=== PATIENT | female | born 2000 | race Caucasian/White ===

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

== ENCOUNTER 2022-01-27 09:37 | Outpatient (CLI) | payer OTHER, SELFPAY ==
--- NOTE | 2022-01-27 | ECHO_ITS ---
Patient Info Name: Greyson Johnson Age: 21 years : 2000 Gender: Female Ht: 63 in Wt: 250 lbs BSA: 2.31 m2 HR: 117 bpm Heart Rhythm: Tachycardia Technical Quality: Fair Exam Date: 01/27/2022 10:21 AM Exam Location: [facility] Patient Status: Outpatient Admit Date: 01/27/2022 Staff Ordering Physician: Maggie Jackson NP Plaster Mixer: Ashley Abdi RDCS Attending Provider: Maggie Jackson NP Referring Physician: Manuel HUITRON; Exam Type: CA echo doppler color flow Study Info Indications R00.0 - Tachycardia, unspecified Complete two-dimensional, color flow and Doppler transthoracic echocardiogram is performed. Summary 1. Complete two-dimensional, color flow and Doppler transthoracic echocardiogram is performed. 2. Left ventricular chamber dimension is normal. 3. Left ventricular systolic function is normal, estimated at 65-70%. 4. The left ventricular diastolic function is normal. Left Ventricle Left ventricular chamber dimension is normal. Left ventricular systolic function is normal, estimated at 65-70%. The left ventricular diastolic function is normal. Right Ventricle Right ventricular systolic function is normal and with normal TAPSE 1.8 cm. Right ventricular chamber dimension is normal. Left Atria Left atrial chamber dimension is normal. Right Atria Right atrial chamber dimension is normal. Aortic Valve The aortic valve is trileaflet. There is no aortic valve stenosis. There is no aortic valve regurgitation. Pulmonic Valve There is no pulmonic regurgitation. Mitral Valve There is no mitral valve stenosis. There is no mitral valve regurgitation. Tricuspid Valve There is no tricuspid valve regurgitation. Pericardium/Pleural There is no pericardial effusion. Inferior Vena Cava Normal inferior vena cava with >50% collapse upon inspiration consistent with normal right atrial pressure, 5 mmHg. Aorta The aortic root size at the sinus of Valsalva is normal. Left Ventricular Outflow Tract Name Value Normal LVOT 2D LVOT Diameter 2.3 cm LVOT Doppler LVOT Peak Gradient 2 mmHg LVOT Mean Gradient 1 mmHg LVOT VTI 14 cm LVOT VTI/AV VTI Ratio 0.6 LVOT Stroke Volume 60 ml LVOT CO 6.0 l/min LVOT CI 2.6 l/min/m2 Pulmonic Valve Name Value Normal PV Doppler PV Peak Gradient 7 mmHg Mitral Valve Name Value Normal MV Doppler MV Peak Gradient
--- NOTE | 2022-01-27 | ECG_ITS ---
Measurements Intervals [place] Rate: 119 P: 20 TN: 153 QRS: -13 QRSD: 90 T: -9 QT: 432 QTc: 608 Interpretive Statements SINUS TACHYCARDIA VOLTAGE CRITERIA FOR LVH POOR R WAVE PROGRESSION, ANTERIOR LEADS BORDERLINE ST-T WAVE ABNORMALITY- ANTEROLAT/INF LEADS ABNORMAL ECG COMPARED TO ECG 12/08/2020 09:43:34 NO SIGNIFICANT CHANGES Electronically Signed On 01-27-2022 11:19:03 CDT by Asif Valadez D.O.
== END 2022-01-27 09:38 | disposition home or self-care (01) ==
LOC: ANHCARD 09:42
DX: R00.0 Tachycardia, unspecified (principal)
CPT/HCPCS: 93005; 93306

== ENCOUNTER 2022-07-19 14:30 | Outpatient (RCR) | payer OTHER, SELFPAY | END 2022-07-31 13:53 | disposition home or self-care (01) | LOC: ANHDMC 14:30 | DX: E11.65 Type 2 diabetes mellitus with hyperglycemia (principal); Z71.89 Other specified counseling | CPT/HCPCS: 99199; G0108; G0109 ==

== ENCOUNTER 2022-07-25 08:11 | Outpatient (CLI) | payer OTHER, SELFPAY ==
[2022-07-25 13:47] LABS: Anion Gap 6 mmol/L (8-16); Blood Urea Nitrogen 9 mg/dL (7-17); Calcium 8.9 mg/dL (8.4-10.2); Carbon Dioxide 30 mmol/L (22-30); Chloride 99 mmol/L (98-107); Cholesterol 146 mg/dL (0-200); Estimated Glomerular Filt Rate > 60; Glucose 276 mg/dL (65-110); HDL Direct 34 mg/dL; Potassium 4.1 mmol/L (3.4-5.0); Sodium 135 mmol/L (137-145); Triglycerides 329 mg/dL (<150)
[2022-07-25 13:57] LABS: LDL Cholesterol Direct 58 mg/dL
[2022-07-25 14:15] LABS: Creatinine Urine 11.2 mg/dL
[2022-07-25 14:27] LABS: Microalbumin Urine Random < 6.0 mg/L (0-16.7)
== END 2022-07-25 08:12 | disposition home or self-care (01) ==
LOC: ANHWCLAB 08:12
PROVIDERS: Visit Provider Internal Medicine Endocrinology, Diabetes & Metabolism
DX: E11.65 Type 2 diabetes mellitus with hyperglycemia (principal); Z79.4 Long term (current) use of insulin
CPT/HCPCS: 36415; 80048; 80061; 82043; 84443

== ENCOUNTER 2022-12-26 09:28 | Outpatient (RCR) | payer OTHER, SELFPAY ==
[2022-12-26 09:34] VITALS: BMI 41.8
[2022-12-26 09:35] VITALS: BMI 41.8
== END 2023-03-12 10:25 | disposition home or self-care (01) ==
LOC: ANHDMC 09:28
PROVIDERS: Visit Provider Internal Medicine Endocrinology, Diabetes & Metabolism
DX: E11.65 Type 2 diabetes mellitus with hyperglycemia (principal); Z79.4 Long term (current) use of insulin; Z71.3 Dietary counseling and surveillance
CPT/HCPCS: 97802

== ENCOUNTER 2023-02-21 20:49 | Emergency (ER) | payer OTHER, SELFPAY ==
[2023-02-21 20:50] VITALS: BP 160/90; PULSE 75; RESP 16; TEMP 36.4; O2SAT 99
[2023-02-21 20:54] LABS: Glucose Point of Care 225 mg/dl (65-105)
[2023-02-21 22:43] VITALS: O2SAT 99
[2023-02-21 22:44] VITALS: BP 149/96; O2SAT 98
[2023-02-21 22:45] VITALS: O2SAT 100
[2023-02-21 22:46] VITALS: BP 156/105; O2SAT 97
[2023-02-21 23:02] VITALS: O2SAT 100
--- NOTE | 2023-02-21 23:25 | ED.GENADULT ---
HPI - General Adult General Chief complaint: Recheck/Abnormal Lab/Rx Stated complaint: high blood sugar Time Seen by Provider: 02/21/23 22:46 History of Present Illness HPI narrative: Patient a 22-year-old female who presents the emergency department with chief complaint of hyperglycemia. Patient reports she has diabetes and uses a CGM with an insulin pump patient reports that she noticed that her blood sugars were running high this evening and also reports that she had eaten more than normal. Patient reports that by the time she got to the emergency department her blood sugars had already started improving and were down in the 200s which is her normal. Patient states she is having no chest pain or shortness of breath nausea vomiting or diarrhea Related Data Home Medications Medication Instructions Recorded Confirmed atorvastatin 40 mg tablet 40 mg PO DAILY 12/07/22 02/19/23 cyanocobalamin (vitamin B-12) 1,000 mcg PO DAILY 12/07/22 02/19/23 1,000 mcg capsule diltiazem HCl 120 mg 120 mg PO DAILY 12/07/22 02/19/23 capsule,extended release 24 hr empagliflozin 10 mg tablet 10 mg PO DAILY 12/07/22 02/19/23 (Jardiance) ferrous sulfate 325 mg (65 mg 325 mg PO DAILY 12/07/22 02/19/23 iron) tablet lamotrigine 100 mg tablet 100 mg PO DAILY 12/07/22 02/19/23 losartan 25 mg tablet 25 mg PO DAILY 12/07/22 02/19/23 paliperidone 9 mg tablet,extended 9 mg PO ONCE 12/07/22 02/19/23 release 24 hr Allergies Allergy/AdvReac Type Severity Reaction Status Date / Time adhesive tape Allergy Mild Itching Verified 02/19/23 09:39 Review of Systems Review of Systems: A 10 system review of systems was completed on the patient and is negative except for what is stated in the HPI. Nursing and ancillary documentation was reviewed. 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 HEAD: Normocephalic, atraumatic. EYES: PERRLA and EOMI. ENT: Nares clear, no rhinorrhea or epistaxis. Mucous membranes moist. NECK: Supple. CHEST: Clear to auscultation. No respiratory distress. HEART: Regular rate and rhythm. No murmur heard. Normal peripheral pulses. ABDOMEN: Soft, nontender, nondistended, normal active bowel sounds. EXTREMITIES: Normal range of motion. No edema. SKIN: Warm, dry, no rash. NEURO: No focal deficits. Alert and oriented x3. PSYCH: Normal mood and affect. Course Vital Signs Vital signs: Vital Signs Temperature 36.4 C 02/21/23 20:50 Pulse Rate 75 02/21/23 20:50 Respiratory Rate 16 02/21/23 20:50 Blood Pressure 160/90 H 02/21/23 20:50 Pulse Oximetry 99 02/21/23 20:50 Oxygen Delivery Room Air 02/21/23 20:50 Temperature 36.4 C 02/21/23 20:50 Pulse Rate 75 02/21/23 20:50 Respiratory Rate 16 02/21/23 20:50 Blood Pressure 160/90 H 02/21/23 20:50 Pulse Oximetry 99 02/21/23 20:50 Oxygen Delivery Room Air 02/21/23 20:5
[2023-02-21 23:48] LABS: Appearance Urine Cloudy (Clear); Bacteria Urine None Seen /hpf; Bilirubin Urine Negative (Negative); Blood Urine Negative (Negative); Color Urine Yellow (Yellow); Glucose Urine UA 3+ mg/dL (Negative); Ketones Urine Negative (Negative); Leukocyte Esterase Ur Negative LEU/UL (Negative); Need Manual Microscopic Reviewed; Nitrate Urine Negative (Negative); Non Pathogenic Casts 0-2; Protein Urine Negative (Negative); Specific Grav Ur 1.025 (1.001-1.035); Squamous Epithelial Cell Urine Occasional /hpf (Few); Urobilinogen Urine 0.2 mg/dL (<2.0); WBC Urine 0-5 /hpf
[2023-02-21 23:53] LABS: Add Urine Microscopic? YES
[2023-02-22 00:10] VITALS: BP 138/95; PULSE 74; RESP 18; O2SAT 98
== END 2023-02-22 00:19 | disposition home or self-care (01) ==
LOC: ANHED 02-22 00:12
PROVIDERS: Emergency Provider Emergency Medicine
DX: E11.65 Type 2 diabetes mellitus with hyperglycemia (principal); Z79.84 Long term (current) use of oral hypoglycemic drugs; Z79.4 Long term (current) use of insulin; Z79.85 Long-term (current) use of injectable non-insulin antidiabetic drugs; Z96.41 Presence of insulin pump (external) (internal)
CPT/HCPCS: 81001; 82948; 99283

== ENCOUNTER 2023-07-23 07:52 | Emergency (ER) | payer OTHER, SELFPAY ==
[2023-07-23 07:56] VITALS: BP 136/104; PULSE 106; RESP 16; TEMP 36.6; O2SAT 100
[2023-07-23 08:13] LABS: Glucose Point of Care 288 mg/dl (65-105)
[2023-07-23] MEDS: SODIUM CHLORIDE 0.9% IV 1,000 ML 999 ML IV CONT (08:16)
[2023-07-23] MEDS: ONDANSETRON INJ 4 MG/2 ML VIAL IV PUSH (08:17)
[2023-07-23 08:19] VITALS: BP 131/88; PULSE 99; RESP 14; O2SAT 99
[2023-07-23 09:23] LABS: Carbon Dioxide 26 mmol/L (22-30); Chloride 104 mmol/L (98-107); Potassium 3.9 mmol/L (3.4-5.0); Sodium 135 mmol/L (137-145)
[2023-07-23 09:24] LABS: Alanine Aminotransferase 23 U/L (6-35); Albumin Level 4.1 g/dL (3.5-5.1); Alkaline Phosphatase 87 U/L (38-126); Anion Gap 5 mmol/L (8-16); Aspartate Amino Transferase 23 U/L (14-36); Bilirubin,Total 0.5 mg/dL (0.2-1.3); Blood Urea Nitrogen 10 mg/dL (7-17); Calcium 8.5 mg/dL (8.4-10.2); Estimated CRCL calculation 218 ml/min; Estimated Glomerular Filt Rate > 60; Glucose 283 mg/dL (65-110)
[2023-07-23 09:37] VITALS: BP 138/80; PULSE 97; RESP 15; O2SAT 100
--- NOTE | 2023-07-23 10:20 | ED.GENADULT ---
HPI - General Adult General Chief complaint: Recheck/Abnormal Lab/Rx Stated complaint: high BS Time Seen by Provider: 07/23/23 07:54 History of Present Illness HPI narrative: Patient is a 22-year-old female who presents ER with elevated blood sugars. She has noticed over last several days her blood sugars have been in 300s. She reports she has taken off her insulin pump but she had tried placing at different sites. She reports she has not been taking her Trulicity or her Jardiance. No fevers or chills or sweats. She has had mild nausea. Chest pain or chest pressure. No additional concerns. Related Data Home Medications Medication Instructions Recorded Confirmed atorvastatin 40 mg tablet 40 mg PO DAILY 12/07/22 05/17/23 cyanocobalamin (vitamin B-12) 1,000 mcg PO DAILY 12/07/22 05/17/23 1,000 mcg capsule diltiazem HCl 120 mg 120 mg PO DAILY 12/07/22 05/17/23 capsule,extended release 24 hr ferrous sulfate 325 mg (65 mg 325 mg PO DAILY 12/07/22 05/17/23 iron) tablet lamotrigine 100 mg tablet 100 mg PO DAILY 12/07/22 05/17/23 losartan 25 mg tablet 25 mg PO DAILY 12/07/22 05/17/23 paliperidone 9 mg tablet,extended 9 mg PO ONCE 12/07/22 05/17/23 release 24 hr Allergies Allergy/AdvReac Type Severity Reaction Status Date / Time adhesive tape Allergy Mild Itching Verified 07/23/23 07:56 Review of Systems Review of Systems: All systems reviewed & are unremarkable except as noted in HPI and below Constitutional: Constitutional: Reports no additional constitutional complaints ENT: Reports system reviewed and no additional complaints, except as documented Cardiovascular: Cardiovascular: Reports no additional cardiovascular complaints Respiratory: Respiratory: Reports no additional respiratory complaints Gastrointestinal: Gastrointestinal: Denies abdominal pain, Reports nausea and Denies vomiting [facility] Past Medical History Medical History History of anxiety History of borderline personality disorder History of diabetes mellitus Surgical History Surgical History H/O wrist surgery Family History Family History Mother Diabetes mellitus Type 1 DM Drug addiction Father Hypertension Diabetes mellitus Type 2 DM Social History Social History Smoking status: Never smoker Alcohol intake: never Substance use: never Do You Feel Safe in your Home?: Yes Lack of Transportation: YES Lack of Food: Never True Current Housing: I Have Housing Concerned About Future Housing: No Difficulty Paying Gas/Electric Bills: No Difficulty Paying for Meds: No Currently Unemployed: No Education: High School Diploma/GED Difficulty w/ Childcare or Family Care: No Living arrangements: with family Occupation/Education: occupation 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 HEAD: Normocephalic, atraumatic. ENT: Mucous membranes moist. NECK: Supple. CHEST: Clear to auscultation. No respiratory distress. HEART: Regular rate and rhythm. Normal peripheral pulses. ABDOMEN: Soft, nontender, nondistended. EXTREMITIES: Normal range of motion. No edema. SKIN: Warm, dry, no rash. NEURO: Alert and oriented x3. PSYCH: Normal mood and affect. Course Course Emergency Course: patient resting comfortably. She has been hydrated and received Zofran. I have discussed the need for compliance with diabetic medication regimen to better guide any additional treatment of her elevated blood sugars. She has verbalized understanding. She will be disch
[2023-07-23 10:41] VITALS: BP 105/66; PULSE 66; RESP 16; TEMP 37.1; O2SAT 100
== END 2023-07-23 10:46 | disposition home or self-care (01) ==
PROVIDERS: Emergency Provider Emergency Medicine
DX: E11.65 Type 2 diabetes mellitus with hyperglycemia (principal); R11.0 Nausea; T38.3X6A Underdosing of insulin and oral hypoglycemic [antidiabetic] drugs, initial encounter; Z96.41 Presence of insulin pump (external) (internal); Z79.85 Long-term (current) use of injectable non-insulin antidiabetic drugs; Z79.84 Long term (current) use of oral hypoglycemic drugs; Z79.4 Long term (current) use of insulin
CPT/HCPCS: 36415; 80053; 82948; 96361; 96374; 99284; J2405; J7030

== ENCOUNTER 2023-08-18 14:43 | Emergency (ER) | payer OTHER, SELFPAY ==
--- NOTE | ~2023-08-18 | CT_ITS ---
EXAMINATION: CT brain wo con DATE: 08/18/2023 15:13 INDICATION: head injury . TECHNIQUE: Computed tomography (CT) of the head was performed without intravenous contrast. The mA wa s adjusted according to patient size. Iterative reconstruction technique was employed. The dose-lengt h product was 529.67 mGy-cm. COMPARISON: None. FINDINGS: No acute intracranial hemorrhage or extra-axial fluid collection. No hydrocephalus, mass, or herniation. No acute ischemic infarct. Unremarkable dural venous sinus attenuation. No acute osseous abnormality. The aerated spaces are clear. IMPRESSION: No acute intracranial process. Reviewed, dictated and finalized at location K.
[2023-08-18 14:44] VITALS: BP 151/103; PULSE 106; RESP 18; TEMP 36.2; O2SAT 98
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
[2023-08-18] MEDS: KETOROLAC 30 MG/ML VIAL (*BKC) IM (16:02)
== END 2023-08-18 16:13 | disposition home or self-care (01) ==
PROVIDERS: Emergency Provider Emergency Medicine
DX: S06.0XAA Concussion with loss of consciousness status unknown, initial encounter (principal); R51.9 Headache, unspecified; E11.9 Type 2 diabetes mellitus without complications; V49.9XXA Car occupant (driver) (passenger) injured in unspecified traffic accident, initial encounter
CPT/HCPCS: 70450; 96372; 99284; J1885

== ENCOUNTER 2023-09-14 10:41 | Outpatient (CLI) | payer OTHER, SELFPAY | END 2023-09-14 10:42 | disposition home or self-care (01) | LOC: ANHAUDIO 10:42 | DX: H91.93 Unspecified hearing loss, bilateral (principal) | CPT/HCPCS: 92552; 92556; 92567; 92587 ==

== ENCOUNTER 2024-03-11 15:14 | Emergency (ER) | payer OTHER, SELFPAY ==
[2024-03-11 15:15] VITALS: BP 126/88; PULSE 113; RESP 18; TEMP 36.6; O2SAT 97
[2024-03-11 16:16] VITALS: BP 128/90; PULSE 116; RESP 18; TEMP 36.6; O2SAT 97
[2024-03-11 17:06] LABS: Basophils Percent Auto 0.1 % (0.2-1.2); Eosinophils Percent Auto 0.1 % (0-4.4); Hematocrit 44.8 % (37.0-47.0); Hemoglobin 15.3 g/dL (12.0-15.0); Immature Granulocyte Absolute 0.03 K/mm3 (0.00-0.031); Immature Granulocyte Percent A 0.4 % (0-0.5); Lymphocytes Percent Auto 21.9 % (18.3-44.2); Mean Corpuscular HGB Conc 34.2 g/dl (32-36); Mean Corpuscular Hemoglobin 27.1 pg (26-34); Mean Corpuscular Volume 79.3 fl (80-100); Mean Platelet Volume 10.1 fl (7.4-10.4); Monocytes Absolute Auto 0.5 K/mm3 (0.1-0.6); Monocytes Percent Auto 5.7 % (2.6-8.5); Neutrophils Absolute Auto 5.9 K/mm3 (1.3-6.7); Neutrophils Percent Auto 71.8 % (45.5-73.1); Platelet Count Result 240 k/mm3 (150-375); Red Blood Count 5.65 M/mm3 (4.2-5.4); White Blood Count 8.2 K/mm3 (4.5-10.0)
[2024-03-11 17:07] LABS: Add Urine Microscopic? NO; Appearance Urine Clear (Clear); Bilirubin Urine Negative (Negative); Blood Urine Negative (Negative); Color Urine Yellow (Yellow); Glucose Urine UA 3+ mg/dL (Negative); Ketones Urine Negative (Negative); Leukocyte Esterase Ur Negative LEU/UL (Negative); Nitrate Urine Negative (Negative); Protein Urine Negative (Negative); Specific Grav Ur > 1.045 (1.001-1.035); Urobilinogen Urine 0.2 mg/dL (<2.0)
[2024-03-11 17:15] LABS: Pregnancy On Board Control Positive; Urine Pregnancy Test Negative
[2024-03-11 17:23] LABS: Alanine Aminotransferase 23 U/L (6-35); Albumin Level 4.5 g/dL (3.5-5.1); Alkaline Phosphatase 99 U/L (38-126); Amphetamine Screen Urine Negative (Negative); Anion Gap 10 mmol/L (4-12); Aspartate Amino Transferase 21 U/L (14-36); Barbiturate Screen Urine Negative (Negative); Benzodiazepines Screen Urine Negative (Negative); Bilirubin,Total 0.8 mg/dL (0.2-1.3); Blood Urea Nitrogen 10 mg/dL (7-17); Calcium 9.1 mg/dL (8.4-10.2); Cannabinoid Screen Urine Negative (Negative); Carbon Dioxide 25 mmol/L (22-30); Chloride 101 mmol/L (98-107); Cocaine Screen Urine Negative (Negative); Estimated CRCL calculation 166 ml/min; Estimated Glomerular Filt Rate > 60; Glucose 213 mg/dL (65-110); Methadone Screen Urine Negative (Negative); Opiate Screen Urine Negative (Negative); Phencyclidine Screen Urine Negative (Negative); Potassium 3.8 mmol/L (3.4-5.0); Sodium 136 mmol/L (137-145)
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
[2024-03-11 17:37] LABS: Acetaminophen < 10 ug/mL (10-30); Ethanol < 10 mg/dL (<10); Salicylate < 1.0 mg/dL (2-20)
[2024-03-11 17:43] LABS: SARS-CoV-2 RNA PCR Negative (Negative)
[2024-03-11 17:47] LABS: BEDSIDEPREGUCG Negative (Negative)
[2024-03-11 18:39] LABS: Thyroid Stimulating Hormone Reflex 0.601 uIU/mL (0.465-4.68)
--- NOTE | 2024-03-11 18:49 | PC.NURSE ---
pt chart has been faxed over to [facility] at this time
[2024-03-11] MEDS: traMADol HCL (*CRX) 25 MG TABLET PO (18:58)
[2024-03-11] MEDS: hydrOXYzine HCL 25 MG TABLET PO (18:58)
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
== END 2024-03-11 21:12 | disposition home or self-care (01) ==
PROVIDERS: Emergency Provider Emergency Medicine; PCP Nurse Practitioner Family
DX: F60.3 Borderline personality disorder (principal); R45.86 Emotional lability; Z11.52 Encounter for screening for COVID-19; F41.9 Anxiety disorder, unspecified; E11.9 Type 2 diabetes mellitus without complications; Z79.4 Long term (current) use of insulin; Z79.899 Other long term (current) drug therapy
CPT/HCPCS: 36415; 80053; 80143; 80179; 80307; 81003; 81025; 82077; 84443; 85025; 87635; 99284; A9270

== ENCOUNTER 2024-04-18 12:30 | Outpatient (RCR) | payer OTHER, SELFPAY ==
--- NOTE | 2024-02-28 11:04 | PTOPEVAL1 ---
Assessment and note entered by Justin Whitfield Evaluation Information Assessment Status Evaluation ICD-10 Condition Codes (PT) Cervicalgia M54.2,M54.6,Pain in low back M54.50, Weakness R53.1 Other ICD-10 Condition Codes ( M79.10, M79.2 PT) Onset 02/27/23 Subjective Information Pt. reports she has been experiencing pain through her entire back for the past couple of years. She states that she has an ache through her entire back. She states that she is very tender to touch and has recently been diagnosed with fibromyalgia. She reports that any physical activity, especially lifting will increase her pain. She reports that she can stand for about 1 hour before having to sit due to her back pain. 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 She states that changes in weather also seem to increase her pain. She states that she is taking a muscle relaxer before bed each night to help with sleep. She states that she is normally getting about 6-7 hours of sleep per night. She states that she is not participating in any formal exercise. She reports that her goal is to reduce her pain. Reported Pain Level Pain Score 6: Self Report Assessment PT Clinical Summary Pt. is a 23 year old female who enters the clinic with a diagnosis of myalgia and back pain. She has an extensive PMH including fibromyalgia, smoking, and diabetes. she currently presents with impaired postural awareness, impaired abdominals strength, impaired u.e. and l.e. strength, poor endurance, pain and functional decline. continued skilled PT is indicated in order to improve these areas to allow for improved comfort and efficiency with IADL's. Plan of Care Interventions Electrical Stimulation,Hot Pack/Cold Pack,Manual Therapy,Neuro Re-education,Patient/Caregiver Educati,Therapeutic Activities,Therapeutic Exercise PT Services Indicated Yes Treatment Frequency and 2x/week x 10 visits Duration These treatments will address the objective and functional deficits as defined above. The patient will be advanced safely and appropriately in order for the patient to progress towards his/her prior level of function. Additional exercises will be introduced and as well as a comprehensive home exercise program upon discharge, if needed, ?to ensure carryover of functional gains achieved in the clinic. This treatment plan has been reviewed and agreement upon by the patient.
--- NOTE | 2024-02-28 11:06 | OPREHPOC ---
Outpatient Therapy Plan of Care This is a Multidisciplinary Plan of Care that may contain components documented by all disciplines (PT, OT, and ST.) PT Problem 1 PT Problem #1 Knowledge Deficit PT Goal 1 Goal / Goal Update Pt. will be independent with a HEP focusing on core strength and trunk mobility. Target Visit 2 PT Problem 2 PT Problem #2 Impaired Strength PT Goal 1 Goal / Goal Update Pt. will present with good upper, lower and oblique abdominal strength in order to improve pelvic and lumbar stability in standing Pt. will present with 4+/5 gross l.e. and u.e. strength. Target Visit 10 PT Problem 3 PT Problem #3 Impaired Functional Mobil PT Goal 1 Goal / Goal Update Pt. will demonstrate ability to participate in 30- 45 minutes of standing therapeutic activities while in the clinic with 3/10 pain reports at worst Pt. will demonstrate ability to lift a 10-20# object from floor to waist with proper mechanics for 10 reps Pt. will demonstrate improved postural awareness with improved shoulder and had positioning upon visual assessment. Pt. will report developing an walking regimen where she is walking 30 minutes daily. Target Visit 10
--- NOTE | 2024-03-17 14:14 | PCPTNOTE ---
Pt was not present at 1400, was called by clerical at 1405. Pt stated she had forgotten and would not be in today. States she will be present for Sunday treatment. Pt informed this absence would count as her first in her attendance policy however.
--- NOTE | 2024-04-08 16:13 | PCPTNOTE ---
Patient did not show up for scheduled appointment this date.
--- NOTE | 2024-04-18 12:38 | PCPTNOTE ---
Pt did not show up on her appointment time, office called and pt states she forgot about her appointment.
--- NOTE | 2024-04-21 13:13 | PTOPDC ---
Assessment and note entered by Catherine Mcclendon, PT Evaluation Information Assessment Status Discharge - Pt Not Present ICD-10 Condition Codes (PT) Cervicalgia M54.2,M54.6,Pain in low back M54.50, Weakness R53.1 Other ICD-10 Condition Codes ( M79.10, M79.2 PT) Onset 02/27/23 Subjective Information Pt. reports she has been experiencing pain through her entire back for the past couple of years. She states that she has an ache through her entire back. She states that she is very tender to touch and has recently been diagnosed with fibromyalgia. She reports that any physical activity, especially lifting will increase her pain. She reports that she can stand for about 1 hour before having to sit due to her back pain. 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 She states that changes in weather also seem to increase her pain. She states that she is taking a muscle relaxer before bed each night to help with sleep. She states that she is normally getting about 6-7 hours of sleep per night. She states that she is not participating in any formal exercise. She reports that her goal is to reduce her pain. Assessment PT Clinical Summary Pt has no-call, no-showed two appointments and cancelled within 2 hours a third appointment, attended 5 appts since starting therapy on . Pt is outside of her attendance policy and thus is being discharged due to nonattendance. Pt has been educated in this, and advised she may return to therapy with a new prescription. Plan of Care PT Services Indicated No
== END 2024-04-21 15:38 | disposition home or self-care (01) ==
LOC: ANHHIPT 12:30
PROVIDERS: Visit Provider Nurse Practitioner
DX: M79.2 Neuralgia and neuritis, unspecified (principal); M79.10 Myalgia, unspecified site
CPT/HCPCS: 97110; 97140; 97162; 97530

== ENCOUNTER 2024-08-21 10:30 | Emergency (ER) | payer OTHER, SELFPAY ==
--- NOTE | ~2024-08-21 | CT_ITS ---
EXAMINATION: CT abdomen pelvis w con DATE: 08/21/2024 12:36 INDICATION: Abdominal pain, nausea, vomiting and diarrhea. TECHNIQUE: Computed tomography (CT) of the abdomen and pelvis was performed with 100 mL Omnipaque-350 intravenous contrast. Automated exposure control and iterative reconstruction technique were employe d. The dose-length product was 1427.79 mGy-cm. COMPARISON: None FINDINGS: Lung bases are clear. Heart size is normal. No pericardial or pleural effusion. Small sliding-type hi atal hernia. Diffuse hepatic steatosis with focal sparing along the gallbladder fossa. Gallbladder, s pleen, pancreas, bilateral adrenal glands and kidneys are normal. Bowels including the appendix are n ormal. Bladder, anteverted uterus and bilateral adnexa are unremarkable. No free intraperitoneal gas or fluid. No pathologically enlarged abdominal or pelvic lymphadenopathy. Small fat-containing right inguinal hernia. Mild lumbar dextrocurvature with mild spondylosis. Moderate lower thoracic spondylos is. IMPRESSION: 1. Small sliding-type hiatal hernia. 2. Diffuse hepatic steatosis. 3. Small fat-containing right inguinal hernia. Reviewed, dictated and finalized at location B.
[2024-08-21 10:38] VITALS: BP 132/93; PULSE 110; RESP 18; TEMP 36.4; O2SAT 98
[2024-08-21 10:45] VITALS: BP 123/91; PULSE 100; RESP 18; O2SAT 96
--- OUTSIDE RECORDS SUMMARY | 2024-08-21 11:16 | XMS_ITS ---
Author Organization [facility] Address [address] [place] [address] Phone Care Team Providers Care Learning And Development Associate Name Role Phone Flower Leija APRN, CNP Primary Care [facility] Status:Enrolled (Active) Start date:06/11/2024 Enrollment date:06/11/2024 Related social drivers of health:Intimate Partner Violence, Social Connections, Alcohol Use, Tobacco Use, Financial Resource Strain,Depression, Stress, Physical Activity, Food Insecurity, Transportation Needs, Housing Stability, Utilities Continued Care and Services Coordination
--- OUTSIDE RECORDS SUMMARY | 2024-08-21 11:16 | XMS_ITS | Clinical Summary ---
Author Organization [facility] Address [address] [place] [address] Phone Care Team Providers Care Sports Marketer Name Role Phone Liss, Flower Tolentino APRN, CNP Primary Care [facility] Social History Tobacco Use Types Packs/Day Years Used Date Smoking Tobacco: Never Assessed Comments Unknown Sex and Gender Information Value Date Recorded Sex Assigned at Female 02/06/2024 12:50 PM CDT Legal Sex Female 11:15 AM CDT Gender Identity Female 02/06/2024 12:50 PM CDT Sexual Orientation Not on file Plan of Treatment Health Maintenance Due Date Last Done Comments Hepatitis C Virus (HCV) Screening 2001 Meningococcal B Immunization (1 of 2 - Standard) 2017 Human Papillomavirus (HPV) Immunization (2 - 3-dose series) 03/14/2019 02/14/2019 Pap Smear 2022 Influenza Immunization (#1) 2024 03/0 09/2022, 03/06/2021, 04/16/2020, Additional history exists SARS-COV-2 Immunization ( season) 2024 04/24/2022, 05/20/2021, 07/19/2020 Respiratory Syncytial Virus (RSV) Immunization (Adult) (1 - 1-dose 75+ series) 2076 Hepatitis B Immunization Completed 003, 2001, 2001 Pneumococcal Immunization Combined Aged Out 01/01/2003, 04/07/2002, 02/03/2002, Additional history exists No longer eligible based on patient's age to complete this topic TdaP Immunization Completed 12/16/2012 Meningococcal Immunization (ACWY) Completed 02/14/2019 Rotavirus Immunization Aged Out No lo nger eligible based on patient's age to complete this topic Insurance MEDICAID [employer] Care Teams Sports Marketer Relationship Specialty Start Date End Date Flower Leija APRN, FOOD AND BEVERAGE LEAD [address] [place] [address] PCP - General Advanced Practice Nurse 02/06/24
--- OUTSIDE RECORDS SUMMARY | 2024-08-21 11:16 | XMS_ITS | Encounter Summary ---
Author Organization [facility] Healthcare Address [address] [place] [address] Care Team Providers Care Band Director Name Role Phone Maggie Jackson AUTO SPECIALTY SERVICES MANAGER Primary Care Provider [phone] Reason for Visit * Reason Onset Date Comments Prior Auth 08/13/2024 Qulipta 30 mg Encounter Details Date Type Department Care Team (Late st Contact Info) Description 08/13/2024 Telephone [facility] Medical Group Neurology [address] [facility] [address] [place] [phone] Mansoor Albert MD [address] [place] [id number] Prior Auth (Qulipta 30 mg) Social History Tobacco Use Types Packs/Day Years Used Date Smoking Tobacco: Every Day Vaping Alcohol Use Standard Drinks/Week Comments Not Currently 0 (1 standard drink = 0.6 oz pur e alcohol) Social Connection and Isolat ion Panel [NHANES] Answer Date Recorded In a typical week, how many times do you talk on the phone with family, friends, or neighbors? More than three times a week 04/16/2020 How often do you get togethe r with friends or relatives? More than three times a week 04/16/2020 How often do you attend chur ch or christianity services? More than 4 times per year 04/16/2020 Do you belong to any clubs o r organizations such as tenriism groups, unions, fraternal or athletic groups, or school groups? No 04/16/2020 How often do you attend meet ings of the clubs or organizations you belong to? Never 04/16/2020 Are you , , di vorced, , never , or living with a partner? Never 04/16/2020 AUDIT-C Answer Date Recorded Q1: How often do you have a drink containing alcohol? Never 04/29/2024 Q2: How many drinks containi ng alcohol do you have on a typical day when you are drinking? Patient does not drink Q3: How often do you have si x or more drinks on one occasion? Never 04/29/2024 Overall Financial Resource Strain (CARDIA) Answe r Date Recorded How hard is it for you to pa y for the very basics like food, housing, medical care, and heating? Not hard at all 04/16/2020 Hunger Vital Sign Answer Date Recorded Within the past 12 months, y ou worried that your food would run out before you got the money to buy more. Never true 04/16/20 20 Within the past 12 months, t he food you bought just didn't last and you didn't have money to get more. Never true 04/16/2020 PRAPARE - Transportation Answer Date Re corded In the past 12 months, has l ack of transportation kept you from medical appointments or from getting medications? No 08/2019 In the past 12 months, has l ack of transportation kept you from meetings, work, or from getting things needed for daily living? No 04/16/2020 Personal Safety Answer Date Recorded Have you ever been in or are you currently in a harmful physical or emotional relationship or is someone making you feel afraid or unsafe? Denies 01/22/2024 Comments No Sex and Gender Information Value Date Recorded Sex Assigned at Not on file Legal Sex Female 3:03 AM RISK MANAGEMENT MANAGER Gender Identity Not on file Sexual Orientation Not on file documented as of this encounter Miscellaneous Notes * Telephone Encounter - Emily Curry MA - 08/19/2024 8:58 AM CDT PA denied for Qulipta 30mg because: Failure of at least 2 of the following oral agents, unless clinically significant adverse effects are experienced or all are contraindicated; antiepileptic drugs (e.g., divalproex sodium, sodium valproate, topiramate), beta-blockers (e.g. metoprolol, propranolol, timolol), antidepressants (e.g., amitriptyline, venlafaxine). Member must try and fail the following drug alternatives: propranolol tablets, amitriptyline tablets, and others covered within quantity limits, without prior authorization). Scanned denial into media * Telephone Encounter - Emily Curry MA - 08/13/2024 11:23 AM CDT PA submitted for Qulipta mg through cover my meds. Waiting on determination documented in this encounter Plan of Treatment Not on file documented as of this encounter Visit Diagnoses Not on filedocumented in this encounter Care Teams Band Director Relationship Specialty Start Date End Date Maggie Jackson NP PCP - General Nephrology 02/20/22 documented as of this encounter
--- OUTSIDE RECORDS SUMMARY | 2024-08-21 11:16 | XMS_ITS ---
Author Organization [facility] Address [address] [place] [address] Care Team Providers Care Program Management Specialist Name Role Phone Lake Ellis Primary Care Provider Samantha Olsen [phone] REASON FOR VISIT Refills Social History Sex Assigned At : Social History Observation Description Sex Assigned At Female Encounters Encounter Location Date Provider Diagnosis [facility] [address] [place] [address] 08/01/2024 Lake Ellis Myalgia M79.10 Assessments Encounter Date Diagnosis (ICD Code) Assessment Notes Treatment Notes Treatment Clinical Notes Section Notes 08/01/2024 Myalgia (ICD-10 - M79.10) Plan Of Treatment Medication Medication Name Sig Start Date Stop Date Notes traMADol HCl 50 MG 1-2 tablet as needed for severe pain Orally Once a day 06/12/2024 Next Appt Details Provider Name:Lake Ellis , 09/03/2024 10:00:00 AM, [address] [facility] , [place], [address], Progress Notes * Enrico BARKEROB:2000 (23 yo F)Acc No.[id number]:08/01/2024 Patient: Greyson BAEZ :2000 A ge:23 Y S ex:Female Address:[address] [place] [address], [address] * Refills Stop traMADol HCl Tablet, 50 MG, Orally, 1-2 tablet as needed for severe pain, Once a day * true * Date: Generated for Samuel meléndez/Marika/Pedrito on: 0 08/21/2024 11:16 AM CDT
--- OUTSIDE RECORDS SUMMARY | 2024-08-21 11:16 | XMS_ITS ---
Author Organization Replaced by [facility] Address [address] [place] [address] Care Team Providers Care Credit Control Manager Name Role Phone Lake Ellis Primary Care Provider Samantha Olsen Unavailable [phone] Liam Finnegan Unavailable [phone] REASON FOR VISIT Doctor note Social History Sex Assigned At : Social History Observation Description Sex Assigned At Female Encounters Encounter Location Date Provider Diagnosis [facility] [address] [facility] [place] [address] 07/29/2024 Liam Finnegan Plan Of Treatment Next Appt Details Provider Name:Lake Ellis , 09/03/2024 10:00:00 AM, [address] [facility] [place], [address], Progress Notes * Carlos A JOHNSONisDOB:2000 (23 yo F)Acc No.[id number]:07/29/2024 UNLOCKED PROGRESS NOTE Progress Notes Patient: Greyson BAEZ Provider: Kristofer Finnegan, MSN, AGPCNP-BC :2000 A ge:23 Y S ex:Female Date:07/29/2024 Address:[address] [place], [place] [id number] Pcp:Lake Ellis Subjective: * Chief Complaints: * 1 . Doctor note. * Medical History: Objective: * Vitals: Assessment: Plan: * Treatment: * * Electronic signature of Donnell Finnegan , FAMILY CONSUMER SCIENTIST, [phone] on 08/21/2024 at 11:16 AM CDT Sign off status: Pending * Provider: Kristofer Finnegan, MSN, AGPCNP-BC Date: 0 07/29/2024 Generated for Printing/Faxing/eTransmitting on: 0 08/21/2024 11:16 AM CDT
--- NOTE | 2024-08-21 11:17 | ED_ITS ---
HPI - Abdominal Pain General Chief Complaint: Abdominal Pain Stated Complaint: abd pain, n/v Time Seen by Provider: 08/21/24 10:48 Source: patient Mode of arrival: ambulatory Limitations: no limitations History of Present Illness HPI narrative: Patient is a 21-year-old female who presents the ED with report of abdominal pain. Patient reports she has been having intermittent pain across her abdomen, described as a burning sensation with intermittent cramping, over the past 2-3 months. She saw her primary care doctor for this and was referred to a GI specialist in [place]. She is planning to undergo EGD with GI on 08/27. Patient reports having worsening nausea and vomiting, increased pain with eating. Also reports having diarrhea. Has been using Zofran at home without improvement. Denies fevers, urinary complaints, rectal bleeding, melena. Related Data Home Medications ?Medication ?Instructions ?Recorded ?Confirmed ?Last Taken ?Type cyanocobalamin (vitamin B-12) 1,000 mcg PO DAILY 12/07/22 07/24/24 Unknown History 1,000 mcg capsule ferrous sulfate 325 mg (65 mg 325 mg PO DAILY 12/07/22 07/24/24 Unknown History iron) tablet buspirone 15 mg tablet See Rx Instructions .Route .COMPLEX 03/19/24 07/24/24 Unknown History escitalopram oxalate 20 mg tablet 20 mg PO DAILY 03/19/24 07/24/24 Unknown History rizatriptan 5 mg tablet mg PO 04/01/24 07/24/24 Unknown History tizanidine 4 mg tablet mg PO 04/01/24 07/24/24 Unknown History hydroxyzine HCl 50 mg tablet mg PO PRN 07/24/24 07/24/24 Unknown History lamotrigine 150 mg tablet 150 mg PO BID 07/24/24 07/24/24 Unknown History paliperidone 3 mg tablet,extended 3 mg PO QAM 07/24/24 07/24/24 Unknown History release 24 hr (Invega) paliperidone 9 mg tablet,extended 9 mg PO DAILY 07/24/24 07/24/24 Unknown History release 24 hr pregabalin 150 mg capsule (Lyrica) 150 mg PO BID 07/24/24 07/24/24 Unknown History quetiapine 400 mg tablet 400 mg PO QHS 07/24/24 07/24/24 Unknown History sumatriptan succinate 100 mg tablet 100 mg PO Q2-4H PRN 07/24/24 07/24/24 Unknown History topiramate 100 mg tablet 100 mg PO BID 07/24/24 07/24/24 Unknown History tramadol 50 mg tablet 50 mg PO Q6H PRN 07/24/24 07/24/24 Unknown History Allergies Allergy/AdvReac Type Severity Reaction Status Date / Time acetaminophen (From Tylenol) AdvReac Intermediate Headache Verified 08/21/24 10:31 ibuprofen AdvReac Intermediate Headache Verified 08/21/24 10:31 adhesive tape AdvReac Mild Itching Verified 08/21/24 10:31 Review of Systems 2 Review of Systems: All systems reviewed & are unremarkable except as noted in HPI. All systems reviewed & are unremarkable except as noted in HPI and below PMFSH Past Medical History Medical History History of anxiety History of borderline personality disorder History of diabetes mellitus Surgical History Surgical History H/O wrist surgery Family History Family History Mother Diabetes mellitus Type 1 DM Drug addiction Father Hypertension Diabetes mellitus Type 2 DM Social History Social History Smoking status: Current every day smoker Tobacco type: e-cigarettes/vaping Alcohol intake: never Substance use: never Substance use type: marijuana Do You Feel Safe in your Home?: Yes Lack of Transportation: YES Lack of Food: Never True Current Housing: I Have Housing Concerned About Future Housing: No Difficulty Paying Gas/Electric Bills: No Difficulty Paying for Meds: No Currently Unemployed: No Education: High School Diploma/GED Difficulty w/ Childcare or Family Care: No Living arrangements: with family Occupation/Education: occupation 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 HEAD: Normocephalic, atraumatic. RESPIRATORY: Airway patent, respirations nonlabored. Clear to auscultation bilaterally, no rales, rhonchi, wheezing. CARDIOVASCULAR: Tachycardic with regular rhythm without murmurs, rubs, or gallops. ABDOMINAL: Soft, diffuse tenderness in lower quadrants bilaterally, epigastric region, nondistended. Normoactive BS. MUSCULOSKELETAL: Moves all extremities. No gross deformities. SKIN: Warm, dry, normal color. NEURO: A&O X3. Speech clear. PSYCHIATRIC: Appropriate mood and affect. Normal interaction. Course Vital Signs Vital signs: Vital Signs Temperature 97.6 F 08/21/24 10:38 Pulse Rate 110 H 08/21/24 10:38 Respiratory Rate 18 08/21/24 10:38 Blood Pressure 132/93 H 08/21/24 10:38 Pulse Oximetry 98 08/21/24 10:38 Oxygen Delivery Room Air 08/21/24 10:38 Temperature 97.6 F 08/21/24 10:38 Pulse Rate 97 08/21/24 13:31 Respiratory Rate 16 08/21/24 13:31 Blood Pressure 124/77 08/21/24 13:31 Pulse Oximetry 98 08/21/24 13:31 Oxygen Delivery Room Air 08/21/24 10:38 MDM - Abdominal Pain MDM Narrative Medical decision making narrative: Patient presented to ED with 2-3 month history of abdominal pain/burning. Scheduled to see GI next week. Patient mildly tachycardic upon arrival. In no acute distress. Does have diffuse tenderness on exam. Has never received CT imaging of her abdomen. Laboratory studies today without leukocytosis or anemia. Anion gap of 15, otherwise stable electrolytes, stable kidney function. Blood glucose is elevated to 350. Bicarb within normal range. Likely more related to dehydration. She does have ketones in urine, but as well as elevated specific gravity. She was given fluids in the ED. Blood sugar improved into the mid 200s. Patient reports that she does not currently have her insulin pump on as it is charging at home. She has not taken her normal home insulin today. UA with possible infection, 11-20 WBC, 2+ urine bacteria, however many squamous cells. Possibly contaminated catch. Patient denies urinary complaints. Sent for culture. Urine is negative. CT scan of abdomen/pelvis was obtained and showing small hernias, fatty liver, no other concerning changes. Discussed overall reassuring workup with patient. She is feeling significantly better with supportive therapy in the ED. Will discharge with Pepcid, nausea medicine, Bentyl for home use. Advised to keep appointment with GI for further evaluation. Given strict return precautions. Patient in agreement with plan, feels comfortable going home. Discharged in stable condition. Medical Records Attestation: I reviewed the patient's medical records. Lab Data Attestation: I reviewed the patient's lab results. 08/21/24 11:17 08/21/24 11:17 Labs: Lab Results 08/21/24 08/21/24 08/21/24 Range/Units 11:17 12:21 12:24 WBC 5.9 (4.5-10.0) K/mm3 RBC 5.41 H (4.2-5.4) M/mm3 Hgb 14.4 (12.0-15.0) g/dL Hct 43.1 (37.0-47.0) % MCV 79.7 L (80-100) fl MCH 26.6 (26-34) pg MCHC 33.4 (32-36) g/dl RDW 13.0 (11.5-14.5) % Plt Count 219 (150-375) k/mm3 MPV 9.9 (7.4-10.4) fl Immature Gran % (Auto) 0.5 (0-0.5) % Neut % (Auto) 67.6 (45.5-73.1) % Lymph % (Auto) 24.9 (18.3-44.2) % Riley % (Auto) 6.8 (2.6-8.5) % Eos % (Auto) 0.0 (0-4.4) % Baso % (Auto) 0.2 (0.2-1.2) % Lymph # (Auto) 1.46 (0.9-3.2) K/mm3 Riley # (Auto) 0.4 (0.1-0.6) K/mm3 Eos # (Auto) 0.0 (0-0.3) K/mm3 Baso # (Auto) 0.0 (0.0-0.1) K/mm3 Abs Immat Gran (auto) 0.03 (0.00-0.031) K/mm3 Absolute Neuts (auto) 4.0 (1.3-6.7) K/mm3 Absolute Nucleated RBC 0.000 (0.0-0.012) K/mm3 Nucleated RBC % 0.0 (0.0-0.2) % Sodium 138 (137-145) mmol/L Potassium 4.5 (3.4-5.0) mmol/L Chloride 101 (98-107) mmol/L Carbon Dioxide 22 (22-30) mmol/L Anion Gap 15 H (4-12) mmol/L BUN 9 (7-17) mg/dL Creatinine 0.44 L (0.7-1.0) mg/dL Estim Creat Clear Calc 197 ml/min Estimated GFR > 60 (59 - ) Glucose 350 H (65-110) mg/dL POC Capillary Glucose (65-105) mg/dl Calcium 9.1 (8.4-10.2) mg/dL Total Bilirubin 0.7 (0.2-1.3) mg/dL AST 30 (14-36) U/L ALT 31 (6-35) U/L Alkaline Phosphatase 93 (38-126) U/L Total Protein 7.0 (6.3-8.2) g/dL Albumin 4.7 (3.5-5.1) g/dL Lipase 82 (23-300) U/L Urine Color Yellow (Yellow) Urine Appearance Cloudy H (Clear) Urine pH 6.0 (5.0-9.0) Ur Specific [place] > 1.045 H (1.001-1.035) Urine Protein Negative (Negative) mg/dL Urine Glucose (UA) 3+ H (Negative) mg/dL Urine Ketones 2+ H (Negative) mg/dL Ur Blood (Man) Negative (Negative) Urine Nitrate Negative (Negative) Urine Bilirubin Negative (Negative) Urine Urobilinogen 0.2 (<2.0) mg/dL Add Ur Microanalysis Reviewed Leukocyte Esterase Rfl Negative (Negative) JOSEPH/UL Urine RBC 11-20 H (0-2) /hpf Urine WBC 11-20 H (0-3) /hpf Ur Squamous Epith Cells Many H (Few) /hpf Urine Bacteria 2+ H /hpf Urine Casts 0-2 POC Urine HCG, Qual Negative (Negative) 08/21/24 Range/Units 13:57 WBC (4.5-10.0) K/mm3 RBC (4.2-5.4) M/mm3 Hgb (12.0-15.0) g/dL Hct (37.0-47.0) % MCV (80-100) fl MCH (26-34) pg MCHC (32-36) g/dl RDW (11.5-14.5) % Plt Count (150-375) k/mm3 MPV (7.4-10.4) fl Immature Gran % (Auto) (0-0.5) % Neut % (Auto) (45.5-73.1) % Lymph % (Auto) (18.3-44.2) % Riley % (Auto) (2.6-8.5) % Eos % (Auto) (0-4.4) % Baso % (Auto) (0.2-1.2) % Lymph # (Auto) (0.9-3.2) K/mm3 Riley # (Auto) (0.1-0.6) K/mm3 Eos # (Auto) (0-0.3) K/mm3 Baso # (Auto) (0.0-0.1) K/mm3 Abs Immat Gran (auto) (0.00-0.031) K/mm3 Absolute Neuts (auto) (1.3-6.7) K/mm3 Absolute Nucleated RBC (0.0-0.012) K/mm3 Nucleated RBC % (0.0-0.2) % Sodium (137-145) mmol/L Potassium (3.4-5.0) mmol/L Chloride (98-107) mmol/L Carbon Dioxide (22-30) mmol/L Anion Gap (4-12) mmol/L BUN (7-17) mg/dL Creatinine (0.7-1.0) mg/dL Estim Creat Clear Calc ml/min Estimated GFR (59 - ) Glucose (65-110) mg/dL POC Capillary Glucose 263 H (65-105) mg/dl Calcium (8.4-10.2) mg/dL Total Bilirubin (0.2-1.3) mg/dL AST (14-36) U/L ALT (6-35) U/L Alkaline Phosphatase (38-126) U/L Total Protein (6.3-8.2) g/dL Albumin (3.5-5.1) g/dL Lipase (23-300) U/L Urine Color (Yellow) Urine Appearance (Clear) Urine pH (5.0-9.0) Ur Specific [place] (1.001-1.035) Urine Protein (Negative) mg/dL Urine Glucose (UA) (Negative) mg/dL Urine Ketones (Negative) mg/dL Ur Blood (Man) (Negative) Urine Nitrate (Negative) Urine Bilirubin (Negative) Urine Urobilinogen (<2.0) mg/dL Add Ur Microanalysis Leukocyte Esterase Rfl (Negative) JOSEPH/UL Urine RBC (0-2) /hpf Urine WBC (0-3) /hpf Ur Squamous Epith Cells (Few) /hpf Urine Bacteria /hpf Urine Casts POC Urine HCG, Qual (Negative) Imaging Data Attestation: I personally reviewed and interpreted this imaging study as follows: Radiologist's impression: ITS Impressions Abdomen/Pelvis CT 08/21/24 12:42 IMPRESSION: 1. Small sliding-type hiatal hernia. 2. Diffuse hepatic steatosis. 3. Small fat-containing right inguinal hernia. Discharge Plan Discharge Clinical Impression: Hiatal hernia Abdominal pain Qualifiers: Abdominal location: unspecified location Qualified Code(s): R10.9 - Unspecified abdominal pain Hyperglycemia due to type 2 diabetes mellitus Qualifiers: Diabetes mellitus bed bug exterminator insulin use: with bed bug exterminator use Qualified Code(s): E11.65 - Type 2 diabetes mellitus with hyperglycemia Nausea and vomiting Qualifiers: Vomiting type: unspecified Qualified Code(s): R11.2 - Nausea with vomiting, unspecified Patient Disposition: Home Condition: Stable Instructions: Antibiotic Form, Hiatal Hernia (ED), Irritable Bowel Syndrome (ED) Additional Instructions: Utilize zofran and/or Phenergan as needed for further nausea. Recommend taking Pepcid daily. Utilize Bentyl as needed for further abdominal discomfort. Stay well hydrated. Increase fluid intake. Recommend electrolyte rich fluids, gatorade, pedialyte, body armour. Recommend clear liquids or bland diet until symptoms improve, such as bananas, rice, applesauce, toast, or crackers. Follow up with your primary care doctor and GI specialist for further evaluation. Return to the ED if you experience worsening or severe symptoms, unable to keep down food or drink, severe pain, fevers, rectal bleeding, vomiting blood, or any other symptoms of concern. Patient Language: Guamanian Prescriptions: New dicyclomine 20 mg tablet 20 mg PO TID PRN (Reason: Abdominal Discomfort) Qty: 15 0RF famotidine 20 mg tablet 20 mg PO DAILY Qty: 30 0RF promethazine 12.5 mg tablet 12.5 mg PO Q6H PRN (Reason: nausea and vomiting) Qty: 15 0RF No Action buspirone 15 mg tablet See Rx Instructions .ROUTE .COMPLEX Rx Instructions: 15 mg orally 1 in am, 2 in pm escitalopram oxalate 20 mg tablet 20 mg PO DAILY lamotrigine 150 mg tablet 150 mg PO BID paliperidone [Invega] 3 mg tablet extended release 24hr 3 mg PO QAM quetiapine 400 mg tablet 400 mg PO QHS sumatriptan succinate 100 mg tablet 100 mg PO Q2-4H PRN topiramate 100 mg tablet 100 mg PO BID tramadol 50 mg tablet 50 mg PO Q6H PRN pregabalin [Lyrica] 150 mg capsule 150 mg PO BID (DME) Dexcom G6 Sensor Device See Rx Instructions .ROUTE .MEDSUPPLY Qty: 9 3RF Rx Instructions: [place] directed [place] [place] [facility] [place] Dexcom G6 Transmitter Device See Rx Instructions .ROUTE .MEDSUPPLY Qty: 1 3RF Rx Instructions: As directed Baqsimi 3 mg/actuation spray,non-aerosol 3 mg intranasal ONCE PRN (Reason: hypoglycemia) Qty: 1 0RF Rx Instructions: as a single dose ferrous sulfate 325 mg (65 mg iron) tablet 325 mg PO DAILY cyanocobalamin (vitamin B-12) 1,000 mcg capsule 1,000 mcg PO DAILY paliperidone 9 mg tablet extended release 24hr 9 mg PO DAILY glucose [Dex4 Glucose] 4 gram tablet,chewable 16 g PO Q15M PRN (Reason: hypoglycemia) Qty: 60 1RF Rx Instructions: until symptoms of low blood sugar are controlled tizanidine 4 mg tablet PO rizatriptan 5 mg tablet PO hydroxyzine HCl 50 mg tablet PO PRN insulin lispro [Humalog U-100 Insulin] 100 unit/mL solution 150 unit continuous subcutaneous infusion DAILY 90 Days Qty: 140 1RF albuterol sulfate [ProAir HFA] 90 mcg/actuation HFA aerosol inhaler 2 puff inhalation QID PRN (Reason: shortness of breath or wheezing) Qty: 8.5 0RF (DME) Dexcom G6 Pattern And Chain Maker Misc See Rx Instructions .Route Qty: 1 0RF Rx Instructions: As directed to monitor BS Follow-up/Referrals: PHYSICIAN NOT ON STAFF,NONSTAFF [Primary Care Provider] - Time of Disposition: 14:41
--- OUTSIDE RECORDS SUMMARY | 2024-08-21 11:17 | XMS_ITS | CONTINUITY OF CARE DOCUMENT ---
Author Name devika fortune Address Unknown Organization [facility] Address [address] [address] [place] [address] Phone [phone] Care Team Providers Care Spare Hand Name Role Phone Caio WINKLER, Albert Unavailable Liss WINKLER, Flower Unavailable KAVITA MADISON, PAXTON Unavailable PROBLEMS Condition Status Date Provider Notes Sleep apnea active Albert Kearney MD IRON DEFICIENCY active Albert Kearney MD B12 deficiency active Albert Kearney MD Screening active Albert Kearney MD Sinus/atrial tachycardia;nml tsh active Albert Kearney MD Diabetes mellitus active Albert Kearney MD n eg urcr adn degfr Asthma active Flower Herron [employer]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 Obesity active Flower Herron CON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 Hyperlipidemia;NEG CRP adn lpa active Maynor Kearney MD Vitamin D deficiency active Flower pro CON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 Anxiety depression active Flower Herron CON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 Hypertriglyceridemia active Albert JOY DENIED Exposure to SARS-associated coronavirus;had vaccine and neg swab active Albert Kearney MD HYPERTENSION active Albert Kearney MD Fibromyalgia active Albert Kearney MD Erythrocytosis active Albert Kearney MD ENCOUNTERS Date Type Provider Location Encounter Diag nosis - In-person encounter Office Visit Albert Kearney MD [place] [facility] FibromyalgiaErythrocytosis - In-person encounter Office Visit Albert Kearney MD [place] [facility] - In-person encounter Office Visit Albert Kearney MD [place] [facility] Sinus/atrial tachycardia;nml tshHYPERTENSION - In-person encounter Office Visit lAbert Kearney MD [place] [facility] Diabetes mellitusHypertriglyceridemiaExposure to SARS-associated coronavirus;had vaccine and neg swab - In-person encounter Office Visit Albert Kearney MD [place] [facility] Sinus/atrial tachycardia;nml tshDiabetes mellitusAsthmaObesityHyperlipidemia;NEG CRP adn lpaVitamin D deficiencyAnxiety depression VITAL SIGNS Date Observation Value Provider Body Mass Index (Ratio) 42.05 kg/m2 Ximena Kearney MD blood pressure, diastolic 90 mm[Hg] [facility] blood pressure, systolic 115 mm[Hg] [facility] [place] oxygen saturation, oximetry 97 % [facility] pulse rate 108 /min [facility] blood pressure, cuff size regular [facility] weight E&M 237.4 [lb_av] [facility] height E&M 63 [in_i] [facility] Body Mass Index (Ratio) 41.27 kg/m2 Ximena Kearney MD blood pressure, diastolic 98 mm[Hg] Li nkLogic blood pressure, systolic 128 mm[Hg] Danitza kLogic blood pressure, cuff size regular Edmar Velazquez pulse rate 99 /min Coral Velazquez blood pressure, diastolic 98 mm[Hg] Ta bitha Velazquez blood pressure, systolic 128 mm[Hg] Tab itha Velazquez oxygen saturation, oximetry 96 % Coral Velazquez weight E&M 233 [lb_av] Coral Velazquez respiratory rate E&M 12 /min Coral Velazquez height E&M 63 [in_i] Coral Velazquez Body Mass Index (Ratio) 41.98 kg/m2 Ximena Kearney MD blood pressure, diastolic 100 mm[Hg] Li nkLog blood pressure, systolic 125 mm[Hg] Danitza kLog blood pressure, cuff size large Ta kenney Velazquez blood pressure, diastolic 100 mm[Hg] Edmar moulton Velazquez blood pressure, systolic 125 mm[Hg] Phillip bro Velazquez pulse rate 110 /min Coral Velazquez oxygen saturation, oximetry 98 % Coral [place] weight E&M 237 [lb_av] Coral [place] respiratory rate E&M 12 /min Coral Velazquez height E&M 63 [in_i] Coral Velazquez Body Mass Index (Ratio) 45.02 kg/m2 Ximena Kearney MD blood pressure, diastolic 101 mm[Hg] [facility] min[facility] blood pressure, systolic 147 mm[Hg] Thang Lua oxygen saturation, oximetry 97 % Leonela Lua pulse rate 91 /min Leonelaessie Lua respiratory rate E&M 18 /min Leonela salomon weight E&M 254.2 [lb_av] Leonelaessie Lua height E&M 63 [in_i] Leonela Lua weight E&M 252 [lb_av] Gloria Mcduffie Body Mass Index (Ratio) 44.63 kg/m2 Deloris Bobby blood pressure, diastolic 99 mm[Hg] St acy Stoney blood pressure, systolic 122 mm[Hg] Thang Lua oxygen saturation, oximetry 98 % Leonela Lua pulse rate 118 /min Leonela Lua respiratory rate E&M 18 /min Leonela Jain aime height E&M 63 [in_i] Leonela Lua weight E&M 252 [lb_av] Leonela Lua ALLERGIES Allergy Name Onset Date Reaction Criticality Status JARDIANCE yeast Low Criticality active CAFFEINE High Criticality active TYLENOL High Criticality active IBUPROFEN High Criticality active HISTORY OF MEDICATION USE Medication Status Instructions Dates Provider Indications Com ments Ozempic 1 mg/dose (4 mg/3 mL) pen injector active Albert Kearney MD paliperidone 3 mg tablet extended release 24hr active Albert Kearney MD Dexcom G7 Sensor device active Albert Kearney MD Dexcom G7 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 Assistant 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 pellets 24 hr active 1 capsule by mouth once a day Louann Dickens NP albuterol sulfate 90 mcg/actuation HFA aerosol inhaler active Inhale 1-2 puff using inhaler every four to six hours Louann Dickens NP rizatriptan 5 mg tablet active 1 tablet by mouth as needed as directed Louann Dickens NP verapamil 240 mg tablet extended release completed 1 tablet by mouth once a day - Louann Dickens NP Tenormin 100 mg tablet completed TAKE 1 TABLET BY MOUTH EVERY DAY - Albert Kearney MD Dexcom G6 Transmitter device completed - Albert Kearney MD Dexcom G6 Sensor device completed - Albert Kearney MD lamotrigine 150 mg tablet active 1 tablet by mouth twice a day Albert Kearney MD escitalopram oxalate 20 mg tablet active TAKE 1 TABLET BY MOUTH EVERY DAY Albert Kearney MD trazodone 50 mg tablet completed Take 1 tablet every night at bedtime insomnia for 30 days - lAbert Kearney MD hydroxyzine HCl 50 mg tablet active 1 tablet by mouth three times a day as needed as directed Albert Kearney MD Humalog U-100 Insulin 100 unit/mL solution active Albert Kearney MD cyanocobalamin (vitamin B-12) 1,000 mcg tablet completed TAKE 1 TABLET BY MOUTH DAILY - Albert Kearney MD Jardiance 25 mg tablet completed TAKE 1 TABLET BY MOUTH DAILY - Mallory Ruple losartan 25 mg tablet active TAKE 1 TABLET BY MOUTH DAILY Albert Kearney MD FeroSul 325 mg (65 mg iron) tablet completed TAKE 1 TABLET BY MOUTH DAILY - Albert Kearney MD Vitamin D2 completed - Albert Kearney MD losartan 25 mg tablet completed TAKE 1 TABLET BY MOUTH EVERY DAY - [facility] 120 mg capsule,extended release 24hr completed Take 1 capsule by mouth once a day - Albert Kearney MD Jardiance 10 mg tablet completed Take 1 tablet by mouth once a day TAKE 1 TABLET BY MOUTH EVERY DAY [facility] ver[facility]amil 180 mg tablet extended release completed Take 1 tablet by mouth once a day - Albert Kearney MD Vascepa 1 gram capsule completed Take 2 capsule by mouth twice a day TAKE TWO CAPSULES BY MOUTH TWICE A DAY - Albert Kearney MD Vascepa 1 gram capsule completed TAKE TWO CAPSULES BY MOUTH TWICE A DAY - Nataly Roach FeroSul 325 mg (65 mg iron) tablet completed TAKE 1 TABLET BY MOUTH EVERY DAY - Albert Kearney MD ergocalciferol (vitamin D2) 1,250 mcg (50,000 unit) capsule completed TAKE ONE CAPSULE BY MOUTH ONCE WEEKLY - Albert Kearney MD cyanocobalamin (vitamin B-12) 1,000 mcg capsule completed Take 1 capsule by mouth once a day - Raj buspirone 15 mg tablet active twice a day Flower Herron NP clonidine HCl 0.2 mg tablet completed at bedtime - Albert Kearney MD glimepiride 1 mg tablet completed daily - Albert Kearney MD fluoxetine 10 mg tablet completed daily - Albert Kearney MD atorvastatin 40 mg tablet active TAKE 1 TABLET BY MOUTH EVERY NIGHT Albert Kearney MD paliperidone 9 mg tablet extended release 24hr active daily Albert Kearney MD atomoxetine 40 mg capsule completed once a day - Albert Kearney MD Humalog KwikPen Insulin 100 unit/mL insulin pen completed - Flower Herron NP Trulicity 4.5 mg/0.5 mL pen injector completed once a week - Albert Kearney MD TRUEplus Pen Needle 31 gauge x 1/4 needle completed - Albert Kearney MD Lantus Solostar U-100 Insulin 100 unit/mL (3 mL) insulin pen completed 20 units - Albert Kearney MD Lantus U-100 Insulin 100 unit/mL solution completed - Flower Herron NP SOCIAL HISTORY Date Observation Value Provider personal history of marijuana use yes Albert Kearney MD drug use no Albert Jain alcohol use no Albert Jain passive cigarette sm stu exposure no Albert Kearney MD if the patient is us ing/has used a vaping item, Current, Former, Never Used, Not asked Current Albert Kearney MD chewing tobacco use Never Albert pettit MD smoking status Never smoker Albert Kearney MD drug use no Verah Bonareri [employer]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 personal history of marijuana use yes Verah Bonareri CON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 alcohol use no Verah Bonareri CON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 if the patient is us ing/has used a vaping item, Current, Former, Never Used, Not asked Current Verah Bonareri CON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 passive cigarette sm stu exposure no Verah Bonareri CON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 chewing tobacco use Never Vermonica Temple nareri CON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 smoking status Never smoker Louann Iyershaunnar i CON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 passive cigarette sm stu exposure no Albert Kearney MD chewing tobacco use Never Albert pettit MD smoking status Never smoker Albert Kearney MD social history E&M S moking History: Sabrina moon has never smoked. Albert Kearney MD social history reviewed E&M revi ewed - no changes required Albert Kearney MD passive cigarette sm stu exposure no Leonela Lua chewing tobacco use Never Leonela Da vis smoking status Never smoker Leonela Lua passive cigarette sm stu exposure no Leonelaessie Lua chewing tobacco use Never Leonela Da vis smoking status Never smoker Leonela Lua INSURANCE PROVIDERS Payer name Policy type / Coverage type Tonie red democrat ID [employer] MEDICAID (2) Medicaid [id number] ADVANCE DIRECTIVES Name Date DISCUSSED - NO DECISION MADE TREATMENT PLAN Date Name Performer [id number],C,12.5 Albert S hodan [id number],B, Albert Serot a [id number],B, Albert Serot a [id number],B, Albert Serot a [id number],S, Albert Serot a [id number],S, Albert Serot a [id number],S, n ml pro echho terrie stress Albert Serota [id number],S, m ild Albert Serota [id number],C,mild Albert S hodan WINKLER [id number],C,nml por echho terrie stress Albert Serota [id number],C,neg pro an de cho Albert Serota [id number],C,neg pro Harve y Serota [id number],C,follows with psych Flower Herron NP [id number],C,n oncomplaint with Vitamin D supplementation will check Vit D level Flower Herron NP [id number],C,w ill check lipid panel Her updated medication list for this problem includes: Atorvastatin 40 Mg Tablet (Atorvastatin) ..... Take 1 tablet by mouth every night Flower Herron NP [id number],C,e ncouraged lifestyle modifications and weight loss for improved health Flower Herron NP [id number],N,will check PF Ts Flower Herron NP [id number],C,l ast A1c 12.4. being followed by PCP The following medications were removed from the medication list: Lantus U-100 Insulin 100 Unit/ml Solution (Insulin glargine) Humalog Kwikpen Insulin 100 Unit/ml Insulin Pen (Insulin lispro) Her updated medication list for this problem includes: Glimepiride 1 Mg Tablet (Glimepiride) ..... Daily Trulicity 0.75 Mg/0.5 Ml Pen Injector (Dulaglutide) ..... Once a week Lantus Solostar U-100 Insulin 100 Unit/ml (3 Ml) Insulin Pen (Insulin glargine) ..... 20 units Flower Herron NP [id number],N,w ill check labs, 2 week telesentry monitor, PFTs, ECHO, routine stress test Flower Herron NP Cardiology Albert Kearney MD Cardiology Albert Kearney MD Cardiology:10 9 Albert Kearney MD Cardiology Albert Kearney MD Cardiology Albert Kearney MD Cardiology Albert Kearney MD Cardiology: n ml pro echho terrie stress Albert Kearney MD Cardiology Albert Kearney MD Cardiology Albert Kearney MD Cardiology: m ild d r you said cpa not needed Albert Kearney MD Cardiology: m od to severe Albert Kearney MD :mod to severe Albert Kearney MD Cardiology: p er patient supplements stooped per pcp. will repeat labs Louann Dickens NP Cardiology Louann Miner P Cardiology: m ild c ompleted split night study, results pending Louann Dickens NP Cardiology: N o recent exacerbation P FTs scheduled for 01/08/24 H er updated medication list for this problem includes: Albuterol Sulfate 90 Mcg/actuation Hfa Aerosol Inhaler (Albuterol sulfate) ..... Inhale 1-2 puff using inhaler every four to six hours Louann Dickens NP Cardiology: h eart monitor 12/17-12/20/23 S inus Tachycardia with rare Supraventricular ectopics. The average heart rate was 1 00bpm with a maximum rate of 154bpm and a minimum rate of 70bpm. SVE?s w ere documented as isolated beats. w ill increase verapamil to 360 mg Louann Dickens LOS Cardiology: 9 w ill repeat a1c M anaged per Endocrinology H er updated medication list for this problem includes: Jardiance 25 Mg Tablet (Empagliflozin) ..... Take 1 tablet by mouth daily Trulicity 4.5 Mg/0.5 Ml Pen Injector (Dulaglutide) ..... Once a week Humalog U-100 Insulin 100 Unit/ml Solution (Insulin lispro) Losartan 25 Mg Tablet (Losartan) ..... Take 1 tablet by mouth daily Louann Dickens LOS Cardiology: T RI (218) H er updated medication list for this problem includes: Atorvastatin 40 Mg Tablet (Atorvastatin) ..... Take 1 tablet by mouth every night w ill repeat labs Louann Dickens CON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 Cardiology: T OTAL 108, TRI 218, HDL 42, LDL 22 (05/2022) H er updated medication list for this problem includes: Atorvastatin 40 Mg Tablet (Atorvastatin) ..... Take 1 tablet by mouth every night w ill repeat labs Louann Dickens CON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 Cardiology: B P today: 128/98 P rior BP: 125/100 (10/31/2023) The following medications were removed from the medication list: Verapamil 240 Mg Tablet Extended Release (Verapamil) ..... 1 tablet by mouth once a day Her updated medication list for this problem includes: Verapamil 360 Mg Capsule,ext Rel. Pellets 24 Hr (Verapamil) ..... 1 capsule by mouth once a day Losartan 25 Mg Tablet (Losartan) ..... Take 1 tablet by mouth daily Louann Chrissie MADISON Cardiology:9 Albert Kearney MD Cardiology Albert Kearney MD Cardiology Albert Kearney MD Cardiology Albert Kearney MD Cardiology: H er updated medication list for this problem includes: Atorvastatin 40 Mg Tablet (Atorvastatin) ..... Take 1 tablet by mouth every night Albert Kearney MD Cardiology Albert Serotluci WINKLER Cardiology Albert Serotluci WINKLER Cardiology Albert Serotluci WINKLER Cardiology: n ml pro echho terrie stress Albert Serotluci WINKLER Cardiology Albert Serotluci WINKLER Cardiology:premiy said she was b doug Albert Kearney MD Cardiology: m ild Albert Kearney MD Cardiology Albert Serota Cardiology:12.5 Albert Serotluci WINKLER Cardiology Albert Serota Cardiology Albert Serota Cardiology Albert Serotluci WINKLER Cardiology Albert Serota Cardiology Albert Serota Cardiology: n ml pro echho terrie stress Albert Serotluci WINKLER Cardiology: m ild Albert Kearney MD :mild Albert Kearney MD :nml por echho terrie stress Maynor Kearney MD :neg pro an decho Albert Kearney MD :neg pro Albert Kearney MD Cardiology:follows with psych Cam Herron NP Cardiology:noncompla int with Vitamin D supplementation will check Vit D level Flower Herron NP Cardiology:will chec k lipid panel Her updated medication list for this problem includes: Atorvastatin 40 Mg Tablet (Atorvastatin) ..... Take 1 tablet by mouth every night Flower Herron NP Cardiology:encourage d lifestyle modifications and weight loss for improved health Flower Herron NP Cardiology:will check PFTs Deborah Herron NP Cardiology:last A1c 12.4. being followed by PCP The following medications were removed from the medication list: Lantus U-100 Insulin 100 Unit/ml Solution (Insulin glargine) Humalog Kwikpen Insulin 100 Unit/ml Insulin Pen (Insulin lispro) Her updated medication list for this problem includes: Glimepiride 1 Mg Tablet (Glimepiride) ..... Daily Trulicity 0.75 Mg/0.5 Ml Pen Injector (Dulaglutide) ..... Once a week Lantus Solostar U-100 Insulin 100 Unit/ml (3 Ml) Insulin Pen (Insulin glargine) ..... 20 units Flower Herron NP Cardiology:will [facility] k labs, 2 week telesentry monitor, PFTs, ECHO, routine stress test Flower Herron NP Date Name Monitor - Telemetry (Mobile Cardiac) Complete Echo VITAMIN B12 Vitamin D, 25-Hydrox y CBC (INCLUDES DIFF/P LT) IRON AND TOTAL IRON BINDING CAPACITY FERRITIN Lipoprotein (a) LIPID PANEL DLCO - 75645 FRC - 30968 FVC - 76474 HEMOGLOBIN A1c LIPID PANEL Lipoprotein (a) Complete Echo IRON AND TOTAL IRON BINDING CAPACITY FERRITIN CBC (INCLUDES DIFF/P LT) VITAMIN B12 Vitamin D, 25-Hydrox y LIPID PANEL Lipoprotein (a) BASIC METABOLIC PANE L W/EGFR Complete Echo VITAMIN B12 Vitamin D, 25-Hydrox y IRON AND TOTAL IRON BINDING CAPACITY FERRITIN CBC (INCLUDES DIFF/P LT) Sleep Study - split night Holter Monitor 24 Hr DLCO - 35211 FRC - 24297 FVC - 38659 Holter Monitor 24 Hr DLCO - 56722 FRC - 33415 FVC - 20442 Sleep Study Titratio n DLCO - 78606 FRC - 84672 FVC - 68614 VITAMIN B12 Vitamin D, 25-Hydrox y Microalb/Creatinine Urine, Random PROBNP, N TERMINAL CRP, high sensitivit y Monitor - Telemetry (Mobile Cardiac) IRON AND TOTAL IRON BINDING CAPACITY FERRITIN CBC (INCLUDES DIFF/P LT) HEMOGLOBIN A1c LIPID PANEL TSH, free T4, total T3 COMPREHENSIVE METABO LIC PANEL, W/EGFR Sleep Study Home Stress Routine Complete Echo HISTORY OF PROCEDURES Procedure Date Procedure Name Provider Procedure Notes S tatus Complex e/m visit add on Albert Kearney MD completed Spirometry Albert Kearney MD complete d FVC / MVV with bronchodilator - 98766 Albert Kearney MD completed SpO2 w/o 6min walk/titration Albert Kearney MD completed SVC - 09535 Albert Kearney MD complet ed DLCO - 37961 Albert Kearney MD comple stacey EKG Albert Kearney MD complete d Complex e/m visit add on Albert Kearney MD completed Spirometry Albert Kearney MD complete d FVC / MVV with bronchodilator - 99607 Albert Kearney MD completed FRC - 06415 Albert Kearney MD complet ed SpO2 w/o 6min walk/titration Albert Kearney MD completed SVC - 40779 Albert Kearney MD complet ed DLCO - 99410 Albert Kearney MD comple stacey EKG Albert Kearney MD complete d
--- OUTSIDE RECORDS SUMMARY | 2024-08-21 11:17 | XMS_ITS | Clinical Summary ---
Author Organization [facility] [address] [place] [id number] Care Team Providers Care Trial Court Judge Name Role Phone Maggie Jackson THROW OUT CLERK Primary Care Provider Allergies Active Allergy Reactions Criticality Noted Date Comments Acetaminophen Rash Medium 04/29/2024 Caffeine Headache Low 01/10/2024 Cat Dander Unknown 04/28/2024 Ibuprofen Hives Medium 04/29/2024 Latex Unknown 11/27/2023 Medications busPIRone (BUSPAR) 5 mg tablet 01/05/20 21 Active atorvastatin (LIPITOR) 40 mg tablet Take 1 tablet (40 mg total) by mouth daily Active ferrous sulfate 325 mg (65 mg of elemental iron) tablet 01/22/20 24 Active losartan (COZAAR) 25 mg tablet Take 1 tablet (25 mg total) by mouth daily 12/11/19 24 Active vitamin B-12 1,000 mcg tablet Take 1 tablet (1,000 mcg total) by mouth daily 04/09/20 24 Active ergocalcifero l (VITAMIN D) 50,000 unit capsule Take 1 capsule (50,000 Units total) by mouth once a week 04/09/20 24 Active HumaLOG 100 unit/mL vial for injection 150 UNIT (1.5 ML) VIA CONTINUOUS SUBCUTANEOUS INFUSION DAILY FOR 90 DAYS 04/09/20 24 Active lamoTRIgine (LaMICtal) 150 mg tablet 04/23/20 24 Active lithium 150 mg capsule 1 capsule (150 mg total) daily Active paliperidone ER (INVEGA) 3 mg 24 hr tablet TAKE 1 TABLET BY MOUTH EVERY MORNING ALONG WITH 9 MG 04/04/20 Active paliperidone ER (INVEGA) 9 mg 24 hr tablet TAKE 1 TABLET BY MOUTH EVERY MORNING ALONG WITH 3 MG 04/04/20 Active QUEtiapine (SEROquel) 200 mg tablet daily Active Ozempic 1 mg/dose (4 mg/3 mL) pen injector injection INJECT 1 MG (0.75 ML) SUBCUTANEOUSLY WEEKLY 04/01/20 Active tiZANidine (ZANAFLEX) 4 mg tablet every 12 hours 02/14/20 Active traMADoL (ULTRAM) 50 mg tablet daily 04/22/20 Active hydrOXYzine (ATARAX) 50 mg tablet TAKE 1 TABLET BY MOUTH TWICE A DAY NEEDED FOR 30 DAYS 04/23/20 Active pregabalin (LYRICA) 150 mg capsule Take 1 capsule (150 mg total) by mouth 2 (two) times a day 07/08/19 Active atogepant 30 mg tablet Take 30 mg by mouth daily 30 tablet 3 08/12/19 Active rizatriptan (MAXALT) 10 mg tabletIndicat ions:Migraine Take 1 tablet (10 mg total) by mouth once as needed for migraine May repeat in 2 hours if unresolved. Do not exceed 30 mg in 24 hours. 9 tablet 11 08/12/19 25 2025 Active topiramate (TOPAMAX) 50 mg tablet Take 1 tablet (50 mg total) by mouth 2 (two) times a day 60 tablet 08/12/[address] (CYMBALTA) 20 mg capsule 1 capsule (20 mg total) 04/23/20 24 2024 Discontinued verapamil SR (CALAN SR) 240 mg CR tablet 04/29/20 24 2024 Discontinued topiramate (TOPAMAX) 50 mg tabletIndicat ions:Migraine Prevention Take 25 mg twice daily for two weeks, then take 50 mg twice daily 60 tablet 11 04/29/20 24 2024 Discontinued SUMAtriptan (IMITREX) 100 mg tabletIndicat ions:Migraine Take 1 tablet (100 mg total) by mouth once as needed for migraine (headache) for up to 1 dose May repeat one time after 2 hours if needed. 9 tablet 11 04/29/20 24 2024 Discontinued topiramate (TOPAMAX) 100 mg tablet Take 50 mg in the morning and 100 mg in the evening for two weeks, then increase to 100 mg twice daily 60 tablet 11 08/01/19 25 2024 Discontinued Active Problems Problem Noted Date Diagnosed Date Anxiety 04/28/2024 Chronic fatigue 04/28/2024 Irritable bowel syndrome with diarrhea Mild persistent asthma without complication 04/13 Morbid obesity 04/28/2024 Palpitations 04/28/2024 Pruritus of vagina 04/28/2024 Vitamin D deficiency 04/28/2024 Diabetic ketoacidosis associ ated with type 2 diabetes mellitus 03/23/2022 Hypertriglyceridemia 03/23/2022 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 Patient has had mood swings, SI and self injurious behaviors for a number of years. She describes pseudopsychotic AVH, dissociative episodes in times of stress, interpersonal conflict, low frustration tolerance, poor coping skills and impulsive behaviors. History and presentation most consistent with a diagnosis of Borderline Personality Disorder. Plan for treatment is to adjust patient's medications and provide a therapeutic milieu, but BPD is best managed on an outpatient basis through therapy. She is already established with a therapist and psychiatric services through [facility], whom we have spoken with by phone and plan to coordinate DBT therapy on an outpatient basis. Additionally, grandma and patient provided further DBT resources outside of [facility]. She is IMPROVING as evidence by cheerful affect and collegial behavior with peers. Reporting conditional SI, but this patient has chronic SI at baseline. Keeping the patient in the hospital is reinforcing attention seeking behavior. All med adjustments and services have been provided and she is safe for discharge. Patient is interested in oral control, so will prescribe this on discharge. -Ortho tri cyclen OCP daily -therapeutic milieu and participation in groups -outpatient DBT upon discharge -PRNs available for agitation and comfort -appreciate SW assistance with care planning -dispo: home to grandparents TODAY with outpt f/u at [facility] Assessment & Plan (04/16/2020 4:[address] DRILL OPERATOR): 19 yo F w/ a reported hx of bipolar and ADHD who was admitted at the recommendation of her case maker for suicidal ideation with a plan to hang herself or overdose. Patient has had mood swings, SI and self injurious behaviors for a number of years. She describes pseudopsychotic AVH, dissociative episodes in times of stress, interpersonal conflict, low frustration tolerance, poor coping skills and impulsive behaviors. History and presentation most consistent with a diagnosis of Borderline Personality Disorder. Plan for treatment is to adjust patient's medications and provide a therapeutic milieu, but BPD is best managed on an outpatient basis through therapy. She is already established with a therapist and psychiatric services through [facility]. -therapeutic milieu and participation in groups -outpatient therapy upon discharge -PRNs available for agitation and comfort -appreciate SW assistance with care planning -dispo: home to grandparents when stabilized with outpt f/u at [facility] Mood disorder 04/16/2020 Assessment & Plan (04/19/2020 3:[address] DRILL OPERATOR): Patient meets criteria for MDD except for symptoms seems more chronic than episodic. She describes some symptoms of a manic episode but we have low suspicion that she experiences true cynthia as she has never completely gone without sleep, never lasts for more than ~3 days, never been hospitalized for it. Additionally told the team during her interview I feel manic right now , but no manic sx on exam. Uses DSM-5 verbage to describe her symptoms I am impulsive, I go to the store and buy things I don't need . Depression likely mostly related to patient's comorbid personality disorder. Will treat with an SSRI, as she has found benefit from this in the past. Will augment antidepressant with Abilify. -Lexapro 20mg -Abilify 5mg Assessment & Plan (04/16/2020 4:[address] DRILL OPERATOR): Patient meets criteria for MDD except for symptoms seems more chronic than episodic. She describes some symptoms of a manic episode but we have low suspicion that she experiences true cynthia as she has never completely gone without sleep, never lasts for more than ~3 days, never been hospitalized for it. Additionally told the team during her interview I feel manic right now , but no manic sx on exam. Depression likely mostly related to patient's comorbid personality disorder. Will treat with an SSRI, as she has found benefit from this in the past. Will augment antidepressant with Abilify. -Lexapro 20mg -Abilify 5mg ADHD (attention deficit hyperactivity disorder) 04/16/2020 Assessment & Plan (04/19/2020 3:[address] DRILL OPERATOR): Historical diagnosis d/t inattention. Was on Focalin for an extended amount of time in childhood. We planned to restart the patient's Focalin here, unfortunately it is not on formulary. Zane brought med from home. Patient could potentially benefit from a dose increase, but we will defer that to outpatient. -focalin XR 10mg (home supply) Assessment & Plan (04/16/2020 3:[address] DRILL OPERATOR): Historical diagnosis d/t inattention. Was on Focalin for an extended amount of time in childhood. We planned to restart the patient's Focalin here, unfortunately it is not on formulary. Zane plans to bring the med from home -focalin XR 10mg (home supply) Diabetes 04/16/2020 Assessment & Plan (04/19/2020 3:[address] DRILL OPERATOR): Diagnosed on a previous hospitalization this year. Lipids and blood glucoses elevated in ED. -increase Metformin to 1000mg BID Assessment & Plan (04/16/2020 4:[address] DRILL OPERATOR): Diagnosed on a previous hospitalization this year. Lipids and blood glucoses elevated in ED. -Metformin 500mg BID UTI (urinary tract infection) 04/16/2020 Assessment & Plan (04/19/2020 3:[address] DRILL OPERATOR): Previously diagnosed, asymptomatic, will continue previous treatment -completed Macrobid 100mg BID Assessment & Plan (04/16/2020 3:[address] DRILL OPERATOR): Previously diagnosed, asymptomatic, will continue previous treatment -Macrobid 100mg BID for 4 more days Suicidal ideation Encounters Date Type Department Care Team Description 08/13/2024 Telephone [facility] [address] [place] [address] [place] [phone] Mansoor Albert MD Prior Auth (Qulipta 30 mg) 08/11/2024 Telephone [facility] [address] [place] [address] [place] [phone] Mansoor Albert MD 08/11/2024 Orders Only [facility] [address] [place] [address] [place] [phone] Mansoor Albert MD 08/08/2024 Telephone [facility] [address] [place] [phone] Mansoor Albert MD Med Management 07/31/2024 2:00 PM CDT Office Visit [facility] [address] [place] [phone] Mansoor Albert MD Migraine without aura and without status migrainosus, not intractable (Primary Dx) from Last 3 Months Immunizations Immunization Administration Dates Next Due Influenza, Quadrivalent, Spl it, Preservative Free, Intramuscular 04/16/2020 Medical History Medical History Date Comments Anxiety and depression Adhd Bipolar 1 disorder (HCC) Diabetes (HCC) Fibromyalgia, primary Social History Tobacco Use Types Packs/Day Years Used Date Smoking Tobacco: Every Day Vaping Tobacco Cessation:Ready to Q uit: Not Asked; Counseling Given: Not Answered Alcohol Use Standard Drinks/Week Comments Not Currently [...] 04/16/2020 How often do you attend chur or scientology services? More than 4 times per year 04/16/2020 Do you belong to any clubs o r organizations such as yazdanism groups, unions, fraternal or athletic groups, or [...] on file Legal Sex Female 3:[address] DRILL OPERATOR Gender Identity Not on file Sexual Orientation Not on file Obstetrics History Last Filed Vital Signs Vital Sign Reading Time Taken Comments Blood Pressure 122/84 07/31/2024 1:44 PM CDT Pulse 114 07/31/2024 1:44 PM CDT Temperature 36.8 C (98.3 F) 01/22/2024 2:41 PM CDT Respiratory Rate 16 01/22/2024 2:41 PM CDT Oxygen Saturation 98% 07/31/2024 1:44 PM CDT Inhaled Oxygen Concentration - - Weight 108 kg (238 lb) 07/31/2024 1:44 PM CDT Height 157.5 cm (5' 2.01 ) 07/31/2024 1:44 PM CD T Body Mass Index 43.52 07/31/2024 1:44 PM CDT Plan of Treatment Health Maintenance Due Date Last Done Comments Albumin Creatinine Ratio, Urine 2001 Cervical Cancer Screening 2001 Depression Screening 2001 Hemoglobin A1C 2001 Hepatitis C Screening 2001 Dilated Eye Exam 2001 Foot Exam 2001 Pneumococcal vaccine <65 (1 of 1 - PPSV23) 09/30/2007 01/01/2003, 04/07/2002, 02/03/2002, Additional history exists Meningococcal B Vaccine (1 o f 2 - Standard) 2017 HPV Vaccines (2 - 3-dose series) 03/14/2019 02/15/20 Regular Well Visit/Exam 18-64 09/30/2019 Lipid Panel 04/15/2021 04/15/2020 DTaP/Tdap/Td Vaccine (7 - Td or Tdap) 12/16/2022 12/16/2012, 11/20/2005, 04/02/2003, Additional history exists Covid-19 Vaccine ( - 2023-2 5 season) 2024 05/20/2021, 07/19/2020 Influenza Vaccine (Season Ended) 2025 03/06/2021, 04/16/2020, 03/14/2020, Additional history exists eGFR 01/21/2025 01/22/2024, 02/06/2021 Hepatitis B Screening Completed 07/03/2002 , 2001, 2001 Varicella Vaccines Completed 11/21/2006, 10/01/2002 Procedures Procedure Name Priority Date/Time Associated Diagnosis Comments EGFR STAT 01/22/2024 3:03 PM CDT LIPID PANEL STAT 04/15/2020 2:[address] DRILL OPERATOR from Last 3 Months or Most Recently Relevant to Health Maintenance Results * eGFR (01/22/2024 3:03 PM CDT) eGFR >90 >=60 mL/min/1. 73 m2 Comment: Interpretive Data Reference Interval Normal >/= 90 mL/min/1.73m2 Mildly decreased* 60 - 89 mL/min/1.73m2 Mildly to moderately decreased 45 - 59 mL/min/1.73m2 Moderately to severely decreased 30 - 44 mL/min/1.73m2 Severely decreased 15 - 29 mL/min/1.73m2 Kidney Failure < 15 mL/min/1.73m2 *Relative to young adult level Estimated glomerular filtration rate is determined by the 2020 CKD-EPI equation recommended by the National Kidney Foundation (A Unifying Approach to GFR Estimation: Recommendations of the NKF-ASK Task Force on Reassessing the Inclusion of Race in Diagnosing Kidney Disease, JASN 2020). The CKD-EPI equation should not be used for patients with unstable renal function and has not been validated in children and those over 70. Current interpretive data was last reviewed 2021. Blood 01/22/2024 3:03 PM CDT 01/22/2024 3:24 PM CDT us Maddy GARCIA LAB BLOOD ORDERABLES Gabi l Result [facility] [place]) 1 [facility] Department [place] [address] * (ABNORMAL) Lipid panel (04/15/2020 2:[address] DRILL OPERATOR) Cholesterol 189 <=199 mg/dL [facility] Comment: Interpretive Data Ages < or = 19 years Acceptable: <170 mg/dL Borderline high: 170-199 mg/dL High: >or= 200 mg/dL Ages > or = 20 years Desirable: <200 mg/dL Borderline high: 200-239 mg/dL High: >or= 240 mg/dL Literature References: 1. Expert Panel on Integrated Guidelines for Cardiovascular Health and Risk Reduction in Children and Adolescents. Pediatrics 2011;128:S213 2. NCEP Expert Panel. Circulation 2004;110:227 Current Interpretive Data was last revised on 2018. Triglycerides 464(H) <=129 mg/dL [facility] Comment: Interpretive Data Ages < or = 9 years Acceptable: <75 mg/dL Borderline high: 75-99 mg/dL High: >or= 100 mg/dL Ages 10 to 20 years Acceptable: <90 mg/dL Borderline high: 90-129 mg/dL High: >or= 130 mg/dL Ages > or = 20 years Desirable: <150 mg/dL Borderline high: 150-199 mg/dL High: 200-499 mg/dL Very high: >or= 499 mg/dL Literature References: 1. Expert Panel on Integrated Guidelines for Cardiovascular Health and Risk Reduction in Children and Adolescents. Pediatrics 2011;128:S213 2. NCEP Expert Panel. Circulation 2004;110:227 Current Interpretive Data was last revised on 2018. HDL 38(L) >=45 mg/dL [facility] Comment: Interpretive Data Ages < or = 19 years Acceptable: >45 mg/dL Borderline low: 40-45 mg/dL Low: <40 mg/dL Ages > or = 20 years Desirable: >or= 60 mg/dL Low: <40 mg/dL Literature References: 1. Expert Panel on Integrated Guidelines for Cardiovascular Health and Risk Reduction in Children and Adolescents. Pediatrics 2011;128:S213 2. NCEP Expert Panel. Circulation 2004;110:227 Current Interpretive Data was last revised on 2018. LDL, calculated See Comment <=[address] [facility] Comment: Unable to calculate LDL due to elevated triglyceride. Interpretive Data Ages < or = 19 years Acceptable: <110 mg/dL Borderline high: 110-129 mg/dL High: >or= 130 mg/dL Ages > or = 20 years Optimal: <100 mg/dL Near optimal: 100-129 mg/dL Borderline high: 130-159 mg/dL High: >160 mg/dL Literature References: 1. Expert Panel on Integrated Guidelines for Cardiovascular Health and Risk Reduction in Children and Adolescents. Pediatrics 2011;128:S213 2. NCEP Expert Panel. Circulation 2004;110:227 Current Interpretive Data was last revised on 2018. Non-HDL Cholesterol 151(H) <=144 mg/dL [facility] Comment: Interpretive Data Ages < or = 19 years Acceptable: <120 mg/dL Borderline high: 120-144 mg/dL High: >145 mg/dL Ages > or = 20 years When triglycerides are >200 mg/dL, Non-HDL cholesterol is a secondary target of therapy with treatment goals that are 30 mg/dL greater than the LDL cholesterol target. Literature References: 1. Expert Panel on Integrated Guidelines for Cardiovascular Health and Risk Reduction in Children and Adolescents. Pediatrics 2011;128:S213 2. NCEP Expert Panel. Circulation 2004;110:227 Current Interpretive Data was last revised on 2018. Chol/HDL ratio 5 [facility] Blood specimen (specimen) 04/15/2020 2:[address] DRILL OPERATOR 04/15/2020 3:[address] DRILL OPERATOR us Carolyn Skaggs MD LAB BLOOD ORDERABLES Final Result [facility] Department [place] [address] from Last 3 Months or Most Recently Relevant to Health Maintenance Insurance [facility] Advance Directives For more information, please contact: [phone] * Full Code (Latest Code Status on File) Date Activated Date Inactivated Comments 04/16/2020 1:05 AM 04/19/2020 8:[address] Judge Relationship Specialty Start Date End Date Maggie Jackson NP PCP - General Nephrology 02/20/22
--- OUTSIDE RECORDS SUMMARY | 2024-08-21 11:17 | XMS_ITS | Clinical Summary ---
Author Organization [facility] Address [facility] [place] [address] Care Team Providers Care Tire Builder Operator Name Role Phone None, Provider MD Primary Care Provider Unavaila ble Allergies Active Allergy Reactions Criticality Noted Date Comments Caffeine Headache 01/10/2024 Latex Unknown 11/27/2023 Medications traZODone (DESYREL) 50 MG tablet Take 1 tablet (50 mg total) by mouth nightly at bedtime. Active atorvastatin (LIPITOR) 40 MG tablet Take 1 tablet (40 mg total) by mouth daily. Active JARDIANCE 10 MG tablet Take 1 tablet (10 mg total) by mouth daily. 4 Active losartan (COZAAR) 25 MG tablet Take 1 tablet (25 mg total) by mouth daily. 4 Active escitalopram (LEXAPRO) 10 MG tablet Take 1 tablet (10 mg total) by mouth daily. Active hydrOXYzine (VISTARIL) 25 MG capsule Take 2 capsules (50 mg total) by mouth 3 (three) times daily as needed for Anxiety. 4 Active INVEGA 3 MG 24 hr tablet Take 1 tablet (3 mg total) by mouth every morning. Active INVEGA 9 MG TABLET SR 24 HR 24 hr tablet Take 9 mg by mouth daily. Active LAMICTAL 100 MG tablet Take 1 tablet (100 mg total) by mouth 2 (two) times daily. Active rizatriptan (MAXALT) 5 MG tablet Take 1 tablet (5 mg total) by mouth as needed for Migraine. 4 Active busPIRone (BUSPAR) 15 MG tablet Take 1 tablet (15 mg total) by mouth 3 (three) times daily. Active Insulin Syringes, Disposable, U-100 1 ML MiscIndications :Hyperglycemia Inject insulin as prescribed Dx IDDM 100 each 4 Active nystatin (MYCOSTATIN) powder Apply topically 4 (four) times daily. 1 g 4 Active Social History Tobacco Use Types Packs/Day Years Used Date Smoking Tobacco: Former Cigarettes Tobacco Cessation:Counseling Given: Not Answered Alcohol Use Standard Drinks/Week Comments Not Currently 0 (1 standard drink = 0.6 oz pur e alcohol) Comments No Sex and Gender Information Value Date Recorded Sex Assigned at Not on file Legal Sex Female 11:27 PM CDT Gender Identity Not on file Sexual Orientation Not on file Last Filed Vital Signs Vital Sign Reading Time Taken Comments Blood Pressure 158/87 04/19/2024 4:00 PM LINER REROLL TENDER Pulse 108 04/19/2024 4:00 PM LINER REROLL TENDER Temperature 36.7 C (98.1 F) 04/19/2024 4:00 PM LINER REROLL TENDER Respiratory Rate 20 04/19/2024 4:00 PM LINER REROLL TENDER Oxygen Saturation 96% 04/19/2024 4:00 PM LINER REROLL TENDER Inhaled Oxygen Concentration - - Weight 108.9 kg (240 lb) 04/19/2024 4:00 PM LINER REROLL TENDER Height 160 cm (5' 3 ) 04/19/2024 4:00 PM LINER REROLL TENDER Body Mass Index 42.51 04/19/2024 4:00 PM LINER REROLL TENDER Plan of Treatment Health Maintenance Due Date Last Done Comments Cervical Cancer Screening Pap Smear (Age 21 to 29) Every 3 Years 2001 Cervical Cancer Screening 2001 Annual Physical 2004 Meningococcal B Vaccine (1 of 2 - Standard) 2017 HPV Vaccines (2 - 3-dose series) 03/14/2019 02/14/2019 Hepatitis C 09/30/2019 DTaP, Tdap and Td Vaccines (7 - Td or Tdap) 12/16/2022 12/16/2012, 11/20/2005, 04/02/2003, Additional history exists COVID-19 Vaccine ( - season) 2024 04/24/2022, 05/20/2021, 07/19/2020 Hepatitis B Vaccines Completed 07/03/2002, 2001, 2001 Pneumococcal Vaccine: Pediatrics (0 to 5 Years) and At-Risk Patients (6 to 64 Years) Aged Out 01/01/2003, 04/07/2002, 02/03/2002, Additional history exists No longer eligible based on patient's age to complete this topic Meningococcal Vaccine Completed 02/14/2019 RSV Immunizations Under 20 Months Aged Out No longer eligible based on patient's age to complete this topic Insurance [place] [address] Care Teams Tire Builder Operator Relationship Specialty Start Date End Date None, Provider, PCP - General UNKNOWN PHYSICIAN SPECIALTY 04/19/24
--- OUTSIDE RECORDS SUMMARY | 2024-08-21 11:17 | XMS_ITS | Patient Health Record ---
Author Organization [facility] Address [address] [place] [address] Care Team Providers Care Drum Sander Name Role Phone Carlos Ellisin Primary Care Provider Samantha Olsen Unavailable [phone] Liam Finnegan Unavailable [phone] Brenda Richards Unavailable [phone] Ofelia Engle Unavailable [phone] Sarita Lawson Unavailable [phone] Jessie Hawkins Unavailable [phone] Flower Leija Unavailable [phone] Daren Dash Unavailable Allergies Allergen (clinical drug ingredient) Drug/Non Drug Allergy documented on EMR Reaction Allergy Type Onset Date Status Cat dander cat dander (uncoded) Unknown Allergy Active Pollen pollen (uncoded) Unknown Allergy Act beth acetaminophen Tylenol rash Drug Allergy Act beth caffeine Caffeine Unknown Drug Allergy Active ibuprofen Ibuprofen hives Drug Allergy Active Results Component Value Reference Range Notes CMP 14 Comprehensive Metabol ic Panel* Reviewed date:01/31/2024 09:48:58 AM Interpretation: Performing Lab:[facility] [place], [address] [facility], [place], Phone - [phone], Director - PhDRicchiradhai Notes/Report: Glucose 205 70-99 mg/dL BUN 7 6-20 mg/dL Creatinine 0.49 0.57-1.00 mg/dL eGFR 137 >59 mL/min/1.73 BUN/Creatinine Ratio 14 9-23 Sodium 137 134-144 mmol/L Potassium 4.0 3.5-5.2 mmol/L Chloride 99 96-106 mmol/L Carbon Dioxide, Total 20 20-29 mmol/L Calcium 9.5 8.7-10.2 mg/dL Protein, Total 7.2 6.0-8.5 g/dL Albumin 4.6 4.0-5.0 g/dL Globulin, Total 2.6 1.5-4.5 g/dL Bilirubin, Total 0.4 0.0-1.2 mg/dL Alkaline Phosphatase 87 44-121 IU/L AST (SGOT) 17 0-40 IU/L ALT (SGPT) 18 0-32 IU/L Hemoglobin A1c* Reviewed date:01/31/2024 09:48:59 AM Interpretation: Performing Lab:[facility] [address], Phone - [phone], Director - PhDAmanda Notes/Report: Hemoglobin A1c 9.8 4.8-5.6 % . Prediabetes: 5.7 - 6.4 Diabetes: >6.4 Glycemic control for adults with diabetes: <7.0 Lipid Panel* Reviewed date:01/31/2024 09:48:59 AM Interpretation: Performing Lab:[facility] [address], Phone - [phone], Director - Michaelle Notes/Report: Cholesterol, Total 241 100-199 mg/dL Triglycerides 281 0-149 mg/dL HDL Cholesterol 39 >39 mg/dL VLDL Cholesterol Eduar 52 5-40 mg/dL LDL Chol Calc (NIH) 150 0-99 mg/dL C-Reactive Protein, Quant Reviewed date:01/31/2024 09:48:59 AM Interpretation: Performing Lab:[facility] [address], Phone - [phone], Director - [facility]sc[facility] Hospital[facility] Notes/Report: C-Reactive Protein, Quant 15 0-10 mg/L Creatine Kinase,Total,Serum Reviewed date:01/31/2024 09:48:59 AM Interpretation: Performing Lab:[facility] [place], [address] [place] [address], Phone - [phone], Director - PhDAmanda Notes/Report: Creatine Kinase,Total 45 32-182 U/L UA/M w/rflx Culture, Routine Reviewed date:01/31/2024 09:48:59 AM Interpretation: Performing [facility] [address] [place] [address], Phone - [phone], Director - [facility] Notes/Report: Specific Pitkin >=1.030 1.005-1.030 pH 7.0 5.0-7.5 Urine-Color Yellow Yellow Appearance Clear Clear WBC Esterase Negative Negative Protein Trace Negative/Trace Glucose 3+ Negative Ketones Trace Negative Occult Blood 3+ Negative Bilirubin Negative Negative Urobilinogen,Semi-Qn 0.2 0.2-1.0 mg/dL Nitrite, Urine Negative Negative Microscopic Examination See below: Micr oscopic was indicated and was performed. Urinalysis Reflex This speci men has reflexed to a Urine Culture. WBC 0-5 0 - 5 /hpf RBC None seen 0 - 2 /hpf Epithelial Cells (non renal) >10 0 - 10 /hpf Casts None seen None seen /lpf Bacteria Moderate None seen/Few Yeast Present None seen Urine Culture, Routine Final report Result 1 Mixed urogenital hannah Greater than 100,000 colony forming units per mL Iron and TIBC* Reviewed date:01/31/2024 09:48:59 AM Interpretation: Performing Lab:[facility] [address] [place] [address], Phone - [phone], Director - [facility] Notes/Report: Iron Bind.Cap.(TIBC) 347 250-450 ug/dL UIBC 277 131-425 ug/dL Iron 70 27-159 ug/dL Iron Saturation 20 15-55 % Vitamin B12 and Folate Reviewed date:01/31/2024 09:48:59 AM Interpretation: Performing Lab:[facility] [place], [address] [facility], Phone - [phone], Director - [facility] Notes/Report: Vitamin B12 430 454-0758 pg/mL Folate (Folic Acid), Serum 12.5 >3.0 ng/mL A serum folate concentration of less than 3.1 ng/mL is considered to represent clinical deficiency. TSH Rfx on Abnormal to Free T4 Reviewed date:01/31/2024 09:48:59 AM Interpretation: Performing Lab:[facility] [place], [address] [facility], Phone - [phone], [facility] Notes/Report: TSH 1.260 0.450-4.500 uIU/mL HIV Screen *HIV 1, 2 Ab, p24 Ag ([id number]) Reviewed date:01/31/2024 09:48:59 AM Interpretation: Performing Lab:[address], Phone - [phone], [facility] Notes/Report: HIV Ab/p24 Ag Screen Non Reactive Non Reactive HIV-1/HIV-2 antibodies and HIV-1 p24 antigen were NOT detected. There is no laboratory evidence of HIV infection. HIV Negative Hepatitis B Surface Antigen (HBsAg Screen) Reviewed date:01/31/2024 09:48:59 AM Interpretation: Performing Lab:[address], Phone - [phone], [facility] Notes/Report: HBsAg Screen Negative Negative Hepatitis C Virus Antibody w /Rflx to Quantitative Real-time PCR ([id number]) Reviewed date:01/31/2024 09:48:59 AM Interpretation: Performing Lab:[facility] [address], Phone - [phone], [facility] Notes/Report: HCV Ab Non Reactive Non Reactive Interpretation: Not infected with HCV unless early or acute infection is suspected (which may be delayed in an immunocompromised individual), or other evidence exists to indicate HCV infection. Rapid Plasma Reagin (RPR) Te st With Reflex to Quantitative RPR and Confirmatory Treponema pallidum Antibodies Reviewed date:01/31/2024 09:48:59 AM Interpretation: Performing Lab:[address], Phone - [phone], [facility] Notes/Report: RPR Non Reactive Non Reactive Celiac Antibodies tTG IgA, E MA IgA, Total IgA w/reflex to tTG IgG Reviewed date:01/31/2024 09:48:59 AM Interpretation: Performing Lab:[address], Phone - [phone], [facility] Notes/Report: Endomysial Antibody IgA Negative Negative t-Transglutaminase (tTG) IgA 3 0-3 U/mL Negative 0 - 3 Weak Positive 4 - 10 Positive >10 . Tissue Transglutaminase (tTG) has been identified as the endomysial antigen. Studies have demonstr- ated that endomysial IgA antibodies have over 99% specificity for gluten sensitive enteropathy. Immunoglobulin A, Qn, Serum 226 87-352 mg/dL Hemoglobin A1c CLIA Waived Reviewed date:01/15/2024 02:16:12 PM Interpretation: Performing Lab: Notes/Report: Hemoglobin A1c 9.4 4.0 - 6.4 % C-Reactive Protein, Quant Reviewed date:04/17/2024 04:04:48 PM Interpretation: Performing Lab:[facility] [place], [address] [facility], Phone - [phone], Director - [facility] Notes/Report: C-Reactive Protein, Quant 11 0-10 mg/L Rheumatoid Arthritis Factor Reviewed date:04/17/2024 04:04:48 PM Interpretation: Performing Lab:[email or web address] [place], [address] [place] [address], Phone - [phone], Director - [facility] Notes/Report: Rheumatoid Factor (RF) 15.2 <14.0 IU/mL JUAN DANIEL by IFA, Reflex to 9-biom arkers profile, Serum Reviewed date:04/17/2024 04:04:48 PM Interpretation: Performing Lab:[facility] [place], [address] [place] [address], Phone - [phone], Director - [facility] Notes/Report: JUAN DANIEL by IFA Rfx Titer/Pattern Positive Negative <1:80 Borderline 1:80 Positive >1:80 Please Note: JUAN DANIEL Multiplex methodology was designed to detect up to 11 antibodies of the 100+ antibodies that may be detected by JUAN DANIEL IFA methodology. Speckled Pattern 1:160 ICAP nomenc lature: AC-2,4,5,29 Note: Pattern Potential Disease Association Homogeneous Systemic Lupus Erythematosus, Drug Induced Systemic Lupus Erythematosus, Chronic Autoimmune hepatitis, Juvenile Idiopathic Arthritis Speckled Sjogren Syndrome, Systemic Lupus Erythematosus, Subacute Cutaneous Lupus, Lupus, Congenital Heart Block, Mixed Connective Tissue Disease, Scleroderma-diffuse, Scleroderma-Autoimmune Myositis Overlap Syndrome, Systemic Lupus Rrvgtznfitoai-Lneiwefhipz-F utoimmune Myositis Overlap Syndrome, Systemic Autoimmune Rheumatic Disease, Undifferentiated Connective Tissue Disease Nucleolar Systemic Sclerosis, Scleroderma-Autoimmune Myositis Overlap Syndrome, Sjogren Syndrome, Raynaud phenomenon, Pulmonary Arterial Hypertension, Systemic Autoimmune Rheumatic Disease, Cancer Centromere Scleroderma-CREST, Limited Cutaneous SSc, Raynaud's Phenomenon, Primary Biliary Cholangitis Nuclear Dot Primary Biliary Cholangitis Nuclear Primary Biliary Cholangitis, Autoimmune Membrane Hepatitis/Liver disease, Systemic Autoimmune Rheumatic Disease, Autoimmune Cytopenias, Linear Scleroderma, Antiphospholipid Syndrome Anti-DNA (DS) Ab Qn 1 0-9 IU/mL Serum is slightly hemolyzed Serum is slightly lipemic. Negative <5 Equivocal 5 - 9 Positive >9 BLOCK HANDLER Antibodies <0.2 0.0-0.9 AI Serum is slightly hemolyzed Serum is slightly lipemic. Roca Antibodies <0.2 0.0-0.9 AI Serum is slightly hemolyzed Serum is slightly lipemic. Antiscleroderma-70 Antibodies <0.2 0.0-0.9 AI Serum is slightly hemolyzed Serum is slightly lipemic. Sjogren's Anti-SS-A <0.2 0.0-0.9 AI Serum is slightly hemolyzed Serum is slightly lipemic. Sjogren's Anti-SS-B <0.2 0.0-0.9 AI Serum is slightly hemolyzed Serum is slightly lipemic. Antichromatin Antibodies <0.2 0.0-0.9 AI Serum is slightly hemolyzed Serum is slightly lipemic. Anti-Dee Dee-1 <0.2 0.0-0.9 AI Serum is slightly hemolyzed Serum is slightly lipemic. Anti-Centromere B Antibodies <0.2 0.0-0.9 AI Serum is slightly hemolyzed Serum is slightly lipemic. See below: Autoantibody Disease Association ------ Condition Frequency --------- Antinuclear Antibody, SLE, mixed connective Direct (JUAN DANIEL-D) tissue diseases --------- dsDNA SLE 40 - 60% --------- Chromatin Drug induced SLE 90% SLE 48 - 97% --------- SSA (Ro) SLE 25 - 35% Sjogren's Syndrome 40 - 70% Lupus 100% --------- SSB (La) SLE 10% Sjogren's Syndrome 30% --------- Sm (anti-Roca) SLE 15 - 30% --------- BLOCK HANDLER Mixed Connective Tissue Disease 95% (U1 nRNP, SLE 30 - 50% anti-ribonucleoprotein) Polymyositis and/or Dermatomyositis 20% --------- Scl-70 (antiDNA Scleroderma (diffuse) 20 - 35% topoisomerase) Crest 13% --------- Dee Dee-1 Polymyositis and/or Dermatomyositis 20 - 40% --------- Centromere B Scleroderma - Crest variant 80% NuSwab Vaginitis Plus (VG+) (243881) Reviewed date:01/31/2024 09:48:59 AM Interpretation: Performing Lab:[facility] [place], Phone - [phone], Director - Juni Notes/Report: Test(s) 452746- Atopobium vaginae; 307916- BVAB 2; 527798- Megasphaera 1 was developed and its performance characteristics determined by [facility]. It has not been cleared or approved by the Food and Drug Administration. Test(s) 654242-Ducbgjw albicans, SOPHY; 476733-Gkrojot glabrata, SOPHY was developed and its performance characteristics determined by [facility]. It has not been cleared or approved by the Food and Drug Administration. Atopobium vaginae Low - 0 BVAB 2 Low - 0 Megasphaera 1 Low - 0 Calculate total score by adding the 3 individual bacterial vaginosis (BV) marker scores together. Total score is interpreted as follows: Total score 0-1: Indicates the absence of BV. Total score 2: Indeterminate for BV. Additional clinical data should be evaluated to establish a diagnosis. Total score 3-6: Indicates the presence of BV. Polina albicans, SOPHY Positive Negative Polina glabrata, SOPHY Positive Negative Published data demonstrate that up to 65% of Polina glabrata identified in cases of vaginal candidiasis have decreased susceptibility to fluconazole. Trich vag by SOPHY Negative Negative Chlamydia trachomatis, SOPHY Negative Negative Neisseria gonorrhoeae, SOPHY Negative Negative UA/M w/rflx Culture, Routine Reviewed date:01/31/2024 09:48:59 AM Interpretation: Performing Lab:[facility] [place], [facility], Phone - [phone], Director - Juni Notes/Report: Test(s) 557428- Atopobium vaginae; 234863- BVAB 2; 360083- Megasphaera 1 was developed and its performance characteristics determined by [facility]. It has not been cleared or approved by the Food and Drug Administration. Test(s) 265826-Yvyjzxp albicans, SOPHY; 155198-Qkxbecu glabrata, SOPHY was developed and its performance characteristics determined by [facility]. It has not been cleared or approved by the Food and Drug Administration. Test(s) 935832- Atopobium vaginae; 632358- BVAB 2; 947663- Megasphaera 1 was developed and its performance characteristics determined by [facility]. It has not been cleared or approved by the Food and Drug Administration. Test(s) 726564-Scyzttz albicans, SOPHY; 291058-Yqivjkc glabrata, SOPHY was developed and its performance characteristics determined by [facility]. It has not been cleared or approved by the Food and Drug Administration. Test(s) 190427- Atopobium vaginae; 122530- BVAB 2; 569504- Megasphaera 1 was developed and its performance characteristics determined by [facility]. It has not been cleared or approved by the Food and Drug Administration. Test(s) 587323-Gdyskzh albicans, SOPHY; 113724-Ppfikyo glabrata, SOPHY was developed and its performance characteristics determined by [facility]. It has not been cleared or approved by the Food and Drug Administration. Specific Pitkin >=1.030 1.005-1.030 pH 6.5 5.0-7.5 Urine-Color Yellow Yellow Appearance Clear Clear WBC Esterase Negative Negative Protein Negative Negative/Trace Glucose 3+ Negative Ketones Negative Negative Occult Blood Negative Negative Bilirubin Negative Negative Urobilinogen,Semi-Qn 0.2 0.2-1.0 mg/dL Nitrite, Urine Negative Negative Microscopic Examination Micr oscopic follows if indicated. Microscopic Examination See below: Micr oscopic was indicated and was performed. Urinalysis Reflex This speci men has reflexed to a Urine Culture. WBC 6-10 0 - 5 /hpf RBC None seen 0 - 2 /hpf Epithelial Cells (non renal) 0-10 0 - 10 /hpf Casts None seen None seen /lpf Bacteria None seen None seen/Few Urine Culture, Routine Final report Result 1 Mixed urogenital hannah Greater than 100,000 colony forming units per mL Sedimentation Rate-Westergre n* Reviewed date:02/21/2024 11:51:32 AM Interpretation:Normal Performing Lab:[facility] [place], [address] [facility], [place], Phone - [phone], Director - PhDRicchiradhai Notes/Report: Sedimentation Rate-Westergren 25 0-32 mm/hr 12 Panel Urine Drug Screen Reviewed date:10/03/2023 04:32:52 PM Interpretation: Performing Lab: Notes/Report: THC n MIRNA n MOP (OPI) n AMP n MET n BAR n BZO n MDMA n MTD n OXY n PCP n BUP n CBC With Differential/Platel et* Reviewed date:07/09/2024 09:13:56 AM Interpretation: Performing Lab:[facility], [address] [facility], [place], Phone - [phone], Director - Michaelle Notes/Report: WBC 6.6 3.4-10.8 x10E3/uL RBC 5.51 3.77-5.28 x10E6/uL Hemoglobin 14.5 11.1-15.9 g/dL Hematocrit 45.0 34.0-46.6 % MCV 82 79-97 fL MCH 26.3 26.6-33.0 pg MCHC 32.2 31.5-35.7 g/dL RDW 12.7 11.7-15.4 % Platelets 226 150-450 x10E3/uL Neutrophils 67 Not Estab. % Lymphs 26 Not Estab. % Monocytes 6 Not Estab. % Eos 0 Not Estab. % Basos 0 Not Estab. % Neutrophils (Absolute) 4.4 1.4-7.0 x10E3/uL Lymphs (Absolute) 1.7 0.7-3.1 x10E3/uL Monocytes(Absolute) 0.4 0.1-0.9 x10E3/uL Eos (Absolute) 0.0 0.0-0.4 x10E3/uL Baso (Absolute) 0.0 0.0-0.2 x10E3/uL Immature Granulocytes 1 Not Estab. % Immature Grans (Abs) 0.0 0.0-0.1 x10E3/uL Hemoglobin A1c CLIA Waived Reviewed date:09/06/2023 01:46:34 PM Interpretation: Performing Lab: Notes/Report: Hemoglobin A1c 8.4 4.0 - 6.4 % Reason For Referral Reason Generalized myalgia, back pain, possible fibro Diagnosis 1 Neuropathic pain (M7 9.2) Diagnosis 2 Myalgia (M79.10) Referral Organization [facility] Referring Provider First Name Liam Referring Provider Last Name Kain Referring Provider Speciality Family [facility] icicosme Referred Provider [facility][note 3] Referred Provider Specialty Physical The rapist General Notes Milana, MEAGN, Sarita Miner 02/20/2024 01:42:15 PM >[facility] [place] (spoke with Marlo on 01/16/24)., MEGAN Cortés Stephanie N 02/20/2024 01:44:26 PM >Referral faxed. Confirmation pending., MEGAN Cortés Stephanie N 02/22/2024 09:11:44 AM >referral successfully faxed. Message sent and letter mailed notifying pt of referral. See logs. Clinical Notes [facility] Re hab [facility], [address] [place] [phone], , Referral Priority Routine Reason chronic migraines Diagnosis 1 Migraine (G43.909) Referral Organization [facility] Referring Provider First Name Flower Referring Provider Last Name Liss Referring Provider [facility] [place] Referred Provider Specialty Neurology General Notes Ariana Walsh 02:23:21 PM >According to website [facility] [place] takes clients insurance., Ariana Walsh 03/13/2024 02:25:10 PM >Referral faxed., Ariana Walsh 03/13/2024 02:29:29 PM >Referral letter & message sent to client. Clinical Notes [facility] [place], [facility] [facility] [address], [place] [address], Phone Current Pt's: [phone], New Pt's , Referral Priority Routine Reason Black stools, abd cr amping, sulfur burps Diagnosis 1 Dark stools (R19.5) Referral Organization [facility] Referring Provider First Name Liam Referring Provider Last Name Kain Referring Provider Speciality [facility] [place] Referred Provider Specialty Gastroentero logy General Notes Thi Garcia 06/15 11:00:05 AM > Referral sent to [facility] Letter to patient. Clinical Notes Gastroenterology [facility], [address], [address], [facility], [address], ph. [phone], fax: [phone] Referral Priority Routine Medications Medication SIG (Take, Route, Frequency, Duration) Notes Start Date End Date Status Pregabalin 150 MG 1 capsule Orally twice a day for 30 days 07/24/2024 Active QUEtiapine Fumarate 25 MG 1 tablet every morning Orally Once a day for 30 days 08/11/2024 Active LaMICtal 150 MG 1 tablet Orally two times daily for 30 days Active Atorvastatin Calcium 40 mg TAKE 1 TABLET BY MOUTH DAILY for 28 Active Invega 9 MG 1 tablet in the morning (total of 12 mg) Orally Once a day for 30 days Active Ondansetron HCl 4 MG 1 tablet Orally Once a day for 5 days 01/10/2024 Active Invega 3 MG 1 tablet in the morning (total of 12 mg) Orally Once a day for 30 days Active HumaLOG 100 UNIT/ML 150 UNITS VIA PUMP Subcutaneous DAILY INSULIN PUMP RX BY SALES MANAGER Active Losartan Potassium 25 MG 1 tablet Orally Once a day Active busPIRone HCl 15 MG 1 tablet every morning, 2 tablets every evening Orally two times daily for 30 days Active Ferrous Sulfate 325 (65 Fe) MG 1 tablet Orally Three times a Week Active Escitalopram Oxalate 20 MG 1 tablet Orally Once a day for 30 days Active Albuterol Sulfate HFA 108 (90 Base) MCG/ACT 1 puff as needed Inhalation every 4 hrs for 30 days Active Rizatriptan Benzoate 5 MG 1 tablet Orally as needed for 9 days Active QUEtiapine Fumarate 400 MG 1 tablets Orally once a day at bedtime for 30 days As needed Active tiZANidine HCl 4 MG 1 tablet as needed Orally twice a day for 30 days 02/14/2024 Active hydrOXYzine HCl 50 MG 1 tablet Orally twice a day for 30 days As needed Active Famotidine 20 MG 1 tablet at bedtime as needed Orally Once a day for 30 days As needed for acid reflux 03/12/2024 Active Social History Tobacco Use: Social History Observation Description Date Details (start date - stop date) Unknown Sex Assigned At : Social History Observation Description Sex Assigned At Female PRAPARE Question Answer Notes Date Completed/Updated: 04/14/2024 What is your current housing situation? I do not have housing (staying with others, in a hotel, in a long-term, living outside on the street, on a beach, or in a park) Are you worried about losing your housing? No What is the highest level of school that you have finished? High school diploma or GED What is your current work situation? Unemployed and seeking work In the past year, have you o r any family members you live with been unable to get any of the following when it was really needed? Check all that apply I do not have problems meeting my needs Has lack of transportation k ept you from medical appointments, meetings, work or from getting things needed for daily living? No How often do you see or talk to people that you care about and feel close to? (For example: talking to friends on the phone, visiting friends or family, going to muslim or club meetings) More than 5 times a week How stressed are you? Stress is when someone feels tense, nervous, anxious, or can\t sleep at night because their mind is troubled Not at all In the past year have you sp ent more than 2 nights in a row in a residential, nursing home, fpc center, or juvenile correctional facility? No Are you a refugee? No What country are you from? [place] Do you feel physically and e motionally safe where you currently live? Yes In the past year, have you b een afraid of your partner or ex-partner? No PRAPARE Score: 6 Tobacco Control (Standard) Question Answer Notes Tobacco use: Uses tobacco in other forms Additional Findings: Tobacco user e-cigarette Problems Problem Type SNOMED Code ICD Code Onset Dates Problem Status W/U Status Risk Notes Problem Morbid obesity (disorder) (158166961) Morbid (severe) obesity due to excess calories (E66.01) Active confirmed Problem Tobacco user (573252574) Nicotine dependence, unspecified, uncomplicated (F17.200) Active confirmed Problem Borderline personality disorder (F60.3) 2021 Active confirmed Problem 377668163 Irritable bowel syndrome with diarrhea (K58.0) Active confirmed Problem 39599010 Functional diarr hea (K59.1) Active confirmed Problem Fibromyalgia (475013163) Fibromyalgia (M79.7) Active confirmed Problem Palpitations (47776800) Palpitations (R00.2) Active confirmed Problem Hypertension (26945570) Hypertension (I10) 2023 Active confirmed Problem Hyperlipidemia (62753452) Hyperlipidemia (E78.5) Active confirmed Problem Anxiety (51704372) Anxiety (F41.9) Active confi rmed Problem Vitamin D deficiency (17773193) Vitamin D deficiency (E55.9) Active confirmed Problem Migraine (93699865) Migraine (G43.909) Active c onfirmed Problem Asthma (432435469) Asthma (J45.909) Active conf irmed Problem Chest pain (54016532) Chest pain (R07.9) Active confirmed Problem 44007085 Attention defici t hyperactivity disorder (ADHD), combined type (F90.2) Active confirmed Problem Hypertriglyceridemia (015651968) Hypertriglyceridemia (E78.1) 2021 Active confirmed Problem Constipation (40496063) Constipation (K59.00) Active confirmed Problem 482834732 Routine adult he alth maintenance (Z00.00) Active confirmed Problem Missed period (44200998) Missed menses (N92.6) Active confirmed Problem Pruritus of vagina (86857083) Vaginal itching (L29.8) Active confirmed Problem Obstructive sleep apnea syndrome (30455519) Sleep apnea in adult (G47.33) Active confirmed Problem 81926135 Chronic fatigue (R53.82) Active confirmed Problem Diabetes mellitus (89377364) Diabetes mellitus (E11.9) Active confirmed Problem Hyperlipidaemia (29330415) Hyperlipemia (E78.5) Active confirmed Problem 378831002 Bipolar affectiv e disorder, depressed, severe, with psychotic behavior (F31.5) 2021 Active confirmed Problem Surveillance of contraception (795211977) control (Z30.9) Active confirmed Problem Drug monitoring done (373523729) Therapeutic drug monitoring (Z51.81) Active confirmed Problem 623141191 Mild persistent asthma without complication (J45.30) Active confirmed Problem [id number] Carpal tunnel syndrome of left wrist (G56.02) Active confirmed Problem Chest pain (07658343) Chest pain varying with breathing (R07.9) Active confirmed Problem 38223179 Type 2 diabetes mellitus with hyperglycemia, without long-term current use of insulin (E11.65) 2020 Active confirmed Problem 230997177 Adult ADHD (atte ntion deficit hyperactivity disorder) (F90.9) Active confirmed Problem Hearing loss (68056975) Decreased hearing of both ears (H91.93) Active confirmed Problem Carpal tunnel syndrome (67149951) Carpal tunnel syndrome on both sides (G56.03) Active confirmed Problem Urinary tract infectious disease (16545825) UTI symptoms (R39.9) Active confirmed Problem Diabetic foot (673244577) Diabetic foot (E11.8) 2022 Active confirmed Problem [id number] CRP elevated (R79.82) Active co nfirmed Problem Ketoacidosis in type II diabetes mellitus (703078275) Diabetic ketoacidosis without coma associated with type 2 diabetes mellitus (E11.10) 2021 Active confirmed Problem Irregular menstruation (94528575) Irregular menstruation (N92.6) Active confirmed Problem Functional dyspepsia (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) Acid indigestion (K30) Active confirmed Vital Signs Heart Rate 94 /min 07/24/2024 Temperature 98.3 degrees Fahrenheit 04/03/2024 Respiratory Rate 16 /min 07/24/2024 Oximetry 98 % 07/24/2024 Blood pressure diastolic 80 mm Hg 07/24/2024 Height 62 in 07/24/2024 Blood pressure systolic 110 mm Hg 07/24/2024 Weight 241.6 lbs 07/24/2024 BMI 44.18 kg/m2 07/24/2024 Encounters Encounter Location Date Provider Diagnosis [address] [address] 07/08/2024 Liam Finnegan [address] [address] 08/23/2023 Ofelia Engle Bipolar affective disorder, depressed, severe, with psychotic behavior F31.5 ; Borderline personality disorder F60.3 ; Adult ADHD (attention deficit hyperactivity disorder) F90.9 ; Vitamin D deficiency E55.9 and Anxiety F41.9 [facility] [address] [place] [address] 09/06/2023 Flower Leija Diabetes mellitus E11.9 ; Costochondritis M94.0 and Nutritional counseling Z71.[address] [address] 10/03/2023 Ofelia Engle Bipolar affective disorder, depressed, severe, with psychotic behavior F31.5 ; Borderline personality disorder F60.3 ; Adult ADHD (attention deficit hyperactivity disorder) F90.9 ; Vitamin D deficiency E55.9 ; Anxiety F41.9 and Therapeutic drug monitoring Z51.[address] [address] 10/16/2023 Ofelia Kadie Bipolar affective disorder, depressed, severe, with psychotic behavior F31.5 ; Borderline personality disorder F60.3 ; Adult ADHD (attention deficit hyperactivity disorder) F90.9 ; Vitamin D deficiency E55.9 and Anxiety F41.[address] [address] 10/17/2023 [place] Vaginal discharge N89.8 and Diarrhea R19.[address] [address] 11/06/2023 Ofelia Kadie Bipolar affective disorder, depressed, severe, with psychotic behavior F31.5 ; Borderline personality disorder F60.3 ; Adult ADHD (attention deficit hyperactivity disorder) F90.9 ; Vitamin D deficiency E55.9 and Anxiety F41.[address] [address] 12/05/2023 Flower Short Migraine G43.909 ; Nicotine dependence, unspecified, uncomplicated F17.200 ; Diabetes mellitus E11.9 and COVID-[address] [address] 12/05/2023 [facility] [address] [address] 01/10/2024 Sarita Tanwangco Vaginal discharge N89.8 ; UTI symptoms R39.9 and Nausea R11.0 [facility] [address] [address] 01/10/2024 [facility] [address] [address] 01/10/2024 [place] [address] [place] [address] 01/15/2024 Flower Leija Diabetes mellitus E11.9 ; Carpal tunnel syndrome on both sides G56.03 ; Nutritional counseling Z71.3 ; Nausea R11.0 and Migraine G43.909 [facility] [address] [place] [address] 01/18/2024 [place] Myalgia M79.10 ; Neuropathic pain M79.2 ; Type 2 diabetes mellitus with hyperglycemia, without long-term current use of insulin E11.65 ; Irritable bowel syndrome with diarrhea K58.0 ; Sleep apnea in adult G47.33 ; Fatigue R53.83 ; Exposure to potential infection Z20.9 ; Hyperlipemia E78.5 ; Hypertension I10 ; Onychomycosis B35.1 ; Asthma J45.909 and Migraine G43.[address] [address] 01/30/2024 Flower Leija Nutritional counseling Z71.3 ; Neuropathic pain M79.2 ; Chronic fatigue R53.82 ; Functional diarrhea K59.1 and Diabetes mellitus E11.[address] [address] 01/31/2024 Ofelia Engle Bipolar affective disorder, depressed, severe, with psychotic behavior F31.5 ; Borderline personality disorder F60.3 ; Adult ADHD (attention deficit hyperactivity disorder) F90.9 ; Vitamin D deficiency E55.9 and Anxiety F41.[address] [address] 02/14/2024 Liam Finnegan Neuropathic pain M79.2 ; Myalgia M79.10 ; Morbid (severe) obesity due to excess calories E66.01 and Nutritional counseling Z71.[address] [address] 02/19/2024 Jessie Hawkins Bipolar affective disorder, depressed, severe, with psychotic behavior F31.5 ; Borderline personality disorder F60.3 ; Adult ADHD (attention deficit hyperactivity disorder) F90.9 ; Vitamin D deficiency E55.9 ; Anxiety F41.9 and Medication management Z79.[address] [address] 02/20/2024 Flower Leija Nutritional counseling Z71.3 ; Routine adult health maintenance Z00.00 ; Chronic fatigue R53.82 and Type 2 diabetes mellitus with hyperglycemia, without long-term current use of insulin E11.[address] [address] 02/20/2024 Flower Leija [address] [address] 02/26/2024 Jessie Hawkins Bipolar affective disorder, depressed, severe, with psychotic behavior F31.5 ; Borderline personality disorder F60.3 ; Adult ADHD (attention deficit hyperactivity disorder) F90.9 ; Vitamin D deficiency E55.9 ; Anxiety F41.9 and Medication management Z79.[address] [address] 03/12/2024 Flower Leija Acid indigestion K30 ; Type 2 diabetes mellitus with hyperglycemia, without long-term current use of insulin E11.65 and Migraine G43.[address] [address] 04/03/2024 Liam Finnegan Myalgia M79.10 ; CRP elevated R79.82 ; Morbid (severe) obesity due to excess calories E66.01 ; Nutritional counseling Z71.3 and Nicotine dependence, unspecified, uncomplicated F17.200 [facility] [address] [place] [address] 04/07/2024 Samantha Olsen Bipolar affective disorder, depressed, severe, with psychotic behavior F31.5 ; Nutritional counseling Z71.3 ; Borderline personality disorder F60.3 ; Adult ADHD (attention deficit hyperactivity disorder) F90.9 ; Anxiety F41.9 and Medication management Z79.[address] [address] 04/22/2024 Liam Finnegan Myalgia M79.10 ; Concussion without loss of consciousness, initial encounter S06.0X0A ; Morbid (severe) obesity due to excess calories E66.01 and Nutritional counseling Z71.3 [facility] [address] [place] [address] 04/23/2024 Samantha Olsen Bipolar affective disorder, depressed, severe, with psychotic behavior F31.5 ; Borderline personality disorder F60.3 ; Adult ADHD (attention deficit hyperactivity disorder) F90.9 ; Anxiety F41.9 and Medication management Z79.[address] [place] [address] 05/19/2024 Samantha Olsen Borderline personality disorder F60.3 ; Bipolar affective disorder, depressed, severe, with psychotic behavior F31.5 ; Adult ADHD (attention deficit hyperactivity disorder) F90.9 ; Anxiety F41.9 and Medication management Z79.[address] [place] [address] 06/12/2024 Liam Finnegan Myalgia M79.10 ; Carpal tunnel syndrome of left wrist G56.02 ; Morbid (severe) obesity due to excess calories E66.01 and Nutritional counseling Z71.[address] [address] 06/13/2024 Samantha Olsen Borderline personality disorder F60.3 ; Bipolar affective disorder, depressed, severe, with psychotic behavior F31.5 ; Adult ADHD (attention deficit hyperactivity disorder) F90.9 ; Anxiety F41.9 and Medication management Z79.[address] [place] [address] 07/08/2024 Liam Finnegan Generalized abdomina l pain R10.84 ; Dark stools R19.5 ; Myalgia M79.10 ; Morbid (severe) obesity due to excess calories E66.01 ; Nutritional counseling Z71.3 and Nicotine dependence, unspecified, uncomplicated F17.200 [place] [address] [place] [address] 07/09/2024 Samantha Olsen Borderline personality disorder F60.3 ; Bipolar affective disorder, depressed, severe, with psychotic behavior F31.5 ; Adult ADHD (attention deficit hyperactivity disorder) F90.9 ; Anxiety F41.9 and Medication management Z79.[address] [place] [address] 07/24/2024 [place] Carpal tunnel syndrome on both sides G56.03 ; Fibromyalgia M79.7 and Type 2 diabetes mellitus with hyperglycemia, without long-term current use of insulin E11.65 [facility] [address] [place] [address] 08/11/2024 Samantha Olsen Borderline personality disorder F60.3 ; Bipolar affective disorder, depressed, severe, with psychotic behavior F31.5 ; Adult ADHD (attention deficit hyperactivity disorder) F90.9 ; Anxiety F41.9 and Medication management Z79.[address] [address] 01/21/2024 Flower Leija [address] [address] 01/28/2024 [place] [address] [address] 02/26/2024 Jessie Hawkins [address] [address] 03/24/2024 Samantha Olsen [address] [address] 04/16/2024 Daren Dash [address] [address] 04/21/2024 Flower Leija [facility] [address] [address] 05/20/[address] [address] 06/06/2024 Samantha Olsen Bipolar affective disorder, depressed, severe, with psychotic behavior F31.[address] [place] [address] 06/20/2024Isma Finnegan [address] [place] [address] 08/01/2024 [place] M79.10 Assessments Encounter Date Diagnosis (ICD Code) Assessment Notes Treatment Notes Treatment Clinical Notes Section Notes 08/23/2023 Bipolar affective disorder, depressed, severe, with psychotic behavior (ICD-10 - F31.5) Pt reports that her moods are up and down at times. Pt reports that she has not been sleeping well and wants to restart Trazodone at this time. Pt reports that she has been having increased irritability but is not willing to increase anti-psychotic at this time. Pt was with friends during appt and was very distracted at times; pt will need to be seen in office for her next appt. Will obtain UDS at that time. Will collab with [facility] team 09/06/2023 Diabetes mellitus (ICD-10 - E11.9) 09/06/2023 Costochondritis (ICD-10 - M94.0) 10/03/2023 Bipolar affective disorder, depressed, severe, with psychotic behavior (ICD-10 - F31.5) Pt reports that she was admitted to [facility] on 09/26/2023 due to self harm. Pt reports that she was admitted for 3 days. Pt reports that her Invega was increased to 12mg at that time and feels like that is helping with moods. Pt reports that she continues with some suicidal ideations but denies plan. [place] and Rose Marie from crisis team evaluated pt after appt. Safety plan was established at that time and [place] reports that CRU admission review was completed, and they are waiting to hear if she is approved for [facility] admission. Will collab with [facility] [place] team 10/17/2023 Vaginal discharge (ICD-10 - N89.8) 10/17/2023 Diarrhea (ICD-10 - R19.7) 10/16/2023 Bipolar affective disorder, depressed, severe, with psychotic behavior (ICD-10 - F31.5) Pt reports that she was admitted to [facility] crisis unit and rpeorts that her moods are overall well stable at this time. Will increase Escitalopram to aid moods at this time. Pt denies SI/HI at this time. Pt reports that she is currently looking for a new job at this time. Will collab with [facility] [place] team 11/06/2023 Bipolar affective disorder, depressed, severe, with psychotic behavior (ICD-10 - F31.5) Pt reports that she recently moved to [place] and reports that her anxiety has increased some. Pt reports that she is tolerating medications well. Pt denies SI/HI at this time. Will collab with [facility] [place] team 12/05/2023 Nicotine dependence, unspecified, uncomplicated (ICD-10 - F17.200) 12/05/2023 Migraine (ICD-10 - G43.909) 01/10/2024 Vaginal discharge (ICD-10 - N89.8) 01/10/2024 UTI symptoms (ICD-10 - R39.9) 01/15/2024 Diabetes mellitus (ICD-10 - E11.9) 01/15/2024 Carpal tunnel syndrome on both sides (ICD-10 - G56.03) 01/18/2024 Neuropathic pain (ICD-10 - M79.2) DDX: DIABETIC NEUROPATHY, PAIN DUE TO NONRESTORATIVE SLEEP, FIBROMYALGIA, POST COVID (THOUGH ACUTE ILLNESS WAS 3 MONTHS AGO), LUPUS OR OTHER AUTOIMMUNE DISORDER 01/18/2024 Myalgia (ICD-10 - M79.10) UNLIKELY DUE TO ATORVASTATIN DUE TO NOT TAKING FOR 8 WEEKS. DISCUSSED LOW IMPACT STRETCHING, WALKING, YOGA, G[facility]. CONTINUE TO HOLD ATORVASTATIN. 01/30/2024 Neuropathic pain (ICD-10 - M79.2) Orders given at last visit for [facility]CS, Pt. to f/u after completed 01/30/2024 Nutritional counseling (ICD-10 - Z71.3) 01/31/2024 Bipolar affective disorder, depressed, severe, with psychotic behavior (ICD-10 - F31.5) Pt reports that she has had increased depression and anxiety; pt has tolerated 20mg of Escitalopram in the past; will increase dose at this time. Pt denies SI/HI at this time. Will collab with [facility] team. Encouraged pt to call for therapy appt. Pt also incrrased Trazodone on her own an dhas been doing well on 150mg nightly. Encouraged pt to call into office and speak with nursing staff or provider prior to increasing meds. Pt is not interested in changing Invega to a different anti-psychotic at this time. 02/14/2024 Neuropathic pain (ICD-10 - M79.2) 02/14/2024 Myalgia (ICD-10 - M79.10) 02/19/2024 Bipolar affective disorder, depressed, severe, with psychotic behavior (ICD-10 - F31.5) 02/20/2024 Routine adult health maintenance (ICD-10 - Z00.00) 02/20/2024 Nutritional counseling (ICD-10 - Z71.3) 02/26/2024 Bipolar affective disorder, depressed, severe, with psychotic behavior (ICD-10 - F31.5) 03/12/2024 Type 2 diabetes mellitus with hyperglycemia, without long-term current use of insulin (ICD-10 - E11.65) 03/12/2024 Acid indigestion (ICD-10 - K30) 04/03/2024 CRP elevated (ICD-10 - R79.82) 04/03/2024 Myalgia (ICD-10 - M79.10) Will give small amount of pain medication for PT sessions. Will not be prescribing this [facility], pt. voiced understanding. Advised on increased exercise, stretches, yoga, getting DM under control. 04/07/2024 Bipolar affective disorder, depressed, severe, with psychotic behavior (ICD-10 - F31.5) Reasons, potential benefits, interactions and side effects of all medications were discussed. The Patient/Guardian asked appropriate questions, appeared to understand the answers, and decided to accept the treatment and continue being followed. Alternatives and expected course without treatment were reviewed. The Patient/Guardian is aware of the need to contact the office or return for an earlier appointment if any problems or concerns arise. May also contact the 24-hour crisis hotline ([facility]), refer to the closest emergency room or call 911 if new symptoms arise or existing symptoms worsen. The Patient/Guardian is aware that this would apply to symptoms like: suicidal ideation, homicidal ideation, high risk behaviors, manic symptoms, psychotic symptoms, physical symptoms, or any other symptoms that may be dangerous to self or others. Greater than 50% of time spent on coordination and counseling where psychopharmacology as well as psychotherapeutic interventions were discussed along with review of treatments in the past. Education provided concerning need for adequate hydration. Patient/Guardian verbalized understanding of education, treatment plan and follow up. Appointment performed in person. Follow up in 4 weeks or sooner as needed. May self-administer or be administered own oral medication per [facility] Protocols. Provided informed consent with understanding of side effects, risks and benefits as well as alternative treatments as previously discussed and with the above recommended medications ang other aspects of the treatment program. Agrees to return sooner if symptoms worsen or suicidal or homicidal ideations occur. support and education provided concerning illness and treatment plan, risks and benefits, pt verbalized understanding of the same and agreeable --presents with room mate/best friend, Shahab, doesn't feel like meds have been working, reports mood swings, high anxiety, anger, moderate depression, Reports she gets angry and anxious and blacks out, other people tell me what I do when I black out Reports AH/VH 30% of the time. Has been seen in ED for SI, occasional SI without plan or intent, denies HI --continue Lamictal for mood swings, anger, evaluate at follow up --continue Invega for mood swings, anger, AH/VH, evaluate at follow up \--continue Seroquel, Lexapro for mood swings, anger, evaluate at follow up --trial [place] for mood swings, SI, evaluate at follow up 04/07/2024 Nutritional counseling (ICD-10 - Z71.3) Nutrition: healthy snacks, heart healthy diet, healthy lean proteins, 160 minutes of moderately intense activity weekly 04/22/2024 Concussion without loss of consciousness, initial encounter (ICD-10 - S06.0X0A) No symptoms, doing better. 04/22/2024 Myalgia (ICD-10 - M79.10) 04/23/2024 Borderline personality disorder (ICD-10 - F60.3) Continue psychotherapy as scheduled. 04/23/2024 Bipolar affective disorder, depressed, severe, with psychotic behavior (ICD-10 - F31.5) Reasons, potential benefits, interactions and side effects of all medications were discussed. The Patient/Guardian asked appropriate questions, appeared to understand the answers, and decided to accept the treatment and continue being followed. Alternatives and expected course without treatment were reviewed. The Patient/Guardian is aware of the need to contact the office or return for an earlier appointment if any problems or concerns arise. May also contact the 24-hour crisis hotline ([facility]), refer to the closest emergency room or call 911 if new symptoms arise or existing symptoms worsen. The Patient/Guardian is aware that this would apply to symptoms like: suicidal ideation, homicidal ideation, high risk behaviors, manic symptoms, psychotic symptoms, physical symptoms, or any other symptoms that may be dangerous to self or others. Greater than 50% of time spent on coordination and counseling where psychopharmacology as well as psychotherapeutic interventions were discussed along with review of treatments in the past. Education provided concerning need for adequate hydration. Patient/Guardian verbalized understanding of education, treatment plan and follow up. Appointment performed via telephone appt with pt consent Follow up in 4 weeks or sooner as needed. May self-administer or be administered own oral medication per [facility] Protocols. Provided informed consent with understanding of side effects, risks and benefits as well as alternative treatments as previously discussed and with the above recommended medications ang other aspects of the treatment program. Agrees to return sooner if symptoms worsen or suicidal or homicidal ideations occur. support and education provided concerning illness and treatment plan, risks and benefits, pt verbalized understanding of the same and agreeable --feeling ok, improved depression and anxiety, rates them as moderate, denies SI however feels more irritable since starting [place]. Admits irritability could be due to physical pain. Interested in trialing Cymbalta to address depression, anxiety, and pain. Agreeable to DC Lexapro and trial Cymbalta. Denies AH/VH, denies HI __continue Lamictal for mood swings, anger, evaluate at follow up __continue Invega for mood swings, anger, AH/VH, evaluate at follow up \__continue Seroquel, Lexapro for mood swings, anger, evaluate at follow up __continue [place] for mood swings, SI, evaluate at follow up --DC Lexapro --trial Duloxetine for depression, anxiety, chronic pain, evaluate at follow up 05/19/2024 Borderline personality disorder (ICD-10 - F60.3) Continue psychotherapy as scheduled. --admits lying about sx and how she's feeling 06/06/2024 Bipolar affective disorder, depressed, severe, with psychotic behavior (ICD-10 - F31.5) 06/12/2024 Carpal tunnel syndrome of left wrist (ICD-10 - G56.02) 06/12/2024 Myalgia (ICD-10 - M79.10) Tramadol meant to be temporary, pt. aware. Interested in trying lyrica, will discuss with her psych provider as worried about med interactions. 06/13/2024 Borderline personality disorder (ICD-10 - F60.3) Continue psychotherapy as scheduled. --admits lying about sx and how she's feeling 07/08/2024 Generalized abdominal pain (ICD-10 - R10.84) Some sxs likely due to medication changes, but with hx of IBS and dark stools, will refer to GI. 07/08/2024 Dark stools (ICD-10 - R19.5) 07/09/2024 Borderline personality disorder (ICD-10 - F60.3) Continue psychotherapy as scheduled. --admits lying about sx and how she's feeling at times 07/24/2024 Fibromyalgia (ICD-10 - M79.7) 07/24/2024 Carpal tunnel syndrome on both sides (ICD-10 - G56.03) LETTER GIVEN FOR 5 POUNDS RESTRICTION ON LIFTING. ENCOURAGED CONTROL OF SUGAR PRIOR TO FURTHER EVALUATION AND TREATMENT. 08/01/2024 Myalgia (ICD-10 - M79.10) 08/11/2024 Borderline personality disorder (ICD-10 - F60.3) Continue psychotherapy as scheduled. 07/24/2024 Type 2 diabetes mellitus with hyperglycemia, without long-term current use of insulin (ICD-10 - E11.65) F/U WITH ENDO 07/09/2024 Bipolar affective disorder, depressed, severe, with psychotic behavior (ICD-10 - F31.5) Reasons, potential benefits, interactions and side effects of all medications were discussed. The Patient/Guardian asked appropriate questions, appeared to understand the answers, and decided to accept the treatment and continue being followed. Alternatives and expected course without treatment were reviewed. The Patient/Guardian is aware of the need to contact the office or return for an earlier appointment if any problems or concerns arise. May also contact the 24-hour crisis hotline ([facility]), refer to the closest emergency room or call 911 if new symptoms arise or existing symptoms worsen. The Patient/Guardian is aware that this would apply to symptoms like: suicidal ideation, homicidal ideation, high risk behaviors, manic symptoms, psychotic symptoms, physical symptoms, or any other symptoms that may be dangerous to self or others. Greater than 50% of time spent on coordination and counseling where psychopharmacology as well as psychotherapeutic interventions were discussed along with review of treatments in the past. Education provided concerning need for adequate hydration. Patient/Guardian verbalized understanding of education, treatment plan and follow up. Appointment performed via telephone appt with pt consent Follow up in 4 weeks or sooner as needed. May self-administer or be administered own oral medication per [facility] Protocols. Provided informed consent with understanding of side effects, risks and benefits as well as alternative treatments as previously discussed and with the above recommended medications ang other aspects of the treatment program. Agrees to return sooner if symptoms worsen or suicidal or homicidal ideations occur. support and education provided concerning illness and treatment plan, risks and benefits, pt verbalized understanding of the same and agreeable --mild anxiety and depression, denies panic attacks, decreased mood swings and irritability, feels this is related to fibromyalgia pain. Had an argument with her Dad a couple weeks ago, he's moved in with his Mom. Feels meds are working pretty good . Denies SI/HI, AH, VH. Prefers to continue with same meds, same dose. __continue Lamictal for mood swings, anger, evaluate at follow up __continue Invega for mood swings, anger, AH/VH, evaluate at follow up \__continue Seroquel, Lexapro for mood swings, anger, evaluate at follow up __continue Escitalopram for anxiety, depression, evaluate at follow up _ --needs to RS appt with therapist, will call her to RS instead of NS, praise and support provided related to pt's choices --trialed [place] Duloxetine 07/08/2024 Myalgia (ICD-10 - M79.10) 08/11/2024 Bipolar affective disorder, depressed, severe, with psychotic behavior (ICD-10 - F31.5) Reasons, potential benefits, interactions and side effects of all medications were discussed. The Patient/Guardian asked appropriate questions, appeared to understand the answers, and decided to accept the treatment and continue being followed. Alternatives and expected course without treatment were reviewed. The Patient/Guardian is aware of the need to contact the office or return for an earlier appointment if any problems or concerns arise. May also contact the 24-hour crisis hotline (R), refer to the closest emergency room or call 911 if new symptoms arise or existing symptoms worsen. The Patient/Guardian is aware that this would apply to symptoms like: suicidal ideation, homicidal ideation, high risk behaviors, manic symptoms, psychotic symptoms, physical symptoms, or any other symptoms that may be dangerous to self or others. Greater than 50% of time spent on coordination and counseling where psychopharmacology as well as psychotherapeutic interventions were discussed along with review of treatments in the past. Education provided concerning need for adequate hydration. Patient/Guardian verbalized understanding of education, treatment plan and follow up. Appointment performed via telephone appt with pt consent Follow up in 4 weeks or sooner as needed. May self-administer or be administered own oral medication per [facility] Protocols. Provided informed consent with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 the Patient/Guardian is aware that this would apply to symptoms such as: suicidal ideation, homicidal ideation, high risk behaviors, manic symptoms, psychotic symptoms, physical symptoms, or any other symptoms that may be dangerous to self or others. 10/17/2023 Other Learning About the Safe Use of Antibiotics material was discussed. Pt was educated on use of antibiotic medication including dosing, side effects, adverse effects and anticipated response. Pt was also educated on importance of completing full course of treatment as ordered. Patient voiced understanding of all. 11/06/2023 Other Discussed treat ment planDiscussed sleep hygiene and caffeine intakeReturn to clinic 4 weeksEncouraged continued counselingWill collab with [facility] [place] team Discussed treatment plan; patient is agreeable and accepting of treatment plan. Patient denies further questions or concerns at this time. The Patient/Guardian asked appropriate questions, appeared to understand the answers, and decided to accept the treatment and continue being followed.The Patient/Guardian is aware of the need to contact the office or return for an earlier appointment if any problems or concerns arise. May also contact the 24-hour crisis hotline ([facility]), refer to the closest emergency room or call 911 if new symptoms arise of existing symptoms worsen; the Patient/Guardian is aware that this would apply to symptoms such as: suicidal ideation, homicidal ideation, high risk behaviors, manic symptoms, psychotic symptoms, physical symptoms, or any other symptoms that may be dangerous to self or others. 01/10/2024 Other Learning About the Safe Use of Antibiotics material was discussed. Pt was provided with education regarding safe use of antibioitics, impacts of overuse of antibiotics, why antibiotics were not prescribed in this situation, and when to call the office for continued symptoms. At home treatments discussed based on symptoms. 01/31/2024 Other Discussed treatment planDiscussed sleep hygiene and caffeine intakeReturn to clinic 4 weeksObtain lab work at next visit Encouraged counselingDiscussed treatment plan; patient is agreeable and accepting of treatment plan. Patient denies further questions or concerns at this time. The Patient/Guardian asked appropriate questions, appeared to understand the answers, and decided to accept the treatment and continue being followed.The Patient/Guardian is aware of the need to contact the office or return for an earlier appointment if any problems or concerns arise. May also contact the 24-hour crisis hotline ([facility]), refer to the closest emergency room or call 911 if new symptoms arise of existing symptoms worsen; the Patient/Guardian is aware that this would apply to symptoms such as: suicidal ideation, homicidal ideation, high risk behaviors, manic symptoms, psychotic symptoms, physical symptoms, or any other symptoms that may be dangerous to self or others. Patient made aware that this provider will be leaving [facility] as of 02/06/2024 and he will be transitioned to a new provider for his next appointment. 04/23/2024 Other Nutrition: heal thy snacks, heart healthy diet, healthy lean proteins, 160 minutes of moderately intense activity weekly 07/24/2024 Other [place] W/O ISSUES 01/10/2024 Other Provided case management services to address social determinants of health needs and reduce barriers to health care services. Plan Of Treatment Future Test Test Name Order Date Electrocardiogram (EKG) 08/11/2024 Next Appt Details Provider Name:[place] , 09/03/2024 10:00:00 AM, [address], [place], [address], Insurance Providers Payer Name Payer Address Payer Phone Subscriber Number Group Number Insured Name Patient Relationship to Insured Coverage Start Date Coverage End Date [facility] Attn Claims Department [address] [place] [address] [id number] Greyson Johnson Self - patient is the insured 1 [facility] [employer] Att[employer] Claims Department [address] [place] [address] [id number] Greyson Johnson Self - patient is the insured 1 Medical (General) History Medical History History ICD Code Bipolar affective disorder, depressed, s evere, with psychotic behavior F31.5 Borderline personality disorder F60.3 Adult ADHD (attention deficit hyperactiv ity disorder) F90.9 Type 2 diabetes mellitus wit h hyperglycemia, without long-term current use of insulin E11.65 Mild persistent asthma without complicat ion J45.30 Hypertension I10 Hyperlipidemia E78.5 Surgical History Surgery Date(Month/Year) left arm tendon/nerve repair Hospitalization History Reason Date(Month/Year) MH/SA at [facility] 01/2024 Mental health from september 28-09/2022 [facility] 02/16/21 mental health [facility] 02/01/21
--- OUTSIDE RECORDS SUMMARY | 2024-08-21 11:17 | XMS_ITS ---
Author Organization [facility] Address [address] [place] [address] Care Team Providers Care Unit Manager Name Role Phone [facility] Primary Care Provider [phone] Samantha Olsen [phone] Allergies Allergen (clinical drug ingredient) Drug/Non Drug Allergy documented on EMR Reaction Allergy Type Onset Date Status Cat dander cat dander (uncoded) Unknown Allergy Active Pollen pollen (uncoded) Unknown Allergy Act beth acetaminophen Tylenol rash Drug Allergy Act beth caffeine Caffeine Unknown Drug Allergy Active ibuprofen Ibuprofen hives Drug Allergy Active REASON FOR VISIT 4 week f/u Medications Medication SIG (Take, Route, Frequency, Duration) Notes Start Date End Date Status Atorvastatin Calcium 40 mg TAKE 1 TABLET BY MOUTH DAILY for 28 Active Pregabalin 150 MG 1 capsule Orally twice a day for 30 days 07/24/2024 Active Albuterol Sulfate HFA 108 (90 Base) MCG/ACT 1 puff as needed Inhalation every 4 hrs for 30 days Active Rizatriptan Benzoate 5 MG 1 tablet Orally as needed for 9 days Active Famotidine 20 MG 1 tablet at bedtime as needed Orally Once a day for 30 days As needed for acid reflux 03/12/2024 Active QUEtiapine Fumarate 25 MG 1 tablet every morning Orally Once a day for 30 days 08/11/2024 Active Ondansetron HCl 4 MG 1 tablet Orally Once a day for 5 days 01/10/2024 Active HumaLOG 100 UNIT/ML 150 UNITS VIA PUMP Subcutaneous DAILY INSULIN PUMP RX BY STAMPING DIE TRY OUT WORKER Active Ferrous Sulfate 325 (65 Fe) MG 1 tablet Orally Three times a Week Active tiZANidine HCl 4 MG 1 tablet as needed Orally twice a day for 30 days 02/14/2024 Active Invega 3 MG 1 tablet in the morning (total of 12 mg) Orally Once a day for 30 days Active Losartan Potassium 25 MG 1 tablet Orally Once a day Active Escitalopram Oxalate 20 MG 1 tablet Orally Once a day for 30 days Active QUEtiapine Fumarate 400 MG 1 tablets Orally once a day at bedtime for 30 days As needed Active hydrOXYzine HCl 50 MG 1 tablet Orally twice a day for 30 days As needed Active LaMICtal 150 MG 1 tablet Orally two times daily for 30 days Active Invega 9 MG 1 tablet in the morning (total of 12 mg) Orally Once a day for 30 days Active busPIRone HCl 15 MG 1 tablet every morning, 2 tablets every evening Orally two times daily for 30 days Active Social History Tobacco Use: Social History [...] phone, visiting friends or family, going to episcopal or club meetings) More than 5 times a week How stressed are you? Stress is when someone feels tense, nervous, anxious, or can\t sleep at night because their mind is troubled Not at all In the past year have you sp ent more than 2 nights in a row in a residential, snf, assisted center, or juvenile correctional facility? No Are you a refugee? No What country are you from? [place] Do you feel physically and e motionally safe where you currently live? Yes In the past year, have you b een afraid of your partner or ex-partner? No PRAPARE Score: 6 Tobacco Control (Standard) Question Answer Notes Tobacco use: Uses tobacco in other forms Additional Findings: Tobacco user e-cigarette Encounters Encounter Location Date Provider Diagnosis [facility] [place] [address] 08/11/2024 Samantha Olsen Borderline personali ty disorder F60.3 ; Bipolar affective disorder, depressed, severe, with psychotic behavior F31.5 ; Adult ADHD (attention deficit hyperactivity disorder) F90.9 ; Anxiety F41.9 and Medication management Z79.899 Assessments Encounter Date Diagnosis (ICD Code) Assessment Notes Treatment Notes Treatment Clinical Notes Section Notes 08/11/2024 Borderline personality disorder (ICD-10 - F60.3) Continue psychotherapy as scheduled. 08/11/2024 Bipolar affective disorder, depressed, severe, with [...] or be administered own oral medication per [facility] Protocols. Provided informed consent with understanding of [...] ordered--_ --labs ordered 08/2023 by PCP --trialed [place] Duloxetine 08/11/2024 Adult ADHD (attention deficit hyperactivity disorder) (ICD-10 - F90.9) [place]. --hold treatment for ADHD for now 08/11/2024 Anxiety (ICD-10 - F41.9) --moderate to severe anxiety, panic attacks at times, has taken Hydroxy, didn't feel like it was effective in decreasing anxiety --taking Buspar 1 tab every AM, 2 tabs every PM, feels this has been effective in managing anxiety --continue Buspar for anxiety, evaluate at follow up --continue Hydroxyzine for anxiety evaluate at follow up 08/11/2024 Medication management (ICD-10 - Z79.899) May self-administer medications or be administered own oral medications per [facility] protocols. Provided informed consent with understanding of side effects, adverse effects, risks and benefits as well as alternative treatments as previously discussed and with the above recommended medications & other aspects of the treatment program. Agrees to return sooner if symptoms worsen or suicidal or homicidal ideations occur. Plan Of Treatment Medication Medication Name Sig Start Date Stop Date Notes QUEtiapine Fumarate 25 MG 1 tablet every morning Orally Once a day for 30 days 08/11/2024 Invega 3 MG 1 tablet in the morn ing (total of 12 mg) Orally Once a day for 30 days Escitalopram Oxalate 20 MG 1 tablet Oral ly Once a day for 30 days QUEtiapine Fumarate 400 MG 1 tablets Ora lly once a day at bedtime for 30 days hydrOXYzine HCl 50 MG 1 tablet Orally tw ice a day for 30 days LaMICtal 150 MG 1 tablet Orally two times daily for 30 days Invega 9 MG 1 tablet in the morn ing (total of 12 mg) Orally Once a day for 30 days busPIRone HCl 15 MG 1 tablet every morni ng, 2 tablets every evening Orally two times daily for 30 days Treatment Notes Assessment Notes Borderline personality disorder Continue psychotherapy as scheduled. Bipolar affective disorder, depressed, severe, with psychotic behavior Reasons, potential benefits, interactions and side effects [...] May also contact the 24-hour crisis hotline ([facility]), refer to the closest emergency room or [...] or be administered own oral medication per [facility] Protocols. Provided informed consent with understanding of [...] --EKG ordered--_ --labs ordered 08/2023 by PCP Adult ADHD (attention defici [place]activity disorder) [place] --hold treatment for ADHD for now Anxiety --moderate to severe anxiety, panic attacks at times, has taken Hydroxy, didn't feel like it was effective in decreasing anxiety --taking Buspar 1 tab every AM, 2 tabs every PM, feels this has been effective in managing anxiety --continue Buspar for anxiety, evaluate at follow up --continue Hydroxyzine for anxiety evaluate at follow up Medication management May self-administer medications or be administered own oral medications per [facility] protocols. Provided informed consent with understanding of side effects, adverse effects, risks and benefits as well as alternative treatments as previously discussed and with the above recommended medications & other aspects of the treatment program. Agrees to return sooner if symptoms worsen or suicidal or homicidal ideations occur. Future Test Test Name Order Date Electrocardiogram (EKG) 08/11/2024 Next Appt Details Follow Up: 4 Weeks, Reason: Bipolar affective disorder, BPD, ADHD, Anxiety,,Med Management, follow up in clinic or virtual appt per pt preference Provider Name:Lkae Ellis , 09/03/2024 10:00:00 AM, [address] [facility], [place], [address], Progress Notes * Enrico JOHNSONOB:2000 (23 yo F)Acc No.[id number]:08/11/2024 Patient: Greyson BAEZ Provider: J Carlos Olsen, DNP, TOBACCO PACKING MACHINE OPERATOR, MECHANICAL PLANNER-C :2000 A ge:23 Y S ex:Female Date:08/11/2024 Address:[address] [place], [place] [id number] Pcp:[place] [facility] Subjective: * Chief Complaints: * 4 week f/u * HPI: M edication F/u LS: Denies : Hallucinations:. D enies : Homicidal Ideation:.?Denies : Paranoia:. D enies : AIMS. Goals: u nable to identify goals, working on finding a job.?Coping Skills: C oping Skills S pending time with friends/family, Physical Activity/Sports/Exercise. M edication effectiveness, adherence, side effects: H ave medications been effective??Yes feels mood swings, more irritable due to increased stress, M edication adherence? C lient reports taking some medications as prescribed., M edication side effects? D enies side effects. S leep: S leep: S leeps well when taking prescribed medications., A verage hours of sleep per night: 5 -6 sleeping better with Seroquel. A ppetite: A ppetite: D enies appetite issues. drinks water, eats some F/V, some days only eats once daily, C/o nausea some days. A ttention/Focus: A ttention/focus: A dmits inability to focus/pay attention. easily distracted for the past month, stress is making focus worse. M ood swings: M ood swings: A dmits mood swings. admits racing thoughts. D epression rating: D epression rating, 0-10 scale (0=not at all; 10=worst): 5 comes and goes. A nxiety: A nxiety rating, 0-10 scale (0=not at all; 10=worst): 8 comes and goes,. A nger/Irritability: A nger/Irritability: A dmits.. S uicidal Ideation: S uicidal Ideation: A dmits suicidal ideation without plan or intent.. M edical Concerns/Hospitalizations: M edical Concerns? D enies medical concerns. had a tooth removed, tooth pain--pain from fibromyalgia, H ospitalizations: D enies hospitalizations since last visit.. E ngagement in therapy: A ctively engaged in therapy? Y es, individual therapy. appt performed telephonically with client consent. Reports feeling more stressful and it's affecting her mood. Has been having more mood swings and feeling snippy. Asking if meds can be adjusted due to increased mood swings and snippiness. Had tooth pulled yesterday and c/o fibromyalgia pain, hasn't been taking Pregabalin, I don't even know where it is . D epression Screening: PHQ-9 L ittle interest or pleasure in doing things S everal days, F eeling down, depressed, or hopeless M ore than half the days, T rouble falling or staying asleep, or sleeping too much S everal days, F eeling tired or having little energy M ore than half the days, P oor appetite or overeating N early every day, F eeling bad about yourself or that you are a failure, or have let yourself or your family down S everal days, T rouble concentrating on things, such as reading the newspaper or watching television N early every day, M oving or speaking so slowly that other people could have noticed; or the opposite, being so fidgety or restless that you have been moving around a lot more than usual S everal days, T houghts that you would be better off or of hurting yourself in some way N ot at all, T otal Score 1 4, I nterpretation M oderate Depression. I ntervention D epression Screening Findings P ositive, F ollow-Up for Depression N o Referral necessary, patient involved in behavioral health treatment .. PHQ9 score-14--declines warm hand off, continue med management tx. C SSRS Interpretation and Follow Up Plan: CSSRS Interpretation and Follow Up Plan C SSRS Screen documented using SF Y es, R isk Disposition from SF L ow - No Follow Up Plan Required, F ollow Up Plan N o Follow Up Plan required at this time.. S creening: Gilliam Suicide Severity Rating Scale (LF) D o you want to initiate with S creener form, 1 . Wish to be : Have you wished you were or wished you could go to sleep and not wake up? Y es, 2 . Suicidal Thoughts: Have you actually had any thoughts of killing yourself? Y es, 3 . Suicidal Thoughts with Method (without Specific Plan or Intent to Act): Have you been thinking about how you might do this? N o, 4 . Suicidal Intent (without Specific Plan): Have you had these thoughts and had some intention of acting on them? N o, 5 . Suicide Intent with Specific Plan: Have you started to work out or worked out the details of how to kill yourself? Do you intend to carry out this plan? N o, 6 . Suicide Behavior Question: Have you ever done anything,started to do anything, or prepared to end your life? Y es, W ere any of these in the past 3 months? Y es, I nterpretation: L ow Risk. * ROS: P sych ROS: Constitutional A ll systems negative unless indicated otherwise.. C ardiovascular D enies, d izziness, syncope, palpitations.. H ematological/Lymphatic D enies, b leeding, excessive bruising. * PSYCH ROS2: Depressive symptoms R eports depressed mood,Reports amotivation, , Denies sleep problems,Reports anhedonia. A dmits E levated mood symptoms, i rritable, ,Admits increased distractibility . A dmits m ood swings, d ue to pain. T houghts of self harm D enies. D enies H omicidal thoughts. H yperactivity D enies. I nattention A dmits. B ehavior concerns D enies. D isruptive behavior D enies. O bsessive behavior D enies. Paranoia D enies. D ifficulty concentrating A dmits. s leeping more than usual?Denies. A dmits A nxiety, t hat is moderate to severe. D enies A uditory/visual hallucinations. D enies D elusions. A dmits D epressed mood, w hich is moderate. D enies D ifficulty sleeping. D enies E ating disorder. D enies L oss of appetite. D enies M ental or Physical abuse. D enies S tressors. D enies S ubstance abuse. D enies S uicidal thoughts. * Medical History: * Surgical History: l eft arm tendon/nerve repair * Hospitalization/Major Diagno stic Procedure: m ental health [facility] 02/01/21[facility] 02/16/21[facility] from september 28-09/2022/SA at [facility] 01/2024 * Family History: F ather: alive. M other: , overdose. 1 brother(s) , 2 sister(s) - healthy. .? * Social History: P elena Social History: L iving Arrangement L iving Arrangement: I ndependent Living, I s this a supportive environment? Y es. A lcohol Use A lcohol Use Frequency: N ever. I llicit Substance Usage I llicit Substance Usage: N o. 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 S jason Question Alcohol Screening H ow may times in the past year have you had (4 for women, or 5 for men) or more drinks in a day? 0 . S ocial Determinants: P DAVID Jain ate Completed/Updated: 06/15/2023, W hat is your current housing situation? I do not have housing (staying with others, in a hotel, in a long-term, living outside on the street, on a beach, or in a park), A re you worried about losing your housing? N o, W hat is the highest level of school that you have finished? H igh school diploma or GED, W hat is your current work situation? U nemployed and seeking work, I n the past year, have you or any family members you live with been unable to get any of the following when it was really needed? Check all that apply I do not have problems meeting my needs, H as lack of transportation kept you from medical appointments, meetings, work or from getting things needed for daily living? N o, H ow often do you see or talk to people that you care about and feel close to? (For example: talking to friends on the phone, visiting friends or family, going to episcopal or club meetings) M ore than 5 times a week, H ow stressed are you? Stress is when someone feels tense, nervous, anxious, or can\t sleep at night because their mind is troubled N ot at all, I n the past year have you spent more than 2 nights in a row in a residential, snf, assisted center, or juvenile correctional facility? N o, A re you a refugee? N o, W hat country are you from[place], D o you feel physically and emotionally safe where you currently live? Y es, I n the past year, have you been afraid of your partner or ex-partner? N o, P RAPARE Score: 6 . T obacco Use: T obacco Control (Standard) T obacco use: U ses tobacco in other forms, A dditional Findings: Tobacco user e -cigarette. M iscellaneous: M ethod of learning P referred method of learning: D iscussion. * Medications: T akingInvega 9 MG Tablet Extended Release 24 Hour 1 tablet in the morning (total of 12 mg) Orally Once a day Escitalopram Oxalate 20 MG Tablet 1 tablet Orally Once a day QUEtiapine Fumarate 400 MG Tablet 1 tablets Orally once a day at bedtime As neededbusPIRone HCl 15 MG Tablet 1 tablet every morning, 2 tablets every evening Orally two times daily hydrOXYzine HCl 50 MG Tablet 1 tablet Orally twice a day As neededInvega 3 MG Tablet Extended Release 24 Hour 1 tablet in the morning (total of 12 mg) Orally Once a day LaMICtal 150 MG Tablet 1 tablet Orally two times daily Losartan Potassium 25 MG Tablet 1 tablet Orally Once a day Ferrous Sulfate 325 (65 Fe) MG Tablet 1 tablet Orally Three times a Week Ondansetron HCl 4 MG Tablet 1 tablet Orally Once a day HumaLOG 100 UNIT/ML Solution 150 UNITS VIA PUMP Subcutaneous DAILY , Notes to Pharmacist: INSULIN PUMP RX BY ENDOCRINOLOGISTtiZANidine HCl 4 MG Tablet 1 tablet as needed Orally twice a day Famotidine 20 MG Tablet 1 tablet at bedtime as needed Orally Once a day As needed for acid refluxAlbuterol Sulfate HFA 108 (90 Base) MCG/ACT Aerosol Solution 1 puff as needed Inhalation every 4 hrs Rizatriptan Benzoate 5 MG Tablet 1 tablet Orally as needed Atorvastatin Calcium 40 mg Tablet TAKE 1 TABLET BY MOUTH DAILY Pregabalin 150 MG Capsule 1 capsule Orally twice a day Medication List reviewed and reconciled with the patientTaking Invega 9 MG Tablet Extended Release 24 Hour 1 tablet in the morning (total of 12 mg) Orally Once a day Taking Escitalopram Oxalate 20 MG Tablet 1 tablet Orally Once a day Taking QUEtiapine Fumarate 400 MG Tablet 1 tablets Orally once a day at bedtime As neededTaking busPIRone HCl 15 MG Tablet 1 tablet every morning, 2 tablets every evening Orally two times daily Taking hydrOXYzine HCl 50 MG Tablet 1 tablet Orally twice a day As neededTaking Invega 3 MG Tablet Extended Release 24 Hour 1 tablet in the morning (total of 12 mg) Orally Once a day Taking LaMICtal 150 MG Tablet 1 tablet Orally two times daily Taking Losartan Potassium 25 MG Tablet 1 tablet Orally Once a day Taking Ferrous Sulfate 325 (65 Fe) MG Tablet 1 tablet Orally Three times a Week Taking Ondansetron HCl 4 MG Tablet 1 tablet Orally Once a day Taking HumaLOG 100 UNIT/ML Solution 150 UNITS VIA PUMP Subcutaneous DAILY , Notes to Pharmacist: INSULIN PUMP RX BY ENDOCRINOLOGISTTaking tiZANidine HCl 4 MG Tablet 1 tablet as needed Orally twice a day Taking Famotidine 20 MG Tablet 1 tablet at bedtime as needed Orally Once a day As needed for acid refluxTaking Albuterol Sulfate HFA 108 (90 Base) MCG/ACT Aerosol Solution 1 puff as needed Inhalation every 4 hrs Taking Rizatriptan Benzoate 5 MG Tablet 1 tablet Orally as needed Taking Atorvastatin Calcium 40 mg Tablet TAKE 1 TABLET BY MOUTH DAILY Taking Pregabalin 150 MG Capsule 1 capsule Orally twice a day Medication List reviewed and reconciled with the patient * Allergies: p ollencat danderTylenol: rashIbuprofen: hivesCaffeine Objective: * Vitals: * Examination: P sychiatry: APPEARANCE: u nable to assess - telephone appointment. ATTENTION: f air. ORIENTATION: y es , person, place and time. ATTITUDE: c ooperative , , irritable. AFFECT: u nable to assess - telephone appointment, verbally full. MOOD: e uthymic, , dysthymic, stressed. SPEECH: c lear , normal/R/V/R, spontaneous, talkative. PSYCHOMOTOR ACTIVITY: u nable to assess - telephone appointment. ABNORMAL BODY MOVEMENTS: u nable to assess - telephone appointment. CURRENT HOMICIDALITY: n one. CURRENT SUICIDALITY: p assive thoughts without method, plan, or intent. THOUGHT PROCESS: i ntact, linear, goal-directed, . ? THOUGHT CONTENT: u nremarkable,, racing thoughts. PERCEPTUAL DISORDERS: n o perceptual disorder noted. INSIGHT: f air to poor. JUDGEMENT: f air to poor. DEGREE OF AWARENESS OF SURROUNDINGS: w ithin normal limits.? INTELLIGENCE (estimate): a verage. ABSTRACTION: g ood. IMPULSE CONTROL: f air. ANXIETY LEVEL m oderate to high. ANGER CONTROL: m oderate. AGGRESSION: l ow. Assessment: * Assessment: 1. B orderline personality disorder - F60.3 2 . B ipolar affective disorder, depressed, severe, with psychotic behavior - F31.5 (Primary) 3 . A dult ADHD (attention deficit hyperactivity disorder) - F90.9 4 . A nxiety - F41.9 & #160; 5 . M edication management - Z79.899 Plan: * Treatment: 2. B orderline personality disorder Notes: Continue psychotherapy as scheduled. 3. A dult ADHD (attention deficit hyperactivity disorder) [place] --hold treatment for ADHD for now 4. A nxiety Refill busPIRone HCl Tablet, 15 MG, 1 tablet every morning, 2 tablets every evening, Orally, two times daily, 30 days, 90 Tablet, Refills 0; S tart hydrOXYzine HCl Tablet, 50 MG, 1 tablet, Orally, twice a day As needed, 30 days, 60 Tablet, Refills 0. Notes: --moderate to severe anxiety, panic attacks at times, has taken Hydroxy, didn't feel like it was effective in decreasing anxiety __taking Buspar 1 tab every AM, 2 tabs every PM, feels this has been effective in managing anxiety __continue Buspar for anxiety, evaluate at follow up __continue Hydroxyzine for anxiety evaluate at follow up 5. M edication management Notes: May self-administer medications or be administered own oral medications per [facility] protocols. Provided informed consent with understanding of side effects, adverse effects, risks and benefits as well as alternative treatments as previously discussed and with the above recommended medications & other aspects of the treatment program. Agrees to return sooner if symptoms worsen or suicidal or homicidal ideations occur. * Procedure Codes: * Follow Up: 4 Weeks (Reason: Bipolar affective disorder, BPD, ADHD, Anxiety,,Med Management, follow up in clinic or virtual appt per pt preference) * * Sign off status: Completed true * Provider: J Carlos Olsen, [place], SHAY, MECHANICAL PLANNER-C Date: 0 08/11/2024 Generated for Printing/[employer]/eTransmitting on: 0 08/21/2024 11:17 AM CDT History and Physical Notes * HPI (History of Present Illness) Category Sub-Category Detail Notes Category Not es Depression Screening PHQ-9 Little inte rest or pleasure in doing things: Several days PHQ9 score-14--declines warm hand off, continue med management tx Feeling down, depressed, or hopeless: Mo re than half the days Trouble falling or staying asleep, or sl eeping too much: Several days Feeling tired or having little energy: M ore than half the days Poor appetite or overeating: Nearly ever y day Feeling bad about yourself o r that you are a failure, or have let yourself or your family down: Several days Trouble concentrating on thi ngs, such as reading the newspaper or watching television: Nearly every day Moving or speaking so slowly that other people could have noticed; or the opposite, being so fidgety or restless that you have been moving around a lot more than usual: Several days Thoughts that you would be b doug off or of hurting yourself in some way: Not at all Total Score: 14 Interpretation: Moderate Depression Intervention Depression Screening Findings: P ositive Follow-Up for Depression: No Referral necessary, patient involved in behavioral health treatment . Screening Gilliam Suicide Sev erity Rating Scale (LF) Do you want to initiate with: Screener form 1. Wish to be : Have you wished you were or wished you could go to sleep and not wake up?: Yes 2. Suicidal Thoughts: Have you actually had any thoughts of killing yourself?: Yes 3. Suicidal Thoughts with Method (without Specific Plan or Intent to Act): Have you been thinking about how you might do this?: No 4. Suicidal Intent (without Specific Plan): Have you had these thoughts and had some intention of acting on them?: No 5. Suicide Intent with Specific Plan: Have you started to work out or worked out the details of how to kill yourself? Do you intend to carry out this plan?: No 6. Suicide Behavior Question: Have you ever done anything,started to do anything, or prepared to end your life?: Yes Were any of these in the past 3 months?: Yes Interpretation:: Low Risk Medication F/u LS Goals: unable to identify goal s, working on finding a job appt performed telephonically with client consent. Reports feeling more stressful and it's affecting her mood. Has been having more mood swings and feeling snippy. Asking if meds can be adjusted due to increased mood swings and snippiness. Had tooth pulled yesterday and c/o fibromyalgia pain, hasn't been taking Pregabalin, I don't even know where it is . Coping Skills: Coping Skills: Spend ing time with friends/family, Physical Activity/Sports/Exercise Medication effectiveness, adherence, side effects: Have medications been effective?: Yes feels mood swings, more irritable due to increased stress Medication adherence?: Client reports ta pino some medications as prescribed. Medication side effects?: Denies side ef fects Sleep: Sleep:: Sleeps well when taking prescribed medications. Average hours of sleep per night:: 5-6 s leeping better with Seroquel Appetite: Appetite:: Denies ap petite issues. drinks water, eats some F/V, some days only eats once daily, C/o nausea some days Attention/Focus: Attention/focus:: Ad mits inability to focus/pay attention. easily distracted for the past month, stress is making focus worse Mood swings: Mood swings:: Admits mood swings. admits racing thoughts Depression rating: Depression rating, 0 -10 scale (0=not at all; 10=worst):: 5 comes and goes Anxiety: Anxiety rating, 0-10 scale (0=not at all; 10=worst):: 8 comes and goes, Anger/Irritability: Anger/Irritability:: Admits. Suicidal Ideation: Suicidal Ideation:: Admits suicidal ideation without plan or intent. Medical Concerns/Hospitalizations: Medical Concerns?: Denies medical concerns. had a tooth removed, tooth pain --pain from fibromyalgia Hospitalizations:: Denies hospitalizatio ns since last visit. Engagement in therapy: Actively engaged in therapy?: Yes, individual therapy. Sary CSSRS Interpretation and Follow Up Plan CSSRS Interpretation and Follow Up Plan CSSRS Screen documented using SF: Yes Risk Disposition from SF: Low - No Follo w Up Plan Required Follow Up Plan: No Follow Up Plan requir ed at this time. Examination Category Sub-Category Detail Notes Category Not es Psychiatry APPEARANCE: unable to assess - telephone appointment ATTITUDE: cooperative , , irri table PSYCHOMOTOR ACTIVITY: unable to assess - telephone appointment ABNORMAL BODY MOVEMENTS: unable to asses s - telephone appointment ATTENTION: fair DEGREE OF AWARENESS OF SURROUNDINGS: wit hin normal limits ORIENTATION: yes , person, place and time AFFECT: unable to assess - t elephone appointment, verbally full MOOD: euthymic, , dysthymi c, stressed SPEECH: clear , normal/R/V/R , spontaneous, talkative INSIGHT: fair to poor JUDGEMENT: fair to poor THOUGHT PROCESS: intact, linear, goal -directed, THOUGHT CONTENT: unremarkable,, racin g thoughts PERCEPTUAL DISORDERS: no perceptual diso rder noted ABSTRACTION: good AGGRESSION: low ANGER CONTROL: moderate CURRENT SUICIDALITY: passive thoughts wi thout method, plan, or intent CURRENT HOMICIDALITY: none INTELLIGENCE (estimate): average IMPULSE CONTROL: fair ANXIETY LEVEL moderate to high
--- OUTSIDE RECORDS SUMMARY | 2024-08-21 11:17 | XMS_ITS | Referral Summary ---
Author Organization [facility] Physician Office Building [address] [place] [id number] Care Team Providers Care Plasma Processing Technician Name Role Phone Maggie Jackson MOLD CLEANER Primary Care Provider [phone] Encounters Date Type Department Care Team Description 08/13/2024 Telephone [facility] Neurology [address] [place] [address] [place] [phone] Mansoor Albert MD Prior Auth (Qulipta 30 mg) 08/11/2024 Telephone [facility] Neurology [address] [place] [address] [place] [phone] Mansoor Albert MD 08/11/2024 Orders Only [address] [place] [phone] Mansoor Albert MD 08/08/2024 Telephone [facility] Neurology [address] [place] [address] [place] [phone] Mansoor Albert MD Med Management 07/31/2024 2:00 PM CDT Office Visit [facility] Neurology [address] [place] [phone] Mansoor Albert MD Migraine without aura and without status migrainosus, not intractable (Primary Dx) from Last 3 Months Allergies Active Allergy Reactions Criticality Noted Date Comments Acetaminophen Rash Medium 04/29/2024 Caffeine Headache Low 01/10/2024 Cat Dander Unknown 04/28/2024 Ibuprofen Hives Medium 04/29/2024 Latex Unknown 11/27/2023 Medications busPIRone (BUSPAR) 5 mg tablet 01/05/20 21 Active atorvastatin (LIPITOR) 40 mg tablet Take 1 tablet (40 mg total) by mouth daily Active ferrous sulfate 325 mg (65 mg of elemental iron) tablet 01/22/20 Active losartan (COZAAR) 25 mg tablet Take 1 tablet (25 mg total) by mouth daily 12/11/19 24 Active vitamin B-12 1,000 mcg tablet Take 1 tablet (1,000 mcg total) by mouth daily 04/09/20 Active ergocalcifero l (VITAMIN D) 50,000 unit capsule Take 1 capsule (50,000 Units total) by mouth once a week 04/09/20 Active HumaLOG 100 unit/mL vial for injection 150 UNIT (1.5 ML) VIA CONTINUOUS SUBCUTANEOUS INFUSION DAILY FOR 90 DAYS 04/09/20 Active lamoTRIgine (LaMICtal) 150 mg tablet 04/23/20 Active lithium 150 mg capsule 1 capsule [...] 4 mg tablet every 12 hours 02/14/20 24 Active traMADoL (ULTRAM) 50 mg tablet daily 04/22/20 24 Active hydrOXYzine (ATARAX) 50 mg tablet TAKE 1 TABLET BY MOUTH TWICE A DAY NEEDED FOR 30 DAYS 04/23/20 24 Active pregabalin (LYRICA) 150 mg capsule Take 1 capsule (150 mg total) by mouth 2 (two) times a day 07/08/19 25 Active atogepant 30 mg tablet Take 30 mg by mouth daily 30 tablet 3 08/12/19 25 Active rizatriptan (MAXALT) 10 mg tabletIndicat ions:Migraine Take 1 tablet (10 mg total) by mouth once as needed for migraine May repeat in 2 hours if unresolved. Do not exceed 30 mg in 24 hours. 9 tablet 11 08/12/19 25 2025 Active topiramate (TOPAMAX) 50 mg tablet Take 1 tablet (50 mg total) by mouth 2 (two) times a day 60 tablet 11 08/12/192025 Active DULoxetine DR (CYMBALTA) 20 mg capsule 1 capsule (20 mg total) 04/23/20 24 2024 Discontinued verapamil SR (CALAN SR) 240 mg CR tablet 04/29/202024 Discontinued topiramate (TOPAMAX) 50 mg tabletIndicat ions:Migraine [...] 100 mg twice daily 60 tablet 11 08/01/192024 Discontinued Active Problems Problem Noted Date Diagnosed [...] 04/16/2020 Assessment & Plan (04/19/2020 3:23 PM SPECIAL INVESTIGATION UNIT INVESTIGATOR): 19 yo F w/ a reported hx of bipolar and ADHD who was admitted at the recommendation of her welfare case worker for suicidal ideation with a plan to [...] with a therapist and psychiatric services through [facility], whom we have spoken with by phone and plan to coordinate DBT therapy on an outpatient basis. Additionally, grandma and patient provided further DBT resources outside of [place]. She is IMPROVING as evidence by cheerful [...] to grandparents TODAY with outpt f/u at [place] Assessment & Plan (04/16/2020 4:11 PM SPECIAL INVESTIGATION UNIT INVESTIGATOR): 19 yo F w/ a reported hx of bipolar and ADHD who was admitted at the recommendation of her welfare case worker for suicidal ideation with a plan to [...] with a therapist and psychiatric services through [facility]. -therapeutic milieu and participation in groups -outpatient therapy upon discharge -PRNs available for agitation and comfort -appreciate SW assistance with care planning -dispo: home to grandparents when stabilized with outpt f/u at [place] Mood disorder 04/16/2020 Assessment & Plan (04/19/2020 3:18 PM SPECIAL INVESTIGATION UNIT INVESTIGATOR): Patient meets criteria for MDD except for [...] 5mg Assessment & Plan (04/16/2020 4:04 PM SPECIAL INVESTIGATION UNIT INVESTIGATOR): Patient meets criteria for MDD except for [...] 04/16/2020 Assessment & Plan (04/19/2020 3:19 PM SPECIAL INVESTIGATION UNIT INVESTIGATOR): Historical diagnosis d/t inattention. Was on Focalin for an extended amount of time in childhood. We planned to restart the patient's Focalin here, unfortunately it is not on formulary. Zane brought med from home. Patient could potentially benefit from a dose increase, but we will defer that to outpatient. -focalin XR 10mg (home supply) Assessment & Plan (04/16/2020 3:59 PM SPECIAL INVESTIGATION UNIT INVESTIGATOR): Historical diagnosis d/t inattention. Was on Focalin for an extended amount of time in childhood. We planned to restart the patient's Focalin here, unfortunately it is not on formulary. Zaen plans to bring the med from home -focalin XR 10mg (home supply) Diabetes 04/16/2020 Assessment & Plan (04/19/2020 3:18 PM SPECIAL INVESTIGATION UNIT INVESTIGATOR): Diagnosed on a previous hospitalization this year. Lipids and blood glucoses elevated in ED. -increase Metformin to 1000mg BID Assessment & Plan (04/16/2020 4:00 PM SPECIAL INVESTIGATION UNIT INVESTIGATOR): Diagnosed on a previous hospitalization this year. Lipids and blood glucoses elevated in ED. -Metformin 500mg BID UTI (urinary tract infection) 04/16/2020 Assessment & Plan (04/19/2020 3:17 PM SPECIAL INVESTIGATION UNIT INVESTIGATOR): Previously diagnosed, asymptomatic, will continue previous treatment -completed Macrobid 100mg BID Assessment & Plan (04/16/2020 3:57 PM SPECIAL INVESTIGATION UNIT INVESTIGATOR): Previously diagnosed, asymptomatic, will continue previous treatment -Macrobid 100mg BID for 4 more days Suicidal ideation Immunizations Immunization Administration Dates Next Due Influenza, Quadrivalent, Spl it, Preservative Free, Intramuscular 04/16/2020 Social History Tobacco Use Types Packs/Day Years [...] often do you attend chur ch or moravian services? More than 4 times per year 04/16/2020 Do you belong to any clubs o r organizations such as hindu groups, unions, fraternal or athletic groups, or [...] on file Legal Sex Female 3:03 AM SPECIAL INVESTIGATION UNIT INVESTIGATOR Gender Identity Not on file Sexual Orientation [...] 07/31/2024 1:44 PM CDT Plan of Treatment Not on file Procedures Procedure Name Priority Date/Time Associated Diagnosis Comments EGFR STAT 01/22/2024 3:03 PM CDT LIPID PANEL STAT 04/15/2020 2:57 PM SPECIAL INVESTIGATION UNIT INVESTIGATOR from Last 3 Months or Most Recently [...] of Race in Diagnosing Kidney Disease, JASN 202). The CKD-EPI equation should not be used for patients with unstable renal function and has not been validated in children and those over 70. Current interpretive data was last reviewed 2021. Blood 01/22/2024 3:03 PM CDT 01/22/2024 3:24 PM CDT us Maddy GARCIA LAB BLOOD ORDERABLES Gabi rm Result [facility] [place] [facility] Department of Laboratories [place], [place] [id number] * (ABNORMAL) Lipid panel (04/15/2020 2:57 PM SPECIAL INVESTIGATION UNIT INVESTIGATOR) Cholesterol 189 <=199 mg/dL [facility] Comment: Interpretive Data Ages < or = [...] revised on 2018. Triglycerides 464(H) <=129 mg/dL [facility] Comment: Interpretive Data Ages < or = [...] revised on 2018. HDL 38(L) >=45 mg/dL [facility] Comment: Interpretive Data Ages < or = [...] on 2018. LDL, calculated See Comment <=129 [facility] Comment: Unable to calculate LDL due [...] on 2018. Non-HDL Cholesterol 151(H) <=144 mg/dL [facility] Comment: Interpretive Data Ages < or = [...] last revised on 2018. Chol/HDL ratio 5 [facility] Blood specimen (specimen) 04/15/2020 2:57 PM SPECIAL INVESTIGATION UNIT INVESTIGATOR 04/15/2020 3:12 PM SPECIAL INVESTIGATION UNIT INVESTIGATOR Carolyn Skaggs MD LAB BLOOD ORDERABLES Final Result [facility] Department [place] [address] from Last 3 Months or Most Recently Relevant to Health Maintenance Insurance [facility] Advance Directives For more information, please contact: [phone] * Full Code (Latest Code Status on File) Date Activated Date Inactivated Comments 04/16/2020 1:05 AM 04/19/2020 8:20 PM Care Teams Plasma Processing Technician Relationship Specialty Start Date End Date Maggie Jackson NP PCP - General Nephrology 02/20/22
[2024-08-21 11:22] LABS: Basophils Percent Auto 0.2 % (0.2-1.2); Hematocrit 43.1 % (37.0-47.0); Hemoglobin 14.4 g/dL (12.0-15.0); Immature Granulocyte Absolute 0.03 K/mm3 (0.00-0.031); Immature Granulocyte Percent A 0.5 % (0-0.5); Lymphocytes Absolute Auto 1.46 K/mm3 (0.9-3.2); Lymphocytes Percent Auto 24.9 % (18.3-44.2); Mean Corpuscular HGB Conc 33.4 g/dl (32-36); Mean Corpuscular Hemoglobin 26.6 pg (26-34); Mean Corpuscular Volume 79.7 fl (80-100); Mean Platelet Volume 9.9 fl (7.4-10.4); Monocytes Absolute Auto 0.4 K/mm3 (0.1-0.6); Monocytes Percent Auto 6.8 % (2.6-8.5); Neutrophils Percent Auto 67.6 % (45.5-73.1); Platelet Count Result 219 k/mm3 (150-375); Red Blood Count 5.41 M/mm3 (4.2-5.4); White Blood Count 5.9 K/mm3 (4.5-10.0)
[2024-08-21] MEDS: SODIUM CHLORIDE 0.9% IV 1,000 ML 999 ML IV CONT (11:26)
[2024-08-21] MEDS: DICYCLOMINE HCL 10 MG CAPSULE 20 MG PO (11:27)
[2024-08-21] MEDS: METOCLOPRAMIDE HCL INJ 10 MG/2 ML VIAL IV PUSH (11:38)
[2024-08-21] MEDS: diphenhydrAMINE HCl INJ 50 MG/ML VIAL 25 MG IV PUSH (11:38)
[2024-08-21] MEDS: FAMOTIDINE 20 MG/2 ML VIAL IV PUSH (11:38)
[2024-08-21 11:40] LABS: Alanine Aminotransferase 31 U/L (6-35); Albumin Level 4.7 g/dL (3.5-5.1); Alkaline Phosphatase 93 U/L (38-126); Anion Gap 15 mmol/L (4-12); Aspartate Amino Transferase 30 U/L (14-36); Bilirubin,Total 0.7 mg/dL (0.2-1.3); Blood Urea Nitrogen 9 mg/dL (7-17); Calcium 9.1 mg/dL (8.4-10.2); Carbon Dioxide 22 mmol/L (22-30); Chloride 101 mmol/L (98-107); Estimated CRCL calculation 197 ml/min; Estimated Glomerular Filt Rate > 60; Glucose 350 mg/dL (65-110); Lipase 82 U/L (23-300); Potassium 4.5 mmol/L (3.4-5.0); Sodium 138 mmol/L (137-145)
--- OUTSIDE RECORDS SUMMARY | 2024-08-21 12:06 | XMS_ITS ---
Author Organization [facility] Address [address] [place] [address] Phone Care Team Providers Care Cia Agent Name Role Phone Flower Leija APRN, CNP Primary Care [facility] Status:Enrolled (Active) Start date:06/11/2024 Enrollment date:06/11/2024 Related social drivers of health:Intimate Partner Violence, Social Connections, Alcohol Use, Tobacco Use, Financial Resource Strain,Depression, Stress, Physical Activity, Food Insecurity, Transportation Needs, Housing Stability, Utilities Continued Care and Services Coordination
--- OUTSIDE RECORDS SUMMARY | 2024-08-21 12:06 | XMS_ITS | Encounter Summary ---
Author Organization [facility] Healthcare Address [address] [place] [id number] Care Team Providers Care Button Grader Name Role Phone Maggie Jackson PCTS Primary Care Provider [phone] Reason for Visit * Reason Onset Date Comments Prior Auth 08/13/2024 Qulipta 30 mg Encounter Details Date Type Department Care Team (Late st Contact Info) Description 08/13/2024 Telephone [facility] Neurology [address] [facility] [address] [place] [phone] Mansoor Albert MD [address] [place] [phone] Prior Auth (Qulipta 30 mg) Social [...] often do you attend chur ch or protestant services? More than 4 times per year 04/16/2020 Do you belong to any clubs o r organizations such as nondenominational groups, unions, fraternal or athletic groups, or [...] on file Legal Sex Female 3:03 AM MATERIAL CONTROL ASSOCIATE Gender Identity Not on file Sexual Orientation [...] on filedocumented in this encounter Care Teams Button Grader Relationship Specialty Start Date End Date Maggie Jackson NP PCP - General Nephrology 02/20/22 documented as of this encounter
--- OUTSIDE RECORDS SUMMARY | 2024-08-21 12:06 | XMS_ITS | Clinical Summary ---
Author Organization [facility] [place] Address [facility] [place] [address] Care Team Providers Care Catering Coordinator Name Role Phone None, Provider MD Primary [...] Comments Blood Pressure 158/87 04/19/2024 4:00 PM FINANCIAL RESERVE CLERK Pulse 108 04/19/2024 4:00 PM FINANCIAL RESERVE CLERK Temperature 36.7 C (98.1 F) 04/19/2024 4:00 PM FINANCIAL RESERVE CLERK Respiratory Rate 20 04/19/2024 4:00 PM FINANCIAL RESERVE CLERK Oxygen Saturation 96% 04/19/2024 4:00 PM FINANCIAL RESERVE CLERK Inhaled Oxygen Concentration - - Weight 108.9 kg (240 lb) 04/19/2024 4:00 PM FINANCIAL RESERVE CLERK Height 160 cm (5' 3 ) 04/19/2024 4:00 PM FINANCIAL RESERVE CLERK Body Mass Index 42.51 04/19/2024 4:00 PM FINANCIAL RESERVE CLERK Plan of Treatment Health Maintenance Due Date [...] patient's age to complete this topic [place] [address] [place] [id number] Care Teams Catering Coordinator Relationship Specialty Start Date End Date None, Provider, PCP - General UNKNOWN PHYSICIAN SPECIALTY 04/19/24
--- OUTSIDE RECORDS SUMMARY | 2024-08-21 12:06 | XMS_ITS | Clinical Summary ---
Author Organization [facility] Physician Office Building [address] [place] [phone] Care Team Providers Care Hand Alterations Tailor Name Role Phone Maggie Jackson AIR POLLUTION COMPLIANCE INSPECTOR Primary Care Provider [phone] Allergies Active Allergy Reactions Criticality Noted Date [...] 04/16/2020 Assessment & Plan (04/19/2020 3:23 PM BOX CAR BRACER): 19 yo F w/ a reported hx of bipolar and ADHD who was admitted at the recommendation of her major case detective for suicidal ideation with a plan to [...] with a therapist and psychiatric services through [facility], whom we have spoken with by phone and plan to coordinate DBT therapy on an outpatient basis. Additionally, grandma and patient provided further DBT resources outside of [place]. She is IMPROVING as evidence by cheerful [...] to grandparents TODAY with outpt f/u at [place] Assessment & Plan (04/16/2020 4:11 PM BOX CAR BRACER): 19 yo F w/ a reported hx of bipolar and ADHD who was admitted at the recommendation of her major case detective for suicidal ideation with a plan to [...] with a therapist and psychiatric services through [facility]. -therapeutic milieu and participation in groups -outpatient therapy upon discharge -PRNs available for agitation and comfort -appreciate SW assistance with care planning -dispo: home to grandparents when stabilized with outpt f/u at [place] Mood disorder 04/16/2020 Assessment & Plan (04/19/2020 3:18 PM BOX CAR BRACER): Patient meets criteria for MDD except for [...] 5mg Assessment & Plan (04/16/2020 4:04 PM BOX CAR BRACER): Patient meets criteria for MDD except for [...] 04/16/2020 Assessment & Plan (04/19/2020 3:19 PM BOX CAR BRACER): Historical diagnosis d/t inattention. Was on Focalin for an extended amount of time in childhood. We planned to restart the patient's Focalin here, unfortunately it is not on formulary. Zane brought med from home. Patient could potentially benefit from a dose increase, but we will defer that to outpatient. -focalin XR 10mg (home supply) Assessment & Plan (04/16/2020 3:59 PM BOX CAR BRACER): Historical diagnosis d/t inattention. Was on Focalin for an extended amount of time in childhood. We planned to restart the patient's Focalin here, unfortunately it is not on formulary. Zane plans to bring the med from home -focalin XR 10mg (home supply) Diabetes 04/16/2020 Assessment & Plan (04/19/2020 3:18 PM BOX CAR BRACER): Diagnosed on a previous hospitalization this year. Lipids and blood glucoses elevated in ED. -increase Metformin to 1000mg BID Assessment & Plan (04/16/2020 4:00 PM BOX CAR BRACER): Diagnosed on a previous hospitalization this year. Lipids and blood glucoses elevated in ED. -Metformin 500mg BID UTI (urinary tract infection) 04/16/2020 Assessment & Plan (04/19/2020 3:17 PM BOX CAR BRACER): Previously diagnosed, asymptomatic, will continue previous treatment -completed Macrobid 100mg BID Assessment & Plan (04/16/2020 3:57 PM BOX CAR BRACER): Previously diagnosed, asymptomatic, will continue previous treatment -Macrobid 100mg BID for 4 more days Suicidal ideation Encounters Date Type Department Care Team Description 08/13/2024 Telephone [facility] Neurology [address] [place] [address] [place] [phone] Mansoor Albert MD Prior Auth (Qulipta 30 mg) 08/11/2024 Telephone [facility] Neurology [address] [place] [address] [place] [phone] Mansoor Albert MD 08/11/2024 Orders Only [facility] Neurology [address] [place] [address] [place] [phone] Mansoor Albert MD 08/08/2024 Telephone [facility] Neurology [address] [place] [phone] Mansoor Albert MD Med Management 07/31/2024 2:00 PM CDT Office Visit [facility] Neurology [address] [place] [phone] Mansoor Albert MD Migraine without aura and [...] How often do you attend chur or faith services? More than 4 times per year 04/16/2020 Do you belong to any clubs o r organizations such as restoration groups, unions, fraternal or athletic groups, or [...] on file Legal Sex Female 3:03 AM BOX CAR BRACER Gender Identity Not on file Sexual Orientation [...] CDT LIPID PANEL STAT 04/15/2020 2:57 PM BOX CAR BRACER from Last 3 Months or Most Recently [...] BLOOD ORDERABLES Gabi l Result [facility] [place] [address] [facility] Department [place] [address] * (ABNORMAL) Lipid panel (04/15/2020 2:57 PM BOX CAR BRACER) Cholesterol 189 <=199 mg/dL [facility] Comment: [...] revised on 2018. HDL 38(L) >=45 mg/dL [facility] Comment: Interpretive Data Ages < or [...] 2018. LDL, calculated See Comment <=129 [facility] Comment: Unable to calculate LDL due [...] on 2018. Non-HDL Cholesterol 151(H) <=144 mg/dL [facility] Comment: Interpretive Data Ages < or [...] [facility] Blood specimen (specimen) 04/15/2020 2:57 PM BOX CAR BRACER 04/15/2020 3:12 PM BOX CAR BRACER us Carolyn Skaggs MD LAB BLOOD ORDERABLES Final Result [facility] Department [place] [address] from Last 3 Months or Most Recently Relevant to Health Maintenance Insurance [facility] Advance Directives For more information, please contact: [phone] * Full Code (Latest Code Status on File) Date Activated Date Inactivated Comments 04/16/2020 1:05 AM 04/19/2020 8:20 PM Care Teams Hand Alterations Tailor Relationship Specialty Start Date End Date Maggie Jackson NP PCP - General Nephrology 02/20/22
--- OUTSIDE RECORDS SUMMARY | 2024-08-21 12:06 | XMS_ITS | Referral Summary ---
Author Organization [facility] Physician Office Building [address] [place] [id number] Care Team Providers Care Apron Man Name Role Phone Maggie [place] CLEANER WINDOW Primary Care Provider [phone] Encounters Date Type Department Care Team Description 08/13/2024 Telephone [facility] [address] [place] [address] [place] [phone] Mansoor Albert MD Prior Auth (Qulipta 30 mg) 08/11/2024 Telephone [facility] [address] [place] [address] [place] [phone] Mansoor Albert MD 08/11/2024 Orders Only [address] [place] [phone] Mansoor Albert MD 08/08/2024 Telephone [facility] [address] [place] [address] [place] [phone] Mansoor Albert MD Med Management 07/31/2024 2:00 PM CDT Office Visit [facility] [address] [place] [phone] Mansoor Albert MD Migraine without aura and [...] 04/16/2020 Assessment & Plan (04/19/2020 3:23 PM SHAKER REPAIRER): 19 yo F w/ a reported hx of bipolar and ADHD who was admitted at the recommendation of her disability case manager for suicidal ideation with a plan to [...] with a therapist and psychiatric services through [facility], whom we have spoken with by phone and plan to coordinate DBT therapy on an outpatient basis. Additionally, grandma and patient provided further DBT resources outside of [place]. She is IMPROVING as evidence by cheerful [...] to grandparents TODAY with outpt f/u at [place] Assessment & Plan (04/16/2020 4:11 PM SHAKER REPAIRER): 19 yo F w/ a reported hx of bipolar and ADHD who was admitted at the recommendation of her disability case manager for suicidal ideation with a plan to [...] with a therapist and psychiatric services through [facility]. -therapeutic milieu and participation in groups -outpatient therapy upon discharge -PRNs available for agitation and comfort -appreciate SW assistance with care planning -dispo: home to grandparents when stabilized with outpt f/u at [place] Mood disorder 04/16/2020 Assessment & Plan (04/19/2020 3:18 PM SHAKER REPAIRER): Patient meets criteria for MDD except for [...] 5mg Assessment & Plan (04/16/2020 4:04 PM SHAKER REPAIRER): Patient meets criteria for MDD except for [...] 04/16/2020 Assessment & Plan (04/19/2020 3:19 PM SHAKER REPAIRER): Historical diagnosis d/t inattention. Was on Focalin for an extended amount of time in childhood. We planned to restart the patient's Focalin here, unfortunately it is not on formulary. Zane brought med from home. Patient could potentially benefit from a dose increase, but we will defer that to outpatient. -focalin XR 10mg (home supply) Assessment & Plan (04/16/2020 3:59 PM SHAKER REPAIRER): Historical diagnosis d/t inattention. Was on Focalin for an extended amount of time in childhood. We planned to restart the patient's Focalin here, unfortunately it is not on formulary. Zane plans to bring the med from home -focalin XR 10mg (home supply) Diabetes 04/16/2020 Assessment & Plan (04/19/2020 3:18 PM SHAKER REPAIRER): Diagnosed on a previous hospitalization this year. Lipids and blood glucoses elevated in ED. -increase Metformin to 1000mg BID Assessment & Plan (04/16/2020 4:00 PM SHAKER REPAIRER): Diagnosed on a previous hospitalization this year. Lipids and blood glucoses elevated in ED. -Metformin 500mg BID UTI (urinary tract infection) 04/16/2020 Assessment & Plan (04/19/2020 3:17 PM SHAKER REPAIRER): Previously diagnosed, asymptomatic, will continue previous treatment -completed Macrobid 100mg BID Assessment & Plan (04/16/2020 3:57 PM SHAKER REPAIRER): Previously diagnosed, asymptomatic, will continue previous treatment [...] often do you attend chur ch or quaker services? More than 4 times per year [...] on file Legal Sex Female 3:03 AM SHAKER REPAIRER Gender Identity Not on file Sexual Orientation [...] CDT LIPID PANEL STAT 04/15/2020 2:57 PM SHAKER REPAIRER from Last 3 Months or Most Recently [...] BLOOD ORDERABLES Gabi rm Result [facility] Department of Laboratories [place], [place] [id number] * (ABNORMAL) Lipid panel (04/15/2020 2:57 PM SHAKER REPAIRER) Cholesterol 189 <=199 mg/dL [facility] Comment: Interpretive Data Ages < or [...] revised on 2018. Triglycerides 464(H) <=129 mg/dL [facility] Comment: Interpretive Data Ages < or [...] revised on 2018. HDL 38(L) >=45 mg/dL [facility] Comment: Interpretive Data Ages < or [...] on 2018. LDL, calculated See Comment <=129 [facility] Comment: Unable to calculate LDL due [...] on 2018. Non-HDL Cholesterol 151(H) <=144 mg/dL [facility] Comment: Interpretive Data Ages < or [...] last revised on 2018. Chol/HDL ratio 5 [facility] Blood specimen (specimen) 04/15/2020 2:57 PM SHAKER REPAIRER 04/15/2020 3:12 PM SHAKER REPAIRER Carolyn Skaggs MD LAB BLOOD ORDERABLES Final Result [facility] Department [place] [address] from Last 3 Months or Most Recently Relevant to Health Maintenance Insurance [facility] Advance Directives For more information, please contact: [phone] * Full Code (Latest Code Status on File) Date Activated Date Inactivated Comments 04/16/2020 1:05 AM 04/19/2020 8:20 PM Care Teams Apron Man Relationship Specialty Start Date End Date Maggie [place] NP PCP - General Nephrology 02/20/22
--- OUTSIDE RECORDS SUMMARY | 2024-08-21 12:06 | XMS_ITS | Clinical Summary ---
Author Organization [facility] Address [address] [place] [address] Phone Care Team Providers Care Training Program Developer Name Role Phone Liss, Flower Tolentino APRN, [...] Insurance MEDICAID [employer] Care Teams Training Program Developer Relationship Specialty Start Date End Date Flower Leija APRN, RETURNED CASE INSPECTOR [address] [place] [address] PCP - General Advanced Practice Nurse 02/06/24
--- OUTSIDE RECORDS SUMMARY | 2024-08-21 12:07 | XMS_ITS | CONTINUITY OF CARE DOCUMENT ---
Author Name devika fortune Address Unknown Organization [facility] Address [address] [place] [address] Phone [phone] Care Team Providers Care Scientist Engineer Name Role Phone Caio WINKLER, Albert Unavailable [phone] Liss WINKLER, Flower Unavailable [phone] KAVITA MADISON, PAXTON Unavailable PROBLEMS Condition Status Date Provider Notes Sleep apnea active Albert Kearney MD IRON DEFICIENCY active Albert Kearney MD B12 deficiency active Albert Kearney MD Screening active Albert Kearney MD Sinus/atrial tachycardia;nml tsh active Albert Kearney MD Diabetes mellitus active Albert Kearney MD n eg urcr adn degfr Asthma active Flower Herron CASING OPERATOR Obesity active Flower Herron CASING OPERATOR Hyperlipidemia;NEG CRP adn lpa active Maynor Kearney MD Vitamin D deficiency active Flower pro CASING OPERATOR Anxiety depression active Flower Herron CASING OPERATOR Hypertriglyceridemia active Albert JOY DENIED Exposure to SARS-associated coronavirus;had vaccine and neg swab active Albert Kearney MD HYPERTENSION active Albert Kearney MD Fibromyalgia active Albert Kearney MD Erythrocytosis active Albert Kearney MD ENCOUNTERS Date Type Provider Location Encounter Diag nosis - In-person encounter Office Visit Albert Kearney MD [place] [facility] FibromyalgiaErythrocytosis - In-person encounter Office Visit Albert Kearney MD [place] [facility] - In-person encounter Office Visit Albert Kearney MD [place] [facility] Sinus/atrial tachycardia;nml tshHYPERTENSION - In-person encounter Office Visit Albert Kearney MD [place] [facility] Diabetes mellitusHypertriglyceridemiaExposure to SARS-associated coronavirus;had vaccine and neg swab - In-person encounter Office Visit Albert Kearney MD [place] [facility] Sinus/atrial tachycardia;nml tshDiabetes mellitusAsthmaObesityHyperlipidemia;NEG CRP adn lpaVitamin D deficiencyAnxiety depression VITAL SIGNS Date Observation Value Provider Body Mass Index (Ratio) 42.05 kg/m2 Ximena Kearney MD blood pressure, diastolic 90 mm[Hg] [facility] blood pressure, systolic 115 mm[Hg] [facility] [place] oxygen saturation, oximetry 97 % [facility] pulse rate 108 /min [facility] blood pressure, cuff size regular [facility] weight E&M 237.4 [lb_av] [facility] height E&M 63 [in_i] [facility] Body Mass Index (Ratio) 41.27 kg/m2 Ximena [...] [place] oxygen saturation, oximetry 98 % [facility] weight E&M 237 [lb_av] [facility] [place] respiratory rate E&M 12 /min [facility] [place] [...] device active Albert Kearney MD Dexcom G7 Outside Deliverer active Albert Kearney MD quetiapine 100 mg [...] at bedtime insomnia for 30 days - Albert Kearney MD hydroxyzine HCl 50 mg tablet [...] TABLET BY MOUTH EVERY DAY - [facility] Card[facility] CD 120 mg capsule,extended release 24hr completed Take 1 capsule by mouth once a day - Albert Kearney MD Jardiance 10 mg tablet completed Take 1 tablet by mouth once a day TAKE 1 TABLET BY MOUTH EVERY DAY REDUCES CARDIOVASCULAR & HEART FAILURE HOSPITALIZATION - [facility] verapamil 180 mg tablet extended release [...] Kearney MD drug use no Verah Bonareri CASING OPERATOR personal history of marijuana use yes Verah Bonareri CASING OPERATOR alcohol use no Verah Bonareri CASING OPERATOR if the patient is us ing/has used a vaping item, Current, Former, Never Used, Not asked Current Verah Bonareri CASING OPERATOR passive cigarette sm stu exposure no Verah Bonareri CASING OPERATOR chewing tobacco use Never Vermonica Temple nareri CASING OPERATOR smoking status Never smoker Louann Iyershaunnar i CASING OPERATOR passive cigarette sm stu exposure no Albert [...] Policy type / Coverage type Tonie red green party ID [employer] MEDICAID (2) Medicaid [id number] ADVANCE DIRECTIVES Name Date DISCUSSED - NO DECISION MADE TREATMENT PLAN Date Name Performer [id number],C,12.5 Albert S hodan [id number],B, Albert Serot a [id number],B, Albert Serot a [id number],B, Albert Serot a [id number],S, Albert Serot a [id number],S, Albert Serot a [id number],S, n ml pro echho terrie stress Albert Serota [id number],S, m ild Albert Serota [id number],C,mild Albert S hodan WINKLER [id number],C,nml por echho terrie stress Albert Serota [id number],C,neg pro an de cho Albert Serota [id number],C,neg pro Harve y Serota [id number],C,follows with psych Flower Herron NP [id number],C,n oncomplaint with Vitamin D supplementation will check Vit D level Flower Herron NP [id number],C,w ill check lipid panel Her updated medication list for this problem includes: Atorvastatin 40 Mg Tablet (Atorvastatin) ..... Take 1 tablet by mouth every night Flower Herron NP [id number],C,e ncouraged lifestyle modifications and weight loss for improved health Flower Herron NP [id number],N,will check PF Ts Flower Herron NP [id number],C,l ast A1c 12.4. being followed by PCP [...] glargine) ..... 20 units Flower Herron NP [id number],N,w ill check labs, 2 week telesentry monitor, [...] night w ill repeat labs Louann Dickens CASING OPERATOR Cardiology: T OTAL 108, TRI 218, HDL 42, LDL 22 (05/2022) H er updated medication list for this problem includes: Atorvastatin 40 Mg Tablet (Atorvastatin) ..... Take 1 tablet by mouth every night w ill repeat labs Louann Dickens CASING OPERATOR Cardiology: B P today: 128/98 P rior [...] ..... 20 units Flower Herron NP Cardiology:will [facility] k labs, 2 week telesentry monitor, PFTs, ECHO, routine stress test Flower Herron NP Date Name Monitor - Telemetry (Mobile Cardiac) Complete Echo VITAMIN B12 Vitamin D, 25-Hydrox y CBC (INCLUDES DIFF/P LT) IRON AND TOTAL IRON BINDING CAPACITY FERRITIN Lipoprotein (a) LIPID PANEL DLCO - 39641 FRC - 63809 FVC - 60888 HEMOGLOBIN A1c LIPID PANEL Lipoprotein (a) Complete [...] night Holter Monitor 24 Hr DLCO - 89698 FRC - 26128 FVC - 19655 Holter Monitor 24 Hr DLCO - 32033 FRC - 09936 FVC - 99453 Sleep Study Titratio n DLCO - 41620 FRC - 37899 FVC - 97445 VITAMIN B12 Vitamin D, 25-Hydrox y Microalb/Creatinine [...] d FVC / MVV with bronchodilator - 39913 Albert Kearney MD completed SpO2 w/o 6min walk/titration Albert Kearney MD completed SVC - 11451 Albert Kearney MD complet ed DLCO - 50470 Albert Kearney MD comple stacey EKG Albert Kearney MD complete d Complex e/m visit add on Albert Kearney MD completed Spirometry Albert Kearney MD complete d FVC / MVV with bronchodilator - 29404 Albert Kearney MD completed FRC - 87262 Albert Kearney MD complet ed SpO2 w/o 6min walk/titration Albert Kearney MD completed SVC - 30622 Albert Kearney MD complet ed DLCO - 21531 Albert Kearney MD comple stacey EKG Albert Kearney MD complete d
[2024-08-21 12:26] LABS: BEDSIDEPREGUCG Negative (Negative)
[2024-08-21 12:47] VITALS: BP 125/90; PULSE 97; RESP 16; RESP 18; O2SAT 98; O2SAT 99
[2024-08-21 13:00] LABS: Add Urine Microscopic? YES; Appearance Urine Cloudy (Clear); Bacteria Urine 2+ /hpf; Bilirubin Urine Negative (Negative); Blood Urine Negative (Negative); Color Urine Yellow (Yellow); Glucose Urine UA 3+ mg/dL (Negative); Ketones Urine 2+ mg/dL (Negative); Leukocyte Esterase Ur Negative LEU/UL (Negative); Need Manual Microscopic Reviewed; Nitrate Urine Negative (Negative); Non Pathogenic Casts 0-2; Protein Urine Negative (Negative); Specific Grav Ur > 1.045 (1.001-1.035); Squamous Epithelial Cell Urine Many /hpf (Few); Urobilinogen Urine 0.2 mg/dL (<2.0)
[2024-08-21 13:31] VITALS: BP 124/77; PULSE 97; RESP 16; O2SAT 98
--- NOTE | 2024-08-21 13:58 | PC.NURSE ---
Patient states she is a type 2 diabetic and her pump last night so she has not had insulin since yesterday evening.
[2024-08-21 14:00] LABS: Glucose Point of Care 263 mg/dl (65-105)
== END 2024-08-21 14:48 | disposition home or self-care (01) ==
PROVIDERS: Emergency Provider Physician Assistant
DX: K44.9 Diaphragmatic hernia without obstruction or gangrene (principal); E11.65 Type 2 diabetes mellitus with hyperglycemia; R10.9 Unspecified abdominal pain; R11.2 Nausea with vomiting, unspecified; F41.9 Anxiety disorder, unspecified; F60.3 Borderline personality disorder; F17.290 Nicotine dependence, other tobacco product, uncomplicated; K76.0 Fatty (change of) liver, not elsewhere classified; K40.90 Unilateral inguinal hernia, without obstruction or gangrene, not specified as recurrent; Z79.4 Long term (current) use of insulin; Z79.899 Other long term (current) drug therapy
CPT/HCPCS: 36415; 74177; 80053; 81001; 81025; 82948; 83690; 85025; 87086; 96361; 96374; 96375; 99284; A9270; J1200; J2765; J7030; Q9967

== ENCOUNTER 2024-09-03 19:09 | Emergency (ER) | payer OTHER, SELFPAY ==
--- OUTSIDE RECORDS SUMMARY | 2024-09-03 19:10 | XMS_ITS | Encounter Summary ---
Author Organization [facility] Healthcare Address [address] [place] [address] Care Team Providers Care Coach Operator Name Role Phone Maggie [place] DOPE HEATER Primary Care Provider [phone] Lake Ellis MD Primary Care Provider [phone] Reason for Visit * Reason Onset Date Comments Prior Auth 08/13/2024 Qulipta 30 mg Encounter Details Date Type Department Care Team (Late st Contact Info) Description 08/13/2024 Telephone [facility] Neurology [address] [place] [phone] Mansoor Albert MD [address] [place] [address] Prior Auth (Qulipta 30 mg) Social History [...] often do you attend chur ch or oriental orthodox services? More than 4 times per year 04/16/2020 Do you belong to any clubs o r organizations such as baptism groups, unions, fraternal or athletic groups, or [...] on file Legal Sex Female 3:03 AM BEEF BONER Gender Identity Not on file Sexual Orientation [...] on filedocumented in this encounter Care Teams Coach Operator Relationship Specialty Start Date End Date Maggie [place] NP PCP - General Nephrology 02/20/22 08/26/24 Lake Ellis MD [address] [facility] [place] [address] PCP - General Internal Medicine 08/27/24 documented as of this encounter
--- OUTSIDE RECORDS SUMMARY | 2024-09-03 19:10 | XMS_ITS | Clinical Summary ---
Author Organization [facility] Address [address] [place] [address] Phone Care Team Providers Care Biological Engineer Name Role Phone Liss, Flower Tolentino APRN, [...] Insurance MEDICAID [employer] Care Teams Biological Engineer Relationship Specialty Start Date End Date Flower Leija APRN, MASONRY CONTRACTOR ADMINISTRATOR [address] [place] [address] PCP - General Advanced Practice Nurse 02/06/24
--- OUTSIDE RECORDS SUMMARY | 2024-09-03 19:10 | XMS_ITS ---
Author Organization [facility] Address [address] [place] [address] Phone Care Team Providers Care Bobj Developer Name Role Phone Flower Leija APRN, CNP Primary Care [facility] Status:Enrolled (Active) Start date:06/11/2024 Enrollment date:06/11/2024 Related social drivers of health:Intimate Partner Violence, Social Connections, Alcohol Use, Tobacco Use, Financial Resource Strain,Depression, Stress, Physical Activity, Food Insecurity, Transportation Needs, Housing Stability, Utilities Continued Care and Services Coordination
--- OUTSIDE RECORDS SUMMARY | 2024-09-03 19:11 | XMS_ITS | Referral Summary ---
Author Organization [facility] [address] [place] [phone] Care Team Providers Care Mower Operator Name Role Phone Lake Ellis MD Primary Care Provider [phone] Encounters Date Type Department Care Team Description 08/27/2024 1:36 PM CDT Anesthesia Event [facility] [address] [place] [phone] Candido Lofton MD Jacobsen, Kyle G., MD 08/27/2024 12:00 PM CDT - 08/27/2024 12:30 PM CDT Surgery [facility] [address] [place] [phone] Brendan Sanon MD ESOPHAGOGASTRODUODENOSCOPY ULTRASOUND EXAM LIMITED 08/27/2024 10:56 AM CDT - 08/27/2024 3:43 PM CDT Hospital Encounter [facility] [address] [place] [phone] Brendan Sanon MD Nausea and vomiting, unspecified vomiting type; Diarrhea, unspecified type; Generalized abdominal pain; Gastroesophageal reflux disease without esophagitis Discharge Disposition: Discharge to home or self care 08/13/2024 Telephone [facility] Neurology [facility] [address] [phone] Mansoor Albert MD Prior Auth (Qulipta 30 mg) 08/11/2024 Telephone [facility] Neurology [address] [place] [phone] Mansoor Albert MD 08/11/2024 Orders Only [facility] Neurology [address] [place] [phone] Mansoor Albert MD 08/08/2024 Telephone [facility] Neurology [address] [place] [phone] Mansoor Albert MD Med Management 07/31/2024 2:00 PM CDT Office Visit [facility] Neurology [address] [place] [phone] Mansoor Albert MD Migraine without aura and without status migrainosus, not intractable (Primary Dx) from Last 3 Months Allergies Active Allergy Reactions Criticality Noted Date Comments Acetaminophen Rash Medium 04/29/2024 Adhesive Itching Low 08/27/2024 Caffeine Headache Low 01/10/2024 Cat Dander Unknown 04/28/2024 Ibuprofen Hives Medium 04/29/2024 Latex Unknown 11/27/2023 Semaglutide Nausea & Vomiting Low 08/27/2024 Medications busPIRone (BUSPAR) 5 mg tablet Takes 15 mg in the morning and 30 mg at night Active atorvastatin (LIPITOR) 40 mg tablet Take 1 tablet (40 mg total) by mouth daily Active ferrous sulfate 325 mg (65 mg of elemental iron) tablet daily Active losartan (COZAAR) 25 mg tablet Take 1 tablet (25 mg total) by mouth daily Active HumaLOG 100 unit/mL vial for injection 150 UNIT (1.5 ML) VIA CONTINUOUS SUBCUTANEOUS INFUSION DAILY FOR 90 DAYS Active lamoTRIgine (LaMICtal) 150 mg tablet Take 1 tablet (150 mg total) by mouth 2 (two) times a day Active paliperidone ER (INVEGA) 3 mg 24 hr tablet TAKE 1 TABLET BY MOUTH EVERY MORNING ALONG WITH 9 MG Active paliperidone ER (INVEGA) 9 mg 24 hr tablet TAKE 1 TABLET BY MOUTH EVERY MORNING ALONG WITH 3 MG Active QUEtiapine (SEROquel) 200 mg tablet Take 2 tablets (400 mg total) by mouth daily Active traMADoL (ULTRAM) 50 mg tablet daily Active hydrOXYzine (ATARAX) 50 mg tablet TAKE 1 TABLET BY MOUTH TWICE A DAY NEEDED FOR 30 DAYS Active pregabalin (LYRICA) 150 mg capsule Take 1 capsule (150 mg total) by mouth 2 (two) times a day Active rizatriptan (MAXALT) 10 mg tabletIndicat ions:Migraine Take 1 tablet (10 mg total) by mouth once as needed for migraine May repeat in 2 hours if unresolved. Do not exceed 30 mg in 24 hours. 9 tablet 2025 Active topiramate (TOPAMAX) 50 mg tablet Take 1 tablet (50 mg total) by mouth 2 (two) times a day 60 tablet 2025 Active albuterol HFA (PROVENTIL HFA,VENTOLIN HFA,PROAIR HFA) 90 mcg/actuation inhaler Inhale 1 puff Active dicyclomine (BENTYL) 20 mg tablet Take 1 tablet (20 mg total) by mouth Active escitalopram (LEXAPRO) 20 mg tablet Take 1 tablet (20 mg total) by mouth daily Active promethazine (PHENERGAN) 12.5 mg tablet Take 1 tablet (12.5 mg total) by mouth every 6 (six) hours as needed Active omeprazole (PriLOSEC) 40 mg capsule Take 1 capsule (40 mg total) by mouth daily 30 capsule 2025 Active vitamin B-12 1,000 mcg tablet Take 1 tablet (1,000 mcg total) by mouth daily 2024 Discontinued(T herapy completed) ergocalcifero l (VITAMIN D) 50,000 unit capsule Take 1 capsule (50,000 Units total) by mouth once a week 2024 Discontinued(T herapy completed) lithium 150 mg capsule 1 capsule (150 mg total) daily 2024 Discontinued(T herapy completed) Ozempic 1 mg/dose (4 mg/3 mL) pen injector injection INJECT 1 MG (0.75 ML) SUBCUTANEOUSLY WEEKLY 2024 Discontinued(T herapy completed) tiZANidine (ZANAFLEX) 4 mg tablet every 12 hours 024 2024 Discontinued(T herapy completed) SUMAtriptan (IMITREX) 100 mg tabletIndicat ions:Migraine Take 1 tablet (100 mg total) by mouth once as needed for migraine (headache) for up to 1 dose May repeat one time after 2 hours if needed. 9 tablet 11 024 2024 Discontinued topiramate (TOPAMAX) 100 mg tablet Take 50 mg in the morning and 100 mg in the evening for two weeks, then increase to 100 mg twice daily 60 tablet 11 2024 Discontinued atogepant 30 mg tablet Take 30 mg by mouth daily 30 tablet 3 2024 Discontinued(T herapy completed) famotidine (PEPCID) 20 mg tablet Take 1 tablet (20 mg total) by mouth daily 2024 Discontinued(S top Taking at Discharge) Active Problems Problem Noted Date Diagnosed Date [...] 04/16/2020 Assessment & Plan (04/19/2020 3:23 PM ELECTRONIC DEVELOPMENT TECHNICIAN): 19 yo F w/ a reported hx of bipolar and ADHD who was admitted at the recommendation of her employment evaluator/case manager for suicidal ideation with a plan [...] with a therapist and psychiatric services through [facility], whom we have spoken with by phone and plan to coordinate DBT therapy on an outpatient basis. Additionally, grandma and patient provided further DBT resources outside of [facility]. She is IMPROVING as evidence by cheerful [...] to grandparents TODAY with outpt f/u at [facility] Assessment & Plan (04/16/2020 4:11 PM ELECTRONIC DEVELOPMENT TECHNICIAN): 19 yo F w/ a reported hx of bipolar and ADHD who was admitted at the recommendation of her employment evaluator/case manager for suicidal ideation with a plan [...] with a therapist and psychiatric services through [facility]. -therapeutic milieu and participation in groups -outpatient therapy upon discharge -PRNs available for agitation and comfort -appreciate SW assistance with care planning -dispo: home to grandparents when stabilized with outpt f/u at [facility] Mood disorder 04/16/2020 Assessment & Plan (04/19/2020 3:18 PM ELECTRONIC DEVELOPMENT TECHNICIAN): Patient meets criteria for MDD except for [...] 5mg Assessment & Plan (04/16/2020 4:04 PM ELECTRONIC DEVELOPMENT TECHNICIAN): Patient meets criteria for MDD except for [...] 04/16/2020 Assessment & Plan (04/19/2020 3:19 PM ELECTRONIC DEVELOPMENT TECHNICIAN): Historical diagnosis d/t inattention. Was on Focalin for an extended amount of time in childhood. We planned to restart the patient's Focalin here, unfortunately it is not on formulary. Zane brought med from home. Patient could potentially benefit from a dose increase, but we will defer that to outpatient. -focalin XR 10mg (home supply) Assessment & Plan (04/16/2020 3:59 PM ELECTRONIC DEVELOPMENT TECHNICIAN): Historical diagnosis d/t inattention. Was on Focalin for an extended amount of time in childhood. We planned to restart the patient's Focalin here, unfortunately it is not on formulary. Zane plans to bring the med from home -focalin XR 10mg (home supply) Diabetes 04/16/2020 Assessment & Plan (04/19/2020 3:18 PM ELECTRONIC DEVELOPMENT TECHNICIAN): Diagnosed on a previous hospitalization this year. Lipids and blood glucoses elevated in ED. -increase Metformin to 1000mg BID Assessment & Plan (04/16/2020 4:00 PM ELECTRONIC DEVELOPMENT TECHNICIAN): Diagnosed on a previous hospitalization this year. Lipids and blood glucoses elevated in ED. -Metformin 500mg BID UTI (urinary tract infection) 04/16/2020 Assessment & Plan (04/19/2020 3:17 PM ELECTRONIC DEVELOPMENT TECHNICIAN): Previously diagnosed, asymptomatic, will continue previous treatment -completed Macrobid 100mg BID Assessment & Plan (04/16/2020 3:57 PM ELECTRONIC DEVELOPMENT TECHNICIAN): Previously diagnosed, asymptomatic, will continue previous treatment [...] often do you attend chur ch or samaritan services? More than 4 times per year 04/16/2020 Do you belong to any clubs o r organizations such as lutheran groups, unions, fraternal or athletic groups, or school groups? No 04/16/2020 How often do you attend meet ings of the clubs or organizations you belong to? Never 04/16/2020 Are you , , di vorced, , never , or living with a partner? Never 04/16/2020 AUDIT-C Answer Date Recorded Q1: How often do you have a drink containing alcohol? Never 08/27/2024 Q2: How many drinks containi ng alcohol do you have on a typical day when you are drinking? Patient does not drink Q3: How often do you have si x or more drinks on one occasion? Never 08/27/2024 Overall Financial Resource Strain (CARDIA) Answe r [...] someone making you feel afraid or unsafe? Yes 08/27/2024 Comments No Sex and Gender Information Value Date Recorded Sex Assigned at Not on file Legal Sex Female 3:03 AM ELECTRONIC DEVELOPMENT TECHNICIAN Gender Identity Not on file Sexual Orientation Not on file Last Filed Vital Signs Vital Sign Reading Time Taken Comments Blood Pressure 126/99 08/27/2024 2:49 PM CDT Pulse 96 08/27/2024 2:49 PM CDT Temperature 36.2 C (97.2 F) 08/27/2024 11:55 AM CDT Respiratory Rate 25 08/27/2024 2:49 PM CDT Oxygen Saturation 97% 08/27/2024 2:49 PM CDT Inhaled Oxygen Concentration - - Weight 113.4 kg (250 lb) 08/27/2024 11:55 AM CDT Height 162.6 cm (5' 4 ) 08/27/2024 11:55 AM CDT Body Mass Index 42.91 08/27/2024 11:55 AM CDT Plan of Treatment Not on file Procedures Procedure Name Priority Date/Time Associated Diagnosis Comments POCT GLUCOSE DEVICE Routine 08/27/2024 2:12 PM CDT US ENDOSCOPIC IP Routine 08/27/2024 2:00 PM CDT Nausea and vomiting, unspecified vomiting type Diarrhea, unspecified type Generalized abdominal pain Gastroesophagea l reflux disease without esophagitis SURGICAL PATHOLOGY Routine 08/27/2024 1:47 PM CDT Nausea and vomiting, unspecified vomiting type Diarrhea, unspecified type Generalized abdominal pain Gastroesophagea l reflux disease without esophagitis ENDO ADD ON ESOPHAGOGASTRODUODENOSCOPY BIOPSY 08/27/2024 1:36 PM CDT Nausea and vomiting, unspecified vomiting type Diarrhea, unspecified type Generalized abdominal pain Gastroesophagea l reflux disease without esophagitis ESOPHAGOGASTRODUODENOSCOPY ULTRASOUND EXAM LIMITED 08/27/2024 1:36 PM CDT Nausea and vomiting, unspecified vomiting type Diarrhea, unspecified type Generalized abdominal pain Gastroesophagea l reflux disease without esophagitis POCT GLUCOSE DEVICE Routine 08/27/2024 12:59 PM CDT UPPER EUS 08/27/2024 12:02 PM CDT POCT GLUCOSE DEVICE Routine 08/27/2024 11:56 AM CDT POCT HCG, URINE Routine 08/27/2024 11:45 AM CDT EGFR STAT 01/22/2024 3:03 PM CDT LIPID PANEL STAT 04/15/2020 2:57 PM ELECTRONIC DEVELOPMENT TECHNICIAN from Last 3 Months or Most Recently Relevant to Health Maintenance Results * (ABNORMAL) POCT glucose (08/27/2024 2:12 PM CDT) Glucose, POC 231(H) 70 - 199 mg/dL Comment: For Glucose values <35 mg/dl when Hematocrit is >60 mg/dl,the test may not accurately detect significant hypoglycemia,and testing in the Laboratory should be considered if clinically indicated. POC Performer [id number] [facility] Blood 08/27/2024 2:12 PM CDT 08/27/2024 2:12 PM CDT us Brendan Sanon MD LAB POCT ORDERABLES - DEVICE Final Result [facility] [address] Department [place] [address] * Surgical pathology (08/27/2024 1:47 PM CDT) Tissue (Esophageal biopsy) 08/27/2024 1:47 PM CDT Tissue specimen (specimen) (Gastric/Stomach biopsy) 08/27/2024 1:49 PM CDT Tissue specimen (specimen) (Duodenum, Biopsy) 08/27/2024 1:50 PM CDT Narrative PATHOLOGY [facility] - 08/28/2024 10:27 AM CDT [id number] [place], [place] [address] Tele: Adia Dixon MD - Coal Hauler Operator Note to Patients: This report may contain a detailed description of human tissue sent by a health care provider to the laboratory for pathologic evaluation. The content of this report is essential for diagnosis and may provide important critical findings. This information may be unfamiliar to patients to review without a medical professional present. It is advised that the patient review this report in the presence of a health care provider who can answer questions and explain the details. SURGICAL PATHOLOGY REPORT Patient Name: GREYSON JOHNSON Address: [address] [place] [address] Gender: F : 2000 (Age: 23) Service: Gastro Location: [facility], Hospital #: [id number] Patient Type: [facility] SAME DAY SURGERY Taken: 08/27/2024 Received 08/27/2024 Reported: 08/28/2024 Physician(s): Kennedi Page F.N.P. Kevin B. Garner, M.D. DIAGNOSIS: Esophagus, biopsy: - Scant squamous mucosa with reactive changes and associated chronic inflammation Gastric biopsy: - Gastric mucosa with no significant histopathologic abnormality Duodenum, biopsy: - Focal acute duodenitis rera/08/28/2024 10:27 Examining Pathologist: Zoila Carson M.D. Report Reviewed and Electronically Signed By Zoila Carson M.D. SPECIMEN TYPE: A: ESOPHAGUS BIOPSY B: GASTRIC BIOPSY C: DUODENUM BIOPSY CLINICAL IMPRESSION AND HISTORY: Generalized abdominal pain, nausea with vomiting, melena, bloating. On endoscopy, there is LA grade B esophagitis, the entire examined stomach was normal, and localized atrophic mucosa was found in the duodenal bulb. GROSS DESCRIPTION: The tissue is received in three containers of formalin all labeled with the patient's name GREYSON JOHNSON. A. The first container is additionally labeled esophagus biopsy and contains a 0.3 x 0.1 x 0.1 cm tissue fragment. Due to the color and size of the specimen, eosin is used. The specimen is filtered and submitted entirely in cassette A1. B. The second container is additionally labeled gastric biopsy and contains two tissue fragments measuring 0.6 x 0.1 x 0.1 cm in aggregate. Due to the color and size of the specimen, eosin is used. The specimen is filtered and submitted entirely in cassette B1. C. The third container is additionally labeled duodenum biopsy and contains multiple tissue fragments measuring 0.7 x 0.2 x 0.1 cm in aggregate. Due to the color and size of the specimen, eosin is used. The specimen is filtered and submitted entirely in cassette C1. [facility]/08/27/2024 16:20 [facility] MICROSCOPIC DESCRIPTION: Microscopic evaluation of part A shows scant squamous mucosa with reactive changes and mild associated chronic inflammation. Negative for dysplasia. Microscopic evaluation of part B shows fragments of gastric mucosa with no significant histopathologic abnormality. Negative for H.pylori like organisms on routine H&E stain. Negative for intestinal metaplasia and dysplasia. Microscopic evaluation of part C shows fragments of duodenal mucosa with focal villous blunting and associated acute inflammation. Negative for dysplasia. Clerical Data Follows A; 90447 B; 07609 C; 91715 REPORT IMAGES AND/OR SCANNED DOCUMENTS ONLY VIEWABLE IN PDF FORMAT The immunohistochemical test(s) cited in this report, if any, was developed and its performance characteristics determined by [facility]. It has not been cleared or approved by the U.S. Food and Drug Administration. The FDA has determined that such clearance or approval is not necessary. This test is used for clinical purposes. It should not be regarded as investigational or for research. [facility] is certified under the Clinical Laboratory Improvement Amendments of 1988 (CLIA) as qualified to perform high complexity testing. Immunostains were performed on formalin-fixed paraffin embedded tissue using a polymer diaminobenzidine chromogen detection system. Antibodies used may include clone SP1 (rabbit monoclonal, estrogen receptor), clone 1E2 (rabbit monoclonal progesterone receptor), Ki-67 (rabbit monoclonal, 30-9), CD117 (rabbit polyclonal, c-kit), and anti-Her-2/halina (4B5) (rabbit monoclonal primary antibody). In the event that immunohistochemistry or special stains have been performed, attending physician has confirmed appropriateness of controls. Frozen section, operating room consultation, gross examination and dissection, and case sign out may have been performed in part or completely in the following laboratories: [facility], [address] [place] [address], [address] [place] [address]. Brendan Sanon MD LAB PATHOLOGY ORDERABLES Gabi rm Result PATHOLOGY [facility] Laboratory Receiving [address] [place] [address] * (ABNORMAL) POCT glucose (08/27/2024 12:59 PM CDT) Glucose, POC 276(H) 70 - 199 mg/dL Comment: For Glucose values <35 mg/dl when Hematocrit is >60 mg/dl,the test may not accurately detect significant hypoglycemia,and testing in the Laboratory should be considered if clinically indicated. POC Performer [id number] [facility] Blood 08/27/2024 12:5 9 PM CDT 08/27/2024 12:59 PM CDT Brendan Sanon MD LAB POCT ORDERABLES - DEVICE Final Result [facility] [address] Department of Laboratories [place], [place] [id number] * Upper EUS (08/27/2024 12:02 PM CDT) Anatomical Region Laterality Modality Other Narrative Procedure Note Brendan Sanon MD - 08/27/2024 12:02 PM CDT ENDOSCOPY LAB Patient Name: Greyson Johnson Procedure Date: 08/27/2024 12:02 PM Admit Type: Outpatient Room: [facility] 4 Date of : 2000 Instrument Name: [id number] Gender: Female Note Status: Finalized Procedure: Upper EUS Indications: Generalized abdominal pain, Nausea with vomiting, melena, bloating Providers: Brendan Sanon M.D. Referring MD: Lake Ellis M.D., Maggie Jackson, F.N.P. Medicines: Monitored Anesthesia Care Complications: No immediate complications. Estimated blood loss: Minimal. Estimated Blood Loss: Estimated blood loss was minimal. Procedure: The risks, benefits and alternatives were discussed and informed consent was obtained.The Endosonoscope was introduced through the mouth, and advanced tothe third part of duodenum The Endoscope was introduced through the mouth, and advanced to the second partof duodenum The upper EUS was accomplished without difficulty. The patient tolerated the procedurewell. Findings: ENDOSCOPIC FINDING: : LA Grade B (one or more mucosal breaks greater than 5 mm, notextending between the tops of two mucosal folds) esophagitis with no bleedingwas found 34 to 37 cm from the incisors. Biopsies were taken with a cold forceps for histology. The entire examined stomach was normal. Biopsies were taken with acold forceps for histology. Localized atrophic mucosa was found in the duodenal bulb. Biopsieswere taken with a cold forceps for histology. The 2nd dudenum was normal ENDOSONOGRAPHIC FINDING: : The region of the celiac plexus and celiac ganglia was visualized and showed no sign of significant endosonographic abnormality. Thevascular anatomy of the region was normal. There was no sign of significant endosonographic abnormality in themain pancreatic duct, ampulla and entire pancreas. The pancreatic duct measured up to 3 mm in diameter. The pancreas was well visualized, no pathologic lymphadenopathy, no masses, no cysts, no calcifications. There was no sign of significant endosonographic abnormality in the common bile duct. The maximum diameter of the duct was 5 mm. There was mild distension of the gallbladder. There was abnormal echogenicity in the left lobe of the liver and inthe right lobe of the liver. This area was hyperechoic. This was hyperechoic. Tissue has not been obtained. However, theendosonographic appearance is of fatty infiltration. Impression: EGD impression: - LA Grade B reflux esophagitis - cause of recent melena. Biopsied. - Normal stomach. Biopsied. - Duodenal mucosal atrophy. Biopsied. EUS impression: - There was no sign of significant pathology in the main pancreatic duct and entire pancreas. - There was no sign of significant pathology in the common bile duct. - There was mild distension of the gallbladder. Recommendation: - The patient will be observed post-procedure,until all discharge criteria are met. - Await path results. - Use Prilosec (omeprazole) 40 mg PO daily. - Stop pepcid - Low fat diet. - Follow an antireflux regimen indefinitely. - Return to GI clinic in 2 months. - If pain continues she may need HIDA scan - The findings and recommendations were discussedwith the patient and their family. Attending Participation: I personally performed the entire procedure. Electronically signed by Brendan Sanon MD Brendan Sanon M.D. 08/27/2024 2:23:41 PM This document was signed electronically. Number of Addenda: 0 Note Initiated On: 08/27/2024 12:02 PM us Brendan Sanon MD ENDOSCOPY PROCEDURES Final Re sult * (ABNORMAL) POCT glucose (08/27/2024 11:56 AM CDT) [facility] Glucose, POC 305(H) 70 - 199 mg/dL Comment: For Glucose values <35 mg/dl when Hematocrit is >60 mg/dl,the test may not accurately detect significant hypoglycemia,and testing in the Laboratory should be considered if clinically indicated. POC Performer [id number] [facility] Blood 08/27/2024 11:5 6 AM CDT 08/27/2024 11:56 AM CDT us Brendan Sanon MD LAB POCT ORDERABLES - DEVICE Final Result [facility] [address] Department of Laboratories [place], [place] [id number] * POCT hCG, urine (08/27/2024 11:45 AM CDT) Pathologist [facility] HCG, ur, POC Negative Negative Lot Number [id number] QC Backgroud Clear Acceptable QC Control Line Acceptable Urine 08/27/2024 11:4 5 AM CDT us Brendan Sanon MD POINT OF CARE TEST ORDERABLES Final Result * eGFR (01/22/2024 3:03 PM CDT) eGFR [...] LAB BLOOD ORDERABLES Gabi l Result [facility]) [address] [facility] Department [place] [address] * (ABNORMAL) Lipid panel (04/15/2020 2:57 PM ELECTRONIC DEVELOPMENT TECHNICIAN) Cholesterol 189 <=199 mg/dL [facility] Comment: Interpretive Data Ages < or [...] revised on 2018. Triglycerides 464(H) <=129 mg/dL [facility] Comment: Interpretive Data Ages < or [...] revised on 2018. HDL 38(L) >=45 mg/dL [facility] Comment: Interpretive Data Ages < or [...] on 2018. LDL, calculated See Comment <=129 [facility] Comment: Unable to calculate LDL due [...] on 2018. Non-HDL Cholesterol 151(H) <=144 mg/dL [facility] Comment: Interpretive Data Ages < or [...] last revised on 2018. Chol/HDL ratio 5 [facility] Blood specimen (specimen) 04/15/2020 2:57 PM ELECTRONIC DEVELOPMENT TECHNICIAN 04/15/2020 3:12 PM ELECTRONIC DEVELOPMENT TECHNICIAN Carolyn Skaggs MD LAB BLOOD ORDERABLES Final Result [facility] Department [place] [address] from Last 3 Months or Most Recently Relevant to Health Maintenance Insurance [facility] Advance Directives For more information, please contact: [phone] * Full Code (Latest Code Status on File) Date Activated Date Inactivated Comments 08/27/2024 11:34 AM 08/27/2024 7:43 PM * Full Code Date Activated Date Inactivated Comments 04/16/2020 1:05 AM 04/19/2020 8:20 PM Care Teams Mower Operator Relationship Specialty Start Date End Date Lake Ellis MD [address] [place] [address] PCP - General Internal Medicine 08/27/24
--- OUTSIDE RECORDS SUMMARY | 2024-09-03 19:11 | XMS_ITS | Clinical Summary ---
Author Organization [facility] Address [facility] [place] [address] Care Team Providers Care Paragliding Instructor Name Role Phone None, Provider MD Primary [...] Comments Blood Pressure 158/87 04/19/2024 4:00 PM SALES UTILITY REPRESENTATIVE Pulse 108 04/19/2024 4:00 PM SALES UTILITY REPRESENTATIVE Temperature 36.7 C (98.1 F) 04/19/2024 4:00 PM SALES UTILITY REPRESENTATIVE Respiratory Rate 20 04/19/2024 4:00 PM SALES UTILITY REPRESENTATIVE Oxygen Saturation 96% 04/19/2024 4:00 PM SALES UTILITY REPRESENTATIVE Inhaled Oxygen Concentration - - Weight 108.9 kg (240 lb) 04/19/2024 4:00 PM SALES UTILITY REPRESENTATIVE Height 160 cm (5' 3 ) 04/19/2024 4:00 PM SALES UTILITY REPRESENTATIVE Body Mass Index 42.51 04/19/2024 4:00 PM SALES UTILITY REPRESENTATIVE Plan of Treatment Health Maintenance Due Date [...] 5 Years) and At-Risk Patients (6 to 49 Years) Aged Out 01/01/2003, 04/07/2002, 02/03/2002, Additional history exists No longer eligible based on patient's age to complete this topic Meningococcal Vaccine Completed 02/14/2019 RSV Immunizations Under 20 Months Aged Out No longer eligible based on patient's age to complete this topic [place] [address] [place] [address] Care Teams Paragliding Instructor Relationship Specialty Start Date End Date None, Provider, PCP - General UNKNOWN PHYSICIAN SPECIALTY 04/19/24
--- OUTSIDE RECORDS SUMMARY | 2024-09-03 19:11 | XMS_ITS | Patient Health Record ---
Author Organization [facility] Address [address] [place] [address] Care Team Providers Care Trauma Doctor Name Role Phone [place] Primary Care Provider [phone] Samantha Olsen Unavailable [phone] Liam Finnegan Unavailable [phone] Brenda Richards Unavailable [phone] Ofelia Engle Unavailable [phone] Sarita Lawson Unavailable Jessie Hawkins Unavailable [phone] Flower Leija Unavailable [phone] Daren Dash Unavailable Allergies Allergen (clinical drug ingredient) Drug/Non Drug Allergy documented on EMR Reaction Allergy Type Onset Date Status Cat dander cat dander (uncoded) Unknown Allergy Active Pollen pollen (uncoded) Unknown Allergy Act beth acetaminophen Tylenol rash Drug Allergy Act beth caffeine Caffeine Unknown Drug Allergy Active ibuprofen Ibuprofen hives Drug Allergy Active Results Component Value Reference Range Notes UA/M w/rflx Culture, Routine Reviewed date:01/31/2024 09:48:59 AM Interpretation: Performing Lab:Blanco Ktaz, Sterling Herrera, Phone - [phone], Director - Juni Notes/Report: Test(s) 996862- Atopobium vaginae; 319594- BVAB 2; 661123- Megasphaera 1 was developed and its performance characteristics determined by [employer]. It has not been cleared or approved by the Food and Drug Administration. Test(s) 945081-Suwwvxw albicans, SOPHY; 210713-Pldkubt glabrata, SOPHY was developed and its performance characteristics determined by [facility]. It has not been cleared or approved by the Food and Drug Administration. Test(s) 785865- Atopobium vaginae; 277828- BVAB 2; 429299- Megasphaera 1 was developed and its performance characteristics determined by [facility]. It has not been cleared or approved by the Food and Drug Administration. Test(s) 862554-Tmshogm albicans, SOPHY; 321973-Qjmjnwh glabrata, SOPHY was developed and its performance characteristics determined by [facility]. It has not been cleared or approved by the Food and Drug Administration. Test(s) 346644- Atopobium vaginae; 318068- BVAB 2; 126028- Megasphaera 1 was developed and its performance characteristics determined by [facility]. It has not been cleared or approved by the Food and Drug Administration. Test(s) 380085-Licinxe albicans, SOPHY; 251497-Qgzupgn glabrata, SOPHY was developed and its performance characteristics determined by [facility]. It has not been cleared or approved by the Food and Drug Administration. Specific Antelope >=1.030 1.005-1.030 pH 6.5 5.0-7.5 Urine-Color Yellow [...] than 100,000 colony forming units per mL Nuab Vaginitis Plus (VG+) (950871) Reviewed date:01/31/2024 09:48:59 AM Interpretation: Performing Lab:[facility] Katz, Sterling Herrera, Phone - [phone], Director - Juni Notes/Report: Test(s) 882758- Atopobium vaginae; 272125- BVAB 2; 805666- Megasphaera 1 was developed and its performance characteristics determined by [facility]. It has not been cleared or approved by the Food and Drug Administration. Test(s) 332333-Imvcaep albicans, SOPHY; 490196-Chbkcqq glabrata, SOPHY was developed and its performance [...] Negative Negative Neisseria gonorrhoeae, SOPHY Negative Negative Hemoglobin A1c CLIA Waived Reviewed date:09/03/2024 10:22:33 AM Interpretation: Performing Lab: Notes/Report: Hemoglobin A1c 11.5 4.0 - 6.4 % CBC With Differential/Platel et* Reviewed date:07/09/2024 09:13:56 AM Interpretation: Performing Lab:[facility], [address] [facility], Phone - [phone], Director - Michaelle Notes/Report: WBC 6.6 3.4-10.8 [...] % Immature Grans (Abs) 0.0 0.0-0.1 x10E3/uL 12 Panel Urine Drug Screen Reviewed date:10/03/2023 04:32:52 PM Interpretation: Performing Lab: Notes/Report: THC n MIRNA n MOP (OPI) n AMP n MET n BAR n BZO n MDMA n MTD n OXY n PCP n BUP n Sedimentation Rate-Westergre n* Reviewed date:02/21/2024 11:51:32 AM Interpretation:Normal Performing Lab[facility] [place] [address], Phone - [phone], Director - [facility] Notes/Report: Sedimentation Rate-Westergren 25 0-32 mm/hr Celiac Antibodies tTG IgA, E MA IgA, Total IgA w/reflex to tTG IgG Reviewed date:01/31/2024 09:48:59 AM Interpretation: Performing Lab:[facility] [place] [address], Phone - [phone], Director - [facility] Notes/Report: Endomysial Antibody IgA Negative Negative t-Transglutaminase (tTG) IgA 3 0-3 U/mL Negative 0 - 3 Weak Positive 4 - 10 Positive >10 . Tissue Transglutaminase (tTG) has been identified as the endomysial antigen. Studies have demonstr- ated that endomysial IgA antibodies have over 99% specificity for gluten sensitive enteropathy. Immunoglobulin A, Qn, Serum 226 87-352 mg/dL Rapid Plasma Reagin (RPR) Te st With Reflex to Quantitative RPR and Confirmatory Treponema pallidum Antibodies Reviewed date:01/31/2024 09:48:59 AM Interpretation: Performing Lab:[facility], Phone - [phone], [facility] Notes/Report: RPR Non Reactive Non Reactive Hepatitis C Virus Antibody w /Rflx to Quantitative Real-time PCR (077719) Reviewed date:01/31/2024 09:48:59 AM Interpretation: Performing Lab:[address], Phone - [phone], [facility] Notes/Report: HCV Ab Non Reactive Non Reactive Interpretation: Not infected with HCV unless early or acute infection is suspected (which may be delayed in an immunocompromised individual), or other evidence exists to indicate HCV infection. Hepatitis B Surface Antigen (HBsAg Screen) Reviewed date:01/31/2024 09:48:59 AM Interpretation: Performing Lab:[address], Phone - [phone], [facility] Notes/Report: HBsAg Screen Negative Negative HIV Screen *HIV 1, 2 Ab, p24 Ag (256849) Reviewed date:01/31/2024 09:48:59 AM Interpretation: Performing Lab:[address], Phone - [phone], [facility] Notes/Report: HIV Ab/p24 Ag Screen Non Reactive Non Reactive HIV-1/HIV-2 antibodies and HIV-1 p24 antigen were NOT detected. There is no laboratory evidence of HIV infection. HIV Negative TSH Rfx on Abnormal to Free T4 Reviewed date:01/31/2024 09:48:59 AM Interpretation: Performing Lab:[address], Phone - [phone], [facility] Notes/Report: TSH 1.260 0.450-4.500 uIU/mL Vitamin B12 and Folate Reviewed date:01/31/2024 09:48:59 AM Interpretation: Performing Lab:[address], Phone - [phone], [facility] Notes/Report: Vitamin B12 366 433-8438 pg/mL Folate (Folic Acid), Serum 12.5 >3.0 ng/mL A serum folate concentration of less than 3.1 ng/mL is considered to represent clinical deficiency. Iron and TIBC* Reviewed date:01/31/2024 09:48:59 AM Interpretation: Performing Lab:[address], Phone - [phone], Director - [facility] Notes/Report: Iron Bind.Cap.(TIBC) 347 250-450 ug/dL UIBC 277 131-425 ug/dL Iron 70 27-159 ug/dL Iron Saturation 20 15-55 % UA/M w/rflx Culture, Routine Reviewed date:01/31/2024 09:48:59 AM Interpretation: Performing Lab:[address], Phone - [phone], Director - [facility] Notes/Report: Specific Antelope >=1.030 1.005-1.030 pH 7.0 5.0-7.5 Urine-Color Yellow [...] than 100,000 colony forming units per mL Creatine Kinase,Total,Serum Reviewed date:01/31/2024 09:48:59 AM Interpretation: Performing Lab:[address], Phone - [phone], Director - [facility] Notes/Report: Creatine Kinase,Total 45 32-182 U/L C-Reactive Protein, Quant Reviewed date:01/31/2024 09:48:59 AM Interpretation: Performing Lab:[address], Phone - [phone], Director - [facility] Notes/Report: C-Reactive Protein, Quant 15 0-10 mg/L Lipid Panel* Reviewed date:01/31/2024 09:48:59 AM Interpretation: Performing Lab:[facility], Phone - [phone], Director - [facility] Notes/Report: Cholesterol, Total 241 100-199 mg/dL Triglycerides 281 0-149 mg/dL HDL Cholesterol 39 >39 mg/dL VLDL Cholesterol Eduar 52 5-40 mg/dL LDL Chol Calc (NIH) 150 0-99 mg/dL Hemoglobin A1c* Reviewed date:01/31/2024 09:48:59 AM Interpretation: Performing Lab:[address], Phone - [phone], Director - [facility] Notes/Report: Hemoglobin A1c 9.8 4.8-5.6 % . Prediabetes: 5.7 - 6.4 Diabetes: >6.4 Glycemic control for adults with diabetes: <7.0 CMP 14 Comprehensive Metabol ic Panel* Reviewed date:01/31/2024 09:48:58 AM Interpretation: Performing Lab:[facility], [address] [place] [address], Phone - [phone], Director - [facility] Notes/Report: Glucose 205 70-99 mg/dL BUN 7 [...] IU/L ALT (SGPT) 18 0-32 IU/L Hemoglobin A1c CLIA Waived Reviewed date:01/15/2024 02:16:12 PM Interpretation: Performing Lab: Notes/Report: Hemoglobin A1c 9.4 4.0 - 6.4 % Hemoglobin A1c CLIA Waived Reviewed date:09/06/2023 01:46:34 PM Interpretation: Performing Lab: Notes/Report: Hemoglobin A1c 8.4 4.0 - 6.4 % C-Reactive Protein, Quant Reviewed date:04/17/2024 04:04:48 PM Interpretation: Performing Lab:[facility], [address] [place] [address], Phone - [phone], Director - [facility] Notes/Report: C-Reactive Protein, Quant 11 0-10 mg/L Rheumatoid Arthritis Factor Reviewed date:04/17/2024 04:04:48 PM Interpretation: Performing Lab:[facility], [address] [place], [place] [address], Phone - [phone], Director - [facility] Notes/Report: Rheumatoid Factor (RF) 15.2 <14.0 IU/mL JUAN DANIEL by IFA, Reflex to 9-biom arkers profile, Serum Reviewed date:04/17/2024 04:04:48 PM Interpretation: Performing Lab:[facility] [place], [address] [place] [address], Phone - [phone], Director - [facility] Notes/Report: JUAN DANIEL by IFA Rfx Titer/Pattern [...] Scleroderma-diffuse, Scleroderma-Autoimmune Myositis Overlap Syndrome, Systemic Lupus Rtftugjhphnex-Ytvdsxekxoh-X utoimmune Myositis Overlap Syndrome, Systemic Autoimmune Rheumatic [...] <5 Equivocal 5 - 9 Positive >9 [employer] Antibodies <0.2 0.0-0.9 AI Serum is slightly [...] Sm (anti-Roca) SLE 15 - 30% --------- [employer] Mixed Connective Tissue Disease 95% (U1 nRNP, SLE 30 - 50% anti-ribonucleoprotein) Polymyositis and/or Dermatomyositis 20% --------- Scl-70 (antiDNA Scleroderma (diffuse) 20 - 35% topoisomerase) Crest 13% --------- Dee Dee-1 Polymyositis and/or Dermatomyositis 20 - 40% --------- Centromere B Scleroderma - Crest variant 80% Reason For Referral Reason Generalized myalgia, back pain, possible fibro Diagnosis 1 Neuropathic pain (M7 9.2) Diagnosis 2 Myalgia (M79.10) Referral Organization [facility] Referring Provider First Name Liam Referring Provider Last Name Kain Referring Provider [facility] Referred Provider [facility] Referred Provider Specialty Physical The rapist General Notes MEGAN Cortés Stephanie N 02/20/2024 01:42:15 PM >[facility] [place] (spoke with Marlo on 01/16/24)., MEGAN Cortés Stephanie N 02/20/2024 01:44:26 PM >Referral faxed. Confirmation pending., MEGAN Cortés Stephanie N 02/22/2024 09:11:44 AM >referral successfully faxed. Message sent and letter mailed notifying pt of referral. See logs. Clinical Notes [facility], [facility], [address] [place] [address], , Referral Priority Routine Reason chronic migraines Diagnosis 1 Migraine (G43.909) Referral Organization [facility] Referring Provider First Name Flower Referring Provider Last Name Liss [facility]erred Provider Specialty Neurology General Notes Ariana Walsh 02:23:21 PM >According to website [facility] medical [facility] [place] takes clients insurance., Ariana Walsh 03/13/2024 02:25:10 PM >Referral faxed., Ariana Walsh 03/13/2024 02:29:29 PM >Referral letter & message sent to client. Clinical Notes [facility] Medical [facility] [place], [facility] [address], [place] [address], Phone Current Pt's: [phone], New Pt's , Referral Priority Routine Reason Black stools, abd cr amping, sulfur burps Diagnosis 1 Dark stools (R19.5) Referral Organization [facility] Referring Provider First Name Liam Referring Provider Last Name Kain Referring Provider [facility] Referred Provider Specialty Gastroentero logy General Notes Thi Garcia 06/15 11:00:05 AM > Referral sent to [facility]. Letter to patient. Clinical Notes Gastroenterology Car e [facility], [address], [address], [facility], [address], ph. [phone], fax: [phone] Referral Priority Routine Reason STL H/V NO LONGER TA KES HER INSURANCE Diagnosis 1 Chest pain (R07.9) Referral Organization [facility] Referring Provider First Name Lake Referring Provider Last Name Rhonda Referring Provider Speciality Internal M edicine Referred Provider Specialty Cardiology Referral Priority Routine Medications Medication SIG (Take, Route, Frequency, Duration) Notes Start Date End Date Status busPIRone HCl 15 MG 1 tablet every morning, 2 tablets every evening Orally two times daily for 30 days Active Pregabalin 150 MG 1 capsule Orally twice a day for 30 days 07/24/2024 Active Topiramate 100 MG 1 tablet Orally Once a day Active LaMICtal 150 MG 1 tablet Orally two times daily for 30 days Active Ferrous Sulfate 325 (65 Fe) MG 1 tablet Orally Three times a Week Active Invega 9 MG 1 tablet in [...] PUMP Subcutaneous DAILY INSULIN PUMP RX BY SPECIALTY PERSON Active QUEtiapine Fumarate 400 MG 1 tablets [...] As needed for acid reflux 03/12/2024 Active Escitalopram Oxalate 20 MG 1 tablet Orally Once a day for 30 days Active Albuterol Sulfate HFA 108 (90 Base) MCG/ACT 1 puff as needed Inhalation every 4 hrs for 30 days Active QUEtiapine Fumarate 25 MG 1 tablet every morning Orally Once a day for 30 days 08/11/2024 Active Rizatriptan Benzoate 10 MG 1 tablet Orally as needed for 9 days Active Atorvastatin Calcium 40 mg TAKE 1 TABLET BY MOUTH DAILY for 28 Active Social History Tobacco Use: Social History Observation Description Date Details (start date - stop date) Unknown Sex Assigned At : Social History Observation Description Sex Assigned At Female Tobacco Control (Standard) Question Answer Notes Tobacco use: Uses tobacco in other forms Additional Findings: Tobacco user e-cigarette Problems Problem Type SNOMED Code ICD Code Onset Dates Problem Status W/U Status Risk Notes Problem Morbid obesity (disorder) (928905116) Morbid (severe) obesity due to excess calories (E66.01) Active confirmed Problem Tobacco user (321057700) Nicotine dependence, unspecified, uncomplicated (F17.200) Active confirmed Problem 79605174 Borderline personality disorder (F60.3) 2021 Active confirmed Problem 300271044 Irritable bowel syndrome with diarrhea (K58.0) Active confirmed Problem 98985941 Functional diarr hea (K59.1) Active confirmed Problem Fibromyalgia (393053991) Fibromyalgia (M79.7) Active confirmed Problem Palpitations (66742197) Palpitations (R00.2) Active confirmed Problem Hypertension (26551268) Hypertension (I10) 2023 Active confirmed Problem Hyperlipidemia (54244618) Hyperlipidemia (E78.5) Active confirmed Problem Anxiety (98479196) Anxiety (F41.9) Active confi rmed Problem Vitamin D deficiency (00783781) Vitamin D deficiency (E55.9) Active confirmed Problem Migraine (35011503) Migraine (G43.909) Active c onfirmed Problem Asthma (622069090) Asthma (J45.909) Active conf irmed Problem Chest pain (15455938) Chest pain (R07.9) Active confirmed Problem Urinary incontinence (551154552) Urinary incontinence (R32) Active confirmed Problem 46388138 Attention defici t hyperactivity disorder (ADHD), combined type (F90.2) Active confirmed Problem Hypertriglyceridemia (386428834) Hypertriglyceridemia (E78.1) 2021 Active confirmed Problem Constipation (74920389) Constipation (K59.00) Active confirmed Problem 256210666 Routine adult he alth maintenance (Z00.00) Active confirmed Problem Missed period (53834717) Missed menses (N92.6) Active confirmed Problem Pruritus of vagina (24294002) Vaginal itching (L29.8) Active confirmed Problem Obstructive sleep apnea syndrome (34307589) Sleep apnea in adult (G47.33) Active confirmed Problem 72754680 Chronic fatigue (R53.82) Active confirmed Problem Diabetes mellitus (51315280) Diabetes mellitus (E11.9) Active confirmed Problem Hyperlipidaemia (26962610) Hyperlipemia (E78.5) Active confirmed Problem 378297094 Bipolar affectiv e disorder, depressed, severe, with psychotic behavior (F31.5) 2021 Active confirmed Problem Surveillance of contraception (721275724) control (Z30.9) Active confirmed Problem Drug monitoring done (960382525) Therapeutic drug monitoring (Z51.81) Active confirmed Problem 828441783 Mild persistent asthma without complication (J45.30) Active confirmed Problem 504710509948903 Carpal tunnel syndrome of left wrist (G56.02) Active confirmed Problem Chest pain (84787895) Chest pain varying with breathing (R07.9) Active confirmed Problem 55107267 Type 2 diabetes mellitus with hyperglycemia, without long-term current use of insulin (E11.65) 2020 Active confirmed Problem 120789036 Adult ADHD (atte ntion deficit hyperactivity disorder) (F90.9) Active confirmed Problem Hearing loss (40476633) Decreased hearing of both ears (H91.93) Active confirmed Problem Carpal tunnel syndrome (12320317) Carpal tunnel syndrome on both sides (G56.03) Active confirmed Problem Urinary tract infectious disease (70091880) UTI symptoms (R39.9) Active confirmed Problem Diabetic foot (411627373) Diabetic foot (E11.8) 2022 Active confirmed Problem 870689647792306 CRP elevated (R79.82) Active co nfirmed Problem Ketoacidosis in type II diabetes mellitus (722260631) Diabetic ketoacidosis without coma associated with type 2 diabetes mellitus (E11.10) 2021 Active confirmed Problem Irregular menstruation (81214402) Irregular menstruation (N92.6) Active confirmed Problem Functional dyspepsia (9343639) Acid indigestion (K30) Active confirmed Vital Signs Heart Rate 104 /min 09/03/2024 Temperature 98.3 degrees Fahrenheit 04/03/2024 Respiratory Rate 16 /min 09/03/2024 Oximetry 98 % 09/03/2024 Blood pressure diastolic 82 mm Hg 09/03/2024 Height 62 in 09/03/2024 Blood pressure systolic 114 mm Hg 09/03/2024 Weight 241.8 lbs 09/03/2024 BMI 44.22 kg/m2 09/03/2024 Encounters Encounter Location Date Provider Diagnosis [facility] [address] [place] [address] 09/03/2024 Samantha Olsen [address] [place] [address] 01/21/2024 Flower Leija [address] [place] [address] 01/28/2024 Lake Ellis [address] [place] [address] 02/26/2024 Jessie Hawkins [address] [place] [address] 03/24/2024 Samantha Olsen [address] [place] [address] 04/16/2024 Daren Dash [address] [place] [address] 04/21/2024 Flower Leija [facility] [address] [place] [address] 05/20/2024 Flower Leija [address] [place] [address] 06/06/2024 Samantha Olsen Bipolar affective disorder, depressed, severe, with psychotic behavior F31.[address] [place] [address] 06/20/2024 Liam Finnegan [address] [place] [address] 08/01/2024 [place] Myalgia M79.[address] [facility] [place] [address] 02/20/2024 Flower Leija Nutritional counseling Z71.3 ; Routine adult health maintenance Z00.00 ; Chronic fatigue R53.82 and Type 2 diabetes mellitus with hyperglycemia, without long-term current use of insulin E11.[address] [place] [address] 03/12/2024 Flower Leija Acid indigestion K30 ; Type 2 diabetes mellitus with hyperglycemia, without long-term current use of insulin E11.65 and Migraine G43.909 [facility] [place] [address] 09/06/2023 Flower Leija Diabetes mellitus E11.9 ; Costochondritis M94.0 and Nutritional counseling Z71.[address] [place] [address] 10/17/2023 Flower Leija Vaginal discharge N89.8 and Diarrhea R19.[address] [place] [address] 12/05/2023 Flower Leija Migraine G43.909 ; Nicotine dependence, unspecified, uncomplicated F17.200 ; Diabetes mellitus E11.9 and COVID-19 U07.1 [place] [address] [place] [address] 01/15/2024 Flower Leija Diabetes mellitus E11.9 ; Carpal tunnel syndrome on both sides G56.03 ; Nutritional counseling Z71.3 ; Nausea R11.0 and Migraine G43.[address] [place] [address] 01/30/2024 Flower Leija Nutritional counseling Z71.3 ; Neuropathic pain M79.2 ; Chronic fatigue R53.82 ; Functional diarrhea K59.1 and Diabetes mellitus E11.[address] [place] [address] 02/20/2024 Flower Leija [address] [place] [address] 07/08/2024 Liam Finnegan [address] [address] 01/10/2024 [facility] [address] [place] [address] 01/10/[address] [place] [address] 12/05/2023 [facility] [address] [place] [address] 01/18/2024 Lakegayathri Ellis Myalgia M79.10 ; Neuropathic pain M79.2 ; Type 2 diabetes mellitus with hyperglycemia, without long-term current use of insulin E11.65 ; Irritable bowel syndrome with diarrhea K58.0 ; Sleep apnea in adult G47.33 ; Fatigue R53.83 ; Exposure to potential infection Z20.9 ; Hyperlipemia E78.5 ; Hypertension I10 ; Onychomycosis B35.1 ; Asthma J45.909 and Migraine G43.[address] [address] 04/03/2024 Liam Finnegan Myalgia M79.10 ; CRP elevated R79.82 ; Morbid (severe) obesity due to excess calories E66.01 ; Nutritional counseling Z71.3 and Nicotine dependence, unspecified, uncomplicated F17.[address] [address] 06/12/2024 Liam Finnegan Myalgia M79.10 ; Carpal tunnel syndrome of left wrist G56.02 ; Morbid (severe) obesity due to excess calories E66.01 and Nutritional counseling Z71.[address] [address] 07/08/2024 Liam Finnegan Generalized abdomina l pain R10.84 ; Dark stools R19.5 ; Myalgia M79.10 ; Morbid (severe) obesity due to excess calories E66.01 ; Nutritional counseling Z71.3 and Nicotine dependence, unspecified, uncomplicated F17.[address] [place] [address] 07/24/2024 Lake Ellis Carpal tunnel syndrome on both sides G56.03 ; Fibromyalgia M79.7 and Type 2 diabetes mellitus with hyperglycemia, without long-term current use of insulin E11.[address] [place] [address] 09/03/2024 [place] Ellis Orthostatic dizzines s R42 ; Urinary incontinence R32 ; Type 2 diabetes mellitus with hyperglycemia, without long-term current use of insulin E11.65 and Chest pain R07.9 [facility] [address] [place] [address] 01/10/2024 Sarita Winnngco Vaginal discharge N89.8 ; UTI symptoms R39.9 and Nausea R11.[address] [address] 04/22/2024 Liam Finnegan Myalgia M79.10 ; Concussion without loss of consciousness, initial encounter S06.0X0A ; Morbid (severe) obesity due to excess calories E66.01 and Nutritional counseling Z71.[address] [place] [address] 02/14/2024 Liam Finnegan Neuropathic pain M79.2 ; Myalgia M79.10 ; Morbid (severe) obesity due to excess calories E66.01 and Nutritional counseling Z71.3 [facility] [address] [place] [address] 06/13/2024 Samantha Olsen Borderline personality disorder F60.3 ; Bipolar affective disorder, depressed, severe, with psychotic behavior F31.5 ; Adult ADHD (attention deficit hyperactivity disorder) F90.9 ; Anxiety F41.9 and Medication management Z79.[address] [place] [address] 02/19/2024 Jessie Hawkins Bipolar affective disorder, depressed, severe, with psychotic behavior F31.5 ; Borderline personality disorder F60.3 ; Adult ADHD (attention deficit hyperactivity disorder) F90.9 ; Vitamin D deficiency E55.9 ; Anxiety F41.9 and Medication management [id number] [place] [address] 01/31/2024 Ofelia Kadie Bipolar affective disorder, depressed, severe, with psychotic behavior F31.5 ; Borderline personality disorder F60.3 ; Adult ADHD (attention deficit hyperactivity disorder) F90.9 ; Vitamin D deficiency E55.9 and Anxiety F41.[address] [place] [address] 11/06/2023 Ofelia Kadie Bipolar affective disorder, depressed, severe, with psychotic behavior F31.5 ; Borderline personality disorder F60.3 ; Adult ADHD (attention deficit hyperactivity disorder) F90.9 ; Vitamin D deficiency E55.9 and Anxiety F41.[address] [address] 04/23/2024 Samantha Sparmorteza Bipolar affective disorder, depressed, severe, with psychotic behavior F31.5 ; Borderline personality disorder F60.3 ; Adult ADHD (attention deficit hyperactivity disorder) F90.9 ; Anxiety F41.9 and Medication management [id number] [address] [place] [address] 05/19/2024 Samantha Olsen Borderline personality disorder F60.3 ; Bipolar affective disorder, depressed, severe, with psychotic behavior F31.5 ; Adult ADHD (attention deficit hyperactivity disorder) F90.9 ; Anxiety F41.9 and Medication management [id number] [place] [address] 02/26/2024 Jessie Hawkins Bipolar affective disorder, depressed, severe, with psychotic behavior F31.5 ; Borderline personality disorder F60.3 ; Adult ADHD (attention deficit hyperactivity disorder) F90.9 ; Vitamin D deficiency E55.9 ; Anxiety F41.9 and Medication management [id number] [address] [place] [address] 08/11/2024 Samantha Olsen Borderline personality disorder F60.3 ; Bipolar affective disorder, depressed, severe, with psychotic behavior F31.5 ; Adult ADHD (attention deficit hyperactivity disorder) F90.9 ; Anxiety F41.9 and Medication management [id number] [facility] [address] [place] [address] 07/09/2024 Samantha Pretty Borderline personality disorder F60.3 ; Bipolar affective disorder, depressed, severe, with psychotic behavior F31.5 ; Adult ADHD (attention deficit hyperactivity disorder) F90.9 ; Anxiety F41.9 and Medication management [id number] [facility] [place] [address] 10/16/2023 Ofelia Kadie Bipolar affective disorder, depressed, severe, with psychotic behavior F31.5 ; Borderline personality disorder F60.3 ; Adult ADHD (attention deficit hyperactivity disorder) F90.9 ; Vitamin D deficiency E55.9 and Anxiety F41.9 [address] [place] [address] 04/07/2024 Samantha Olsen Bipolar affective disorder, depressed, severe, with psychotic behavior F31.5 ; Nutritional counseling Z71.3 ; Borderline personality disorder F60.3 ; Adult ADHD (attention deficit hyperactivity disorder) F90.9 ; Anxiety F41.9 and Medication management [id number] [place] [address] 10/03/2023 Ofelia Kadie Bipolar affective disorder, depressed, severe, with psychotic behavior F31.5 ; Borderline personality disorder F60.3 ; Adult ADHD (attention deficit hyperactivity disorder) F90.9 ; Vitamin D deficiency E55.9 ; Anxiety F41.9 and Therapeutic drug monitoring Z51.81 Assessments Encounter Date Diagnosis (ICD Code) Assessment Notes Treatment Notes Treatment Clinical Notes Section Notes 07/24/2024 Fibromyalgia (ICD-10 - M79.7) 07/24/2024 Carpal tunnel syndrome on both sides (ICD-10 - G56.03) LETTER GIVEN FOR 5 POUNDS RESTRICTION ON LIFTING. ENCOURAGED CONTROL OF SUGAR PRIOR TO FURTHER EVALUATION AND TREATMENT. 07/09/2024 Borderline personality disorder (ICD-10 - F60.3) Continue psychotherapy as scheduled. --admits lying about sx and how she's feeling at times 07/08/2024 Generalized abdominal pain (ICD-10 - R10.84) Some sxs likely due to medication changes, but with hx of IBS and dark stools, will refer to GI. 07/08/2024 Dark stools (ICD-10 - R19.5) 06/13/2024 Borderline personality disorder (ICD-10 - F60.3) Continue psychotherapy as scheduled. --admits lying about sx and how she's feeling 06/06/2024 Bipolar affective disorder, depressed, severe, with psychotic behavior (ICD-10 - F31.5) 05/19/2024 Borderline personality disorder (ICD-10 - F60.3) Continue psychotherapy as scheduled. --admits lying about sx and how she's feeling 04/23/2024 Borderline personality disorder (ICD-10 - F60.3) [...] May also contact the 24-hour crisis hotline ([facility]), refer to the closest emergency room [...] or be administered own oral medication per [facility] Protocols. Provided informed consent with understanding of [...] SI however feels more irritable since starting Bulger. Admits irritability could be due to physical pain. Interested in trialing Cymbalta to address depression, anxiety, and pain. Agreeable to DC Lexapro and trial Cymbalta. Denies AH/VH, denies HI __continue Lamictal for mood swings, anger, evaluate at follow up __continue Invega for mood swings, anger, AH/VH, evaluate at follow up \__continue Seroquel, Lexapro for mood swings, anger, evaluate at follow up __continue Bulger for mood swings, SI, evaluate at follow up --DC Lexapro --trial Duloxetine for depression, anxiety, chronic pain, evaluate at follow up 04/07/2024 Bipolar affective disorder, depressed, severe, with [...] or be administered own oral medication per [facility] Protocols. Provided informed consent with understanding of [...] swings, anger, evaluate at follow up --trial Bulger for mood swings, SI, evaluate at follow up 04/07/2024 Nutritional counseling (ICD-10 - Z71.3) Nutrition: healthy snacks, heart healthy diet, healthy lean proteins, 160 minutes of moderately intense activity weekly 02/14/2024 Neuropathic pain (ICD-10 - M79.2) 02/14/2024 Myalgia (ICD-10 - M79.10) 03/12/2024 Type 2 diabetes mellitus with hyperglycemia, without long-term current use of insulin (ICD-10 - E11.65) 03/12/2024 Acid indigestion (ICD-10 - K30) 04/22/2024 Concussion without loss of consciousness, initial encounter (ICD-10 - S06.0X0A) No symptoms, doing better. 04/22/2024 Myalgia (ICD-10 - M79.10) 09/03/2024 Urinary incontinence (ICD-10 - R32) SYMPTOMS SUGGEST OVERFLOW DUE TO NEUROGENIC BLADDER 09/03/2024 Orthostatic dizziness (ICD-10 - R42) SUSPECT DUE TO UNCONTROLLED SUGARS 08/11/2024 Borderline personality disorder (ICD-10 - F60.3) Continue psychotherapy as scheduled. 08/01/2024 Myalgia (ICD-10 - M79.10) 06/12/2024 Carpal tunnel syndrome of left wrist (ICD-10 - G56.02) 06/12/2024 Myalgia (ICD-10 - M79.10) Tramadol meant to be temporary, pt. aware. Interested in trying lyrica, will discuss with her psych provider as worried about med interactions. 02/26/2024 Bipolar affective disorder, depressed, severe, with psychotic behavior (ICD-10 - F31.5) 02/20/2024 Routine adult health maintenance (ICD-10 - Z00.00) 02/20/2024 Nutritional counseling (ICD-10 - Z71.3) 01/31/2024 Bipolar affective disorder, depressed, severe, with psychotic behavior (ICD-10 - F31.5) Pt reports that she has had increased depression and anxiety; pt has tolerated 20mg of Escitalopram in the past; will increase dose at this time. Pt denies SI/HI at this time. Will collab with [facility] [place] team. Encouraged pt to call for therapy appt. Pt also incrrased Trazodone on her own an dhas been doing well on 150mg nightly. Encouraged pt to call into office and speak with nursing staff or provider prior to increasing meds. Pt is not interested in changing Invega to a different anti-psychotic at this time. 01/30/2024 Neuropathic pain (ICD-10 - M79.2) Orders given at last visit for NCS, Pt. to f/u after completed 01/30/2024 Nutritional counseling (ICD-10 - Z71.3) 12/05/2023 Nicotine dependence, unspecified, uncomplicated (ICD-10 - F17.200) 12/05/2023 Migraine (ICD-10 - G43.909) 10/17/2023 Vaginal discharge (ICD-10 - N89.8) 10/17/2023 Diarrhea (ICD-10 - R19.7) 11/06/2023 Bipolar affective disorder, depressed, severe, with psychotic behavior (ICD-10 - F31.5) Pt reports that she recently moved to [place] and reports that her anxiety has increased some. Pt reports that she is tolerating medications well. Pt denies SI/HI at this time. Will collab with [facility] [place] team 10/16/2023 Bipolar affective disorder, depressed, severe, with psychotic behavior (ICD-10 - F31.5) Pt reports that she was admitted to [facility] crisis unit and rpeorts that her moods are overall well stable at this time. Will increase Escitalopram to aid moods at this time. Pt denies SI/HI at this time. Pt reports that she is currently looking for a new job at this time. Will collab with [facility] [place] team 10/03/2023 Bipolar affective disorder, depressed, severe, with psychotic behavior (ICD-10 - F31.5) Pt reports that she was admitted to [facility] on 09/26/2023 due to self harm. Pt [...] admission. Will collab with [facility] team 09/06/2023 Diabetes mellitus (ICD-10 - E11.9) 09/06/2023 Costochondritis (ICD-10 - M94.0) 04/03/2024 CRP elevated (ICD-10 - R79.82) 04/03/2024 Myalgia (ICD-10 - M79.10) Will give small amount of pain medication for PT sessions. Will not be prescribing this fdc, pt. voiced understanding. Advised on increased exercise, stretches, yoga, getting DM under control. 02/19/2024 Bipolar affective disorder, depressed, severe, with psychotic behavior (ICD-10 - F31.5) 01/18/2024 Neuropathic pain (ICD-10 - M79.2) DDX: DIABETIC NEUROPATHY, PAIN DUE TO NONRESTORATIVE SLEEP, FIBROMYALGIA, POST COVID (THOUGH ACUTE ILLNESS WAS 3 MONTHS AGO), LUPUS OR OTHER AUTOIMMUNE DISORDER 01/18/2024 Myalgia (ICD-10 - M79.10) UNLIKELY DUE TO ATORVASTATIN DUE TO NOT TAKING FOR 8 WEEKS. DISCUSSED LOW IMPACT STRETCHING, WALKING, YOGA, [facility]. CONTINUE TO HOLD ATORVASTATIN. 01/15/2024 Diabetes mellitus (ICD-10 - E11.9) 01/15/2024 Carpal tunnel syndrome on both sides (ICD-10 - G56.03) 01/10/2024 Vaginal discharge (ICD-10 - N89.8) 01/10/2024 UTI symptoms (ICD-10 - R39.9) 01/18/2024 Type 2 diabetes mellitus with hyperglycemia, without long-term current use of insulin (ICD-10 - E11.65) 01/15/2024 Nutritional counseling (ICD-10 - Z71.3) 01/10/2024 Nausea (ICD-10 - R11.0) 02/19/2024 Borderline personality disorder (ICD-10 - F60.3) Continue psychotherapy as scheduled. 09/06/2023 Nutritional counseling (ICD-10 - Z71.3) 10/03/2023 Borderline personality disorder (ICD-10 - F60.3) Pt reports that she has upcoming appt with therapist 10/16/2023 Borderline personality disorder (ICD-10 - F60.3) Encouraged pt to call for an appt with therapist. 01/30/2024 Chronic fatigue (ICD-10 - R53.82) 11/06/2023 Borderline personality disorder (ICD-10 - F60.3) Encouraged pt to call for an appt with therapist. 12/05/2023 Diabetes mellitus (ICD-10 - E11.9) 01/31/2024 Borderline personality disorder (ICD-10 - F60.3) Encouraged pt to call for an appt with therapist. 02/20/2024 Chronic fatigue (ICD-10 - R53.82) PT referral has been placed 02/26/2024 Borderline personality disorder (ICD-10 - F60.3) Continue psychotherapy as scheduled. 06/12/2024 Morbid (severe) obesity due to excess calories (ICD-10 - E66.01) 08/11/2024 Bipolar affective disorder, depressed, severe, with [...] or be administered own oral medication per [facility] [place] Protocols. Provided informed consent with understanding of [...] ordered--_ --labs ordered 08/2023 by PCP --trialed Bulger Duloxetine 09/03/2024 Type 2 diabetes mellitus with hyperglycemia, without long-term current use of insulin (ICD-10 - E11.65) F/U WITH ENDO. ENCOURAGED USE OF PUMP, MUST CHARGE IT. 04/22/2024 Morbid (severe) obesity due to excess calories (ICD-10 - E66.01) 03/12/2024 Migraine (ICD-10 - G43.909) 02/14/2024 Morbid (severe) obesity due to excess calories (ICD-10 - E66.01) 04/03/2024 Morbid (severe) obesity due to excess calories (ICD-10 - E66.01) 04/23/2024 Adult ADHD (attention deficit hyperactivity disorder) (ICD-10 - F90.9) [facility] checked 02/26/2024 - no concerns. --hold treatment for ADHD for now 04/07/2024 Borderline personality disorder (ICD-10 - F60.3) Continue psychotherapy as scheduled. 05/19/2024 Bipolar affective disorder, depressed, severe, with [...] May also contact the 24-hour crisis hotline ([facility]), refer to the closest emergency room [...] or be administered own oral medication per [facility] [place] Protocols. Provided informed consent with understanding of [...] understanding of the same and agreeable --stopped Bulger and Duloxetine as she felt it was [...] swings, anger, evaluate at follow up __DC Bulger pt stopped --DC Lexapro --re-start and titrate Duloxetine for depression, anxiety, chronic pain, evaluate at follow up--pt agreeable to re-starting Duloxetine and evaluate effectiveness in 3-4 weeks CancelRx Response got Denied on 2024-05-19 20:43:03 for 'DULoxetine HCl 30 MG Capsule Delayed Release Sprinkle'Pharmacy Notes: Unable to Cancel Rx. Please contact Pharmacy 07/08/2024 Myalgia (ICD-10 - M79.10) 06/13/2024 Bipolar affective disorder, depressed, severe, with [...] or be administered own oral medication per [facility] [place] Protocols. Provided informed consent with understanding of [...] Looking forward to starting new job at [employer] next week. Feels Lexapro is more effective [...] at follow up __DC Duloxetine _ --trialed Bulger 07/09/2024 Bipolar affective disorder, depressed, severe, with [...] or be administered own oral medication per [facility] [place] Protocols. Provided informed consent with understanding of [...] support provided related to pt's choices --trialed Bulger Duloxetine 07/24/2024 Type 2 diabetes mellitus with hyperglycemia, without long-term current use of insulin (ICD-10 - E11.65) F/U WITH ENDO 07/09/2024 Adult ADHD (attention deficit hyperactivity disorder) (ICD-10 - F90.9) [facility] checked 07/09/2024 - no concerns. --hold treatment for ADHD for now 07/08/2024 Morbid (severe) obesity due to excess calories (ICD-10 - E66.01) 06/13/2024 Adult ADHD (attention deficit hyperactivity disorder) (ICD-10 - F90.9) [facility] checked 02/26/2024 - no concerns. --hold treatment for ADHD for now 05/19/2024 Adult ADHD (attention deficit hyperactivity disorder) (ICD-10 - F90.9) [facility] --hold treatment for ADHD for now 04/23/2024 Anxiety (ICD-10 - F41.9) --moderate anxiety, has been working on exercising to help manage anxiety, --continue Buspar for anxiety, evaluate at follow up --continue Hydroxyzine for anxiety evaluate at follow up 04/07/2024 Adult ADHD (attention deficit hyperactivity disorder) (ICD-10 - F90.9) [facility] checked 02/26/2024 - no concerns. --continue Adderall XR for focus and concentration, impulsiveness, evaluate at follow up 02/14/2024 Nutritional counseling (ICD-10 - Z71.3) 09/03/2024 Chest pain (ICD-10 - R07.9) NEGATIVE EVAL WITH [facility] H/V. WOULD LIKE TO CONTINUE CARDIOLOGY F/U 04/22/2024 Nutritional counseling (ICD-10 - Z71.3) 08/11/2024 Adult ADHD (attention deficit hyperactivity disorder) (ICD-10 - F90.9) [facility] - no concerns. --hold treatment for ADHD for now 06/12/2024 Nutritional counseling (ICD-10 - Z71.3) 02/20/2024 Type 2 diabetes mellitus with hyperglycemia, without long-term current use of insulin (ICD-10 - E11.65) 02/26/2024 Adult ADHD (attention deficit hyperactivity disorder) (ICD-10 - F90.9) [facility] - [facility]. 12/05/2023 COVID-19 (ICD-10 - U07.1) pt. encouraged to isolate at home. Ibuprofen for pain and tylenol for fever. Pt. advised to increase fluid intake and rest. Pt. advised to return to ED if experiencing severe CP or SOB. 01/31/2024 Adult ADHD (attention deficit hyperactivity disorder) (ICD-10 - F90.9) Pt has Hx of ADHD;. Pt recently started a new job at [employer].. Will continue to monitor symptoms 01/30/2024 Functional diarrhea (ICD-10 - K59.1) 10/16/2023 Adult ADHD (attention deficit hyperactivity disorder) (ICD-10 - F90.9) Pt has Hx of ADHD; Pt quit taking Guanfacine at last visit. Pt is currently looking for a new job. Will continue to monitor symptoms 11/06/2023 Adult ADHD (attention deficit hyperactivity disorder) (ICD-10 - F90.9) Pt has Hx of ADHD; Pt quit taking Guanfacine at last visit. Pt will be starting a new job tomorrow. Will continue to monitor symptoms 10/03/2023 Adult ADHD (attention deficit hyperactivity disorder) (ICD-10 - F90.9) Pt has Hx of ADHD; Pt rpeorts that she wants to quit taking Guanfacine at this time as she does not feel like the medication is working. Will cont to moitor symptoms. 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 04/03/2024 Nutritional counseling (ICD-10 - Z71.3) 02/19/2024 Adult ADHD (attention deficit hyperactivity disorder) (ICD-10 - F90.9) Pt has Hx of ADHD;. Pt recently started a new job at [employer].. Will continue to monitor symptoms 01/18/2024 Irritable bowel syndrome with diarrhea (ICD-10 - K58.0) EXCLUDE SPRUE, CROHNS 01/15/2024 Nausea (ICD-10 - R11.0) 01/15/2024 Migraine (ICD-10 - G43.909) 04/07/2024 Anxiety (ICD-10 - F41.9) --high anxiety, has been working on exercising to help manage anxiety, --continue Buspar for anxiety, evaluate at follow up --trial Hydroxyzine for anxiety evaluate at follow up 02/19/2024 Vitamin D deficiency (ICD-10 - E55.9) 01/18/2024 Sleep apnea in adult (ICD-10 - G47.33) F/U TO GET CPAP 10/03/2023 Vitamin D deficiency (ICD-10 - E55.9) 11/06/2023 Vitamin D deficiency (ICD-10 - E55.9) 10/16/2023 Vitamin D deficiency (ICD-10 - E55.9) 01/30/2024 Diabetes mellitus (ICD-10 - E11.9) 02/26/2024 Vitamin D deficiency (ICD-10 - E55.9) 01/31/2024 Vitamin D deficiency (ICD-10 - E55.9) 08/11/2024 Anxiety (ICD-10 - F41.9) --moderate to severe anxiety, panic attacks at times, has taken Hydroxy, didn't feel like it was effective in decreasing anxiety --taking Buspar 1 tab every AM, 2 tabs every PM, feels this has been effective in managing anxiety --continue Buspar for anxiety, evaluate at follow up --continue Hydroxyzine for anxiety evaluate at follow up 04/03/2024 Nicotine dependence, unspecified, uncomplicated (ICD-10 - F17.200) 05/19/2024 Anxiety (ICD-10 - F41.9) --moderate anxiety, [...] or be administered own oral medications per [facility] protocols. Provided informed consent with understanding of side effects, adverse effects, risks and benefits as well as alternative treatments as previously discussed and with the above recommended medications & other aspects of the treatment program. Agrees to return sooner if symptoms worsen or suicidal or homicidal ideations occur. 06/13/2024 Anxiety (ICD-10 - F41.9) --moderate to severe anxiety, increased anxiety being around her family, --has been working on exercising to help manage anxiety, education and support provided --titrate Buspar for anxiety, evaluate at follow up --continue Hydroxyzine for anxiety evaluate at follow up 07/08/2024 Nutritional counseling (ICD-10 - Z71.3) 07/09/2024 Anxiety (ICD-10 - F41.9) --mild anxiety, not living with Dad anymore, feels this has helped decrease her anxiety --taking Buspar 1 tab every AM, 2 tabs every PM, feels this has been effective in managing anxiety --continue Buspar for anxiety, evaluate at follow up --continue Hydroxyzine for anxiety evaluate at follow up 07/09/2024 Medication management (ICD-10 - Z79.899) Client mentioned starting Cymbalta for fibromyalgia but states antiepressents have given her cynthia in past. Have opted not to start for now. May self-administer medications or be administered own oral medications per [facility] protocols. Provided informed consent with understanding of side effects, adverse effects, risks and benefits as well as alternative treatments as previously discussed and with the above recommended medications & other aspects of the treatment program. Agrees to return sooner if symptoms worsen or suicidal or homicidal ideations occur. 07/08/2024 Nicotine dependence, unspecified, uncomplicated (ICD-10 - F17.200) 06/13/2024 Medication management (ICD-10 - Z79.899) Client mentioned starting Cymbalta for fibromyalgia but states antiepressents have given her cynthia in past. Have opted not to start for now. May self-administer medications or be administered own oral medications per [facility] protocols. Provided informed consent with understanding of side effects, adverse effects, risks and benefits as well as alternative treatments as previously discussed and with the above recommended medications & other aspects of the treatment program. Agrees to return sooner if symptoms worsen or suicidal or homicidal ideations occur. 05/19/2024 Medication management (ICD-10 - Z79.899) Client mentioned starting Cymbalta for fibromyalgia but states antiepressents have given her cynthia in past. Have opted not to start for now. May self-administer medications or be administered own oral medications per [facility] protocols. Provided informed consent with understanding of side effects, adverse effects, risks and benefits as well as alternative treatments as previously discussed and with the above recommended medications & other aspects of the treatment program. Agrees to return sooner if symptoms worsen or suicidal or homicidal ideations occur. 04/07/2024 Medication management (ICD-10 - Z79.899) Client mentioned starting Cymbalta for fibromyalgia but states antiepressents have given her cynthia in past. Have opted not to start for now. May self-administer medications or be administered own oral medications per [facility] protocols. Provided informed consent with understanding of [...] or be administered own oral medications per [facility] protocols. Provided informed consent with understanding of side effects, adverse effects, risks and benefits as well as alternative treatments as previously discussed and with the above recommended medications & other aspects of the treatment program. Agrees to return sooner if symptoms worsen or suicidal or homicidal ideations occur. 02/26/2024 Anxiety (ICD-10 - F41.9) 01/31/2024 Anxiety (ICD-10 - F41.9) Will increase BuSpar TID to aid anxiety; pt has only been taking 2 tabs per day; encouraged her to take 1 tablet in AM and 2 tablets in PM to help anxiety. Pt is currently talking with therapist at [facility]. 11/06/2023 Anxiety (ICD-10 - F41.9) Will increase BuSpar TID to aid anxiety; pt reports increase anxiety since moving to [place]. Pt is currently talking with therapist at [facility]. 10/16/2023 Anxiety (ICD-10 - F41.9) Pt reports that she is doing well on Buspar and reports that her anxiety is under control at this time. Pt is currently talking with therapist at [facility]. 10/03/2023 Anxiety (ICD-10 - F41.9) Will increase BuSpar to 15mg BID to aid anxiety; pt reports that she is tolerating medication well and denies side effects to med. Pt is currently talking with therapist at [facility]. Pt has increased anxiety due to recent stress of friends and Grandfather is currently in hospital 01/18/2024 Fatigue (ICD-10 - R53.83) 02/19/2024 Anxiety (ICD-10 - F41.9) 02/19/2024 Medication management (ICD-10 - Z79.899) Client mentioned starting Cymbalta for fibromyalgia but states antiepressents have given her cynthia in past. Have opted not to start for now. May self-administer medications or be administered own oral medications per [facility] protocols. Provided informed consent with understanding of side effects, adverse effects, risks and benefits as well as alternative treatments as previously discussed and with the above recommended medications & other aspects of the treatment program. Agrees to return sooner if symptoms worsen or suicidal or homicidal ideations occur. 01/18/2024 Exposure to potential infection (ICD-10 - Z20.9) 10/03/2023 Therapeutic drug monitoring (ICD-10 - Z51.81) 02/26/2024 Medication management (ICD-10 - Z79.899) Client mentioned starting Cymbalta for fibromyalgia but states antiepressents have given her cynthia in past. Have opted not to start for now. May self-administer medications or be administered own oral medications per [place] protocols. Provided informed consent with understanding of side effects, adverse effects, risks and benefits as well as alternative treatments as previously discussed and with the above recommended medications & other aspects of the treatment program. Agrees to return sooner if symptoms worsen or suicidal or homicidal ideations occur. 01/18/2024 Hyperlipemia (ICD-10 - E78.5) 01/18/2024 Hypertension (ICD-10 - I10) CONTROLLED 01/18/2024 Onychomycosis (ICD-10 - B35.1) NEEDS F/U WITH PODIATRY 01/18/2024 Asthma (ICD-10 - J45.909) CLINICALLY STABLE 01/18/2024 Migraine (ICD-10 - G43.909) LIKELY WORSENED BY DILMA. CONTINUE PRN TRIPTAN NO MORE THAN TWICE PER WEEK. 10/03/2023 Other Discussed treat ment planDiscussed sleep [...] visit Encouraged continued counselingWill collab with [facility] team Discussed treatment plan; patient is agreeable [...] May also contact the 24-hour crisis hotline ([facility]), refer to the closest emergency room [...] 4 weeksEncouraged continued counselingWill collab with [facility] team Discussed treatment plan; patient is agreeable [...] May also contact the 24-hour crisis hotline ([facility]), refer to the closest emergency room [...] At home treatments discussed based on symptoms. 01/10/2024 Other Provided case management services to address social determinants of health needs and reduce barriers to health care services. 01/31/2024 Other Discussed treatment planDiscussed sleep hygiene [...] May also contact the 24-hour crisis hotline ([facility]), refer to the closest emergency room [...] aware that this provider will be leaving [facility] as of 02/06/2024 and he will be transitioned to a new provider for his next appointment. 04/23/2024 Other Nutrition: heal thy snacks, heart healthy diet, healthy lean proteins, 160 minutes of moderately intense activity weekly 07/24/2024 Other [place] PD[place] W/O ISSUES Plan Of Treatment Future Test Test Name Order Date Electrocardiogram (EKG) 08/11/2024 Ultrasound : Urine Bladder PostVoid Belinda ure 09/03/2024 Insurance Providers Payer Name Payer Address Payer Phone Subscriber Number Group Number Insured Name Patient Relationship to Insured Coverage Start Date Coverage End Date [facility] Att Claims Department [address] [place] [address] [id number] Greyson Johnson Self - patient is the insured 1 [facility] Attn Claims Department [address] [place] [address] [id number] Greyson Johnson Self - patient is the [...] arm tendon/nerve repair Hospitalization History Reason Date(Month/Year) MATTHEW/SA at [facility] 01/2024 Mental health from september 28-09/2022 CIRILO 02/16/21 mental health Is[place] 02/01/21
--- OUTSIDE RECORDS SUMMARY | 2024-09-03 19:11 | XMS_ITS | Clinical Summary ---
Author Organization [facility] [address] [place] [phone] Care Team Providers Care Stave Cutter Name Role Phone Lake Ellis MD Primary Care Provider [phone] Allergies Active Allergy Reactions Criticality Noted Date [...] INJECT 1 MG (0.75 ML) SUBCUTANEOUSLY WEEKLY 024 2024 Discontinued(T herapy completed) tiZANidine (ZANAFLEX) 4 [...] 100 mg twice daily 60 tablet 11 025 2024 Discontinued atogepant 30 mg tablet Take [...] 04/16/2020 Assessment & Plan (04/19/2020 3:23 PM ADULT PAROLE OFFICER): 19 yo F w/ a reported hx of bipolar and ADHD who was admitted at the recommendation of her director of casework department for suicidal ideation with a plan to [...] patient provided further DBT resources outside of [place]. She is IMPROVING as evidence by cheerful [...] to grandparents TODAY with outpt f/u at [place] Assessment & Plan (04/16/2020 4:11 PM ADULT PAROLE OFFICER): 19 yo F w/ a reported hx of bipolar and ADHD who was admitted at the recommendation of her director of casework department for suicidal ideation with a plan to [...] grandparents when stabilized with outpt f/u at [place] Mood disorder 04/16/2020 Assessment & Plan (04/19/2020 3:18 PM ADULT PAROLE OFFICER): Patient meets criteria for MDD except for [...] 5mg Assessment & Plan (04/16/2020 4:04 PM ADULT PAROLE OFFICER): Patient meets criteria for MDD except for [...] 04/16/2020 Assessment & Plan (04/19/2020 3:19 PM ADULT PAROLE OFFICER): Historical diagnosis d/t inattention. Was on Focalin for an extended amount of time in childhood. We planned to restart the patient's Focalin here, unfortunately it is not on formulary. Grandjuliana brought med from home. Patient could potentially benefit from a dose increase, but we will defer that to outpatient. -focalin XR 10mg (home supply) Assessment & Plan (04/16/2020 3:59 PM ADULT PAROLE OFFICER): Historical diagnosis d/t inattention. Was on Focalin for an extended amount of time in childhood. We planned to restart the patient's Focalin here, unfortunately it is not on formulary. Zane plans to bring the med from home -focalin XR 10mg (home supply) Diabetes 04/16/2020 Assessment & Plan (04/19/2020 3:18 PM ADULT PAROLE OFFICER): Diagnosed on a previous hospitalization this year. Lipids and blood glucoses elevated in ED. -increase Metformin to 1000mg BID Assessment & Plan (04/16/2020 4:00 PM ADULT PAROLE OFFICER): Diagnosed on a previous hospitalization this year. Lipids and blood glucoses elevated in ED. -Metformin 500mg BID UTI (urinary tract infection) 04/16/2020 Assessment & Plan (04/19/2020 3:17 PM ADULT PAROLE OFFICER): Previously diagnosed, asymptomatic, will continue previous treatment -completed Macrobid 100mg BID Assessment & Plan (04/16/2020 3:57 PM ADULT PAROLE OFFICER): Previously diagnosed, asymptomatic, will continue previous treatment -Macrobid 100mg BID for 4 more days Suicidal ideation Encounters Date Type Department Care Team Description 08/27/2024 1:36 PM CDT Anesthesia Event [facility] [address] [place] [phone] Candido Lofton MD Jacobsen, Kyle G., MD 08/27/2024 12:00 PM CDT - 08/27/2024 12:30 PM CDT Surgery [facility] [address] [place] [phone] Brendan Sanon MD ESOPHAGOGASTRODUODENOSCOPY ULTRASOUND EXAM LIMITED 08/27/2024 10:56 AM CDT - 08/27/2024 3:43 PM CDT Hospital Encounter [facility] [address] [place] [phone] Brendan Sanon MD Nausea and vomiting, unspecified vomiting type; Diarrhea, unspecified type; Generalized abdominal pain; Gastroesophageal reflux disease without esophagitis Discharge Disposition: Discharge to home or self care 08/13/2024 Telephone [facility] [address] [place] [address] [place] [phone] Mansoor Albert MD Prior Auth (Qulipta 30 mg) 08/11/2024 Telephone [facility] Neurology [address] [place] [address] [place] [phone] Mansoor Albert MD 08/11/2024 Orders Only [facility]rology [address] [place] [phone] Mansoor Albert MD 08/08/2024 Telephone [facility]rology [address] [place] [phone] Mansoor Albert MD Med Management 07/31/2024 2:00 PM CDT Office Visit [facility]rology [address] [place] [phone] Mansoor Albert MD Migraine without aura and without status migrainosus, not intractable (Primary Dx) from Last 3 Months Immunizations Immunization Administration Dates Next Due Influenza, Quadrivalent, Spl it, Preservative Free, Intramuscular 04/16/2020 Surgical History Surgery Date Site/Laterality Comments ARM SURGERY Left OTHER SURGICAL HISTORY surgery to remove something on uvula COLONOSCOPY Medical History Medical History Date Comments Anxiety and depression Adhd Bipolar 1 disorder (HCC) Diabetes (HCC) Fibromyalgia, primary PONV (postoperative nausea and vomiting) Sleep apnea Irritable bowel syndrome GERD (gastroesophageal reflux disease) Anemia Hyperlipidemia Hypertension Atrial tachycardia Asthma Vaginal yeast infection Migraines Family History Medical History Relation Name Comments Stomach cancer Maternal Grandfather Relation Name Status Comments Maternal Grandfather Social History Tobacco Use Types Packs/Day Years [...] How often do you attend chur or moravian services? More than 4 times per year 04/16/2020 Do you belong to any clubs o r organizations such as confucianism groups, unions, fraternal or athletic groups, or [...] on file Legal Sex Female 3:03 AM ADULT PAROLE OFFICER Gender Identity Not on file Sexual Orientation [...] 08/27/2024 11:55 AM CDT Plan of Treatment Health Maintenance Due [...] 11/20/2005, 04/02/2003, Additional history exists Covid-19 Vaccine (3 - 2023-2 5 season) 2024 05/20/2021, 07/19/2020 [...] CDT LIPID PANEL STAT 04/15/2020 2:57 PM ADULT PAROLE OFFICER from Last 3 Months or Most Recently Relevant to Health Maintenance Results * (ABNORMAL) POCT glucose (08/27/2024 2:12 PM CDT) Glucose, POC 231(H) 70 - 199 mg/dL Comment: For Glucose values <35 mg/dl when Hematocrit is >60 mg/dl,the test may not accurately detect significant hypoglycemia,and testing in the Laboratory should be considered if clinically indicated. POC Performer [id number] [facility] Blood 08/27/2024 2:12 PM CDT 08/27/2024 2:12 PM CDT Brendan Sanon MD LAB POCT ORDERABLES - DEVICE Final Result [facility] [address] [place] [address] * Surgical pathology (08/27/2024 1:47 PM CDT) Tissue (Esophageal biopsy) 08/27/2024 1:47 PM CDT Tissue specimen (specimen) (Gastric/Stomach biopsy) 08/27/2024 1:49 PM CDT Tissue specimen (specimen) (Duodenum, Biopsy) 08/27/2024 1:50 PM CDT Narrative PATHOLOGY [facility] - 08/28/2024 10:27 AM CDT [place] [address] [place], [place] [address] Tele: Adia Dixon MD - Business Performance Specialist Note to Patients: This report may contain [...] PATHOLOGY REPORT Patient Name: GREYSON JOHNSON Address: [address] [place] [address] Gender: F : 2000 (Age: 23) Service: Gastro Location: [facility] Hospital #: [id number] Patient Type: [facility] Taken: 08/27/2024 Received 08/27/2024 Reported: 08/28/2024 Physician(s): Dr. Brendan Sanon M.D. Kasandra Phillips M.D. DIAGNOSIS: Esophagus, biopsy: - Scant squamous [...] filtered and submitted entirely in cassette C1. [facility]/08/27/2024 16:20 Sylvie,[facility] MICROSCOPIC DESCRIPTION: Microscopic evaluation of part A [...] Negative for dysplasia. Clerical Data Follows A; 30232 B; 16787 C; 14982 REPORT IMAGES AND/OR SCANNED DOCUMENTS ONLY VIEWABLE IN PDF FORMAT The immunohistochemical test(s) cited in this report, if any, was developed and its performance characteristics determined by [facility]. It has not been cleared or approved by the U.S. Food and Drug Administration. The FDA has determined that such clearance or approval is not necessary. This test is used for clinical purposes. It should not be regarded as investigational or for research. [facility] is certified under the Clinical Laboratory [...] part or completely in the following laboratories: [facility], [facility][note 3][address], [address] [place] [address]. Brendan Sanon MD LAB PATHOLOGY ORDERABLES Gabi l Result PATHOLOGY [facility] Laboratory [address] [place] [address] * (ABNORMAL) POCT glucose (08/27/2024 12:59 PM CDT) Glucose, POC 276(H) 70 - 199 mg/dL Comment: For Glucose values <35 mg/dl when Hematocrit is >60 mg/dl,the test may not accurately detect significant hypoglycemia,and testing in the Laboratory should be considered if clinically indicated. POC Performer [id number] [facility] Blood 08/27/2024 12:5 9 PM CDT 08/27/2024 12:59 PM CDT Brendan Sanon MD LAB POCT ORDERABLES - DEVICE Final Result [facility] [address] Department [place] [address] * Upper EUS (08/27/2024 12:02 PM CDT) Anatomical Region Laterality Modality Other Narrative Procedure Note Brendan Sanon MD - 08/27/2024 12:02 PM CDT ENDOSCOPY LAB Patient Name: Greyson Johnson Procedure Date: 08/27/2024 12:02 PM Admit Type: Outpatient Room: [facility] Date of : 2000 Instrument Name: [id number] Gender: Female Note Status: Finalized Procedure: Upper [...] 0 Note Initiated On: 08/27/2024 12:02 PM Brendan Sanon MD ENDOSCOPY PROCEDURES Final Re sult * (ABNORMAL) POCT glucose (08/27/2024 11:56 AM CDT) [facility] Glucose, POC 305(H) 70 - 199 mg/dL Comment: For Glucose values <35 mg/dl when Hematocrit is >60 mg/dl,the test may not accurately detect significant hypoglycemia,and testing in the Laboratory should be considered if clinically indicated. POC Performer [id number] [facility] Blood 08/27/2024 11:5 6 AM CDT 08/27/2024 11:56 AM CDT Brendan Sanon MD LAB POCT ORDERABLES - DEVICE Final Result [facility] [address] [place] [address] * POCT hCG, urine (08/27/2024 11:45 AM CDT) [facility] HCG, ur, POC Negative Negative Lot Number [id number] QC Backgroud Clear Acceptable QC Control Line Acceptable Urine 08/27/2024 11:4 5 AM CDT us Brendan Sanon MD POINT OF CARE TEST ORDERABLES Final Result * eGFR (01/22/2024 3:03 PM CDT) [facility] eGFR >90 >=60 mL/min/1. 73 m2 Comment: [...] 3:03 PM CDT 01/22/2024 3:24 PM CDT Maddy GARCIA LAB BLOOD ORDERABLES Gabi l Result [facility] Department [place] [address] * (ABNORMAL) Lipid panel (04/15/2020 2:57 PM ADULT PAROLE OFFICER) Cholesterol 189 <=199 mg/dL [facility] Comment: [...] on 2018. Triglycerides 464(H) <=129 mg/dL [facility] Comment: Interpretive Data Ages < or = [...] revised on 2018. HDL 38(L) >=45 mg/dL [facility] Comment: Interpretive Data Ages < or [...] on 2018. LDL, calculated See Comment <=129 [facility] Comment: Unable to calculate LDL due to [...] on 2018. Non-HDL Cholesterol 151(H) <=144 mg/dL [facility] Comment: Interpretive Data Ages < or = [...] revised on 2018. Chol/HDL ratio 5 [facility] Blood specimen (specimen) 04/15/2020 2:57 PM ADULT PAROLE OFFICER 04/15/2020 3:12 PM ADULT PAROLE OFFICER Carolyn Skaggs MD LAB BLOOD ORDERABLES Final Result [facility] [place] [address] from Last 3 Months or Most Recently Relevant to Health Maintenance Insurance [facility] Advance Directives For more information, please contact: [phone] * Full Code (Latest Code Status on File) Date Activated Date Inactivated Comments 08/27/2024 11:34 AM 08/27/2024 7:43 PM * Full Code Date Activated Date Inactivated Comments 04/16/2020 1:05 AM 04/19/2020 8:20 PM Care Teams Stave Cutter Relationship Specialty Start Date End Date Lake Ellis MD [address] [place] [address] PCP - General Internal Medicine 08/27/24
[2024-09-03 19:12] VITALS: BP 129/75; PULSE 102; RESP 15; TEMP 36.8; O2SAT 98
[2024-09-03 19:45] LABS: Add Urine Microscopic? NO; Appearance Urine Clear (Clear); Bilirubin Urine Negative (Negative); Blood Urine Negative (Negative); Color Urine Yellow (Yellow); Glucose Urine UA 3+ mg/dL (Negative); Ketones Urine 1+ mg/dL (Negative); Leukocyte Esterase Ur Negative LEU/UL (Negative); Nitrate Urine Negative (Negative); Protein Urine Negative (Negative); Specific Grav Ur 1.045 (1.001-1.035); Urobilinogen Urine 0.2 mg/dL (<2.0); pH Urine 5.5 (5.0-9.0)
--- NOTE | 2024-09-03 19:49 | ED_ITS ---
HPI - Psych General Chief Complaint: Psychiatric Symptoms <Jono Marie MD - Last Filed: 09/04/24 20:50> Stated Complaint: medical clearance for psych <Jono Marie MD - Last Filed: 09/04/24 20:50> Time Seen by Provider: 09/03/24 19:27 <Jono Marie MD - Last Filed: 09/04/24 20:50> History of Present Illness HPI Narrative: 23-year-old female with a history of insulin-dependent diabetes, bipolar personality disorder, anxiety. She presents the emergency department for psychiatric evaluation and placement. She was already screen by the chest not crisis team and needs medical clearance. Patient denies any symptoms at this time besides her mental health. She states she is suicidal and over Easter was feeling angry and agitated towards her grandmother and threatened to kill herself with a knife that was held against her throat. Patient states she has been feeling depressed and not using any of her medications recently. Denies any nausea, vomiting abdominal pain, fever, chills. She states that she feels fine from a somatic perspective and wants to be placed for psychiatric treatment. She has been to previous psychiatric facilities which have helped her mentally. <Jono Marie MD - Last Filed: 09/04/24 20:50> Related Data Home Medications: Home Medications ?Medication ?Instructions ?Recorded ?Confirmed ?Last Taken ?Type cyanocobalamin (vitamin B-12) 1,000 mcg PO DAILY 12/07/22 07/24/24 Unknown History 1,000 mcg capsule ferrous sulfate 325 mg (65 mg 325 mg PO DAILY 12/07/22 07/24/24 Unknown History iron) tablet buspirone 15 mg tablet See Rx Instructions .Route .COMPLEX 03/19/24 07/24/24 Unknown History escitalopram oxalate 20 mg tablet 20 mg PO DAILY 03/19/24 07/24/24 Unknown History rizatriptan 5 mg tablet mg PO 04/01/24 07/24/24 Unknown History tizanidine 4 mg tablet mg PO 04/01/24 07/24/24 Unknown History hydroxyzine HCl 50 mg tablet mg PO PRN 07/24/24 07/24/24 Unknown History lamotrigine 150 mg tablet 150 mg PO BID 07/24/24 07/24/24 Unknown History paliperidone 3 mg tablet,extended 3 mg PO QAM 07/24/24 07/24/24 Unknown History release 24 hr (Invega) paliperidone 9 mg tablet,extended 9 mg PO DAILY 07/24/24 07/24/24 Unknown History release 24 hr pregabalin 150 mg capsule (Lyrica) 150 mg PO BID 07/24/24 07/24/24 Unknown History quetiapine 400 mg tablet 400 mg PO QHS 07/24/24 07/24/24 Unknown History sumatriptan succinate 100 mg tablet 100 mg PO Q2-4H PRN 07/24/24 07/24/24 Unknown History topiramate 100 mg tablet 100 mg PO BID 07/24/24 07/24/24 Unknown History tramadol 50 mg tablet 50 mg PO Q6H PRN 07/24/24 07/24/24 Unknown History <Jono Marie MD - Last Filed: 09/04/24 20:50> Allergies/Adverse Reactions: Allergies Allergy/AdvReac Type Severity Reaction Status Date / Time acetaminophen (From Tylenol) AdvReac Intermediate Headache Verified 08/21/24 10:31 ibuprofen AdvReac Intermediate Headache Verified 08/21/24 10:31 adhesive tape AdvReac Mild Itching Verified 08/21/24 10:31 <Jono Marie MD - Last Filed: 09/04/24 20:50> Review of Systems 2 Review of Systems: As reviewed above in HPI <Jono Marie MD - Last Filed: 09/04/24 20:50> [facility] Past Medical History Medical History: Medical History History of anxiety History of borderline personality disorder History of diabetes mellitus <Jono Marie MD - Last Filed: 09/04/24 20:50> Surgical History Surgical History: Surgical History H/O wrist surgery <Jono Marie MD - Last Filed: 09/04/24 20:50> Family History Family History: Family History Mother Diabetes mellitus Type 1 DM Drug addiction Father Hypertension Diabetes mellitus Type 2 DM <Jono Marie MD - Last Filed: 09/04/24 20:50> Social History Social History: Social History Smoking status: Current every day smoker Tobacco type: e-cigarettes/vaping Alcohol intake: never Substance use: never Substance use type: unknown Do You Feel Safe in your Home?: Yes Lack of Transportation: YES Lack of Food: Never True Current Housing: I Have Housing Concerned About Future Housing: No Difficulty Paying Gas/Electric Bills: No Difficulty Paying for Meds: No Currently Unemployed: No Education: High School Diploma/GED Difficulty w/ Childcare or Family Care: No Living arrangements: with family Occupation/Education: occupation 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 HEAD: [Normocephalic, atraumatic.] EYES: [PERRLA and EOMI.] ENT: Nares clear, no rhinorrhea or epistaxis. Mucous membranes moist. NECK: Supple. CHEST: [Clear to auscultation. No respiratory distress.] HEART: [Regular rate and rhythm]. No murmur heard. [Normal peripheral pulses.] ABDOMEN: [Soft, nondistended], [nontender], [No rigidity or guarding] EXTREMITIES: Normal range of motion. [No edema.] SKIN: Warm, dry, no rash. NEURO: [No focal deficits]. Alert and oriented [x3.] PSYCH: [Normal mood and affect.] Endorses suicidality, denies homicidal thoughts or visual/auditory hallucinations. <Jono Marie MD - Last Filed: 09/04/24 20:50> Course Course Emergency Course: ZYCH: Patient signed out pending psych placement. We spoke with the crisis team and evidently she had been safety contracted and they are reaching out to her tomorrow for placement. She will need to come to hospital to be medically cleared. She has no medically cleared. She will be discharged home and will work with crisis team tomorrow for placement. She is not actively suicidal. Her family is at bedside and they are comfortable going home with her at this time. Patient discharged. <Chad Mcduffie MD - Last Filed: 09/03/24 22:18> Vital Signs Vital signs: Vital Signs Temperature 36.8 C 09/03/24 19:12 Pulse Rate 102 H 09/03/24 19:12 Respiratory Rate 15 09/03/24 19:12 Blood Pressure 129/75 09/03/24 19:12 Pulse Oximetry 98 09/03/24 19:12 Oxygen Delivery Room Air 09/03/24 19:12 Temperature 36.8 C 09/03/24 19:12 Pulse Rate 102 H 09/03/24 19:12 Respiratory Rate 15 09/03/24 19:12 Blood Pressure 129/75 09/03/24 19:12 Pulse Oximetry 98 09/03/24 19:12 Oxygen Delivery Room Air 09/03/24 19:12 <Jono Marie MD - Last Filed: 09/04/24 20:50> Vital Signs Temperature 36.8 C 09/03/24 19:12 Pulse Rate 102 H 09/03/24 19:12 Respiratory Rate 15 09/03/24 19:12 Blood Pressure 129/75 09/03/24 19:12 Pulse Oximetry 98 09/03/24 19:12 Oxygen Delivery Room Air 09/03/24 19:12 Temperature 36.8 C 09/03/24 19:12 Pulse Rate 102 H 09/03/24 19:12 Respiratory Rate 15 09/03/24 19:12 Blood Pressure 129/75 09/03/24 19:12 Pulse Oximetry 98 09/03/24 19:12 Oxygen Delivery Room Air 09/03/24 19:12 <Chad Mcduffie MD - Last Filed: 09/03/24 22:18> MDM - Psych MDM Narrative Medical decision making narrative: 23-year-old female with history of diabetes, morbid obesity, borderline personality disorder. She presents the emergency department chief complaint of needing psychiatric evaluation and medical clearance. She was already spoken to a crisis team who will be placing her upon medical clearance. She does use insulin but has not been using for several days as she was depressed. Over the weekend she felt suicidal and held a knife against her throat and attempt to harm herself. She denies any active plan at this time but does endorse suicidal thoughts. She is hemodynamically stable and unremarkable on examination. Medical clearing labs were ordered this time including CBC, CMP, TSH, COVID. When she is medically cleared will reach out to the crisis team that has already evaluated her for potential placement. Patient and family comfortable with this plan, she remains stable at this time and does not require any medications. Workup shows no leukocytosis or anemia. Normal platelet count. Normal electrolytes. Normal renal function, normal hepatic function. Normal TSH. Slightly hyperglycemic in line with her diabetes. She was given a dose of her home insulin that she has missed. No signs of acidosis or significant ketosis. No urinary tract infection signs. Negative test. Negative alcohol level and drug screen. Negative viral panel. Patient is medically cleared for psychiatric evaluation and placement. Appropriate information was faxed to the Psychiatry Services and patient is awaiting placement. Patient is voluntary status at this time. <Jono Marie MD - Last Filed: 09/04/24 20:50> Medical Records Attestation: I reviewed the patient's medical records. <Jono Marie MD - Last Filed: 09/04/24 20:50> Lab Data Attestation: I reviewed the patient's lab results. <Jono Marie MD - Last Filed: 09/04/24 20:50> Result diagrams: 09/03/24 20:14 09/03/24 20:14 <Jono Marie MD - Last Filed: 09/04/24 20:50> Labs: Lab Results 09/03/24 09/03/24 09/03/24 Range/Units 19:33 20:14 20:33 WBC 7.5 (4.5-10.0) K/mm3 RBC 5.35 (4.2-5.4) M/mm3 Hgb 14.2 (12.0-15.0) g/dL Hct 42.8 (37.0-47.0) % MCV 80.0 (80-100) fl MCH 26.5 (26-34) pg MCHC 33.2 (32-36) g/dl RDW 13.1 (11.5-14.5) % Plt Count 258 (150-375) k/mm3 MPV 9.7 (7.4-10.4) fl Immature Gran % (Auto) 0.4 (0-0.5) % Neut % (Auto) 62.9 (45.5-73.1) % Lymph % (Auto) 29.7 (18.3-44.2) % [place] % (Auto) 6.7 (2.6-8.5) % Eos % (Auto) 0.0 (0-4.4) % Baso % (Auto) 0.3 (0.2-1.2) % Lymph # (Auto) 2.23 (0.9-3.2) K/mm3 [place] # (Auto) 0.5 (0.1-0.6) K/mm3 Eos # (Auto) 0.0 (0-0.3) K/mm3 Baso # (Auto) 0.0 (0.0-0.1) K/mm3 Abs Immat Gran (auto) 0.03 (0.00-0.031) K/mm3 Absolute Neuts (auto) 4.7 (1.3-6.7) K/mm3 Absolute Nucleated RBC 0.000 (0.0-0.012) K/mm3 Nucleated RBC % 0.0 (0.0-0.2) % Sodium 134 L (137-145) mmol/L Potassium 3.6 (3.4-5.0) mmol/L Chloride 103 (98-107) mmol/L Carbon Dioxide 19 L (22-30) mmol/L Anion Gap 12 (4-12) mmol/L BUN 10 (7-17) mg/dL Creatinine 0.46 L (0.7-1.0) mg/dL Estim Creat Clear Calc 192 ml/min Estimated GFR > 60 (59 - ) Glucose 273 H (65-110) mg/dL Calcium 9.0 (8.4-10.2) mg/dL Total Bilirubin 0.6 (0.2-1.3) mg/dL AST 24 (14-36) U/L ALT 30 (6-35) U/L Alkaline Phosphatase 89 (38-126) U/L Total Protein 8.0 (6.3-8.2) g/dL Albumin 4.6 (3.5-5.1) g/dL TSH (Reflex) 1.990 (0.465-4.68) uIU/mL Free T4 1.21 (0.78-2.19) ng/dL Urine Color Yellow (Yellow) Urine Appearance Clear (Clear) Urine pH 5.5 (5.0-9.0) Ur Specific [place] 1.045 H (1.001-1.035) Urine Protein Negative (Negative) mg/dL Urine Glucose (UA) 3+ H (Negative) mg/dL Urine Ketones 1+ H (Negative) mg/dL Ur Blood (Man) Negative (Negative) Urine Nitrate Negative (Negative) Urine Bilirubin Negative (Negative) Urine Urobilinogen 0.2 (<2.0) mg/dL Leukocyte Esterase Rfl Negative (Negative) JOSEPH/UL POC Urine HCG, Qual Negative (Negative) Urine Opiates Screen Negative (Negative) Urine Methadone Screen Negative (Negative) Ur Barbiturates Screen Negative (Negative) Ur Phencyclidine Scrn Negative (Negative) Ur Amphetamine Screen Negative (Negative) U Benzodiazepines Scrn Negative (Negative) Urine Cocaine Screen Negative (Negative) U Cannabinoids Screen Negative (Negative) Ethyl Alcohol < 10 (<10) mg/dL Influenza A (RT-PCR) Negative (Negative) Influenza B (RT-PCR) Negative (Negative) RSV (RT-PCR) Negative (Negative) SARS-CoV-2 RNA (RT-PCR) Negative (Negative) <Jono Marie MD - Last Filed: 09/04/24 20:50> Lab Results 09/03/24 09/03/24 09/03/24 Range/Units 19:33 20:14 20:33 WBC 7.5 (4.5-10.0) K/mm3 RBC 5.35 (4.2-5.4) M/mm3 Hgb 14.2 (12.0-15.0) g/dL Hct 42.8 (37.0-47.0) % MCV 80.0 (80-100) fl MCH 26.5 (26-34) pg MCHC 33.2 (32-36) g/dl RDW 13.1 (11.5-14.5) % Plt Count 258 (150-375) k/mm3 MPV 9.7 (7.4-10.4) fl Immature Gran % (Auto) 0.4 (0-0.5) % Neut % (Auto) 62.9 (45.5-73.1) % Lymph % (Auto) 29.7 (18.3-44.2) % [place] % (Auto) 6.7 (2.6-8.5) % Eos % (Auto) 0.0 (0-4.4) % Baso % (Auto) 0.3 (0.2-1.2) % Lymph # (Auto) 2.23 (0.9-3.2) K/mm3 [place] # (Auto) 0.5 (0.1-0.6) K/mm3 Eos # (Auto) 0.0 (0-0.3) K/mm3 Baso # (Auto) 0.0 (0.0-0.1) K/mm3 Abs Immat Gran (auto) 0.03 (0.00-0.031) K/mm3 Absolute Neuts (auto) 4.7 (1.3-6.7) K/mm3 Absolute Nucleated RBC 0.000 (0.0-0.012) K/mm3 Nucleated RBC % 0.0 (0.0-0.2) % Sodium 134 L (137-145) mmol/L Potassium 3.6 (3.4-5.0) mmol/L Chloride 103 (98-107) mmol/L Carbon Dioxide 19 L (22-30) mmol/L Anion Gap 12 (4-12) mmol/L BUN 10 (7-17) mg/dL Creatinine 0.46 L (0.7-1.0) mg/dL Estim Creat Clear Calc 192 ml/min Estimated GFR > 60 (59 - ) Glucose 273 H (65-110) mg/dL Calcium 9.0 (8.4-10.2) mg/dL Total Bilirubin 0.6 (0.2-1.3) mg/dL AST 24 (14-36) U/L ALT 30 (6-35) U/L Alkaline Phosphatase 89 (38-126) U/L Total Protein 8.0 (6.3-8.2) g/dL Albumin 4.6 (3.5-5.1) g/dL TSH (Reflex) 1.990 (0.465-4.68) uIU/mL Free T4 1.21 (0.78-2.19) ng/dL Urine Color Yellow (Yellow) Urine Appearance Clear (Clear) Urine pH 5.5 (5.0-9.0) Ur Specific [place] 1.045 H (1.001-1.035) Urine Protein Negative (Negative) mg/dL Urine Glucose (UA) 3+ H (Negative) mg/dL Urine Ketones 1+ H (Negative) mg/dL Ur Blood (Man) Negative (Negative) Urine Nitrate Negative (Negative) Urine Bilirubin Negative (Negative) Urine Urobilinogen 0.2 (<2.0) mg/dL Leukocyte Esterase Rfl Negative (Negative) JOSEPH/UL POC Urine HCG, Qual Negative (Negative) Urine Opiates Screen Negative (Negative) Urine Methadone Screen Negative (Negative) Ur Barbiturates Screen Negative (Negative) Ur Phencyclidine Scrn Negative (Negative) Ur Amphetamine Screen Negative (Negative) U Benzodiazepines Scrn Negative (Negative) Urine Cocaine Screen Negative (Negative) U Cannabinoids Screen Negative (Negative) Ethyl Alcohol < 10 (<10) mg/dL Influenza A (RT-PCR) Negative (Negative) Influenza B (RT-PCR) Negative (Negative) RSV (RT-PCR) Negative (Negative) SARS-CoV-2 RNA (RT-PCR) Negative (Negative) <Chad Mcduffie MD - Last Filed: 09/03/24 22:18> Imaging Data Attestation: I personally reviewed and interpreted this imaging study as follows: < Jono Marie MD - Last Filed: 09/04/24 20:50> Discharge Plan Discharge Clinical Impression: Suicidal ideation, Diabetes mellitus, insulin dependent (IDDM), controlled <Jono Marie MD - Last Filed: 09/04/24 20:50> Patient Disposition: Home <Jono Marie MD - Last Filed: 09/04/24 20:50> Condition: Stable <Jono Marie MD - Last Filed: 09/04/24 20:50> Patient Language: Polish <Jono Marie MD - Last Filed: 09/04/24 20:50> Prescriptions: No Action buspirone 15 mg tablet See Rx Instructions .ROUTE .COMPLEX Rx Instructions: 15 mg orally 1 in am, 2 in pm escitalopram oxalate 20 mg tablet 20 mg PO DAILY lamotrigine 150 mg tablet 150 mg PO BID paliperidone [Invega] 3 mg tablet extended release 24hr 3 mg PO QAM quetiapine 400 mg tablet 400 mg PO QHS sumatriptan succinate 100 mg tablet 100 mg PO Q2-4H PRN topiramate 100 mg tablet 100 mg PO BID tramadol 50 mg tablet 50 mg PO Q6H PRN pregabalin [Lyrica] 150 mg capsule 150 mg PO BID (DME) Dexcom G6 Sensor Device See Rx Instructions .ROUTE .MEDSUPPLY Qty: 9 3RF Rx Instructions: As directed ([facility]) Dexcom G6 Transmitter Device See Rx Instructions .ROUTE .MEDSUPPLY Qty: 1 3RF Rx Instructions: As directed Baqsimi 3 mg/actuation spray,non-aerosol 3 mg intranasal ONCE PRN (Reason: hypoglycemia) Qty: 1 0RF Rx Instructions: as a single dose ferrous sulfate 325 mg (65 mg iron) tablet 325 mg PO DAILY cyanocobalamin (vitamin B-12) 1,000 mcg capsule 1,000 mcg PO DAILY paliperidone 9 mg tablet extended release 24hr 9 mg PO DAILY glucose [Dex4 Glucose] 4 gram tablet,chewable 16 g PO Q15M PRN (Reason: hypoglycemia) Qty: 60 1RF Rx Instructions: until symptoms of low blood sugar are controlled tizanidine 4 mg tablet PO rizatriptan 5 mg tablet PO hydroxyzine HCl 50 mg tablet PO PRN insulin lispro [Humalog U-100 Insulin] 100 unit/mL solution 150 unit continuous subcutaneous infusion DAILY 90 Days Qty: 140 1RF albuterol sulfate [ProAir HFA] 90 mcg/actuation HFA aerosol inhaler 2 puff inhalation QID PRN (Reason: shortness of breath or wheezing) Qty: 8.5 0RF dicyclomine 20 mg tablet 20 mg PO TID PRN (Reason: Abdominal Discomfort) Qty: 15 0RF famotidine 20 mg tablet 20 mg PO DAILY Qty: 30 0RF promethazine 12.5 mg tablet 12.5 mg PO Q6H PRN (Reason: nausea and vomiting) Qty: 15 0RF (DME) Dexcom G6 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
--- OUTSIDE RECORDS SUMMARY | 2024-09-03 19:49 | XMS_ITS | Clinical Summary ---
Author Organization [facility] Address [address] [place] [address] Phone Care Team Providers Care Farm Adviser Name Role Phone Liss, Flower Tolentino APRN, [...] Insurance MEDICAID [employer] Care Teams Farm Adviser Relationship Specialty Start Date End Date Flower Leija APRN, ASSOCIATE [address] [place] [address] PCP - General Advanced Practice Nurse 02/06/24
--- OUTSIDE RECORDS SUMMARY | 2024-09-03 19:49 | XMS_ITS | Encounter Summary ---
Author Organization [facility] Healthcare Address [address] [place] [address] Care Team Providers Care Integrated Logistics Support Manager Name Role Phone Maggie Jackson LENGTH CONTROL TESTER Primary Care Provider [phone] Lake Ellis MD Primary Care Provider [phone] Reason for Visit * Reason Onset Date Comments Prior Auth 08/13/2024 Qulipta 30 mg Encounter Details Date Type Department Care Team (Late st Contact Info) Description 08/13/2024 Telephone [facility] Neurology [address] [place] [phone] Mansoor Albert MD [address] [place] [phone] Prior Auth (Qulipta 30 mg) Social History [...] often do you attend chur ch or synagogue services? 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
--- OUTSIDE RECORDS SUMMARY | 2024-09-03 19:49 | XMS_ITS ---
Author Organization [facility] Address [address] [place] [address] Phone Care Team Providers Care Stone Rougher Name Role Phone Flower Leija APRN, CNP Primary Care [facility] Status:Enrolled (Active) Start date:06/11/2024 Enrollment date:06/11/2024 Related social drivers of health:Intimate Partner Violence, Social Connections, Alcohol Use, Tobacco Use, Financial Resource Strain,Depression, Stress, Physical Activity, Food Insecurity, Transportation Needs, Housing Stability, Utilities Continued Care and Services Coordination
--- OUTSIDE RECORDS SUMMARY | 2024-09-03 19:50 | XMS_ITS | CONTINUITY OF CARE DOCUMENT ---
Author Name devika fortune Address Unknown Organization [facility] Address [address] [place] [address] Phone [phone] Care Team Providers Care Experience Planning Strategist Name Role Phone Caio WINKLER, Albert Unavailable [phone] Liss WINKLER, Flower Unavailable [phone] KAVITA MADISON, PAXTON Unavailable [phone] PROBLEMS Condition Status Date Provider Notes Sleep apnea active Albert Kearney MD IRON DEFICIENCY active Albert Kearney MD B12 deficiency active Albert Kearney MD Screening active Albert Kearney MD Sinus/atrial tachycardia;nml tsh active Albert Kearney MD Diabetes mellitus active Albert Kearney MD n eg urcr adn degfr Asthma active Flower Herron [employer] Obesity active Flower Herron [employer] Hyperlipidemia;NEG CRP adn lpa active Maynor Kearney MD Vitamin D deficiency active Flower pro [employer] Anxiety depression active Flower Herron [employer] Hypertriglyceridemia active Albert JOY DENIED Exposure to SARS-associated coronavirus;had vaccine and neg swab active Albert Kearney MD HYPERTENSION active Albert Kearney MD Fibromyalgia active Albert Kearney MD Erythrocytosis active Albert Kearney MD ENCOUNTERS Date Type Provider Location Encounter Diag nosis - In-person encounter Office Visit Albert Kearney MD [facility] FibromyalgiaErythrocytosis - In-person encounter Office Visit Albert Kearney MD [facility] - In-person encounter Office Visit Albert Kearney MD [facility] Sinus/atrial tachycardia;nml tshHYPERTENSION - In-person encounter Office Visit Albert Kearney MD [facility] Diabetes mellitusHypertriglyceridemiaExposure to SARS-associated coronavirus;had vaccine and neg swab - In-person encounter Office Visit Albert Kearney MD [facility] Sinus/atrial tachycardia;nml tshDiabetes mellitusAsthmaObesityHyperlipidemia;NEG CRP adn lpaVitamin D deficiencyAnxiety depression VITAL SIGNS Date Observation Value Provider Body Mass Index (Ratio) 42.05 kg/m2 Ximena Kearney MD blood pressure, diastolic 90 mm[Hg] [facility] blood pressure, systolic 115 mm[Hg] [place] oxygen saturation, oximetry 97 % [facility] pulse rate 108 /min [facility] blood pressure, cuff size regular [facility] weight E&M 237.4 [lb_av] [facility] height E&M 63 [in_i] [facility] Body Mass Index (Ratio) 41.27 kg/m2 [...] [place] oxygen saturation, oximetry 98 % [place] weight E&M 237 [lb_av] [place] respiratory rate E&M 12 /min [place] [...] device active Albert Kearney MD Dexcom G7 Tear Down Matcher active Albert Kearney MD quetiapine 100 mg [...] TABLET BY MOUTH EVERY DAY - [facility] 120 mg capsule,extended release 24hr completed Take 1 capsule by mouth once a day - Albert Kearney MD Jardiance 10 mg tablet completed Take 1 tablet by mouth once a day TAKE 1 TABLET BY MOUTH EVERY DAY REDUCES CARDIOVASCULAR & HEART FAILURE HOSPITALIZATION - [facility] verapamil 180 mg tablet extended release completed [...] Kearney MD drug use no Verah Bonareri [employer] personal history of marijuana use yes Verah Bonareri [employer] alcohol use no Verah Bonareri [employer] if the patient is us ing/has used a vaping item, Current, Former, Never Used, Not asked Current Verah Bonareri [employer] passive cigarette sm stu exposure no Verah Bonareri [employer] chewing tobacco use Never [employer] nareri [employer]ER smoking status Never smoker Louann Iyershaunnar i [employer]SEM[employer]ER passive cigarette sm stu exposure no Albert [...] red democrat ID [place] MEDICAID (2) Medicaid [id number] ADVANCE DIRECTIVES Name Date DISCUSSED - NO DECISION MADE TREATMENT PLAN Date Name Performer [id number],C,12.5 Albert S hodan [id number],B, Albert Serot a [id number],B, Albert Serot a [id number],B, Albert Serot a [id number],S, Albetr Serot a [id number],S, Albert Serot a [id number],S, n ml pro echho terrie stress Albert Serota [id number],S, m ild Albert Serota [id number],C,mild Albert S hodan WINKLER [id number],C,nml por echho terrie stress Albert Serota [id number],C,neg pro an de cho Albert Serota [id number],C,neg pro Harve y Serota [id number],C,follows with psych Flower Herron NP [id number],C,n oncomplaint with Vitamin D supplementation will check Vit D level Flower Herron NP [id number],C,w ill check lipid panel Her updated medication list for this problem includes: Atorvastatin 40 Mg Tablet (Atorvastatin) ..... Take 1 tablet by mouth every night Flower Herron NP [id number],C,e ncouraged lifestyle modifications and weight loss for improved health Flower Herron NP [id number],N,will check PF Ts Flower Herron NP [id number],C,l ast A1c 12.4. being followed by PCP [...] glargine) ..... 20 units Flower Herron NP [id number],N,w ill check labs, 2 week telesentry monitor, [...] night w ill repeat labs Louann Dickens [employer] Cardiology: T OTAL 108, TRI 218, HDL 42, LDL 22 (05/2022) H er updated medication list for this problem includes: Atorvastatin 40 Mg Tablet (Atorvastatin) ..... Take 1 tablet by mouth every night w ill repeat labs Louann Dickens [employer] Cardiology: B P today: 128/98 P rior [...] Serotluci WINKLER Cardiology Albert Serotluci WINKLER Cardiology Alebrt Serotluci WINKLER Cardiology: n ml pro echho [...] ..... 20 units Flower Herron NP Cardiology:will [facility] k labs, 2 week telesentry monitor, PFTs, ECHO, routine stress test Flower Herron NP Date Name Monitor - Telemetry (Mobile Cardiac) Complete Echo VITAMIN B12 Vitamin D, 25-Hydrox y CBC (INCLUDES DIFF/P LT) IRON AND TOTAL IRON BINDING CAPACITY FERRITIN Lipoprotein (a) LIPID PANEL DLCO - 44205 FRC - 13321 FVC - 69501 HEMOGLOBIN A1c LIPID PANEL Lipoprotein (a) Complete [...] night Holter Monitor 24 Hr DLCO - 50552 FRC - 77859 FVC - 99406 Holter Monitor 24 Hr DLCO - 43552 FRC - 27767 FVC - 28225 Sleep Study Titratio n DLCO - 94823 FRC - 77060 FVC - 13722 VITAMIN B12 Vitamin D, 25-Hydrox y Microalb/Creatinine [...] d FVC / MVV with bronchodilator - 06903 Albert Kearney MD completed SpO2 w/o 6min walk/titration Albert Kearney MD completed SVC - 13943 Albert Kearney MD complet ed DLCO - 43362 Albert Kearney MD comple stacey EKG Albert Kearney MD complete d Complex e/m visit add on Albert Kearney MD completed Spirometry Albert Kearney MD complete d FVC / MVV with bronchodilator - 03689 Albert Kearney MD completed FRC - 40482 Albert Kearney MD complet ed SpO2 w/o 6min walk/titration Albert Kearney MD completed SVC - 33031 Albert Kearney MD complet ed DLCO - 53058 Albert Kearney MD comple stacey EKG Albert Kearney MD complete d
--- OUTSIDE RECORDS SUMMARY | 2024-09-03 19:50 | XMS_ITS | Clinical Summary ---
Author Organization [facility] Physician Office Building [address] [place] [phone] Care Team Providers Care Licensed Real Estate Broker Name Role Phone Lake Ellis MD Primary Care Provider Allergies Active Allergy Reactions [...] 04/16/2020 Assessment & Plan (04/19/2020 3:23 PM CHAIRMAN & CEO): 19 yo F w/ a reported hx of bipolar and ADHD who was admitted at the recommendation of her caser in for suicidal ideation with a plan to [...] patient provided further DBT resources outside of [facility]. She is IMPROVING as evidence by cheerful [...] to grandparents TODAY with outpt f/u at [facility] Assessment & Plan (04/16/2020 4:11 PM CHAIRMAN & CEO): 19 yo F w/ a reported hx of bipolar and ADHD who was admitted at the recommendation of her caser in for suicidal ideation with a plan to [...] grandparents when stabilized with outpt f/u at [facility] Mood disorder 04/16/2020 Assessment & Plan (04/19/2020 3:18 PM CHAIRMAN & CEO): Patient meets criteria for MDD except for [...] 5mg Assessment & Plan (04/16/2020 4:04 PM CHAIRMAN & CEO): Patient meets criteria for MDD except for [...] 04/16/2020 Assessment & Plan (04/19/2020 3:19 PM CHAIRMAN & CEO): Historical diagnosis d/t inattention. Was on Focalin for an extended amount of time in childhood. We planned to restart the patient's Focalin here, unfortunately it is not on formulary. Grandjuliana brought med from home. Patient could potentially benefit from a dose increase, but we will defer that to outpatient. -focalin XR 10mg (home supply) Assessment & Plan (04/16/2020 3:59 PM CHAIRMAN & CEO): Historical diagnosis d/t inattention. Was on Focalin for an extended amount of time in childhood. We planned to restart the patient's Focalin here, unfortunately it is not on formulary. Zane plans to bring the med from home -focalin XR 10mg (home supply) Diabetes 04/16/2020 Assessment & Plan (04/19/2020 3:18 PM CHAIRMAN & CEO): Diagnosed on a previous hospitalization this year. Lipids and blood glucoses elevated in ED. -increase Metformin to 1000mg BID Assessment & Plan (04/16/2020 4:00 PM CHAIRMAN & CEO): Diagnosed on a previous hospitalization this year. Lipids and blood glucoses elevated in ED. -Metformin 500mg BID UTI (urinary tract infection) 04/16/2020 Assessment & Plan (04/19/2020 3:17 PM CHAIRMAN & CEO): Previously diagnosed, asymptomatic, will continue previous treatment -completed Macrobid 100mg BID Assessment & Plan (04/16/2020 3:57 PM CHAIRMAN & CEO): Previously diagnosed, asymptomatic, will continue previous treatment -Macrobid 100mg BID for 4 more days Suicidal ideation Encounters Date Type Department Care Team Description 08/27/2024 1:36 PM CDT Anesthesia Event [facility] GI Center [address] [place] [phone] Candido Lofton MD Jacobsen, Kyle G., MD 08/27/2024 12:00 PM CDT - 08/27/2024 12:30 PM CDT Surgery [facility] [address] [place] [phone] Brendan Sanon MD ESOPHAGOGASTRODUODENOSCOPY ULTRASOUND EXAM LIMITED 08/27/2024 10:56 AM CDT - 08/27/2024 3:43 PM CDT Hospital Encounter [facility] [address] [place] [phone] Brendan Sanon MD Nausea and vomiting, unspecified vomiting type; Diarrhea, unspecified type; Generalized abdominal pain; Gastroesophageal reflux disease without esophagitis Discharge Disposition: Discharge to home or self care 08/13/2024 Telephone [facility] Neurology [address] [place] [address] [place] [phone] Mansoor Albert MD Prior Auth (Qulipta 30 mg) 08/11/2024 Telephone [facility] Neurology [address] [place] [address] [place] [phone] Mansoor Albert MD 08/11/2024 Orders Only [facility] Neurology [address] [place] [phone] Mansoor Albert MD 08/08/2024 Telephone [facility] Neurology [address] [place] [phone] Mansoor Albert MD Med Management 07/31/2024 2:00 PM CDT Office Visit [facility] Neurology [address] [place] [phone] Manosor Albert MD Migraine without aura and without [...] How often do you attend chur or protestant services? More than 4 times per year 04/16/2020 Do you belong to any clubs o r organizations such as amish groups, unions, fraternal or athletic groups, or [...] on file Legal Sex Female 3:03 AM CHAIRMAN & CEO Gender Identity Not on file Sexual Orientation [...] CDT LIPID PANEL STAT 04/15/2020 2:57 PM CHAIRMAN & CEO from Last 3 Months or Most Recently Relevant to Health Maintenance Results * (ABNORMAL) POCT glucose (08/27/2024 2:12 PM CDT) Glucose, POC 231(H) 70 - 199 mg/dL Comment: For Glucose values <35 mg/dl when Hematocrit is >60 mg/dl,the test may not accurately detect significant hypoglycemia,and testing in the Laboratory should be considered if clinically indicated. POC Performer [id number] [facility] Blood 08/27/2024 2:12 PM CDT 08/27/2024 2:12 PM CDT Brendan Sanon MD LAB POCT ORDERABLES - DEVICE Final Result [facility] [address] [place] [address] * Surgical pathology (08/27/2024 1:47 PM CDT) Tissue (Esophageal biopsy) 08/27/2024 1:47 PM CDT Tissue specimen (specimen) (Gastric/Stomach biopsy) 08/27/2024 1:49 PM CDT Tissue specimen (specimen) (Duodenum, Biopsy) 08/27/2024 1:50 PM CDT Narrative PATHOLOGY [facility] - 08/28/2024 10:27 AM CDT [place] [id number] [place], [place] [address] Tele: Adia Dixon MD - Tin Recovery Worker Note to Patients: This report may contain [...] PATHOLOGY REPORT Patient Name: GREYSON JOHNSON Address: [address] [place] [address] Gender: F : 2000 (Age: 23) Service: Gastro Location: [facility] Hospital #: [id number] Patient Type: [facility] Taken: 08/27/2024 Received 08/27/2024 [...] filtered and submitted entirely in cassette C1. [facility]/08/27/2024 16:20 Sylvie,[facility] MICROSCOPIC DESCRIPTION: Microscopic evaluation of part A [...] Negative for dysplasia. Clerical Data Follows A; 64678 B; 99268 C; [id number] REPORT IMAGES AND/OR SCANNED DOCUMENTS ONLY VIEWABLE IN PDF FORMAT The immunohistochemical test(s) cited in this report, if any, was developed and its performance characteristics determined by [facility] Pathology Department. It has not been cleared or approved by the U.S. Food and Drug Administration. The FDA has determined that such clearance or approval is not necessary. This test is used for clinical purposes. It should not be regarded as investigational or for research. [facility] Laboratory is certified under the Clinical [...] part or completely in the following laboratories: [facility], [facility], [address] [place] [address]. Brendan Sanon MD LAB PATHOLOGY ORDERABLES Gabi l Result PATHOLOGY [facility] Laboratory Receiving [address] [address] * (ABNORMAL) POCT glucose (08/27/2024 12:59 PM CDT) Glucose, POC 276(H) 70 - 199 mg/dL Comment: For Glucose values <35 mg/dl when Hematocrit is >60 mg/dl,the test may not accurately detect significant hypoglycemia,and testing in the Laboratory should be considered if clinically indicated. POC Performer [id number] [facility] Blood 08/27/2024 12:5 9 PM CDT 08/27/2024 12:59 PM CDT Brendan Sanon MD LAB POCT ORDERABLES - DEVICE Final Result [facility] [address] [place] [address] * Upper EUS (08/27/2024 12:02 PM CDT) Anatomical Region Laterality Modality Other Narrative Procedure Note Brendan Sanon MD - 08/27/2024 12:02 PM CDT ENDOSCOPY LAB Patient Name: Greyson Johnson Procedure Date: 08/27/2024 12:02 PM Admit Type: Outpatient Room: [facility] Date of : 2000 Instrument Name: [id number] Gender: Female Note Status: Finalized Procedure: Upper [...] (ABNORMAL) POCT glucose (08/27/2024 11:56 AM CDT) [facility] Glucose, POC 305(H) 70 - 199 mg/dL Comment: For Glucose values <35 mg/dl when Hematocrit is >60 mg/dl,the test may not accurately detect significant hypoglycemia,and testing in the Laboratory should be considered if clinically indicated. POC Performer [id number] [facility] Blood 08/27/2024 11:5 6 AM CDT 08/27/2024 11:56 AM CDT Brendan Sanon MD LAB POCT ORDERABLES - DEVICE Final Result [facility] [address] [place] [address] * POCT hCG, urine (08/27/2024 11:45 AM CDT) [facility] HCG, ur, POC Negative Negative Lot Number [id number] QC Backgroud Clear Acceptable QC Control Line Acceptable Urine 08/27/2024 11:4 5 AM CDT us Brendan Sanon MD POINT OF CARE TEST ORDERABLES Final Result * eGFR (01/22/2024 3:03 PM CDT) [facility] eGFR >90 >=60 mL/min/1. 73 m2 Comment: [...] LAB BLOOD ORDERABLES Gabi l Result [facility] 1 [facility] Department [place] [address] * (ABNORMAL) Lipid panel (04/15/2020 2:57 PM CHAIRMAN & CEO) Cholesterol 189 <=199 mg/dL [facility] Comment: [...] revised on 2018. HDL 38(L) >=45 mg/dL [facility] Comment: Interpretive Data Ages < or = [...] on 2018. LDL, calculated See Comment <=129 [facility] Comment: Unable to calculate LDL due [...] 2018. Non-HDL Cholesterol 151(H) <=144 mg/dL [facility] Comment: Interpretive Data Ages < or = [...] [facility] Blood specimen (specimen) 04/15/2020 2:57 PM CHAIRMAN & CEO 04/15/2020 3:12 PM CHAIRMAN & CEO Carolyn Skaggs MD LAB BLOOD ORDERABLES Final Result [facility] [place] [address] from Last 3 Months or Most Recently Relevant to Health Maintenance Insurance [facility] Advance Directives For more information, please contact: [phone] * Full Code (Latest Code Status on File) Date Activated Date Inactivated Comments 08/27/2024 11:34 AM 08/27/2024 7:43 PM * Full Code Date Activated Date Inactivated Comments 04/16/2020 1:05 AM 04/19/2020 8:20 PM Care Teams Licensed Real Estate Broker Relationship Specialty Start Date End Date Lake Ellis MD [address] [place] [address] PCP - General Internal Medicine 08/27/24
--- OUTSIDE RECORDS SUMMARY | 2024-09-03 19:50 | XMS_ITS | Clinical Summary ---
Author Organization [facility] Address [facility] [place] [address] Care Team Providers Care Computer Software Engineer Name Role Phone None, Provider MD Primary [...] Comments Blood Pressure 158/87 04/19/2024 4:00 PM EMERGENCY DEPT TECH Pulse 108 04/19/2024 4:00 PM EMERGENCY DEPT TECH Temperature 36.7 C (98.1 F) 04/19/2024 4:00 PM EMERGENCY DEPT TECH Respiratory Rate 20 04/19/2024 4:00 PM EMERGENCY DEPT TECH Oxygen Saturation 96% 04/19/2024 4:00 PM EMERGENCY DEPT TECH Inhaled Oxygen Concentration - - Weight 108.9 kg (240 lb) 04/19/2024 4:00 PM EMERGENCY DEPT TECH Height 160 cm (5' 3 ) 04/19/2024 4:00 PM EMERGENCY DEPT TECH Body Mass Index 42.51 04/19/2024 4:00 PM EMERGENCY DEPT TECH Plan of Treatment Health Maintenance Due Date [...] patient's age to complete this topic [place] [address] [place] [address] Care Teams Computer Software Engineer Relationship Specialty Start Date End Date None, Provider, PCP - General UNKNOWN PHYSICIAN SPECIALTY 04/19/24
--- OUTSIDE RECORDS SUMMARY | 2024-09-03 19:50 | XMS_ITS | Referral Summary ---
Author Organization [facility] Physician Office Building [address] [place] [phone] Care Team Providers Care Retail Sales Specialist Name Role Phone Lake Ellis MD Primary Care Provider [phone] Encounters Date Type Department Care Team Description 08/27/2024 1:36 PM CDT Anesthesia Event [facility] GI Center [address] [place] [phone] Candido Lofton MD Jacobsen, Kyle G., MD 08/27/2024 12:00 PM CDT - 08/27/2024 12:30 PM CDT Surgery [facility] [address] [place] [phone] Brendan Sanon MD ESOPHAGOGASTRODUODENOSCOPY ULTRASOUND EXAM LIMITED 08/27/2024 10:56 AM CDT - 08/27/2024 3:43 PM CDT Hospital Encounter [facility] Center [address] [place] [phone] Brendan Sanon MD Nausea and vomiting, unspecified vomiting type; Diarrhea, unspecified type; Generalized abdominal pain; Gastroesophageal reflux disease without esophagitis Discharge Disposition: Discharge to home or self care 08/13/2024 Telephone [facility] Neurology [facility] [address] [phone] Mansoor Albert MD Prior Auth (Qulipta 30 mg) 08/11/2024 Telephone [facility] Neurology [address] [place] [phone] Mansoor Albert MD 08/11/2024 Orders Only [facility] Neurology [address] [place] [phone] Mansoor Albert MD 08/08/2024 Telephone [facility] Neurology [address] [place] [phone] Mansoor Albert MD Med Management 07/31/2024 2:00 PM CDT Office Visit [facility] Neurology [address] [place] [phone] Mansoor Albert MD Migraine without aura and [...] 04/16/2020 Assessment & Plan (04/19/2020 3:23 PM MANAGER PERIOPERATIVE): 19 yo F w/ a reported hx of bipolar and ADHD who was admitted at the recommendation of her corrections caseworker for suicidal ideation with a plan to [...] with a therapist and psychiatric services through [facility], whom we have spoken with by phone and plan to coordinate DBT therapy on an outpatient basis. Additionally, grandma and patient provided further DBT resources outside of [facility]. She is IMPROVING as evidence by cheerful [...] to grandparents TODAY with outpt f/u at [facility] Assessment & Plan (04/16/2020 4:11 PM MANAGER PERIOPERATIVE): 19 yo F w/ a reported hx of bipolar and ADHD who was admitted at the recommendation of her corrections caseworker for suicidal ideation with a plan to [...] with a therapist and psychiatric services through [facility]. -therapeutic milieu and participation in groups -outpatient therapy upon discharge -PRNs available for agitation and comfort -appreciate SW assistance with care planning -dispo: home to grandparents when stabilized with outpt f/u at [facility] Mood disorder 04/16/2020 Assessment & Plan (04/19/2020 3:18 PM MANAGER PERIOPERATIVE): Patient meets criteria for MDD except for [...] 5mg Assessment & Plan (04/16/2020 4:04 PM MANAGER PERIOPERATIVE): Patient meets criteria for MDD except for [...] 04/16/2020 Assessment & Plan (04/19/2020 3:19 PM MANAGER PERIOPERATIVE): Historical diagnosis d/t inattention. Was on Focalin for an extended amount of time in childhood. We planned to restart the patient's Focalin here, unfortunately it is not on formulary. Zane brought med from home. Patient could potentially benefit from a dose increase, but we will defer that to outpatient. -focalin XR 10mg (home supply) Assessment & Plan (04/16/2020 3:59 PM MANAGER PERIOPERATIVE): Historical diagnosis d/t inattention. Was on Focalin for an extended amount of time in childhood. We planned to restart the patient's Focalin here, unfortunately it is not on formulary. Zane plans to bring the med from home -focalin XR 10mg (home supply) Diabetes 04/16/2020 Assessment & Plan (04/19/2020 3:18 PM MANAGER PERIOPERATIVE): Diagnosed on a previous hospitalization this year. Lipids and blood glucoses elevated in ED. -increase Metformin to 1000mg BID Assessment & Plan (04/16/2020 4:00 PM MANAGER PERIOPERATIVE): Diagnosed on a previous hospitalization this year. Lipids and blood glucoses elevated in ED. -Metformin 500mg BID UTI (urinary tract infection) 04/16/2020 Assessment & Plan (04/19/2020 3:17 PM MANAGER PERIOPERATIVE): Previously diagnosed, asymptomatic, will continue previous treatment -completed Macrobid 100mg BID Assessment & Plan (04/16/2020 3:57 PM MANAGER PERIOPERATIVE): Previously diagnosed, asymptomatic, will continue previous treatment [...] often do you attend chur ch or mu-ism services? More than 4 times per year 04/16/2020 Do you belong to any clubs o r organizations such as hinduism groups, unions, fraternal or athletic groups, or [...] on file Legal Sex Female 3:03 AM MANAGER PERIOPERATIVE Gender Identity Not on file Sexual Orientation [...] CDT LIPID PANEL STAT 04/15/2020 2:57 PM MANAGER PERIOPERATIVE from Last 3 Months or Most Recently Relevant to Health Maintenance Results * (ABNORMAL) POCT glucose (08/27/2024 2:12 PM CDT) Glucose, POC 231(H) 70 - 199 mg/dL Comment: For Glucose values <35 mg/dl when Hematocrit is >60 mg/dl,the test may not accurately detect significant hypoglycemia,and testing in the Laboratory should be considered if clinically indicated. POC Performer [id number] [facility] Blood 08/27/2024 2:12 PM CDT 08/27/2024 2:12 PM CDT us Brendan Sanon MD LAB POCT ORDERABLES - DEVICE Final Result [facility] [address] Department [place] [address] * Surgical pathology (08/27/2024 1:47 PM CDT) Tissue (Esophageal biopsy) 08/27/2024 1:47 PM CDT Tissue specimen (specimen) (Gastric/Stomach biopsy) 08/27/2024 1:49 PM CDT Tissue specimen (specimen) (Duodenum, Biopsy) 08/27/2024 1:50 PM CDT Narrative PATHOLOGY [facility] - 08/28/2024 10:27 AM CDT [place] [address] [place], [place] [address] Tele: Adia Dixon MD - Mingler Operator Note to Patients: This report may [...] PATHOLOGY REPORT Patient Name: GREYSON JOHNSON Address: [address] [place] [address] Gender: F : 2000 (Age: 23) Service: Gastro Location: [facility], Hospital #: [id number] Patient Type: [facility] SAME DAY SURGERY Taken: 08/27/2024 Received 08/27/2024 [...] filtered and submitted entirely in cassette C1. [facility]/08/27/2024 16:20 [facility] MICROSCOPIC DESCRIPTION: Microscopic evaluation of part [...] Negative for dysplasia. Clerical Data Follows A; 89704 B; 93211 C; 71277 REPORT IMAGES AND/OR SCANNED DOCUMENTS ONLY VIEWABLE IN PDF FORMAT The immunohistochemical test(s) cited in this report, if any, was developed and its performance characteristics determined by [facility] Pathology Department. It has not been cleared or approved by the U.S. Food and Drug Administration. The FDA has determined that such clearance or approval is not necessary. This test is used for clinical purposes. It should not be regarded as investigational or for research. [facility] Laboratory is certified under the Clinical Laboratory [...] part or completely in the following laboratories: [facility], [address] [place] [address], [address] [place] [address]. Brendan Sanon MD LAB PATHOLOGY ORDERABLES Gabi rm Result PATHOLOGY [facility] Laboratory Receiving [address] [place] [address] * (ABNORMAL) POCT glucose (08/27/2024 12:59 PM CDT) Glucose, POC 276(H) 70 - 199 mg/dL Comment: For Glucose values <35 mg/dl when Hematocrit is >60 mg/dl,the test may not accurately detect significant hypoglycemia,and testing in the Laboratory should be considered if clinically indicated. POC Performer [id number] [facility] Blood 08/27/2024 12:5 9 PM CDT 08/27/2024 12:59 PM CDT Brendan Sanon MD LAB POCT ORDERABLES - DEVICE Final Result [facility] [address] Department of Laboratories [place], [place] [id number] * Upper EUS (08/27/2024 12:02 PM CDT) Anatomical Region Laterality Modality Other Narrative Procedure Note Brendan Sanon MD - 08/27/2024 12:02 PM CDT ENDOSCOPY LAB Patient Name: Greyson Johnson Procedure Date: 08/27/2024 12:02 PM Admit Type: Outpatient Room: [facility] 4 Date of : 2000 Instrument Name: [id number] Gender: Female Note Status: Finalized Procedure: Upper [...] (ABNORMAL) POCT glucose (08/27/2024 11:56 AM CDT) [facility] Glucose, POC 305(H) 70 - 199 mg/dL Comment: For Glucose values <35 mg/dl when Hematocrit is >60 mg/dl,the test may not accurately detect significant hypoglycemia,and testing in the Laboratory should be considered if clinically indicated. POC Performer [id number] [facility] Blood 08/27/2024 11:5 6 AM CDT 08/27/2024 11:56 AM CDT us Brendan Sanon MD LAB POCT ORDERABLES - DEVICE Final Result [facility] [address] Department of Laboratories [place], [place] [id number] * POCT hCG, urine (08/27/2024 11:45 AM CDT) Pathologist [facility] HCG, ur, POC Negative Negative Lot Number [...] LAB BLOOD ORDERABLES Gabi l Result [facility]) 1 [facility] Department [place] [address] * (ABNORMAL) Lipid panel (04/15/2020 2:57 PM MANAGER PERIOPERATIVE) Cholesterol 189 <=199 mg/dL [facility] Comment: Interpretive Data Ages < or [...] 2018. Triglycerides 464(H) <=129 mg/dL [facility] Comment: Interpretive Data Ages < or [...] revised on 2018. HDL 38(L) >=45 mg/dL [facility] Comment: Interpretive Data Ages < or [...] on 2018. LDL, calculated See Comment <=129 [facility] Comment: Unable to calculate LDL due [...] on 2018. Non-HDL Cholesterol 151(H) <=144 mg/dL [facility] Comment: Interpretive Data Ages < or [...] last revised on 2018. Chol/HDL ratio 5 [facility] Blood specimen (specimen) 04/15/2020 2:57 PM MANAGER PERIOPERATIVE 04/15/2020 3:12 PM MANAGER PERIOPERATIVE Carolyn Skaggs MD LAB BLOOD ORDERABLES Final Result [facility] [place] [facility] Department [place] [address] from Last 3 Months or Most Recently Relevant to Health Maintenance Insurance [facility] Advance Directives For more information, please contact: [phone] * Full Code (Latest Code Status on File) Date Activated Date Inactivated Comments 08/27/2024 11:34 AM 08/27/2024 7:43 PM * Full Code Date Activated Date Inactivated Comments 04/16/2020 1:05 AM 04/19/2020 8:20 PM Care Teams Retail Sales Specialist Relationship Specialty Start Date End Date Lake Ellis MD [address] [facility] [place] [address] PCP - General Internal Medicine 08/27/24
[2024-09-03 20:18] LABS: Amphetamine Screen Urine Negative (Negative); Barbiturate Screen Urine Negative (Negative); Benzodiazepines Screen Urine Negative (Negative); Cannabinoid Screen Urine Negative (Negative); Cocaine Screen Urine Negative (Negative); Methadone Screen Urine Negative (Negative); Opiate Screen Urine Negative (Negative); Phencyclidine Screen Urine Negative (Negative)
[2024-09-03 20:27] LABS: Basophils Percent Auto 0.3 % (0.2-1.2); Hematocrit 42.8 % (37.0-47.0); Hemoglobin 14.2 g/dL (12.0-15.0); Immature Granulocyte Absolute 0.03 K/mm3 (0.00-0.031); Immature Granulocyte Percent A 0.4 % (0-0.5); Lymphocytes Absolute Auto 2.23 K/mm3 (0.9-3.2); Lymphocytes Percent Auto 29.7 % (18.3-44.2); Mean Corpuscular HGB Conc 33.2 g/dl (32-36); Mean Corpuscular Hemoglobin 26.5 pg (26-34); Mean Platelet Volume 9.7 fl (7.4-10.4); Monocytes Absolute Auto 0.5 K/mm3 (0.1-0.6); Monocytes Percent Auto 6.7 % (2.6-8.5); Neutrophils Absolute Auto 4.7 K/mm3 (1.3-6.7); Neutrophils Percent Auto 62.9 % (45.5-73.1); Platelet Count Result 258 k/mm3 (150-375); Red Blood Count 5.35 M/mm3 (4.2-5.4); Red Cell Distribution Width 13.1 % (11.5-14.5); White Blood Count 7.5 K/mm3 (4.5-10.0)
[2024-09-03 20:36] LABS: BEDSIDEPREGUCG Negative (Negative)
[2024-09-03 20:36] LABS: Ethanol < 10 mg/dL (<10)
[2024-09-03 20:41] LABS: Alanine Aminotransferase 30 U/L (6-35); Albumin Level 4.6 g/dL (3.5-5.1); Alkaline Phosphatase 89 U/L (38-126); Anion Gap 12 mmol/L (4-12); Aspartate Amino Transferase 24 U/L (14-36); Bilirubin,Total 0.6 mg/dL (0.2-1.3); Blood Urea Nitrogen 10 mg/dL (7-17); Carbon Dioxide 19 mmol/L (22-30); Chloride 103 mmol/L (98-107); Estimated CRCL calculation 192 ml/min; Estimated Glomerular Filt Rate > 60; Glucose 273 mg/dL (65-110); Potassium 3.6 mmol/L (3.4-5.0); Sodium 134 mmol/L (137-145)
[2024-09-03 21:04] LABS: Influenza A QL RT-PCR Negative (Negative); Influenza B QL RT-PCR Negative (Negative); RSV RNA, RT-PCR Negative (Negative); SARS-CoV-2 RNA PCR Negative (Negative)
[2024-09-03 21:44] LABS: Free T4 Free Thyroxine 1.21 ng/dL (0.78-2.19)
--- NOTE | 2024-09-03 22:05 | PC.NURSE ---
At 2205, this RN spoke with Nena from Crisis whom stated that patients chart needed to be faxed to [facility] ([phone]) and then patient is able to be discharged from uor facility due to already being seen/safety planned by Crisis at her therapy session earlier today. Brittany stated Crisis facility will reach out to patient tomorrow to let her know when she is able to arrive to their facility.
[2024-09-03] MEDS: INSULIN ASPART (*BKC) 100 UNITS/ML 10 UNITS SUB-Q (22:31)
== END 2024-09-03 22:30 | disposition home or self-care (01) ==
PROVIDERS: Emergency Medicine; Emergency Provider Student in an Organized Health Care Education/Training Program
DX: R45.851 Suicidal ideations (principal); E11.9 Type 2 diabetes mellitus without complications; Z79.4 Long term (current) use of insulin; F31.9 Bipolar disorder, unspecified; F41.9 Anxiety disorder, unspecified; F17.290 Nicotine dependence, other tobacco product, uncomplicated; Z11.59 Encounter for screening for other viral diseases
CPT/HCPCS: 36415; 80053; 80307; 81003; 81025; 82077; 84439; 84443; 85025; 87637; 99284; J1815

== ENCOUNTER 2024-09-12 17:48 | Emergency (ER) | payer OTHER, SELFPAY ==
[2024-09-12 17:52] VITALS: BP 144/100; PULSE 100; RESP 16; TEMP 36.4; O2SAT 99
--- NOTE | 2024-09-12 18:06 | ED_ITS ---
HPI - Psych General Chief Complaint: Psychiatric Symptoms <Clarisa Rascon APRN - Last Filed: 09/12/24 18:10> Stated Complaint: Wants into Crisis center-depression <Clarisa Rascon APRN - Last Filed: 09/12/24 18:10> Time Seen by Provider: 09/12/24 18:00 <Clarisa Rascon APRN - Last Filed: 09/12/24 18:10> Focused HPI: Patient is a 23-year-old female who presents to the ER for psychiatric evaluation. She reports she was at [facility] crisis unit and left early. Patient reports she would like to be readmitted but they told her she needs to come back through the ER for intake. She reports she has had thoughts of hurting herself in the past month, but is not currently suicidal. Patient reports she is depressed and would like medications stabilization. She reports she already has a psychiatrist. Upon time of examination patient endorses back pain and headache. She denies alcohol and drug use but endorses vaping nicotine. GENERAL: Well-nourished, and in no acute distress. HEAD: Normocephalic, atraumatic. CHEST: Clear to auscultation. ?No respiratory distress. HEART: Regular rate and rhythm.? NEURO: ?Alert and oriented x3. Patient screened in triage and initial orders placed.? ?Additional care and disposition to be based upon?diagnostic testing and treatment. <Clarisa Rascon, [employer] ELECTRICAL ENGINEER - Last Filed: 09/12/24 18:10> History of Present Illness HPI Narrative: as per MSE, pt depressed but not actively suicidal. wantsw screening and readmission to crisis center. <Gene Cotton III, DO - Last Filed: 09/16/24 15:33> Related Data Home Medications: Home Medications ?Medication ?Instructions ?Recorded ?Confirmed ?Last Taken ?Type cyanocobalamin (vitamin B-12) 1,000 mcg PO DAILY 12/07/22 07/24/24 Unknown History 1,000 mcg capsule ferrous sulfate 325 mg (65 mg 325 mg PO DAILY 12/07/22 07/24/24 Unknown History iron) tablet buspirone 15 mg tablet See Rx Instructions .Route .COMPLEX 03/19/24 07/24/24 Unknown History escitalopram oxalate 20 mg tablet 20 mg PO DAILY 03/19/24 07/24/24 Unknown History rizatriptan 5 mg tablet mg PO 04/01/24 07/24/24 Unknown History tizanidine 4 mg tablet mg PO 04/01/24 07/24/24 Unknown History hydroxyzine HCl 50 mg tablet mg PO PRN 07/24/24 07/24/24 Unknown History lamotrigine 150 mg tablet 150 mg PO BID 07/24/24 07/24/24 Unknown History paliperidone 3 mg tablet,extended 3 mg PO QAM 07/24/24 07/24/24 Unknown History release 24 hr (Invega) paliperidone 9 mg tablet,extended 9 mg PO DAILY 07/24/24 07/24/24 Unknown History release 24 hr pregabalin 150 mg capsule (Lyrica) 150 mg PO BID 07/24/24 07/24/24 Unknown History quetiapine 400 mg tablet 400 mg PO QHS 07/24/24 07/24/24 Unknown History sumatriptan succinate 100 mg tablet 100 mg PO Q2-4H PRN 07/24/24 07/24/24 Unknown History topiramate 100 mg tablet 100 mg PO BID 07/24/24 07/24/24 Unknown History tramadol 50 mg tablet 50 mg PO Q6H PRN 07/24/24 07/24/24 Unknown History <Clarisa Rascon APRN - Last Filed: 09/12/24 18:10> Allergies/Adverse Reactions: Allergies Allergy/AdvReac Type Severity Reaction Status Date / Time acetaminophen (From Tylenol) AdvReac Intermediate Headache Verified 09/12/24 17:49 ibuprofen AdvReac Intermediate Headache Verified 09/12/24 17:49 adhesive tape AdvReac Mild Itching Verified 09/12/24 17:49 <Clarisa Rascon APRN - Last Filed: 09/12/24 18:10> Review of Systems 2 Review of Systems: All systems are reviewed and are negative unless stated otherwise in the HPI. <Gaurav Adame MD - Last Filed: 09/12/24 21:04> All systems reviewed & are unremarkable except as noted in HPI and below < Gene Cotton III, DO - Last Filed: 09/16/24 15:33> PMFSH Past Medical History Medical History: Medical History History of anxiety History of borderline personality disorder History of diabetes mellitus <Clarisa Rascon [employer] ELECTRICAL ENGINEER - Last Filed: 09/12/24 18:10> Surgical History Surgical History: Surgical History H/O wrist surgery <Clarisa Rascon [employer] ELECTRICAL ENGINEER - Last Filed: 09/12/24 18:10> Family History Family History: Family History Mother Diabetes mellitus Type 1 DM Drug addiction Father Hypertension Diabetes mellitus Type 2 DM <Clarisa Rascon, [employer] ELECTRICAL ENGINEER - Last Filed: 09/12/24 18:10> Social History Social History: Social History Smoking status: Current every day smoker Tobacco type: e-cigarettes/vaping Alcohol intake: never Substance use: never Substance use type: does not use Do You Feel Safe in your Home?: Yes Lack of Transportation: YES Lack of Food: Never True Current Housing: I Have Housing Concerned About Future Housing: No Difficulty Paying Gas/Electric Bills: No Difficulty Paying for Meds: No Currently Unemployed: No Education: High School Diploma/GED Difficulty w/ Childcare or Family Care: No Living arrangements: with family Occupation/Education: occupation 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 [employer] Gender identity (if verbalized by the patient): Female Spiritual care concerns: No <Clarisa Rascon, [employer] ELECTRICAL ENGINEER - Last Filed: 09/12/24 18:10> Exam 2 Const: General: healthy appearing and no acute distress <Gene Cotton III, DO - Last Filed: 09/16/24 15:33> Nutritional Appearance: well nourished <Gene Cotton III, DO - Last Filed: 09/16/24 15:33> Orientation/consciousness: patient oriented x3 <Gene Cotton III, DO - Last Filed: 09/16/24 15:33> Limitations: no limitations <Gene Beck Cotton III, DO - Last Filed: 09/16/24 15:33> Resp: Effort & Inspection: normal respiratory effort <Gene Beck Cotton III, DO - Last Filed: 09/16/24 15:33> Auscultation: clear to auscultation bilaterally <Gene Beck Cotton III, DO - Last Filed: 09/16/24 15:33> Cardio: Rate: regular rate <Gene Beck Cotton III, DO - Last Filed: 09/16/24 15:33> Rhythm: regular rhythm <Gene Beck Cotton III, DO - Last Filed: 09/16/24 15:33> GI: GI Palp: Yes Soft to palpation and No Tenderness to palpation present (GI) <Gene Beck Cotton III, DO - Last Filed: 09/16/24 15:33> Auscultation: normal bowel sounds <Gene Beck Cotton III, DO - Last Filed: 09/16/24 15:33> Back/Spine/Pelvis: Back: no CVA tenderness <Gene Beck Cotton III, DO - Last Filed: 09/16/24 15:33> Skin: General skin exam: normal color <Gene Beck Cotton III, DO - Last Filed: 09/16/24 15:33> Rashes: no rashes <Gene Beck Cotton III, DO - Last Filed: 09/16/24 15:33> Wounds: no wounds <Gene Beck Cotton III, DO - Last Filed: 09/16/24 15:33> Neuro: General: patient oriented x3, moves all extremities, no meningeal signs and no focal motor deficits <Gene Beck Cotton III, DO - Last Filed: 09/16/24 15:33> Cranial nerves: Yes Nystagmus not present <Gene Beck Cotton III, DO - Last Filed: 09/16/24 15:33> Speech: normal speech <Gene Beck Cotton III, DO - Last Filed: 09/16/24 15:33> Extrem: General: normal to inspection and no clubbing, cyanosis or edema < Gene Beck Cotton III, DO - Last Filed: 09/16/24 15:33> Psych: Mental Status: mental status grossly normal <Gene Beck Cotton III, DO - Last Filed: 09/16/24 15:33> Affect: normal affect <Gene Beck Cotton III, DO - Last Filed: 09/16/24 15:33> Attitude: cooperative <Geen Beck Cotton III, DO - Last Filed: 09/16/24 15:33> Course Vital Signs Vital signs: Vital Signs Temperature 97.6 F 09/12/24 17:52 Pulse Rate 100 09/12/24 17:52 Respiratory Rate 16 09/12/24 17:52 Blood Pressure 144/100 H 09/12/24 17:52 Pulse Oximetry 99 09/12/24 17:52 Temperature 97.6 F 09/12/24 17:52 Pulse Rate 100 09/12/24 17:52 Respiratory Rate 16 09/12/24 17:52 Blood Pressure 144/100 H 09/12/24 17:52 Pulse Oximetry 99 09/12/24 17:52 <Clarisa Rascon APRN - Last Filed: 09/12/24 18:10> Vital Signs Temperature 97.6 F 09/12/24 17:52 Pulse Rate 100 09/12/24 17:52 Respiratory Rate 16 09/12/24 17:52 Blood Pressure 144/100 H 09/12/24 17:52 Pulse Oximetry 99 09/12/24 17:52 Temperature 97.6 F 09/12/24 17:52 Pulse Rate 100 09/12/24 17:52 Respiratory Rate 16 09/12/24 17:52 Blood Pressure 144/100 H 09/12/24 17:52 Pulse Oximetry 99 09/12/24 17:52 <Gene Beck Cotton III, DO - Last Filed: 09/16/24 15:33> Vital Signs Temperature 97.6 F 09/12/24 17:52 Pulse Rate 100 09/12/24 17:52 Respiratory Rate 16 09/12/24 17:52 Blood Pressure 144/100 H 09/12/24 17:52 Pulse Oximetry 99 09/12/24 17:52 Temperature 97.6 F 09/12/24 17:52 Pulse Rate 100 09/12/24 17:52 Respiratory Rate 16 09/12/24 17:52 Blood Pressure 144/100 H 09/12/24 17:52 Pulse Oximetry 99 09/12/24 17:52 <Gaurav Adame MD - Last Filed: 09/12/24 21:04> MDM - Psych MDM Narrative Medical decision making narrative: Pt left crisis center to celebrate friends birhtday but feels she needs to go back to have meds adjusted. Pt not actively suicidal at this point. will get screening labs and have pt evaluated for potential transfer back to facility. will turn over to Dr Adame awaiting clearance and evaluation < Gene Cotton III, DO - Last Filed: 09/16/24 15:33> Pt left crisis center to celebrate friends birthday but feels she needs to go back to have meds adjusted. Pt not actively suicidal at this point. Will get screening labs and have pt evaluated for potential transfer back to facility. Will turn over to Dr. Adame awaiting clearance and evaluation. Deep: Patient was signed out to me by Dr. Cotton pending remainder of the workup and medical clearance. Laboratory results obtained revealing no acute process. Differential diagnosis considerations include depression, anxiety, suicidal/homicidal ideations, acute psychosis. Comorbidities impacting this visit include history of anxiety and depression. I have evaluated and discussed social determinants of health with the patient that could potentially impact subsequent diagnosis and treatment plans. On repeat assessment of the patient, reevaluation revealed that the patient is doing well and is in no acute distress. Patient symptoms have remained stable since she arrived to our emergency department. Repeat vital signs were all reviewed and noted to be stable. Patient is now medically cleared pending psychiatric evaluation. Patient was evaluated by our crisis team recommending outpatient follow-up with a safety plan. Patient is in agreement with this plan. Actively denying any suicidal homicidal ideations. She was instructed to follow up as instructed by our crisis team with her psychiatrist. Provided with strict return precautions instructed to return to the emergency department if any new or worsening symptoms develop. Patient was discharged home in stable condition. <Gaurav Adame MD - Last Filed: 09/12/24 21:04> Lab Data Result diagrams: 09/12/24 18:16 09/12/24 18:16 <Clarisa Rascon APRN - Last Filed: 09/12/24 18:10> Labs: Lab Results 09/12/24 09/12/24 09/12/24 Range/Units 18:16 18:19 18:57 WBC 6.9 (4.5-10.0) K/mm3 RBC 5.32 (4.2-5.4) M/mm3 Hgb 14.0 (12.0-15.0) g/dL Hct 42.2 (37.0-47.0) % MCV 79.3 L (80-100) fl MCH 26.3 (26-34) pg MCHC 33.2 (32-36) g/dl RDW 12.7 (11.5-14.5) % Plt Count 239 (150-375) k/mm3 MPV 9.8 (7.4-10.4) fl Immature Gran % (Auto) 0.3 (0-0.5) % Neut % (Auto) 59.7 (45.5-73.1) % Lymph % (Auto) 33.2 (18.3-44.2) % George % (Auto) 6.7 (2.6-8.5) % Eos % (Auto) 0.0 (0-4.4) % Baso % (Auto) 0.1 L (0.2-1.2) % Lymph # (Auto) 2.28 (0.9-3.2) K/mm3 George # (Auto) 0.5 (0.1-0.6) K/mm3 Eos # (Auto) 0.0 (0-0.3) K/mm3 Baso # (Auto) 0.0 (0.0-0.1) K/mm3 Abs Immat Gran (auto) 0.02 (0.00-0.031) K/mm3 Absolute Neuts (auto) 4.1 (1.3-6.7) K/mm3 Absolute Nucleated RBC 0.000 (0.0-0.012) K/mm3 Nucleated RBC % 0.0 (0.0-0.2) % Sodium 134 L (137-145) mmol/L Potassium 4.2 (3.4-5.0) mmol/L Chloride 100 (98-107) mmol/L Carbon Dioxide 21 L (22-30) mmol/L Anion Gap 13 H (4-12) mmol/L BUN 10 (7-17) mg/dL Creatinine 0.54 L (0.7-1.0) mg/dL Estim Creat Clear Calc 166 ml/min Estimated GFR > 60 (59 - ) Glucose 346 H (65-110) mg/dL Calcium 9.3 (8.4-10.2) mg/dL Total Bilirubin 0.4 (0.2-1.3) mg/dL AST 20 (14-36) U/L ALT 27 (6-35) U/L Alkaline Phosphatase 151 H (38-126) U/L Total Protein 7.0 (6.3-8.2) g/dL Albumin 4.3 (3.5-5.1) g/dL TSH 1.320 (0.465-4.680) uIU/mL Urine Color Yellow (Yellow) Urine Appearance Clear (Clear) Urine pH 6.5 (5.0-9.0) Ur Specific [place] 1.039 H (1.001-1.035) Urine Protein Negative (Negative) mg/dL Urine Glucose (UA) 3+ H (Negative) mg/dL Urine Ketones Negative (Negative) mg/dL Ur Blood (Man) 1+ H (Negative) Urine Nitrate Negative (Negative) Urine Bilirubin Negative (Negative) Urine Urobilinogen 0.2 (<2.0) mg/dL Add Ur Microanalysis Reviewed Leukocyte Esterase Rfl Negative (Negative) JOSEPH/UL Urine RBC 3-5 H (0-2) /hpf Urine WBC 6-10 H (0-3) /hpf Ur Squamous Epith Cells Few (Few) /hpf Urine Bacteria Rare /hpf Urine Casts 0-2 Urine Yeast (Budding) Present H (None) /hpf POC Urine HCG, Qual Negative (Negative) Salicylates < 1.0 L (2-20) mg/dL Urine Opiates Screen Negative (Negative) Urine Methadone Screen Negative (Negative) Acetaminophen < 10 L (10-30) ug/mL Ur Barbiturates Screen Negative (Negative) Ur Phencyclidine Scrn Negative (Negative) Ur Amphetamine Screen Negative (Negative) U Benzodiazepines Scrn Negative (Negative) Urine Cocaine Screen Negative (Negative) U Cannabinoids Screen Negative (Negative) Ethyl Alcohol < 10 (<10) mg/dL Influenza A (RT-PCR) (Negative) Influenza B (RT-PCR) (Negative) RSV (RT-PCR) (Negative) SARS-CoV-2 RNA (RT-PCR) (Negative) 09/12/24 Range/Units 19:30 WBC (4.5-10.0) K/mm3 RBC (4.2-5.4) M/mm3 Hgb (12.0-15.0) g/dL Hct (37.0-47.0) % MCV (80-100) fl MCH (26-34) pg MCHC (32-36) g/dl RDW (11.5-14.5) % Plt Count (150-375) k/mm3 MPV (7.4-10.4) fl Immature Gran % (Auto) (0-0.5) % Neut % (Auto) (45.5-73.1) % Lymph % (Auto) (18.3-44.2) % George % (Auto) (2.6-8.5) % Eos % (Auto) (0-4.4) % Baso % (Auto) (0.2-1.2) % Lymph # (Auto) (0.9-3.2) K/mm3 George # (Auto) (0.1-0.6) K/mm3 Eos # (Auto) (0-0.3) K/mm3 Baso # (Auto) (0.0-0.1) K/mm3 Abs Immat Gran (auto) (0.00-0.031) K/mm3 Absolute Neuts (auto) (1.3-6.7) K/mm3 Absolute Nucleated RBC (0.0-0.012) K/mm3 Nucleated RBC % (0.0-0.2) % Sodium (137-145) mmol/L Potassium (3.4-5.0) mmol/L Chloride (98-107) mmol/L Carbon Dioxide (22-30) mmol/L Anion Gap (4-12) mmol/L BUN (7-17) mg/dL Creatinine (0.7-1.0) mg/dL Estim Creat Clear Calc ml/min Estimated GFR (59 - ) Glucose (65-110) mg/dL Calcium (8.4-10.2) mg/dL Total Bilirubin (0.2-1.3) mg/dL AST (14-36) U/L ALT (6-35) U/L Alkaline Phosphatase (38-126) U/L Total Protein (6.3-8.2) g/dL Albumin (3.5-5.1) g/dL TSH (0.465-4.680) uIU/mL Urine Color (Yellow) Urine Appearance (Clear) Urine pH (5.0-9.0) Ur Specific [place] (1.001-1.035) Urine Protein (Negative) mg/dL Urine Glucose (UA) (Negative) mg/dL Urine Ketones (Negative) mg/dL Ur Blood (Man) (Negative) Urine Nitrate (Negative) Urine Bilirubin (Negative) Urine Urobilinogen (<2.0) mg/dL Add Ur Microanalysis Leukocyte Esterase Rfl (Negative) JOSEPH/UL Urine RBC (0-2) /hpf Urine WBC (0-3) /hpf Ur Squamous Epith Cells (Few) /hpf Urine Bacteria /hpf Urine Casts Urine Yeast (Budding) (None) /hpf POC Urine HCG, Qual (Negative) Salicylates (2-20) mg/dL Urine Opiates Screen (Negative) Urine Methadone Screen (Negative) Acetaminophen (10-30) ug/mL Ur Barbiturates Screen (Negative) Ur Phencyclidine Scrn (Negative) Ur Amphetamine Screen (Negative) U Benzodiazepines Scrn (Negative) Urine Cocaine Screen (Negative) U Cannabinoids Screen (Negative) Ethyl Alcohol (<10) mg/dL Influenza A (RT-PCR) Negative (Negative) Influenza B (RT-PCR) Negative (Negative) RSV (RT-PCR) Negative (Negative) SARS-CoV-2 RNA (RT-PCR) Negative (Negative) <Clarisa Rascon, [employer] ELECT[employer]ICAL ENGINEER - Last Filed: 09/12/24 18:10> Lab Results 09/12/24 09/12/24 09/12/24 Range/Units 18:16 18:19 18:57 WBC 6.9 (4.5-10.0) K/mm3 RBC 5.32 (4.2-5.4) M/mm3 Hgb 14.0 (12.0-15.0) g/dL Hct 42.2 (37.0-47.0) % MCV 79.3 L (80-100) fl MCH 26.3 (26-34) pg MCHC 33.2 (32-36) g/dl RDW 12.7 (11.5-14.5) % Plt Count 239 (150-375) k/mm3 MPV 9.8 (7.4-10.4) fl Immature Gran % (Auto) 0.3 (0-0.5) % Neut % (Auto) 59.7 (45.5-73.1) % Lymph % (Auto) 33.2 (18.3-44.2) % George % (Auto) 6.7 (2.6-8.5) % Eos % (Auto) 0.0 (0-4.4) % Baso % (Auto) 0.1 L (0.2-1.2) % Lymph # (Auto) 2.28 (0.9-3.2) K/mm3 George # (Auto) 0.5 (0.1-0.6) K/mm3 Eos # (Auto) 0.0 (0-0.3) K/mm3 Baso # (Auto) 0.0 (0.0-0.1) K/mm3 Abs Immat Gran (auto) 0.02 (0.00-0.031) K/mm3 Absolute Neuts (auto) 4.1 (1.3-6.7) K/mm3 Absolute Nucleated RBC 0.000 (0.0-0.012) K/mm3 Nucleated RBC % 0.0 (0.0-0.2) % Sodium 134 L (137-145) mmol/L Potassium 4.2 (3.4-5.0) mmol/L Chloride 100 (98-107) mmol/L Carbon Dioxide 21 L (22-30) mmol/L Anion Gap 13 H (4-12) mmol/L BUN 10 (7-17) mg/dL Creatinine 0.54 L (0.7-1.0) mg/dL Estim Creat Clear Calc 166 ml/min Estimated GFR > 60 (59 - ) Glucose 346 H (65-110) mg/dL Calcium 9.3 (8.4-10.2) mg/dL Total Bilirubin 0.4 (0.2-1.3) mg/dL AST 20 (14-36) U/L ALT 27 (6-35) U/L Alkaline Phosphatase 151 H (38-126) U/L Total Protein 7.0 (6.3-8.2) g/dL Albumin 4.3 (3.5-5.1) g/dL TSH 1.320 (0.465-4.680) uIU/mL Urine Color Yellow (Yellow) Urine Appearance Clear (Clear) Urine pH 6.5 (5.0-9.0) Ur Specific [place] 1.039 H (1.001-1.035) Urine Protein Negative (Negative) mg/dL Urine Glucose (UA) 3+ H (Negative) mg/dL Urine Ketones Negative (Negative) mg/dL Ur Blood (Man) 1+ H (Negative) Urine Nitrate Negative (Negative) Urine Bilirubin Negative (Negative) Urine Urobilinogen 0.2 (<2.0) mg/dL Add Ur Microanalysis Reviewed Leukocyte Esterase Rfl Negative (Negative) JOSEPH/UL Urine RBC 3-5 H (0-2) /hpf Urine WBC 6-10 H (0-3) /hpf Ur Squamous Epith Cells Few (Few) /hpf Urine Bacteria Rare /hpf Urine Casts 0-2 Urine Yeast (Budding) Present H (None) /hpf POC Urine HCG, Qual Negative (Negative) Salicylates < 1.0 L (2-20) mg/dL Urine Opiates Screen Negative (Negative) Urine Methadone Screen Negative (Negative) Acetaminophen < 10 L (10-30) ug/mL Ur Barbiturates Screen Negative (Negative) Ur Phencyclidine Scrn Negative (Negative) Ur Amphetamine Screen Negative (Negative) U Benzodiazepines Scrn Negative (Negative) Urine Cocaine Screen Negative (Negative) U Cannabinoids Screen Negative (Negative) Ethyl Alcohol < 10 (<10) mg/dL Influenza A (RT-PCR) (Negative) Influenza B (RT-PCR) (Negative) RSV (RT-PCR) (Negative) SARS-CoV-2 RNA (RT-PCR) (Negative) 09/12/24 Range/Units 19:30 WBC (4.5-10.0) K/mm3 RBC (4.2-5.4) M/mm3 Hgb (12.0-15.0) g/dL Hct (37.0-47.0) % MCV (80-100) fl MCH (26-34) pg MCHC (32-36) g/dl RDW (11.5-14.5) % Plt Count (150-375) k/mm3 MPV (7.4-10.4) fl Immature Gran % (Auto) (0-0.5) % Neut % (Auto) (45.5-73.1) % Lymph % (Auto) (18.3-44.2) % George % (Auto) (2.6-8.5) % Eos % (Auto) (0-4.4) % Baso % (Auto) (0.2-1.2) % Lymph # (Auto) (0.9-3.2) K/mm3 [place] # (Auto) (0.1-0.6) K/mm3 Eos # (Auto) (0-0.3) K/mm3 Baso # (Auto) (0.0-0.1) K/mm3 Abs Immat Gran (auto) (0.00-0.031) K/mm3 Absolute Neuts (auto) (1.3-6.7) K/mm3 Absolute Nucleated RBC (0.0-0.012) K/mm3 Nucleated RBC % (0.0-0.2) % Sodium (137-145) mmol/L Potassium (3.4-5.0) mmol/L Chloride (98-107) mmol/L Carbon Dioxide (22-30) mmol/L Anion Gap (4-12) mmol/L BUN (7-17) mg/dL Creatinine (0.7-1.0) mg/dL Estim Creat Clear Calc ml/min Estimated GFR (59 - ) Glucose (65-110) mg/dL Calcium (8.4-10.2) mg/dL Total Bilirubin (0.2-1.3) mg/dL AST (14-36) U/L ALT (6-35) U/L Alkaline Phosphatase (38-126) U/L Total Protein (6.3-8.2) g/dL Albumin (3.5-5.1) g/dL TSH (0.465-4.680) uIU/mL Urine Color (Yellow) Urine Appearance (Clear) Urine pH (5.0-9.0) Ur Specific [place] (1.001-1.035) Urine Protein (Negative) mg/dL Urine Glucose (UA) (Negative) mg/dL Urine Ketones (Negative) mg/dL Ur Blood (Man) (Negative) Urine Nitrate (Negative) Urine Bilirubin (Negative) Urine Urobilinogen (<2.0) mg/dL Add Ur Microanalysis Leukocyte Esterase Rfl (Negative) JOSEPH/UL Urine RBC (0-2) /hpf Urine WBC (0-3) /hpf Ur Squamous Epith Cells (Few) /hpf Urine Bacteria /hpf Urine Casts Urine Yeast (Budding) (None) /hpf POC Urine HCG, Qual (Negative) Salicylates (2-20) mg/dL Urine Opiates Screen (Negative) Urine Methadone Screen (Negative) Acetaminophen (10-30) ug/mL Ur Barbiturates Screen (Negative) Ur Phencyclidine Scrn (Negative) Ur Amphetamine Screen (Negative) U Benzodiazepines Scrn (Negative) Urine Cocaine Screen (Negative) U Cannabinoids Screen (Negative) Ethyl Alcohol (<10) mg/dL Influenza A (RT-PCR) Negative (Negative) Influenza B (RT-PCR) Negative (Negative) RSV (RT-PCR) Negative (Negative) SARS-CoV-2 RNA (RT-PCR) Negative (Negative) <Gene Cotton III, DO - Last Filed: 09/16/24 15:33> Lab Results 09/12/24 09/12/24 09/12/24 Range/Units 18:16 18:19 18:57 WBC 6.9 (4.5-10.0) K/mm3 RBC 5.32 (4.2-5.4) M/mm3 Hgb 14.0 (12.0-15.0) g/dL Hct 42.2 (37.0-47.0) % MCV 79.3 L (80-100) fl MCH 26.3 (26-34) pg MCHC 33.2 (32-36) g/dl RDW 12.7 (11.5-14.5) % Plt Count 239 (150-375) k/mm3 MPV 9.8 (7.4-10.4) fl Immature Gran % (Auto) 0.3 (0-0.5) % Neut % (Auto) 59.7 (45.5-73.1) % Lymph % (Auto) 33.2 (18.3-44.2) % George % (Auto) 6.7 (2.6-8.5) % Eos % (Auto) 0.0 (0-4.4) % Baso % (Auto) 0.1 L (0.2-1.2) % Lymph # (Auto) 2.28 (0.9-3.2) K/mm3 George # (Auto) 0.5 (0.1-0.6) K/mm3 Eos # (Auto) 0.0 (0-0.3) K/mm3 Baso # (Auto) 0.0 (0.0-0.1) K/mm3 Abs Immat Gran (auto) 0.02 (0.00-0.031) K/mm3 Absolute Neuts (auto) 4.1 (1.3-6.7) K/mm3 Absolute Nucleated RBC 0.000 (0.0-0.012) K/mm3 Nucleated RBC % 0.0 (0.0-0.2) % Sodium 134 L (137-145) mmol/L Potassium 4.2 (3.4-5.0) mmol/L Chloride 100 (98-107) mmol/L Carbon Dioxide 21 L (22-30) mmol/L Anion Gap 13 H (4-12) mmol/L BUN 10 (7-17) mg/dL Creatinine 0.54 L (0.7-1.0) mg/dL Estim Creat Clear Calc 166 ml/min Estimated GFR > 60 (59 - ) Glucose 346 H (65-110) mg/dL Calcium 9.3 (8.4-10.2) mg/dL Total Bilirubin 0.4 (0.2-1.3) mg/dL AST 20 (14-36) U/L ALT 27 (6-35) U/L Alkaline Phosphatase 151 H (38-126) U/L Total Protein 7.0 (6.3-8.2) g/dL Albumin 4.3 (3.5-5.1) g/dL TSH 1.320 (0.465-4.680) uIU/mL Urine Color Yellow (Yellow) Urine Appearance Clear (Clear) Urine pH 6.5 (5.0-9.0) Ur Specific [place] 1.039 H (1.001-1.035) Urine Protein Negative (Negative) mg/dL Urine Glucose (UA) 3+ H (Negative) mg/dL Urine Ketones Negative (Negative) mg/dL Ur Blood (Man) 1+ H (Negative) Urine Nitrate Negative (Negative) Urine Bilirubin Negative (Negative) Urine Urobilinogen 0.2 (<2.0) mg/dL Add Ur Microanalysis Reviewed Leukocyte Esterase Rfl Negative (Negative) JOSEPH/UL Urine RBC 3-5 H (0-2) /hpf Urine WBC 6-10 H (0-3) /hpf Ur Squamous Epith Cells Few (Few) /hpf Urine Bacteria Rare /hpf Urine Casts 0-2 Urine Yeast (Budding) Present H (None) /hpf POC Urine HCG, Qual Negative (Negative) Salicylates < 1.0 L (2-20) mg/dL Urine Opiates Screen Negative (Negative) Urine Methadone Screen Negative (Negative) Acetaminophen < 10 L (10-30) ug/mL Ur Barbiturates Screen Negative (Negative) Ur Phencyclidine Scrn Negative (Negative) Ur Amphetamine Screen Negative (Negative) U Benzodiazepines Scrn Negative (Negative) Urine Cocaine Screen Negative (Negative) U Cannabinoids Screen Negative (Negative) Ethyl Alcohol < 10 (<10) mg/dL Influenza A (RT-PCR) (Negative) Influenza B (RT-PCR) (Negative) RSV (RT-PCR) (Negative) SARS-CoV-2 RNA (RT-PCR) (Negative) 09/12/24 Range/Units 19:30 WBC (4.5-10.0) K/mm3 RBC (4.2-5.4) M/mm3 Hgb (12.0-15.0) g/dL Hct (37.0-47.0) % MCV (80-100) fl MCH (26-34) pg MCHC (32-36) g/dl RDW (11.5-14.5) % Plt Count (150-375) k/mm3 MPV (7.4-10.4) fl Immature Gran % (Auto) (0-0.5) % Neut % (Auto) (45.5-73.1) % Lymph % (Auto) (18.3-44.2) % George % (Auto) (2.6-8.5) % Eos % (Auto) (0-4.4) % Baso % (Auto) (0.2-1.2) % Lymph # (Auto) (0.9-3.2) K/mm3 George # (Auto) (0.1-0.6) K/mm3 Eos # (Auto) (0-0.3) K/mm3 Baso # (Auto) (0.0-0.1) K/mm3 Abs Immat Gran (auto) (0.00-0.031) K/mm3 Absolute Neuts (auto) (1.3-6.7) K/mm3 Absolute Nucleated RBC (0.0-0.012) K/mm3 Nucleated RBC % (0.0-0.2) % Sodium (137-145) mmol/L Potassium (3.4-5.0) mmol/L Chloride (98-107) mmol/L Carbon Dioxide (22-30) mmol/L Anion Gap (4-12) mmol/L BUN (7-17) mg/dL Creatinine (0.7-1.0) mg/dL Estim Creat Clear Calc ml/min Estimated GFR (59 - ) Glucose (65-110) mg/dL Calcium (8.4-10.2) mg/dL Total Bilirubin (0.2-1.3) mg/dL AST (14-36) U/L ALT (6-35) U/L Alkaline Phosphatase (38-126) U/L Total Protein (6.3-8.2) g/dL Albumin (3.5-5.1) g/dL TSH (0.465-4.680) uIU/mL Urine Color (Yellow) Urine Appearance (Clear) Urine pH (5.0-9.0) Ur Specific [place] (1.001-1.035) Urine Protein (Negative) mg/dL Urine Glucose (UA) (Negative) mg/dL Urine Ketones (Negative) mg/dL Ur Blood (Man) (Negative) Urine Nitrate (Negative) Urine Bilirubin (Negative) Urine Urobilinogen (<2.0) mg/dL Add Ur Microanalysis Leukocyte Esterase Rfl (Negative) JOSEPH/UL Urine RBC (0-2) /hpf Urine WBC (0-3) /hpf Ur Squamous Epith Cells (Few) /hpf Urine Bacteria /hpf Urine Casts Urine Yeast (Budding) (None) /hpf POC Urine HCG, Qual (Negative) Salicylates (2-20) mg/dL Urine Opiates Screen (Negative) Urine Methadone Screen (Negative) Acetaminophen (10-30) ug/mL Ur Barbiturates Screen (Negative) Ur Phencyclidine Scrn (Negative) Ur Amphetamine Screen (Negative) U Benzodiazepines Scrn (Negative) Urine Cocaine Screen (Negative) U Cannabinoids Screen (Negative) Ethyl Alcohol (<10) mg/dL Influenza A (RT-PCR) Negative (Negative) Influenza B (RT-PCR) Negative (Negative) RSV (RT-PCR) Negative (Negative) SARS-CoV-2 RNA (RT-PCR) Negative (Negative) <Gaurav Adame MD - Last Filed: 09/12/24 21:04> Discharge Plan Discharge Clinical Impression: Depression <Clarisa Rascon APRN - Last Filed: 09/12/24 18:10> Patient Disposition: Home <Clarisa Rascon APRN - Last Filed: 09/12/24 18:10> Condition: Improved <Clarisa Rascon APRN - Last Filed: 09/12/24 18:10> Instructions: Antibiotic Form, Depression (ED) <Clarisa Rascon APRN - Last Filed: 09/12/24 18:10> Additional Instructions: Please follow-up with your psychiatrist within the next 3-5 days. Use the safety plan provided to you in the emergency department. Return to the emergency room if any new or worsening symptoms develop. <Clarisa Rascon APRN - Last Filed: 09/12/24 18:10> Patient Language: Colombian <Clarisa Rascon APRN - Last Filed: 09/12/24 18:10> Prescriptions: No Action buspirone 15 mg tablet See Rx Instructions .ROUTE .COMPLEX Rx Instructions: 15 mg orally 1 in am, 2 in pm escitalopram oxalate 20 mg tablet 20 mg PO DAILY lamotrigine 150 mg tablet 150 mg PO BID paliperidone [Invega] 3 mg tablet extended release 24hr 3 mg PO QAM quetiapine 400 mg tablet 400 mg PO QHS sumatriptan succinate 100 mg tablet 100 mg PO Q2-4H PRN topiramate 100 mg tablet 100 mg PO BID tramadol 50 mg tablet 50 mg PO Q6H PRN pregabalin [Lyrica] 150 mg capsule 150 mg PO BID (DME) Dexcom G6 Sensor Device See Rx Instructions .ROUTE .MEDSUPPLY Qty: 9 3RF Rx Instructions: As directed (DME) Dexcom G6 Transmitter Device See Rx Instructions .ROUTE .MEDSUPPLY Qty: 1 3RF Rx Instructions: As directed Baqsimi 3 mg/actuation spray,non-aerosol 3 mg intranasal ONCE PRN (Reason: hypoglycemia) Qty: 1 0RF Rx Instructions: as a single dose ferrous sulfate 325 mg (65 mg iron) tablet 325 mg PO DAILY cyanocobalamin (vitamin B-12) 1,000 mcg capsule 1,000 mcg PO DAILY paliperidone 9 mg tablet extended release 24hr 9 mg PO DAILY glucose [Dex4 Glucose] 4 gram tablet,chewable 16 g PO Q15M PRN (Reason: hypoglycemia) Qty: 60 1RF Rx Instructions: until symptoms of low blood sugar are controlled tizanidine 4 mg tablet PO rizatriptan 5 mg tablet PO hydroxyzine HCl 50 mg tablet PO PRN insulin lispro [Humalog U-100 Insulin] 100 unit/mL solution 150 unit continuous subcutaneous infusion DAILY 90 Days Qty: 140 1RF albuterol sulfate [ProAir HFA] 90 mcg/actuation HFA aerosol inhaler 2 puff inhalation QID PRN (Reason: shortness of breath or wheezing) Qty: 8.5 0RF dicyclomine 20 mg tablet 20 mg PO TID PRN (Reason: Abdominal Discomfort) Qty: 15 0RF famotidine 20 mg tablet 20 mg PO DAILY Qty: 30 0RF promethazine 12.5 mg tablet 12.5 mg PO Q6H PRN (Reason: nausea and vomiting) Qty: 15 0RF (DME) Dexcom G6 Perishable Freight Inspector Misc See Rx Instructions .Route Qty: 1 0RF Rx Instructions: As directed to monitor BS <Clarisa Rascon APRN - Last Filed: 09/12/24 18:10> Follow-up/Referrals: Paul Ramirez MD [Physician] - 3 Days UNKNOWN,DOCTOR [Primary Care Provider] - 3 Days <Clarisa Rascon APRN - Last Filed: 09/12/24 18:10> Time of Disposition: 21:04 <Clarisa Rascon APRN - Last Filed: 09/12/24 18:10> 21:04 <Gene Cotton III DO - Last Filed: 09/16/24 15:33> 21:04 <Gaurav Adame MD - Last Filed: 09/12/24 21:04>
[2024-09-12 18:25] LABS: Basophils Percent Auto 0.1 % (0.2-1.2); Hematocrit 42.2 % (37.0-47.0); Immature Granulocyte Absolute 0.02 K/mm3 (0.00-0.031); Immature Granulocyte Percent A 0.3 % (0-0.5); Lymphocytes Absolute Auto 2.28 K/mm3 (0.9-3.2); Lymphocytes Percent Auto 33.2 % (18.3-44.2); Mean Corpuscular HGB Conc 33.2 g/dl (32-36); Mean Corpuscular Hemoglobin 26.3 pg (26-34); Mean Corpuscular Volume 79.3 fl (80-100); Mean Platelet Volume 9.8 fl (7.4-10.4); Monocytes Absolute Auto 0.5 K/mm3 (0.1-0.6); Monocytes Percent Auto 6.7 % (2.6-8.5); Neutrophils Absolute Auto 4.1 K/mm3 (1.3-6.7); Neutrophils Percent Auto 59.7 % (45.5-73.1); Platelet Count Result 239 k/mm3 (150-375); Red Blood Count 5.32 M/mm3 (4.2-5.4); Red Cell Distribution Width 12.7 % (11.5-14.5); White Blood Count 6.9 K/mm3 (4.5-10.0)
[2024-09-12 18:37] LABS: Acetaminophen < 10 ug/mL (10-30); Alanine Aminotransferase 27 U/L (6-35); Albumin Level 4.3 g/dL (3.5-5.1); Alkaline Phosphatase 151 U/L (38-126); Anion Gap 13 mmol/L (4-12); Aspartate Amino Transferase 20 U/L (14-36); Bilirubin,Total 0.4 mg/dL (0.2-1.3); Blood Urea Nitrogen 10 mg/dL (7-17); Calcium 9.3 mg/dL (8.4-10.2); Carbon Dioxide 21 mmol/L (22-30); Chloride 100 mmol/L (98-107); Estimated CRCL calculation 166 ml/min; Estimated Glomerular Filt Rate > 60; Ethanol < 10 mg/dL (<10); Glucose 346 mg/dL (65-110); Potassium 4.2 mmol/L (3.4-5.0); Salicylate < 1.0 mg/dL (2-20); Sodium 134 mmol/L (137-145)
[2024-09-12 18:41] LABS: Amphetamine Screen Urine Negative (Negative); Barbiturate Screen Urine Negative (Negative); Benzodiazepines Screen Urine Negative (Negative); Cannabinoid Screen Urine Negative (Negative); Cocaine Screen Urine Negative (Negative); Methadone Screen Urine Negative (Negative); Opiate Screen Urine Negative (Negative); Phencyclidine Screen Urine Negative (Negative)
[2024-09-12 18:59] LABS: BEDSIDEPREGUCG Negative (Negative)
[2024-09-12 19:00] LABS: Add Urine Microscopic? YES; Appearance Urine Clear (Clear); Bacteria Urine Rare /hpf; Bilirubin Urine Negative (Negative); Blood Urine 1+ (Negative); Budding Yeast Urine Present /hpf; Color Urine Yellow (Yellow); Glucose Urine UA 3+ mg/dL (Negative); Ketones Urine Negative (Negative); Leukocyte Esterase Ur Negative LEU/UL (Negative); Need Manual Microscopic Reviewed; Nitrate Urine Negative (Negative); Non Pathogenic Casts 0-2; Protein Urine Negative (Negative); Specific Grav Ur 1.039 (1.001-1.035); Squamous Epithelial Cell Urine Few /hpf (Few); Urobilinogen Urine 0.2 mg/dL (<2.0); pH Urine 6.5 (5.0-9.0)
--- NOTE | 2024-09-12 19:20 | PC.NURSE ---
[facility] notified. ETA 90 min.
--- NOTE | 2024-09-12 19:50 | PC.NURSE ---
Pt does not want vitals done at this time.
[2024-09-12 20:14] LABS: Influenza A QL RT-PCR Negative (Negative); Influenza B QL RT-PCR Negative (Negative); RSV RNA, RT-PCR Negative (Negative); SARS-CoV-2 RNA PCR Negative (Negative)
--- OUTSIDE RECORDS SUMMARY | 2024-09-13 15:03 | XMS_ITS | Patient Health Record ---
Author Organization [facility] Address [address] [place] [address] Care Team Providers Care Transfer Driver Name Role Phone [place] Primary Care Provider [phone] Samantha Olsen Unavailable [phone] Liam Finnegan Unavailable [phone] Brenda Richards Unavailable [phone] Ofelia Engle Unavailable [phone] Sarita Lawson Unavailable Jessie Hawkins Unavailable [phone] Flower Leija Unavailable [phone] Daren Dash Unavailable Allergies Allergen (clinical drug ingredient) Drug/Non Drug Allergy documented on EMR Reaction Allergy Type Onset Date Status Cat dander cat dander (uncoded) Unknown Allergy Active Pollen pollen (uncoded) Unknown Allergy Act beth acetaminophen Tylenol rash Drug Allergy Act beth caffeine Caffeine Unknown Drug Allergy Active ibuprofen Ibuprofen hives Drug Allergy Active Results Component Value Reference Range Notes Celiac Antibodies tTG IgA, E MA IgA, Total IgA w/reflex to tTG IgG Reviewed date:01/31/2024 09:48:59 AM Interpretation: Performing Lab:[facility], [address] [facility], Phone - [phone], Director - Michaelle Notes/Report: Endomysial Antibody IgA Negative Negative t-Transglutaminase [...] Antibodies Reviewed date:01/31/2024 09:48:59 AM Interpretation: Performing Lab:[facility] [address], Phone - [phone], Director [facility] Notes/Report: RPR Non Reactive Non Reactive Hepatitis C Virus Antibody w /Rflx to Quantitative Real-time PCR ([id number]) Reviewed date:01/31/2024 09:48:59 AM Interpretation: Performing Lab:[facility] [address], Phone - [phone], Director - [facility] Notes/Report: HCV Ab Non Reactive Non Reactive Interpretation: Not infected with HCV unless early or acute infection is suspected (which may be delayed in an immunocompromised individual), or other evidence exists to indicate HCV infection. Hepatitis B Surface Antigen (HBsAg Screen) Reviewed date:01/31/2024 09:48:59 AM Interpretation: Performing Lab:[facility] [address] [place] [address], Phone - [phone], [facility] Notes/Report: HBsAg Screen Negative Negative HIV Screen *HIV 1, 2 Ab, p24 Ag ([id number]) Reviewed date:01/31/2024 09:48:59 AM Interpretation: Performing Lab:[facility] [address], Phone - [phone], [facility] Notes/Report: HIV Ab/p24 Ag Screen Non Reactive Non Reactive HIV-1/HIV-2 antibodies and HIV-1 p24 antigen were NOT detected. There is no laboratory evidence of HIV infection. HIV Negative TSH Rfx on Abnormal to Free T4 Reviewed date:01/31/2024 09:48:59 AM Interpretation: Performing Lab:[facility] [place] [address] [facility], Phone - [phone], Director - [facility] Notes/Report: TSH 1.260 0.450-4.500 uIU/mL Vitamin B12 and Folate Reviewed date:01/31/2024 09:48:59 AM Interpretation: Performing Lab:[address], Phone - [phone], Director - [facility] Notes/Report: Vitamin B12 330 404-6818 pg/mL Folate (Folic Acid), Serum 12.5 >3.0 ng/mL A serum folate concentration of less than 3.1 ng/mL is considered to represent clinical deficiency. Iron and TIBC* Reviewed date:01/31/2024 09:48:59 AM Interpretation: Performing Lab:[address], Phone - [phone], Director - [facility] Notes/Report: Iron Bind.Cap.(TIBC) 347 250-450 ug/dL UIBC 277 131-425 ug/dL Iron 70 27-159 ug/dL Iron Saturation 20 15-55 % UA/M w/rflx Culture, Routine Reviewed date:01/31/2024 09:48:59 AM Interpretation: Performing Lab:[address], Phone - [phone], Director - [facility] Notes/Report: Specific [place] >=1.030 1.005-1.030 pH 7.0 5.0-7.5 Urine-Color Yellow [...] Kinase,Total,Serum Reviewed date:01/31/2024 09:48:59 AM Interpretation: Performing Lab:[address] [facility], Phone - [phone], Director - [facility] Notes/Report: Creatine Kinase,Total 45 32-182 U/L C-Reactive Protein, Quant Reviewed date:01/31/2024 09:48:59 AM Interpretation: Performing Lab:[facility] [address] [place] [address], Phone - [phone], Director - [facility] Notes/Report: C-Reactive Protein, Quant 15 0-10 mg/L Lipid Panel* Reviewed date:01/31/2024 09:48:59 AM Interpretation: Performing Lab:[facility] [address] [place] [address], Phone - [phone], Director - [facility] Notes/Report: Cholesterol, Total 241 100-199 mg/dL Triglycerides 281 0-149 mg/dL HDL Cholesterol 39 >39 mg/dL VLDL Cholesterol Eduar 52 5-40 mg/dL LDL Chol Calc (NIH) 150 0-99 mg/dL Hemoglobin A1c* Reviewed date:01/31/2024 09:48:59 AM Interpretation: Performing [facility] [address] [place] [address], Phone - [phone], Director - [facility] Notes/Report: Hemoglobin A1c 9.8 4.8-5.6 % . Prediabetes: 5.7 - 6.4 Diabetes: >6.4 Glycemic control for adults with diabetes: <7.0 CMP 14 Comprehensive Metabol ic Panel* Reviewed date:01/31/2024 09:48:58 AM Interpretation: Performing Lab:[facility] [address] [place] [address], Phone - [phone], Director - [facility] Notes/Report: Glucose 205 70-99 mg/dL BUN [...] 0-40 IU/L ALT (SGPT) 18 0-32 IU/L CBC With Differential/Platel et* Reviewed date:07/09/2024 09:13:56 AM Interpretation: Performing Lab[facility], [address] [facility], Phone - [phone], Director - [facility] Notes/Report: WBC 6.6 3.4-10.8 x10E3/uL RBC 5.51 [...] % Immature Grans (Abs) 0.0 0.0-0.1 x10E3/uL C-Reactive Protein, Quant Reviewed date:04/17/2024 04:04:48 PM Interpretation: Performing Lab:[facility] [place], [address] [place] [address], Phone - [phone], Director - [facility] Notes/Report: C-Reactive Protein, Quant 11 0-10 mg/L Rheumatoid Arthritis Factor Reviewed date:04/17/2024 04:04:48 PM Interpretation: Performing Lab:[facility] [place], [address] [facility], Phone - [phone], Director - Michaelle Notes/Report: Rheumatoid Factor (RF) 15.2 <14.0 IU/mL JUAN DANIEL by IFA, Reflex to 9-biom renato cr, Serum Reviewed date:04/17/2024 04:04:48 PM Interpretation: Performing Lab:[facility] [place], [address] [place] [address], [place], Phone - [phone], Director - Michaelle Notes/Report: JUAN DANIEL by IFA Rfx Titer/Pattern [...] Scleroderma-diffuse, Scleroderma-Autoimmune Myositis Overlap Syndrome, Systemic Lupus Gdsugbwcjuamm-Fbakwppafed-W utoimmune Myositis Overlap Syndrome, Systemic Autoimmune Rheumatic [...] <5 Equivocal 5 - 9 Positive >9 ANNUAL CAMPAIGN MANAGER Antibodies <0.2 0.0-0.9 AI Serum is slightly [...] Sm (anti-Roca) SLE 15 - 30% --------- ANNUAL CAMPAIGN MANAGER Mixed Connective Tissue Disease 95% (U1 nRNP, SLE 30 - 50% anti-ribonucleoprotein) Polymyositis and/or Dermatomyositis 20% --------- Scl-70 (antiDNA Scleroderma (diffuse) 20 - 35% topoisomerase) Crest 13% --------- Dee Dee-1 Polymyositis and/or Dermatomyositis 20 - 40% --------- Centromere B Scleroderma - Crest variant 80% Sedimentation Rate-Rivas n* Reviewed date:02/21/2024 11:51:32 AM Interpretation:Normal Performing Lab:[facility], [address] [facility], [place], Phone - [phone], Director - Michaelle Notes/Report: Sedimentation Rate-Westergren 25 0-32 mm/hr 12 Panel Urine Drug Screen Reviewed date:10/03/2023 04:32:52 PM Interpretation: Performing Lab: Notes/Report: THC n MIRNA n MOP (OPI) n AMP n MET n BAR n BZO n MDMA n MTD n OXY n PCP n BUP n Hemoglobin A1c CLIA Waived Reviewed date:01/15/2024 02:16:12 PM Interpretation: Performing Lab: Notes/Report: Hemoglobin A1c 9.4 4.0 - 6.4 % UA/M w/rflx Culture, Routine Reviewed date:01/31/2024 09:48:59 AM Interpretation: Performing Lab:[facility] [place], [address] [place], Phone - [phone], Director - Juni Notes/Report: Test(s) 670073- Atopobium vaginae; 692748- BVAB 2; 962839- Megasphaera 1 was developed and its performance characteristics determined by [facility]. It has not been cleared or approved by the Food and Drug Administration. Test(s) 000576-Egjhwpr albicans, SOPHY; 962911-Ictzihz glabrata, SOPHY was developed and its performance characteristics determined by [facility]. It has not been cleared or approved by the Food and Drug Administration. Test(s) 702097- Atopobium vaginae; 600749- BVAB 2; 217177- Megasphaera 1 was developed and its performance characteristics determined by [facility]. It has not been cleared or approved by the Food and Drug Administration. Test(s) 205507-Bljwecs albicans, SOPHY; 920337-Uqjkyzi glabrata, SOPHY was developed and its performance characteristics determined by [facility]. It has not been cleared or approved by the Food and Drug Administration. Test(s) 805552- Atopobium vaginae; 731486- BVAB 2; 245264- Megasphaera 1 was developed and its performance characteristics determined by [facility]. It has not been cleared or approved by the Food and Drug Administration. Test(s) 602657-Itebfou albicans, SOPHY; 472519-Zycfoej glabrata, SOPHY was developed and its performance characteristics determined by [facility]. It has not been cleared or approved by the Food and Drug Administration. Specific [place] >=1.030 1.005-1.030 pH 6.5 5.0-7.5 Urine-Color Yellow [...] than 100,000 colony forming units per mL NuSwab Vaginitis Plus (VG+) (784090) Reviewed date:01/31/2024 09:48:59 AM Interpretation: Performing Lab:[facility] [place], [address] [place], [place], Phone - [phone], Director - Juni Notes/Report: Test(s) 762238- Atopobium vaginae; 728807- BVAB 2; 016059- Megasphaera 1 was developed and its performance characteristics determined by [facility]. It has not been cleared or approved by the Food and Drug Administration. Test(s) 258904-Vcevhnw albicans, SOPHY; 166328-Nwhuxnj glabrata, SOPHY was developed and its performance [...] Hemoglobin A1c 11.5 4.0 - 6.4 % Reason For Referral Reason Generalized myalgia, back pain, possible fibro Diagnosis 1 Neuropathic pain (M7 9.2) Diagnosis 2 Myalgia (M79.10) Referral Organization [facility] Referring Provider First Name Liam Referring Provider Last Name Kain Referring Provider Speciality [facility] Referred Provider [facility] Referred Provider Specialty Physical The rapist General Notes Mialna, RN, Sarita Miner 02/20/2024 01:42:15 PM >[facility] [place] (spoke with Marlo on 01/16/24)., MEGAN Cortés Stephanie N 02/20/2024 01:44:26 PM >Referral faxed. Confirmation pending., MEGAN Cortés Stephanie N 02/22/2024 09:11:44 AM >referral successfully faxed. Message sent and letter mailed notifying pt of referral. See logs. Clinical Notes [facility], [address] [place] [id number], , Referral Priority Routine Reason chronic migraines Diagnosis 1 Migraine (G43.909) Referral Organization [facility] Referring Provider First Name Flower Referring Provider Last Name Liss Referring Provider [facility] [place] Referred Provider Specialty Neurology General Notes Ariana Walsh 02:23:21 PM >According to website [facility] [place] takes clients insurance., Ariana Walsh 03/13/2024 02:25:10 PM >Referral faxed., Ariana Walsh 03/13/2024 02:29:29 PM >Referral letter & message sent to client. Clinical Notes [facility] [place], [facility] [address], [place] [address], Phone Current Pt's: [phone], New Pt's , Referral Priority Routine Reason Black stools, abd cr amping, sulfur burps Diagnosis 1 Dark stools (R19.5) Referral Organization [facility] Referring Provider First Name Liam Referring Provider Last Name Kain Referring Provider Speciality [facility] [place] Referred Provider Specialty Gastroentero logy General Notes Thi Garcia 06/15 11:00:05 AM > Referral sent to [facility] Letter to patient. Clinical Notes Gastroenterology [facility], [address], [address], [facility], [address], ph. [phone], fax: [phone] Referral Priority Routine Reason STL H/V NO LONGER TA KES HER INSURANCE Diagnosis 1 Chest pain (R07.9) Referral Organization [facility] Referring Provider First Name Lake Referring Provider Last Name Rhonda Referring Provider Speciality Internal M edicine Referred Provider Specialty Cardiology Referral Priority Routine Medications Medication SIG (Take, Route, Frequency, Duration) Notes Start Date End Date Status QUEtiapine Fumarate 400 MG 1 tablet at bedtime Orally Once a day for 22 days As needed Active busPIRone HCl 15 MG 1 tablet [...] PUMP Subcutaneous DAILY INSULIN PUMP RX BY GARAGE SUPERVISOR Active tiZANidine HCl 4 MG 1 tablet [...] Status Risk Notes Problem Morbid obesity (disorder) (970262147) Morbid (severe) obesity due to excess calories (E66.01) Active confirmed Problem Tobacco user (012863176) Nicotine dependence, unspecified, uncomplicated (F17.200) Active confirmed Problem 51967410 Borderline personality disorder (F60.3) 2021 Active confirmed Problem 453094127 Irritable bowel syndrome with diarrhea (K58.0) Active confirmed Problem 59453870 Functional diarr hea (K59.1) Active confirmed Problem Fibromyalgia (150705811) Fibromyalgia (M79.7) Active confirmed Problem Palpitations (27723232) Palpitations (R00.2) Active confirmed Problem Hypertension (70308166) Hypertension (I10) 2023 Active confirmed Problem Hyperlipidemia (56998087) Hyperlipidemia (E78.5) Active confirmed Problem Anxiety (06721826) Anxiety (F41.9) Active confi rmed Problem Vitamin D deficiency (54666273) Vitamin D deficiency (E55.9) Active confirmed Problem Migraine (26159922) Migraine (G43.909) Active c onfirmed Problem Asthma (377976645) Asthma (J45.909) Active conf irmed Problem Chest pain (00972934) Chest pain (R07.9) Active confirmed Problem Urinary incontinence (509099430) Urinary incontinence (R32) Active confirmed Problem 17591325 Attention defici t hyperactivity disorder (ADHD), combined type (F90.2) Active confirmed Problem Hypertriglyceridemia (501269419) Hypertriglyceridemia (E78.1) 2021 Active confirmed Problem Constipation (05879113) Constipation (K59.00) Active confirmed Problem 175375816 Routine adult he alth maintenance (Z00.00) Active confirmed Problem Missed period (25688975) Missed menses (N92.6) Active confirmed Problem Pruritus of vagina (52824997) Vaginal itching (L29.8) Active confirmed Problem Obstructive sleep apnea syndrome (74737541) Sleep apnea in adult (G47.33) Active confirmed Problem 75378267 Chronic fatigue (R53.82) Active confirmed Problem Diabetes mellitus (00317187) Diabetes mellitus (E11.9) Active confirmed Problem Hyperlipidaemia (08077182) Hyperlipemia (E78.5) Active confirmed Problem 209803737 Bipolar affectiv e disorder, depressed, severe, with psychotic behavior (F31.5) 2021 Active confirmed Problem Surveillance of contraception (134568118) control (Z30.9) Active confirmed Problem Drug monitoring done (238826167) Therapeutic drug monitoring (Z51.81) Active confirmed Problem 430319816 Mild persistent asthma without complication (J45.30) Active confirmed Problem 700219741241951 Carpal tunnel syndrome of left wrist (G56.02) Active confirmed Problem Chest pain (14142239) Chest pain varying with breathing (R07.9) Active confirmed Problem 07582636 Type 2 diabetes mellitus with hyperglycemia, without long-term current use of insulin (E11.65) 2020 Active confirmed Problem 197038105 Adult ADHD (atte ntion deficit hyperactivity disorder) (F90.9) Active confirmed Problem Hearing loss (34513079) Decreased hearing of both ears (H91.93) Active confirmed Problem Carpal tunnel syndrome (27292197) Carpal tunnel syndrome on both sides (G56.03) Active confirmed Problem Urinary tract infectious disease (00897897) UTI symptoms (R39.9) Active confirmed Problem Diabetic foot (530624962) Diabetic foot (E11.8) 2022 Active confirmed Problem 748088966332841 CRP elevated (R79.82) Active co nfirmed Problem Ketoacidosis in type II diabetes mellitus (801064268) Diabetic ketoacidosis without coma associated with type 2 diabetes mellitus (E11.10) 2021 Active confirmed Problem Irregular menstruation (41156450) Irregular menstruation (N92.6) Active confirmed Problem Functional dyspepsia (0902888) Acid indigestion (K30) Active confirmed Vital Signs Heart Rate 104 /min 09/03/2024 Temperature 98.3 degrees Fahrenheit 04/03/2024 Respiratory Rate 16 /min 09/03/2024 Oximetry 98 % 09/03/2024 Blood pressure diastolic 82 mm Hg 09/03/2024 Height 62 in 09/03/2024 Blood pressure systolic 114 mm Hg 09/03/2024 Weight 241.8 lbs 09/03/2024 BMI 44.22 kg/m2 09/03/2024 Encounters Encounter Location Date Provider Diagnosis [address] [place] [address] [address] 07/08/2024 Liam Finnegan [address] [place] [address] [address] 10/03/2023 Ofelia Kadie Bipolar affective disorder, depressed, severe, with psychotic behavior F31.5 ; Borderline personality disorder F60.3 ; Adult ADHD (attention deficit hyperactivity disorder) F90.9 ; Vitamin D deficiency E55.9 ; Anxiety F41.9 and Therapeutic drug monitoring Z51.[address] [place] [address] [address] 10/16/2023 Ofelia Kadie Bipolar affective disorder, depressed, severe, with psychotic behavior F31.5 ; Borderline personality disorder F60.3 ; Adult ADHD (attention deficit hyperactivity disorder) F90.9 ; Vitamin D deficiency E55.9 and Anxiety F41.[address] [place] [address] [address] 10/17/2023 Flower Short Vaginal discharge N89.8 and Diarrhea R19.[address] [place] [address] [address] 11/06/2023 Ofelia Kadie Bipolar affective disorder, depressed, severe, with psychotic behavior F31.5 ; Borderline personality disorder F60.3 ; Adult ADHD (attention deficit hyperactivity disorder) F90.9 ; Vitamin D deficiency E55.9 and Anxiety F41.[address] [place] [address] [address] 12/05/2023 Flower Short Migraine G43.909 ; Nicotine dependence, unspecified, uncomplicated F17.200 ; Diabetes mellitus E11.9 and COVID-19 U07.[address] [place] [address] [address] 12/05/2023 Brenda Richards [address] [address] 01/10/2024 Sarita Tanwangco Vaginal discharge N89.8 ; UTI symptoms R39.9 and Nausea R11.0 [facility] [address] [place] [address] 01/10/2024 [facility] [address] [place] [address] 01/10/2024 [place] [address] [address] 01/15/2024 Flower Leija Diabetes mellitus E11.9 ; Carpal tunnel syndrome on both sides G56.03 ; Nutritional counseling Z71.3 ; Nausea R11.0 and Migraine G43.909 [facility] [address] 01/18/2024 [place] Myalgia M79.10 ; Neuropathic pain M79.2 ; Type 2 diabetes mellitus with hyperglycemia, without long-term current use of insulin E11.65 ; Irritable bowel syndrome with diarrhea K58.0 ; Sleep apnea in adult G47.33 ; Fatigue R53.83 ; Exposure to potential infection Z20.9 ; Hyperlipemia E78.5 ; Hypertension I10 ; Onychomycosis B35.1 ; Asthma J45.909 and Migraine G43.[address] [place] [address] 01/30/2024 Flower Leija Nutritional counseling Z71.3 ; Neuropathic pain M79.2 ; Chronic fatigue R53.82 ; Functional diarrhea K59.1 and Diabetes mellitus E11.[address] [place] [address] 01/31/2024 Ofelia Kadie Bipolar affective disorder, depressed, severe, with psychotic behavior F31.5 ; Borderline personality disorder F60.3 ; Adult ADHD (attention deficit hyperactivity disorder) F90.9 ; Vitamin D deficiency E55.9 and Anxiety F41.[address] [place] [address] 02/14/2024 Liam Finnegan Neuropathic pain M79.2 ; Myalgia M79.10 ; Morbid (severe) obesity due to excess calories E66.01 and Nutritional counseling Z71.[address] [address] 02/19/2024 Jessie Sabdennis Bipolar affective disorder, depressed, severe, with psychotic behavior F31.5 ; Borderline personality disorder F60.3 ; Adult ADHD (attention deficit hyperactivity disorder) F90.9 ; Vitamin D deficiency E55.9 ; Anxiety F41.9 and Medication management Z79.[address] [place] [address] [address] 02/20/2024 Flower Leija Nutritional counseling Z71.3 ; Routine adult health maintenance Z00.00 ; Chronic fatigue R53.82 and Type 2 diabetes mellitus with hyperglycemia, without long-term current use of insulin E11.[address] [address] 02/20/2024 Flower Leija [address] [address] 02/26/2024 Jessie Shruthi Bipolar affective disorder, depressed, severe, with psychotic behavior F31.5 ; Borderline personality disorder F60.3 ; Adult ADHD (attention deficit hyperactivity disorder) F90.9 ; Vitamin D deficiency E55.9 ; Anxiety F41.9 and Medication management Z79.[address] [address] 03/12/2024 Flower Leija Acid indigestion K30 ; Type 2 diabetes mellitus with hyperglycemia, without long-term current use of insulin E11.65 and Migraine G43.[address] [address] 04/03/2024 Liam Finnegan Myalgia M79.10 ; CRP elevated R79.82 ; Morbid (severe) obesity due to excess calories E66.01 ; Nutritional counseling Z71.3 and Nicotine dependence, unspecified, uncomplicated F17.200 [facility] [address] [place] [address] 04/07/2024 Samantha Olsen Bipolar affective disorder, depressed, severe, with psychotic behavior F31.5 ; Nutritional counseling Z71.3 ; Borderline personality disorder F60.3 ; Adult ADHD (attention deficit hyperactivity disorder) F90.9 ; Anxiety F41.9 and Medication management Z79.[address] [place] [address] 04/22/2024 Liam Finnegan Myalgia M79.10 ; Concussion without loss of consciousness, initial encounter S06.0X0A ; Morbid (severe) obesity due to excess calories E66.01 and Nutritional counseling Z71.3 [facility] [address] [place] [address] 04/23/2024 Samantha Olsen Bipolar affective disorder, depressed, severe, with psychotic behavior F31.5 ; Borderline personality disorder F60.3 ; Adult ADHD (attention deficit hyperactivity disorder) F90.9 ; Anxiety F41.9 and Medication management Z79.899 [place] [address] [place] [address] 05/19/2024 Samantha Olsen Borderline personality disorder F60.3 ; Bipolar affective disorder, depressed, severe, with psychotic behavior F31.5 ; Adult ADHD (attention deficit hyperactivity disorder) F90.9 ; Anxiety F41.9 and Medication management Z79.[address] [place] [address] 06/12/2024 Liam Finnegan Myalgia M79.10 ; Carpal tunnel syndrome of left wrist G56.02 ; Morbid (severe) obesity due to excess calories E66.01 and Nutritional counseling Z71.[address] [address] 06/13/2024 Samantha Olsen Borderline personality disorder F60.3 ; Bipolar affective disorder, depressed, severe, with psychotic behavior F31.5 ; Adult ADHD (attention deficit hyperactivity disorder) F90.9 ; Anxiety F41.9 and Medication management Z79.[address] [place] [address] 07/08/2024 Liam Finnegan Generalized abdominal pain R10.84 ; Dark stools R19.5 ; Myalgia M79.10 ; Morbid (severe) obesity due to excess calories E66.01 ; Nutritional counseling Z71.3 and Nicotine dependence, unspecified, uncomplicated F17.200 [facility] [address], [place] [address] 07/09/2024 Samantha Olsen Borderline personality disorder F60.3 ; Bipolar affective disorder, depressed, severe, with psychotic behavior F31.5 ; Adult ADHD (attention deficit hyperactivity disorder) F90.9 ; Anxiety F41.9 and Medication management Z79.[address] [place] [address] [address] 07/24/2024 [place] Carpal tunnel syndrome on both sides G56.03 ; Fibromyalgia M79.7 and Type 2 diabetes mellitus with hyperglycemia, without long-term current use of insulin E11.65 [facility] [address] [place] [address] 08/11/2024 Samantha Olsen Borderline personality disorder F60.3 ; Bipolar affective disorder, depressed, severe, with psychotic behavior F31.5 ; Adult ADHD (attention deficit hyperactivity disorder) F90.9 ; Anxiety F41.9 and Medication management Z79.[address] [address] 09/03/2024 Lake Ellis Orthostatic dizziness R42 ; Urinary incontinence R32 ; Type 2 diabetes mellitus with hyperglycemia, without long-term current use of insulin E11.65 and Chest pain R07.[address] [place] [address] 01/21/2024 Flower Leija [address] [place] [address] 01/28/2024 Lake Ellis [address] [place] [address] 02/26/2024 Jessie Hawkins [address] [place] [address] 03/24/2024 Samantha Olsen [address] [place] [address] 04/16/2024 Daren Dash [address] [place] [address] 04/21/2024 Flower [facility] [address] [place] [address] 05/20/2024 Flower Leija [address] [place] [address] 06/06/2024 Samantha Olsen Bipolar affective disorder, depressed, severe, with psychotic behavior F31.[address] [place] [address] 06/20/2024 Liam Finnegan [address] [address] 08/01/2024 [place] Ellis Myalgia M79.[address] [place] [address] 09/03/2024 Samantha Olsen Bipolar affective disorder, depressed, severe, with psychotic behavior F31.5 Assessments Encounter Date Diagnosis (ICD Code) Assessment Notes Treatment Notes Treatment Clinical Notes Section Notes 10/03/2023 Bipolar affective disorder, depressed, severe, with psychotic behavior (ICD-10 - F31.5) Pt reports that she was admitted to [place] on 09/26/2023 due to self harm. Pt [...] for CRU admission. Will collab with [facility] team 10/17/2023 Vaginal discharge (ICD-10 - N89.8) 10/17/2023 Diarrhea (ICD-10 - R19.7) 10/16/2023 Bipolar affective disorder, depressed, severe, with psychotic behavior (ICD-10 - F31.5) Pt reports that she was admitted to [facility] crisis unit and rpeorts that her moods are overall well stable at this time. Will increase Escitalopram to aid moods at this time. Pt denies SI/HI at this time. Pt reports that she is currently looking for a new job at this time. Will collab with [facility] team 11/06/2023 Bipolar affective disorder, depressed, severe, with psychotic behavior (ICD-10 - F31.5) Pt reports that she recently moved to [place] and reports that her anxiety has increased some. Pt reports that she is tolerating medications well. Pt denies SI/HI at this time. [facility] 12/05/2023 Nicotine dependence, unspecified, uncomplicated (ICD-10 [...] SI/HI at this time. Will coll[facility]. Encouraged pt to call for therapy [...] PT sessions. 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 voiced understanding. Advised on increased exercise, [...] or be administered own oral medication per [facility] Protocols. Provided informed consent with understanding of [...] swings, anger, evaluate at follow up --trial Falling Spring for mood swings, SI, evaluate at follow [...] or be administered own oral medication per [facility] Protocols. Provided informed consent with understanding of [...] SI however feels more irritable since starting Falling Spring. Admits irritability could be due to physical pain. Interested in trialing Cymbalta to address depression, anxiety, and pain. Agreeable to DC Lexapro and trial Cymbalta. Denies AH/VH, denies HI __continue Lamictal for mood swings, anger, evaluate at follow up __continue Invega for mood swings, anger, AH/VH, evaluate at follow up \__continue Seroquel, Lexapro for mood swings, anger, evaluate at follow up __continue F[place] for mood swings, SI, evaluate at follow [...] (ICD-10 - F60.3) Continue psychotherapy as scheduled. 09/03/2024 Urinary incontinence (ICD-10 - R32) SYMPTOMS SUGGEST OVERFLOW DUE TO NEUROGENIC BLADDER 09/03/2024 Orthostatic dizziness (ICD-10 - R42) SUSPECT DUE TO UNCONTROLLED SUGARS 09/03/2024 Bipolar affective disorder, depressed, severe, with psychotic behavior (ICD-10 - F31.5) 09/03/2024 Type 2 diabetes mellitus with hyperglycemia, without long-term current use of insulin (ICD-10 - E11.65) F/U WITH ENDO. ENCOURAGED USE OF PUMP, MUST CHARGE IT. 08/11/2024 Bipolar affective disorder, depressed, severe, with [...] or be administered own oral medication per [facility] Protocols. Provided informed consent with understanding of [...] ordered--_ --labs ordered 08/2023 by PCP --trialed Falling Spring Duloxetine 07/24/2024 Type 2 diabetes mellitus with [...] or be administered own oral medication per [facility] Protocols. Provided informed consent with understanding of [...] support provided related to pt's choices --trialed F[place] Duloxetine 07/08/2024 Myalgia (ICD-10 - M79.10) 06/13/2024 Bipolar [...] May also contact the 24-hour crisis hotline ([facility]), refer to the closest emergency room [...] or be administered own oral medication per [facility] Protocols. Provided informed consent with understanding of [...] Looking forward to starting new job at [employer] next week. Feels Lexapro is more effective [...] at follow up __DC Duloxetine _ --trialed F[place] 06/12/2024 Morbid (severe) obesity due to excess [...] or be administered own oral medication per [facility] Protocols. Provided informed consent with understanding of [...] understanding of the same and agreeable --stopped Falling [place] and Duloxetine as she felt it was [...] swings, anger, evaluate at follow up __DC Falling Spring pt stopped --DC Lexapro --re-start and titrate Duloxetine for depression, anxiety, chronic pain, evaluate at follow up--pt agreeable to re-starting Duloxetine and evaluate effectiveness in 3-4 weeks CancelRx Response got Denied on 2024-05-19 20:43:03 for 'DULoxetine HCl 30 MG Capsule Delayed Release Sprinkle'Pharmacy Notes: Unable to Cancel Rx. Please contact Pharmacy 04/23/2024 Adult ADHD (attention deficit hyperactivity disorder) (ICD-10 - F90.9) [facility] concerns. --hold treatment [...] to call for an appt with therapist. 10/03/2023 Borderline personality disorder (ICD-10 - F60.3) Pt reports that she has upcoming appt with therapist 10/03/2023 Adult ADHD (attention deficit hyperactivity disorder) (ICD-10 - F90.9) Pt has Hx of ADHD; Pt rpeorts that she wants to quit taking Guanfacine at this time as she does not feel like the medication is working. Will cont to moitor symptoms. 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 Pt recently started a new job at [employer].. Will continue to monitor symptoms 02/20/2024 Type [...] E66.01) 06/12/2024 Nutritional counseling (ICD-10 - Z71.3) 07/09/2024 Adult ADHD (attention deficit hyperactivity disorder) (ICD-10 - F90.9) [place]09[place] - no concerns. --hold treatment for ADHD for now 08/11/2024 Adult ADHD (attention deficit hyperactivity disorder) (ICD-10 - F90.9) [facility] --hold treatment for ADHD for now 09/03/2024 Chest pain (ICD-10 - R07.9) NEGATIVE EVAL WITH [facility] H/[facility]. WOULD LIKE TO CONTINUE CARDIOLOGY F/U 08/11/2024 Anxiety (ICD-10 - F41.9) --moderate to severe anxiety, panic attacks at times, has taken Hydroxy, didn't feel like it was effective in decreasing anxiety --taking Buspar 1 tab every AM, 2 tabs every PM, feels this has been effective in managing anxiety --continue Buspar for anxiety, evaluate at follow up --continue Hydroxyzine for anxiety evaluate at follow up 07/09/2024 Anxiety (ICD-10 - F41.9) --mild anxiety, [...] or be administered own oral medications per [facility] protocols. Provided informed consent with understanding of [...] 10/16/2023 Vitamin D deficiency (ICD-10 - E55.9) 10/03/2023 Vitamin D deficiency (ICD-10 - E55.9) 10/03/2023 Anxiety (ICD-10 - F41.9) Will increase BuSpar to 15mg BID to aid anxiety; pt reports that she is tolerating medication well and denies side effects to med. Pt is currently talking with therapist at [facility]. Pt has increased anxiety due to recent stress of friends and Grandfather is currently in hospital 10/16/2023 Anxiety (ICD-10 - F41.9) Pt reports that she is doing well on Buspar and reports that her anxiety is under control at this time. Pt is currently talking with therapist at [facility]. 11/06/2023 Anxiety (ICD-10 - F41.9) Will increase BuSpar TID to aid anxiety; pt reports increase anxiety since moving to [place]. Pt is currently talking with therapist at [facility]. 01/18/2024 Fatigue (ICD-10 - R53.83) 01/31/2024 Anxiety (ICD-10 - F41.9) Will increase BuSpar TID to aid anxiety; pt has only been taking 2 tabs per day; encouraged her to take 1 tablet in AM and 2 tablets in PM to help anxiety. Pt is currently talking with therapist at [facility]. 02/26/2024 Anxiety (ICD-10 - F41.9) 02/19/2024 Anxiety (ICD-10 - F41.9) 04/07/2024 Medication management (ICD-10 - Z79.899) Client mentioned starting Cymbalta for fibromyalgia but states antiepressents have given her cynthia in past. Have opted not to start for now. May self-administer medications or be administered own oral medications per [facility] protocols. Provided informed consent with understanding of [...] or be administered own oral medications per [facility] protocols. Provided informed consent with understanding of [...] or be administered own oral medications per [facility] protocols. Provided informed consent with understanding of [...] or be administered own oral medications per [facility] protocols. Provided informed consent with understanding of [...] or be administered own oral medications per [facility] protocols. Provided informed consent with understanding of [...] or be administered own oral medications per [facility] protocols. Provided informed consent with understanding of [...] or be administered own oral medications per [facility] protocols. Provided informed consent with understanding of [...] May also contact the 24-hour crisis hotline ([facility]), refer to the closest emergency room [...] May also contact the 24-hour crisis hotline ([facility]), refer to the closest emergency room [...] intakeReturn to clinic 4 weeksEncouraged continued counselingWill alicia with [facility] Discussed treatment plan; patient is agreeable [...] May also contact the 24-hour crisis hotline ([facility]), refer to the closest emergency room [...] aware that this provider will be leaving [facility] as of 02/06/2024 and he will be transitioned to a new provider for his next appointment. 04/23/2024 Other Nutrition: heal thy snacks, heart healthy diet, healthy lean proteins, 160 minutes of moderately intense activity weekly 07/24/2024 Other [place]UES Plan Of Treatment Future Test Test Name Order Date Ultrasound : Urine Bladder PostVoid Belinda ure 09/03/2024 Next Appt Details Provider Name:Samantha Macy Olsen , 09/30/2024 01:00:00 PM, [address] [place] [address], [id number], Insurance Providers Payer Name Payer Address Payer Phone Subscriber Number Group Number Insured Name Patient Relationship to Insured Coverage Start Date Coverage End Date [facility] Attn Claims Department [address] [place] [address] [id number] Elizabeth Greyson Self - patient is the insured 1 [facility] Attn Claims Department [address] [place] [address] [id number] Greyson Johnson Self - patient is the [...] repair Hospitalization History Reason Date(Month/Year) MH/SA at [facility] 01/2024 Mental health from september 28-09/2022 [facility] 02/16/21 mental health [facility] 02/01/21
--- OUTSIDE RECORDS SUMMARY | 2024-09-13 15:03 | XMS_ITS | Encounter Summary ---
Author Organization [facility] Healthcare Address [address] [place] [address] Care Team Providers Care Side Stapler Name Role Phone Maggie Jackson BINDER ROLLER Primary Care Provider Lake Ellis MD Primary Care Provider [phone] Reason for Visit * Reason Onset Date Comments Prior Auth 08/13/2024 Qulipta 30 mg Encounter Details Date Type Department Care Team (Late st Contact Info) Description 08/13/[address] [facility] Medical Group Neurology [address] [place] [phone] Mansoor Albert MD [address] [place] [id number] Prior Auth (Qulipta 30 mg) Social History [...] often do you attend chur ch or jewish services? 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 I have printed form and place at from desk for patient signature * Telephone Encounter - Emily Curry MA - 09/08/2024 10:09 AM CDT I have tried to reach out to the patient no answer left voicemail for patient to call back. In order for me to resubmit this that patient has to sign the Authorized consent form and she doesn't have mychart. * Telephone Encounter - Emily Curry MA [...] on filedocumented in this encounter Care Teams Side Stapler Relationship Specialty Start Date End Date Maggie Jackson NP PCP - General Nephrology 02/20/22 08/26/24 [place] Ellis MD [address] [facility] [place] [place] [phone] PCP - General Internal Medicine 08/27/24 documented as of this encounter
--- OUTSIDE RECORDS SUMMARY | 2024-09-13 15:03 | XMS_ITS ---
Author Organization [facility] Address [address] [place] [address] Phone Care Team Providers Care Stamp Press Operator Name Role Phone Flower Leija APRN, CNP Primary Care [facility] Status:Enrolled (Active) Start date:06/11/2024 Enrollment date:06/11/2024 Related social drivers of health:Intimate Partner Violence, Social Connections, Alcohol Use, Tobacco Use, Financial Resource Strain,Depression, Stress, Physical Activity, Food Insecurity, Transportation Needs, Housing Stability, Utilities Continued Care and Services Coordination
--- OUTSIDE RECORDS SUMMARY | 2024-09-13 15:03 | XMS_ITS | Referral Summary ---
Author Organization [facility] Physician Office Building [address] [place] [phone] Care Team Providers Care Boiler Operator Name Role Phone Lake Ellis MD Primary Care Provider [phone] Encounters Date Type Department Care Team Description 08/27/2024 1:36 PM CDT Anesthesia Event [facility] [address] [place] [phone] Candido Lofton MD Jacobsen, Kyle G., MD 08/27/2024 12:00 PM CDT - 08/27/2024 12:30 PM CDT Surgery [facility] [address] [place] [phone] Brendan Sanon MD ESOPHAGOGASTRODUODENOSCOPY ULTRASOUND EXAM LIMITED 08/27/2024 10:56 AM CDT - 08/27/2024 3:43 PM CDT Hospital Encounter [facility] [address] [place] [phone] Brendan Sanon MD Nausea and vomiting, unspecified vomiting type; Diarrhea, unspecified type; Generalized abdominal pain; Gastroesophageal reflux disease without esophagitis Discharge Disposition: Discharge to home or self care 08/13/2024 Telephone [facility] [address] [phone] Mansoor Albert MD Prior Auth (Qulipta 30 mg) 08/11/2024 Telephone [facility] [address] [place] [address] [place] [phone] Mansoor Albert MD 08/11/2024 Orders Only [facility] [address] [place] [phone] Mansoor Albert MD 08/08/2024 Telephone [facility] [address] [place] [phone] Mansoor Albert MD Med Management 07/31/2024 2:00 PM CDT Office Visit [facility] [address] [place] [phone] Mansoor Albert MD Migraine without aura and [...] the morning and 30 mg at night 01/05/20 21 Active atorvastatin (LIPITOR) 40 mg tablet Take 1 tablet (40 mg total) by mouth daily Active ferrous sulfate 325 mg (65 mg of elemental iron) tablet daily 01/22/20 24 Active losartan (COZAAR) 25 mg tablet Take 1 tablet (25 mg total) by mouth daily 12/11/19 24 Active HumaLOG 100 unit/mL vial for injection 150 UNIT (1.5 ML) VIA CONTINUOUS SUBCUTANEOUS INFUSION DAILY FOR 90 DAYS 04/09/20 24 Active lamoTRIgine (LaMICtal) 150 mg tablet Take 1 tablet (150 mg total) by mouth 2 (two) times a day 04/23/20 24 Active paliperidone ER (INVEGA) 3 mg 24 hr tablet TAKE 1 TABLET BY MOUTH EVERY MORNING ALONG WITH 9 MG 04/04/20 24 Active paliperidone ER (INVEGA) 9 mg 24 hr tablet TAKE 1 TABLET BY MOUTH EVERY MORNING ALONG WITH 3 MG 04/04/20 24 Active QUEtiapine (SEROquel) 200 mg tablet Take [...] (two) times a day 07/08/19 25 Active rizatriptan (MAXALT) 10 mg tabletIndicati ons:Migraine Take 1 tablet (10 mg total) by mouth once as needed for migraine May repeat in 2 hours if unresolved. Do not exceed 30 mg in 24 hours. 9 tablet 08/12/19 Active topiramate (TOPAMAX) 50 mg tablet Take 1 tablet (50 mg total) by mouth 2 (two) times a day 60 tablet 08/12/19 026 Active albuterol HFA (PROVENTIL HFA,VENTOLIN HFA,PROAIR HFA) 90 mcg/actuation inhaler Inhale 1 puff 06/09/19 25 Active dicyclomine (BENTYL) 20 mg tablet Take 1 tablet (20 mg total) by mouth 08/22/19 25 Active escitalopram (LEXAPRO) 20 mg tablet Take 1 tablet (20 mg total) by mouth daily Active promethazine (PHENERGAN) 12.5 mg tablet Take 1 tablet (12.5 mg total) by mouth every 6 (six) hours as needed 08/22/19 25 Active omeprazole (PriLOSEC) 40 mg capsule Take 1 capsule (40 mg total) by mouth daily 30 capsule 08/28/19 026 Active vitamin B-12 1,000 mcg tablet Take 1 tablet (1,000 mcg total) by mouth daily 04/09/20 24 025 Discontin ued(Thera py completed ) ergocalciferol (VITAMIN D) 50,000 unit capsule Take 1 capsule (50,000 Units total) by mouth once a week 04/09/20 025 Discontin ued(Thera py completed ) lithium 150 mg capsule 1 capsule (150 mg total) daily 025 Discontin ued(Thera py completed ) Ozempic 1 mg/dose (4 mg/3 mL) pen injector injection INJECT 1 MG (0.75 ML) SUBCUTANEOUSLY WEEKLY 04/01/20 24 025 Discontin ued(Thera py completed ) tiZANidine (ZANAFLEX) 4 mg tablet every 12 hours 02/14/20 24 025 Discontin ued(Thera py completed ) atogepant 30 mg tablet Take 30 mg by mouth daily 30 tablet 3 08/12/19 25 025 Discontin ued(Thera py completed ) famotidine (PEPCID) 20 mg tablet Take 1 tablet (20 mg total) by mouth daily 08/22/19 025 Discontin ued(Stop Taking at Discharge ) Active Problems Problem Noted Date Diagnosed Date [...] 04/16/2020 Assessment & Plan (04/19/2020 3:23 PM BIRD TRAPPER): 19 yo F w/ a reported hx of bipolar and ADHD who was admitted at the recommendation of her casework supervisor for suicidal ideation with a plan to [...] with a therapist and psychiatric services through [facility], whom we have spoken with by phone and plan to coordinate DBT therapy on an outpatient basis. Additionally, grandma and patient provided further DBT resources outside of [facility]. She is IMPROVING as evidence by cheerful [...] to grandparents TODAY with outpt f/u at [facility] Assessment & Plan (04/16/2020 4:11 PM BIRD TRAPPER): 19 yo F w/ a reported hx of bipolar and ADHD who was admitted at the recommendation of her casework supervisor for suicidal ideation with a plan to [...] with a therapist and psychiatric services through [facility]. -therapeutic milieu and participation in groups -outpatient therapy upon discharge -PRNs available for agitation and comfort -appreciate SW assistance with care planning -dispo: home to grandparents when stabilized with outpt f/u at [facility] Mood disorder 04/16/2020 Assessment & Plan (04/19/2020 3:18 PM BIRD TRAPPER): Patient meets criteria for MDD except for [...] 5mg Assessment & Plan (04/16/2020 4:04 PM BIRD TRAPPER): Patient meets criteria for MDD except for [...] 04/16/2020 Assessment & Plan (04/19/2020 3:19 PM BIRD TRAPPER): Historical diagnosis d/t inattention. Was on Focalin for an extended amount of time in childhood. We planned to restart the patient's Focalin here, unfortunately it is not on formulary. Zane brought med from home. Patient could potentially benefit from a dose increase, but we will defer that to outpatient. -focalin XR 10mg (home supply) Assessment & Plan (04/16/2020 3:59 PM BIRD TRAPPER): Historical diagnosis d/t inattention. Was on Focalin for an extended amount of time in childhood. We planned to restart the patient's Focalin here, unfortunately it is not on formulary. Zane plans to bring the med from home -focalin XR 10mg (home supply) Diabetes 04/16/2020 Assessment & Plan (04/19/2020 3:18 PM BIRD TRAPPER): Diagnosed on a previous hospitalization this year. Lipids and blood glucoses elevated in ED. -increase Metformin to 1000mg BID Assessment & Plan (04/16/2020 4:00 PM BIRD TRAPPER): Diagnosed on a previous hospitalization this year. Lipids and blood glucoses elevated in ED. -Metformin 500mg BID UTI (urinary tract infection) 04/16/2020 Assessment & Plan (04/19/2020 3:17 PM BIRD TRAPPER): Previously diagnosed, asymptomatic, will continue previous treatment -completed Macrobid 100mg BID Assessment & Plan (04/16/2020 3:57 PM BIRD TRAPPER): Previously diagnosed, asymptomatic, will continue previous treatment [...] often do you attend chur ch or church services? More than 4 times per year 04/16/2020 Do you belong to any clubs o r organizations such as jewish groups, unions, fraternal or athletic groups, or [...] on file Legal Sex Female 3:03 AM BIRD TRAPPER Gender Identity Not on file Sexual Orientation [...] CDT LIPID PANEL STAT 04/15/2020 2:57 PM BIRD TRAPPER from Last 3 Months or Most Recently Relevant to Health Maintenance Results * (ABNORMAL) POCT glucose (08/27/2024 2:12 PM CDT) Glucose, POC 231(H) 70 - 199 mg/dL Comment: For Glucose values <35 mg/dl when Hematocrit is >60 mg/dl,the test may not accurately detect significant hypoglycemia,and testing in the Laboratory should be considered if clinically indicated. POC Performer [id number] [facility] Blood 08/27/2024 2:12 PM CDT 08/27/2024 2:12 PM CDT Brendan Sanon MD LAB POCT ORDERABLES - DEVICE Final Result [facility] [address] Department [place] [address] * Surgical pathology (08/27/2024 1:47 PM CDT) Tissue (Esophageal biopsy) 08/27/2024 1:47 PM CDT Tissue specimen (specimen) (Gastric/Stomach biopsy) 08/27/2024 1:49 PM CDT Tissue specimen (specimen) (Duodenum, Biopsy) 08/27/2024 1:50 PM CDT Narrative [facility] - 08/28/2024 10:27 AM CDT [address] [place], [place] [address] Tele: Adia Dixon MD - Terminal Operations Manager Note to Patients: This report may contain [...] PATHOLOGY REPORT Patient Name: GREYSON JOHNSON Address: [address] [place] [address] Gender: F : 2000 (Age: 23) Service: Gastro Location: [facility], Hospital #: [id number] Patient Type: [facility] SAME DAY SURGERY Taken: 08/27/2024 [...] filtered and submitted entirely in cassette C1. [facility]/08/27/2024 16:20 JOHN MORALES MICROSCOPIC DESCRIPTION: Microscopic evaluation of part A [...] Negative for dysplasia. Clerical Data Follows A; 19528 B; 23932 C; 96660 REPORT IMAGES AND/OR SCANNED DOCUMENTS ONLY VIEWABLE IN PDF FORMAT The immunohistochemical test(s) cited in this report, if any, was developed and its performance characteristics determined by [facility]. It has not been cleared or approved by the U.S. Food and Drug Administration. The FDA has determined that such clearance or approval is not necessary. This test is used for clinical purposes. It should not be regarded as investigational or for research. [facility] is certified under the Clinical Laboratory [...] part or completely in the following laboratories: [facility], [facility], [address], [address] [place] [address]. Brendan Sanon MD LAB PATHOLOGY ORDERABLES Gabi l Result Performing Organization Address City/[facility]/ZIP Co de Phone Number [facility] Laboratory Receiving [address] [place], [place] [id number] * (ABNORMAL) POCT glucose (08/27/2024 12:59 PM CDT) Glucose, POC 276(H) 70 - 199 mg/dL Comment: For Glucose values <35 mg/dl when Hematocrit is >60 mg/dl,the test may not accurately detect significant hypoglycemia,and testing in the Laboratory should be considered if clinically indicated. POC Performer [phone] [facility] Blood 08/27/2024 12:5 9 PM CDT 08/27/2024 12:59 PM CDT Brendan Sanon MD LAB POCT ORDERABLES - DEVICE Final Result [facility] [address] Department [place] [address] * Upper EUS (08/27/2024 12:02 PM CDT) Anatomical Region Laterality Modality Other Narrative Procedure Note Brendan Sanon MD - 08/27/2024 12:02 PM CDT ENDOSCOPY LAB Patient Name: Greyson Johnson Procedure Date: 08/27/2024 12:02 PM Admit Type: Outpatient Room: [facility] Date of : 2000 Instrument Name: [id number] Gender: Female Note Status: Finalized Procedure: Upper [...] (ABNORMAL) POCT glucose (08/27/2024 11:56 AM CDT) [facility] Glucose, POC 305(H) 70 - 199 mg/dL Comment: For Glucose values <35 mg/dl when Hematocrit is >60 mg/dl,the test may not accurately detect significant hypoglycemia,and testing in the Laboratory should be considered if clinically indicated. POC Performer [id number] [facility] Blood 08/27/2024 11:5 6 AM CDT 08/27/2024 11:56 AM CDT us Brendan Sanon MD LAB POCT ORDERABLES - DEVICE Final Result [facility] [address] Department [place] [address] * POCT hCG, urine (08/27/2024 11:45 AM CDT) [facility] HCG, ur, POC Negative Negative Lot Number [id number] QC Backgroud Clear Acceptable QC Control Line Acceptable Urine 08/27/2024 11:4 5 AM CDT us Brendan Sanon MD POINT OF CARE TEST ORDERABLES Final Result * eGFR (01/22/2024 3:03 PM CDT) [facility] eGFR >90 >=60 mL/min/1. 73 m2 [...] LAB BLOOD ORDERABLES Gabi l Result [facility] [address] [facility] Department [place] [address] * (ABNORMAL) Lipid panel (04/15/2020 2:57 PM BIRD TRAPPER) Cholesterol 189 <=199 mg/dL [facility] Comment: [...] revised on 2018. HDL 38(L) >=45 mg/dL [facility] Comment: Interpretive Data Ages < or = [...] on 2018. LDL, calculated See Comment <=129 [facility] Comment: Unable to calculate LDL due to [...] on 2018. Non-HDL Cholesterol 151(H) <=144 mg/dL [facility] Comment: Interpretive Data Ages < or = [...] revised on 2018. Chol/HDL ratio 5 [facility] Blood specimen (specimen) 04/15/2020 2:57 PM BIRD TRAPPER 04/15/2020 3:12 PM BIRD TRAPPER Carolyn Skaggs MD LAB BLOOD ORDERABLES Final Result [facility] Department [place] [address] from Last 3 Months or Most Recently Relevant to Health Maintenance Insurance [facility] Advance Directives For more information, please contact: [phone] * Full Code (Latest Code Status on File) Date Activated Date Inactivated Comments 08/27/2024 11:34 AM 08/27/2024 7:43 PM * Full Code Date Activated Date Inactivated Comments 04/16/2020 1:05 AM 04/19/2020 8:20 PM Care Teams Boiler Operator Relationship Specialty Start Date End Date Lake Ellis MD [address] [facility] [place] [address] PCP - General Internal Medicine 08/27/24
--- OUTSIDE RECORDS SUMMARY | 2024-09-13 15:03 | XMS_ITS | Clinical Summary ---
Author Organization [facility] Physician Office Building [address] [place] [phone] Care Team Providers Care Entomology Teacher Name Role Phone Lake Ellis MD Primary Care Provider [phone] Allergies Active Allergy Reactions Criticality Noted Date [...] 04/16/2020 Assessment & Plan (04/19/2020 3:23 PM ELECTRODYNAMICIST): 19 yo F w/ a reported hx of bipolar and ADHD who was admitted at the recommendation of her caser shoe parts for suicidal ideation with a plan to [...] with a therapist and psychiatric services through [facility], whom we have spoken with by phone and plan to coordinate DBT therapy on an outpatient basis. Additionally, grandma and patient provided further DBT resources outside of [facility]. She is IMPROVING as evidence by cheerful [...] to grandparents TODAY with outpt f/u at [place] Assessment & Plan (04/16/2020 4:11 PM ELECTRODYNAMICIST): 19 yo F w/ a reported hx of bipolar and ADHD who was admitted at the recommendation of her caser shoe parts for suicidal ideation with a plan to [...] with a therapist and psychiatric services through [facility]. -therapeutic milieu and participation in groups -outpatient therapy upon discharge -PRNs available for agitation and comfort -appreciate SW assistance with care planning -dispo: home to grandparents when stabilized with outpt f/u at [facility] Mood disorder 04/16/2020 Assessment & Plan (04/19/2020 3:18 PM ELECTRODYNAMICIST): Patient meets criteria for MDD except for [...] 5mg Assessment & Plan (04/16/2020 4:04 PM ELECTRODYNAMICIST): Patient meets criteria for MDD except for [...] 04/16/2020 Assessment & Plan (04/19/2020 3:19 PM ELECTRODYNAMICIST): Historical diagnosis d/t inattention. Was on Focalin for an extended amount of time in childhood. We planned to restart the patient's Focalin here, unfortunately it is not on formulary. Zane brought med from home. Patient could potentially benefit from a dose increase, but we will defer that to outpatient. -focalin XR 10mg (home supply) Assessment & Plan (04/16/2020 3:59 PM ELECTRODYNAMICIST): Historical diagnosis d/t inattention. Was on Focalin for an extended amount of time in childhood. We planned to restart the patient's Focalin here, unfortunately it is not on formulary. Zane plans to bring the med from home -focalin XR 10mg (home supply) Diabetes 04/16/2020 Assessment & Plan (04/19/2020 3:18 PM ELECTRODYNAMICIST): Diagnosed on a previous hospitalization this year. Lipids and blood glucoses elevated in ED. -increase Metformin to 1000mg BID Assessment & Plan (04/16/2020 4:00 PM ELECTRODYNAMICIST): Diagnosed on a previous hospitalization this year. Lipids and blood glucoses elevated in ED. -Metformin 500mg BID UTI (urinary tract infection) 04/16/2020 Assessment & Plan (04/19/2020 3:17 PM ELECTRODYNAMICIST): Previously diagnosed, asymptomatic, will continue previous treatment -completed Macrobid 100mg BID Assessment & Plan (04/16/2020 3:57 PM ELECTRODYNAMICIST): Previously diagnosed, asymptomatic, will continue previous treatment -Macrobid 100mg BID for 4 more days Suicidal ideation Encounters Date Type Department Care Team Description 08/27/2024 1:36 PM CDT Anesthesia Event [facility] [address] [place] [phone] Candido Lofton MD Jacobsen, Kyle G., MD 08/27/2024 12:00 PM CDT - 08/27/2024 12:30 PM CDT Surgery [facility] [address] [place] [phone] Brendan Sanon MD ESOPHAGOGASTRODUODENOSCOPY ULTRASOUND EXAM LIMITED 08/27/2024 10:56 AM CDT - 08/27/2024 3:43 PM CDT Hospital Encounter [facility] [address] [place] [phone] Brendan Sanon MD Nausea and vomiting, unspecified vomiting type; Diarrhea, unspecified type; Generalized abdominal pain; Gastroesophageal reflux disease without esophagitis Discharge Disposition: Discharge to home or self care 08/13/2024 Telephone [facility] Neurology [address] [place] [address] [place] [phone] Mansoor Albert MD Prior Auth (Qulipta 30 mg) 08/11/2024 Telephone [facility] Neurology [address] [place] [address] [place] [phone] Mansoor Albert MD 08/11/2024 Orders Only [facility] Neurology [address] [place] [address] [place] [phone] Mansoor Albert MD 08/08/2024 Telephone [facility] Neurology [address] [place] [address] [place] [phone] Mansoor Albert MD Med Management 07/31/2024 2:00 PM CDT Office Visit [facility] Neurology [address] [place] [address] [place] [phone] Mansoor Albert MD Migraine without aura and [...] often do you attend chur ch or scientology services? More than 4 times per year 04/16/2020 Do you belong to any clubs o r organizations such as adventism groups, unions, fraternal or athletic groups, or [...] on file Legal Sex Female 3:03 AM ELECTRODYNAMICIST Gender Identity Not on file Sexual Orientation [...] CDT LIPID PANEL STAT 04/15/2020 2:57 PM ELECTRODYNAMICIST from Last 3 Months or Most Recently Relevant to Health Maintenance Results * (ABNORMAL) POCT glucose (08/27/2024 2:12 PM CDT) Glucose, POC 231(H) 70 - 199 mg/dL Comment: For Glucose values <35 mg/dl when Hematocrit is >60 mg/dl,the test may not accurately detect significant hypoglycemia,and testing in the Laboratory should be considered if clinically indicated. POC Performer [id number] [facility] Blood 08/27/2024 2:12 PM CDT 08/27/2024 2:12 PM CDT us Brendan Sanon MD LAB POCT ORDERABLES - DEVICE Final Result [facility] [address] Department [place] [address] * Surgical pathology (08/27/2024 1:47 PM CDT) Tissue (Esophageal biopsy) 08/27/2024 1:47 PM CDT Tissue specimen (specimen) (Gastric/Stomach biopsy) 08/27/2024 1:49 PM CDT Tissue specimen (specimen) (Duodenum, Biopsy) 08/27/2024 1:50 PM CDT Narrative PATHOLOGY [facility] - 08/28/2024 10:27 AM CDT [address] [address] Tele: Adia Dixon MD - Senior Private Client Advisor Note to Patients: This report may contain [...] PATHOLOGY REPORT Patient Name: GREYSON JOHNSON Address: [address] [place] [address] Gender: F : 2000 (Age: 23) Service: Gastro Location: [facility], Hospital #: [id number] Patient Type: [facility] SAME DAY SURGERY Taken: 08/27/2024 Received 08/27/2024 [...] filtered and submitted entirely in cassette C1. [place]/08/27/2024 16:20 ANDREW,JOHN MICROSCOPIC DESCRIPTION: Microscopic evaluation of part A [...] Negative for dysplasia. Clerical Data Follows A; 43589 B; 10535 C; 30197 REPORT IMAGES AND/OR SCANNED DOCUMENTS ONLY VIEWABLE IN PDF FORMAT The immunohistochemical test(s) cited in this report, if any, was developed and its performance characteristics determined by [facility] Department. It has not been cleared or approved by the U.S. Food and Drug Administration. The FDA has determined that such clearance or approval is not necessary. This test is used for clinical purposes. It should not be regarded as investigational or for research. [facility] is certified under the Clinical [...] part or completely in the following laboratories: [facility], [address] [facility], [employer], [place] [address] [place] [address], [address] [place] [address]. Brendan Sanon MD LAB PATHOLOGY ORDERABLES Gabi l Result PATHOLOGY [facility] Laboratory Receiving [address] [place] [address] * (ABNORMAL) POCT glucose (08/27/2024 12:59 PM CDT) Glucose, POC 276(H) 70 - 199 mg/dL Comment: For Glucose values <35 mg/dl when Hematocrit is >60 mg/dl,the test may not accurately detect significant hypoglycemia,and testing in the Laboratory should be considered if clinically indicated. POC Performer [id number] [facility] Blood 08/27/2024 12:5 9 PM CDT 08/27/2024 12:59 PM CDT Brendan Sanon MD LAB POCT ORDERABLES - DEVICE Final Result Performing Organization Address City/[facility]/ZIP Co de Phone Number [facility] [address] Department of Laboratories [place], [place] [id number] * Upper EUS (08/27/2024 12:02 PM CDT) Anatomical Region Laterality Modality Other Narrative Procedure Note Brendan Sanon MD - 08/27/2024 12:02 PM CDT ENDOSCOPY LAB Patient Name: Greyson Johnson Procedure Date: 08/27/2024 12:02 PM Admit Type: Outpatient Room: [facility] 4 Date of : 2000 Instrument Name: [id number] Gender: Female Note Status: Finalized Procedure: Upper [...] Initiated On: 08/27/2024 12:02 PM us Brendan Maganty MD ENDOSCOPY PROCEDURES Final Re sult * (ABNORMAL) POCT glucose (08/27/2024 11:56 AM CDT) [facility] Glucose, POC 305(H) 70 - 199 mg/dL Comment: For Glucose values <35 mg/dl when Hematocrit is >60 mg/dl,the test may not accurately detect significant hypoglycemia,and testing in the Laboratory should be considered if clinically indicated. POC Performer [id number] [facility] Blood 08/27/2024 11:5 6 AM CDT 08/27/2024 11:56 AM CDT us Brendan Sanon MD LAB POCT ORDERABLES - DEVICE Final Result [facility] [address] Department [place] [address] * POCT hCG, urine (08/27/2024 11:45 AM CDT) [facility] HCG, ur, POC Negative Negative Lot Number [id number] QC Backgroud Clear Acceptable QC Control Line Acceptable Urine 08/27/2024 11:4 5 AM CDT us Brendan Sanon MD POINT OF CARE TEST ORDERABLES Final Result * eGFR (01/22/2024 3:03 PM CDT) [facility] eGFR >90 >=60 mL/min/1. 73 m2 Comment: [...] LAB BLOOD ORDERABLES Gabi l Result [facility] Department of Laboratories [place], [place] [phone] * (ABNORMAL) Lipid panel (04/15/2020 2:57 PM ELECTRODYNAMICIST) Cholesterol 189 <=199 mg/dL [facility] Comment: [...] revised on 2018. HDL 38(L) >=45 mg/dL [facility] Comment: Interpretive Data Ages < or = [...] on 2018. LDL, calculated See Comment <=129 [facility] Comment: Unable to calculate LDL due to [...] on 2018. Non-HDL Cholesterol 151(H) <=144 mg/dL [facility] Comment: Interpretive Data Ages < or = [...] last revised on 2018. Chol/HDL ratio 5 [facility] Blood specimen (specimen) 04/15/2020 2:57 PM ELECTRODYNAMICIST 04/15/2020 3:12 PM ELECTRODYNAMICIST Carolyn Skaggs MD LAB BLOOD ORDERABLES Final Result [facility] Department [place] [address] from Last 3 Months or Most Recently Relevant to Health Maintenance Insurance [facility] Advance Directives For more information, please contact: [phone] * Full Code (Latest Code Status on File) Date Activated Date Inactivated Comments 08/27/2024 11:34 AM 08/27/2024 7:43 PM * Full Code Date Activated Date Inactivated Comments 04/16/2020 1:05 AM 04/19/2020 8:20 PM Care Teams Entomology Teacher Relationship Specialty Start Date End Date Lake Ellis MD [address] [place] [address] [place] [address] PCP - General Internal Medicine 08/27/24
--- OUTSIDE RECORDS SUMMARY | 2024-09-13 15:03 | XMS_ITS | CONTINUITY OF CARE DOCUMENT ---
Author Name devika fortune Address Unknown Organization [facility] Address [address] [facility] [address] [place] [address] Phone [phone] Care Team Providers Care Client Server Developer Name Role Phone Caio WINKLER, Albert Unavailable Liss WINKLER, Flower Unavailable [phone] KAVITA MADISON, PAXTON Unavailable PROBLEMS Condition Status Date Provider Notes Sleep apnea active Albert Kearney MD IRON DEFICIENCY active Albert Kearney MD B12 deficiency active Albert Kearney MD Screening active Albert Kearney MD Asthma active Flower Herron NP Exposure to SARS-associated coronavirus;had vaccine and neg swab active Albert Kearney MD HYPERTENSION active Albert Kearney MD Erythrocytosis active Albert Kearney MD Fibromyalgia active Albert Kearney MD Hypertriglyceridemia active Albert ISABELCEPA DENIED Anxiety depression active Flower Herron NP Vitamin D deficiency active Flower pro NP Hyperlipidemia;NEG CRP adn lpa active Maynor Kearney MD Obesity active Flower Herron NP Diabetes mellitus active Albert Kearney MD n eg urcr adn degfr Sinus/atrial tachycardia;nml tsh active Albert Kearney MD ENCOUNTERS Date Type Provider Location Encounter Diag nosis - In-person encounter Office Visit Albert Kearney MD [facility] FibromyalgiaErythrocytosis - In-person encounter Office Visit Albert Kearney MD [facility] - In-person encounter Office Visit Albert Kearney MD [facility] Sinus/atrial tachycardia;nml tshHYPERTENSION - In-person encounter Office Visit Albert Kearney MD [facility] Diabetes mellitusHypertriglyceridemiaExposure to SARS-associated coronavirus;had vaccine and neg swab - In-person encounter Office Visit Albert Kearney MD [facility] Sinus/atrial tachycardia;nml tshDiabetes mellitusAsthmaObesityHyperlipidemia;NEG CRP adn lpaVitamin D deficiencyAnxiety depression VITAL SIGNS Date Observation Value Provider Body Mass Index (Ratio) 42.05 kg/m2 Ximena Kearney MD blood pressure, diastolic 90 mm[Hg] [facility] blood pressure, systolic 115 mm[Hg] [facility] [place] oxygen saturation, oximetry 97 % [facility] pulse rate 108 /min [facility] blood pressure, cuff size regular [facility] weight E&M 237.4 [lb_av] [facility] height E&M 63 [in_i] [facility] Body Mass Index (Ratio) 41.27 kg/m2 [...] Vel[facility] oxygen saturation, oximetry 98 % [facility] weight E&M 237 [lb_av] [facility] respiratory rate E&M 12 /min [facility] [...] device active Albert Kearney MD Dexcom G7 Radiosonde Operator active Albert Kearney MD quetiapine 100 mg [...] TABLET BY MOUTH EVERY DAY - [facility] Cardizem CD 120 mg capsule,extended release 24hr completed Take 1 capsule by mouth once a day - Albert Kearney MD Jardiance 10 mg tablet completed Take 1 tablet by mouth once a day TAKE 1 TABLET BY MOUTH EVERY DAY REDUCES CARDIOVASCULAR & HEART FAILURE HOSPITALIZATION - Raj [facility] verapamil 180 mg tablet extended release completed [...] Kearney MD drug use no Verah Bonareri DIGITAL PUBLISHING SPECIALIST personal history of marijuana use yes Verah Bonareri DIGITAL PUBLISHING SPECIALIST alcohol use no Verah Bonareri DIGITAL PUBLISHING SPECIALIST if the patient is us ing/has used a vaping item, Current, Former, Never Used, Not asked Current Verah Bonareri DIGITAL PUBLISHING SPECIALIST passive cigarette sm stu exposure no Verah Bonareri DIGITAL PUBLISHING SPECIALIST chewing tobacco use Never Vermonica [facility] nareri DIGITAL PUBLISHING SPECIALIST smoking status Never smoker Louann Iyershaunnar i DIGITAL PUBLISHING SPECIALIST passive cigarette sm stu exposure no Albert [...] green party ID [employer] MEDICAID (2) Medicaid [id number] ADVANCE DIRECTIVES Name Date DISCUSSED - NO DECISION MADE TREATMENT PLAN Date Name Performer [id number],C,12.5 Albert S hodan [id number],B, Albert Serot a [id number],B, Albert Serot a [id number],B, Albert Serot a [id number],S, Albert Serot a [id number],S, Albert Serot a [id number],S, n ml pro echho terrie stress Albert Serota [id number],S, m ild Albert Serota [id number],C,mild Albert S hodan WINKLER [id number],C,nml por echho terrie stress Albert Serota [id number],C,neg pro an de cho Albert Serota [id number],C,neg pro Harve y Serota [id number],C,follows with psych Flower Herron NP [id number],C,n oncomplaint with Vitamin D supplementation will check Vit D level Flower Herron NP [id number],C,w ill check lipid panel Her updated medication list for this problem includes: Atorvastatin 40 Mg Tablet (Atorvastatin) ..... Take 1 tablet by mouth every night Flower Herron NP [id number],C,e ncouraged lifestyle modifications and weight loss for improved health Flower Herron NP [id number],N,will check PF Ts Flower Herron NP [id number],C,l ast A1c 12.4. being followed by PCP [...] glargine) ..... 20 units Flower Herron NP [id number],N,w ill check labs, 2 week telesentry monitor, [...] night w ill repeat labs Louann Dickens DIGITAL PUBLISHING SPECIALIST Cardiology: T OTAL 108, TRI 218, HDL 42, LDL 22 (05/2022) H er updated medication list for this problem includes: Atorvastatin 40 Mg Tablet (Atorvastatin) ..... Take 1 tablet by mouth every night w ill repeat labs Louann Dickens DIGITAL PUBLISHING SPECIALIST Cardiology: B P today: 128/98 P rior [...] ..... 20 units Flower Herron NP Cardiology:will [facility] k labs, 2 week telesentry monitor, PFTs, ECHO, routine stress test Flower Herron NP Date Name Monitor - Telemetry (Mobile Cardiac) Complete Echo VITAMIN B12 Vitamin D, 25-Hydrox y CBC (INCLUDES DIFF/P LT) IRON AND TOTAL IRON BINDING CAPACITY FERRITIN Lipoprotein (a) LIPID PANEL DLCO - 98902 FRC - 78020 FVC - 81872 HEMOGLOBIN A1c LIPID PANEL Lipoprotein (a) Complete [...] night Holter Monitor 24 Hr DLCO - 24552 FRC - 41043 FVC - 61487 Holter Monitor 24 Hr DLCO - 73152 FRC - 02905 FVC - 71834 Sleep Study Titratio n DLCO - 41667 FRC - 09257 FVC - 66638 VITAMIN B12 Vitamin D, 25-Hydrox y Microalb/Creatinine [...] d FVC / MVV with bronchodilator - 83229 Albert Kearney MD completed SpO2 w/o 6min walk/titration Albert Kearney MD completed SVC - 61770 Albert Kearney MD complet ed DLCO - 54882 Albert Kearney MD comple stacey EKG Albert Kearney MD complete d Complex e/m visit add on Albert Kearney MD completed Spirometry Albert Kearney MD complete d FVC / MVV with bronchodilator - 35845 Albert Kearney MD completed FRC - 61112 Albert Kearney MD complet ed SpO2 w/o 6min walk/titration Albert Kearney MD completed SVC - 75495 Albert Kearney MD complet ed DLCO - 82891 Albert Kearney MD comple stacey EKG Albert Kearney MD complete d
--- OUTSIDE RECORDS SUMMARY | 2024-09-13 15:03 | XMS_ITS | Clinical Summary ---
Author Organization [facility] Address [address] [place] [address] Phone Care Team Providers Care Hydro Station Supervisor Name Role Phone Liss, Flower Tolentino APRN, [...] Insurance MEDICAID [employer] Care Teams Hydro Station Supervisor Relationship Specialty Start Date End Date Flower Leija APRN, WHEY DEPARTMENT OPERATOR [address] [place] [address] PCP - General Advanced Practice Nurse 02/06/24
--- OUTSIDE RECORDS SUMMARY | 2024-09-13 15:03 | XMS_ITS | Clinical Summary ---
Author Organization [facility] Address [facility] [place] [address] Care Team Providers Care Counter Clerk [employer]ractor [employer] Name Role Phone None, Provider MD Primary [...] Comments Blood Pressure 158/87 04/19/2024 4:00 PM ACID DUMPER Pulse 108 04/19/2024 4:00 PM ACID DUMPER Temperature 36.7 C (98.1 F) 04/19/2024 4:00 PM ACID DUMPER Respiratory Rate 20 04/19/2024 4:00 PM ACID DUMPER Oxygen Saturation 96% 04/19/2024 4:00 PM ACID DUMPER Inhaled Oxygen Concentration - - Weight 108.9 kg (240 lb) 04/19/2024 4:00 PM ACID DUMPER Height 160 cm (5' 3 ) 04/19/2024 4:00 PM ACID DUMPER Body Mass Index 42.51 04/19/2024 4:00 PM ACID DUMPER Plan of Treatment Health Maintenance Due Date [...] patient's age to complete this topic [place] [address] [place] [address] Care Teams Counter Clerk [employer] Relationship Specialty Start Date End Date None, Provider, PCP - General UNKNOWN PHYSICIAN SPECIALTY 04/19/24
--- OUTSIDE RECORDS SUMMARY | 2024-09-13 15:20 | XMS_ITS | CONTINUITY OF CARE DOCUMENT ---
Author Name devika fortune Address Unknown Organization [facility] Address [address] [place] [address] Phone [phone] Care Team Providers Care Diesel Powerplant Supervisor Name Role Phone Caio WINKLER, Albert Unavailable [...] In-person encounter Office Visit Albert Kearney MD [facility] FibromyalgiaErythrocytosis - In-person encounter Office Visit Albert Kearney MD [facility] - In-person encounter Office Visit Albert Kearney MD [facility] Sinus/atrial tachycardia;nml tshHYPERTENSION - In-person encounter Office Visit Albert Kearney MD [facility] Diabetes mellitusHypertriglyceridemiaExposure to SARS-associated coronavirus;had vaccine and neg swab - In-person encounter Office Visit Albert Kearney MD [facility] Sinus/atrial tachycardia;nml tshDiabetes mellitusAsthmaObesityHyperlipidemia;NEG CRP adn lpaVitamin D deficiencyAnxiety depression VITAL SIGNS Date Observation Value Provider Body Mass Index (Ratio) 42.05 kg/m2 Ximena Kearney MD blood pressure, diastolic 90 mm[Hg] [facility] blood pressure, systolic 115 mm[Hg] [place] [place] oxygen saturation, oximetry 97 % [facility] pulse rate 108 /min [facility] blood pressure, cuff size regular [facility] weight E&M 237.4 [lb_av] [facility] height E&M 63 [in_i] [facility] Body Mass Index (Ratio) 41.27 kg/m2 Ximena [...] [place] oxygen saturation, oximetry 98 % [place] [place] weight E&M 237 [lb_av] [facility] [place] respiratory rate E&M 12 /min [facility] [place] [...] device active Albert Kearney MD Dexcom G7 Staff Pharmacist active Albert Kearney MD quetiapine 100 mg [...] Dexcom G6 Transmitter device completed - Albert eKarney MD Dexcom G6 Sensor device completed - [...] Kearney MD drug use no Verah Bonareri NEAR EAST ARCHEOLOGY PROFESSOR personal history of marijuana use yes Verah Bonareri NEAR EAST ARCHEOLOGY PROFESSOR alcohol use no Verah Bonareri NEAR EAST ARCHEOLOGY PROFESSOR if the patient is us ing/has used a vaping item, Current, Former, Never Used, Not asked Current Verah Bonareri NEAR EAST ARCHEOLOGY PROFESSOR passive cigarette sm stu exposure no Verah Bonareri NEAR EAST ARCHEOLOGY PROFESSOR chewing tobacco use Never Vermonica Temple nareri NEAR EAST ARCHEOLOGY PROFESSOR smoking status Never smoker Louann Iyershaunnar i NEAR EAST ARCHEOLOGY PROFESSOR passive cigarette sm stu exposure no Albert [...] Policy type / Coverage type Tonie red libertarian ID [employer] MEDICAID (2) Medicaid [id number] ADVANCE DIRECTIVES Name Date DISCUSSED - NO DECISION MADE TREATMENT PLAN Date Name Performer [id number],C,12.5 Albert S hodan [id number],B, Albert Serot a [id number],B, Albert Serot a [id number],B, Albert Serot a [id number],S, Albert Serot a [id number],S, Albert Serot a [id number],S, n ml pro echho terrie stress Albert Serota [id number],S, m ild Albert Serota [id number],C,mild Albert S hodan WINKLER [id number],C,nml por echho terrie stress Albert Serota [id number],C,neg pro an de cho Albert Serota [id number],C,neg pro Harve y Serota [id number],C,follows with psych Flower Herron NP [id number],C,n oncomplaint with Vitamin D supplementation will check Vit D level Flower Herron NP [id number],C,w ill check lipid panel Her updated medication list for this problem includes: Atorvastatin 40 Mg Tablet (Atorvastatin) ..... Take 1 tablet by mouth every night Flower Herron NP [id number],C,e ncouraged lifestyle modifications and weight loss for improved health Flower Herron NP [id number],N,will check PF Ts Flower Herron NP [id number],C,l ast A1c 12.4. being followed by PCP [...] glargine) ..... 20 units Flower Herron NP [id number],N,w ill check labs, 2 week telesentry monitor, [...] night w ill repeat labs Louann Dickens NEAR EAST ARCHEOLOGY PROFESSOR Cardiology: T OTAL 108, TRI 218, HDL 42, LDL 22 (05/2022) H er updated medication list for this problem includes: Atorvastatin 40 Mg Tablet (Atorvastatin) ..... Take 1 tablet by mouth every night w ill repeat labs Louann Dickens NEAR EAST ARCHEOLOGY PROFESSOR Cardiology: B P today: 128/98 P rior [...] ..... 20 units Flower Herron NP Cardiology:[facility], 2 week telesentry monitor, PFTs, ECHO, routine stress test Flower Herron NP Date Name Monitor - Telemetry (Mobile Cardiac) Complete Echo VITAMIN B12 Vitamin D, 25-Hydrox y CBC (INCLUDES DIFF/P LT) IRON AND TOTAL IRON BINDING CAPACITY FERRITIN Lipoprotein (a) LIPID PANEL DLCO - 65146 FRC - 10281 FVC - 52262 HEMOGLOBIN A1c LIPID PANEL Lipoprotein (a) Complete [...] night Holter Monitor 24 Hr DLCO - 86088 FRC - 13097 FVC - 25637 Holter Monitor 24 Hr DLCO - 63440 FRC - 22153 FVC - 19950 Sleep Study Titratio n DLCO - 54500 FRC - 72612 FVC - 11705 VITAMIN B12 Vitamin D, 25-Hydrox y Microalb/Creatinine [...] d FVC / MVV with bronchodilator - 01910 Albert Kearney MD completed SpO2 w/o 6min walk/titration Albert Kearney MD completed SVC - 93333 Albert Kearney MD complet ed DLCO - 35199 Albert Kearney MD comple stacey EKG Albert Kearney MD complete d Complex e/m visit add on Albert Kearney MD completed Spirometry Albert Kearney MD complete d FVC / MVV with bronchodilator - 03797 Albert Kearney MD completed FRC - 17252 Albert Kearney MD complet ed SpO2 w/o 6min walk/titration Albert Kearney MD completed SVC - 68181 Albert Kearney MD complet ed DLCO - 67763 Albert Kearney MD comple stacey EKG Albert Kearney MD complete d
--- OUTSIDE RECORDS SUMMARY | 2024-09-13 15:20 | XMS_ITS | Clinical Summary ---
Author Organization [facility] Address [address] [place] [address] Care Team Providers Care Director Of Database Marketing Name Role Phone Deisy Robbins MD Primary Care Provider Source Comments [facility],non-owned Affiliates and Associated Physician Practices is amultiple site organization consisting of ambulatory clinics and hospital sitesin [place], [place], [place] and [place]. This disclosure is being madepursuant to the Care Everywhere program and may not contain all information available regarding this patient. Last updated 18.[facility] Allergies No known active allergies Medications * Be aware that medications may not be up to date on this document. Alwaysverify current medications with the patient. No known medications Active Problems Problem Noted Date Diagnosed Date Laceration of wrist, left, complicated 5 Social History Tobacco Use Types Packs/Day Years Used Date Smoking Tobacco: Passive Smo ke Exposure - Never Smoker Comments No Sex and Gender Information Value Date Recorded Sex Assigned at Not on file Legal Sex Female 5:42 AM HISTORICAL GUIDE Gender Identity Not on file Sexual Orientation Not on file Last Filed Vital Signs Vital Sign Reading Time Taken Comments Blood Pressure 124/67 02/23/2014 3:30 PM CDT Pulse 101 02/23/2014 3:30 PM CDT Temperature 37 C (98.6 F) 02/23/2014 2:27 PM CDT Respiratory Rate 18 02/23/2014 3:30 PM CDT Oxygen Saturation 97% 02/23/2014 3:30 PM CDT Inhaled Oxygen Concentration - - Weight 61.1 kg (134 lb 11.2 oz) 02/23/2014 9:38 AM CDT Height 159.4 cm (5' 2.76 ) 02/23/2014 9:38 AM CD T Body Mass Index 24.05 02/23/2014 9:38 AM CDT Plan of Treatment Health Maintenance Due Date Last Done Comments HIV SCREENING 2016 HPV VACCINE (1 - 3-dose series) 2016 CHLAMYDIA/GONORRHEA SCREENING 2017 MENINGOCOCCAL (Group B) VACC INE SHARED DECISION-MAKING (1 of 2 - Standard) 2017 HEPATITIS C SCREENING 09/25/2019 DTAP/TDAP/TD VACCINES (1 - Tdap) 2020 HEPATITIS B VACCINE (1 of 3 - 19+ 3-dose series) 2020 COVID-19 VACCINE (1 - 2023-2 5 season) 2024 DEPRESSION SCREENING 05/14/2024 INFLUENZA VACCINE (Season Ended) 2025 ZOSTER VACCINE (1 of 2) 09/30/2051 HIB VACCINE Aged Out No longer eligi ble based on patient's age to complete this topic MENINGOCOCCAL GROUPS A/C/Y/W VACCINE Aged Out No longer eligible b ased on patient's age to complete this topic PNEUMOCOCCAL VACCINE Aged Out No long er eligible based on patient's age to complete this topic Insurance [employer] Care Teams Director Of Database Marketing Relationship Specialty Start Date End Date Deisy Robbins MD [address] [place] [address] PCP - General Pediatrics 02/21/14
== END 2024-09-12 21:40 | disposition home or self-care (01) ==
PROVIDERS: Registered Nurse; Emergency Provider Emergency Medicine
DX: F32.A Depression, unspecified (principal); Z11.52 Encounter for screening for COVID-19; E11.9 Type 2 diabetes mellitus without complications; F41.9 Anxiety disorder, unspecified; F60.3 Borderline personality disorder; F17.290 Nicotine dependence, other tobacco product, uncomplicated; Z79.4 Long term (current) use of insulin; Z79.899 Other long term (current) drug therapy
CPT/HCPCS: 36415; 80053; 80143; 80179; 80307; 81001; 81025; 82077; 84443; 85025; 87086; 87637; 99284

== ENCOUNTER 2024-10-10 11:42 | Emergency (ER) | payer OTHER, SELFPAY ==
--- OUTSIDE RECORDS SUMMARY | 2024-10-10 11:44 | XMS_ITS ---
Author Organization [facility] Address [address] [place] [address] Care Team Providers Care Collision Estimator Name Role Phone [place] Primary Care Provider Samantha Olsen [phone] Allergies Allergen (clinical drug ingredient) Drug/Non Drug Allergy documented on EMR Reaction Allergy Type Onset Date Status Cat dander cat dander (uncoded) Unknown Allergy Active Pollen pollen (uncoded) Unknown Allergy Act beth acetaminophen Tylenol rash Drug Allergy Act beth caffeine Caffeine Unknown Drug Allergy Active ibuprofen Ibuprofen hives Drug Allergy Active REASON FOR VISIT 4 week F/U Medications Medication SIG (Take, Route, Frequency, Duration) Notes Start Date End Date Status QUEtiapine Fumarate 400 MG 1 tablet at bedtime Orally Once a day for 22 days As needed Active Invega 3 MG 1 tablet in the morning (total of 12 mg) Orally Once a day for 30 days Active hydrOXYzine HCl 50 MG 1 tablet Orally twice a day for 30 days As needed Active Escitalopram Oxalate 20 MG 1 tablet Orally Once a day for 30 days Active QUEtiapine Fumarate 25 MG 1 tablet every morning Orally Once a day for 30 days 08/11/2024 Active Atorvastatin Calcium 40 mg TAKE 1 TABLET BY MOUTH DAILY for 28 Active Pregabalin 150 MG 1 capsule Orally twice a day for 30 days 07/24/2024 Active LaMICtal 150 MG 1 tablet Orally two times daily for 30 days Active busPIRone HCl 15 [...] hrs for 30 days Active Rizatriptan Benzoate 10 MG 1 tablet Orally as needed for 9 days Active HumaLOG 100 UNIT/ML 150 UNITS VIA PUMP Subcutaneous DAILY INSULIN PUMP RX BY TITLE VEHICLE SERVICE ATTENDANT Active tiZANidine HCl 4 MG 1 tablet as needed Orally twice a day for 30 days 02/14/2024 Active Famotidine 20 MG 1 tablet at bedtime as needed Orally Once a day for 30 days As needed for acid reflux 03/12/2024 Active Topiramate 100 MG 1 tablet Orally Once a day Active Ferrous Sulfate 325 (65 Fe) MG 1 tablet Orally Three times a Week Active Ondansetron HCl 4 MG 1 tablet Orally Once a day for 5 days 01/10/2024 Active Social History Sex Assigned At : Social History Observation Description Sex Assigned At Female Encounters Encounter Location Date Provider [facility] [address] [address] 09/30/2024 Samantha Olsen Plan Of Treatment Next Appt Details Provider Name:Samantha Olsen , 10/21/2024 03:30:00 PM, [address] [place] [address], [phone], Progress Notes * Carlos A JOHNSONPollyOB:2000 (24 yo F)Acc No.[id number]:09/30/2024 UNLOCKED PROGRESS NOTE Patient: Greyson BAEZ Provider: J Carlos Olsen, DNP, DISPLAY CARVER, MECHANIC AND WELDER-C :2000 A ge:24 Y S ex:Female Date:09/30/2024 Address:[address] [place], [place] [id number] Pcp:[place] Subjective: * Chief Complaints: * 1 . 4 week F/U. * HPI: M edication F/u LS: Denies [...] to increased stress, M edication adherence? C jodient reports taking some medications as prescribed., M [...] engaged in therapy? Y es, individual therapy. Sary. appt performed telephonically with client consent. Reports feeling more stressful and it's affecting her mood. Has been having more mood swings and feeling snippy. Asking if meds can be adjusted due to increased mood swings and snippiness. Had tooth pulled yesterday and c/o fibromyalgia pain, hasn't been taking Pregabalin, I don't even know where it is. S creening: Lamar Suicide Severity Rating Scale (LF) D o you want to initiate with S creener form, 1 . Wish to be : Have you wished you were or wished you could go to sleep and not wake up? N o, 2 . Suicidal Thoughts: Have you actually had any thoughts of killing yourself? N o, 6 . Suicide Behavior Question: Have you ever done anything,started to do anything, or prepared to end your life? N o, I nterpretation: L ow Risk. * ROS: [...] enies S uicidal thoughts. * Medical History: B ipolar affective disorder, depressed, severe, with psychotic behavior, Borderline personality disorder, Adult ADHD (attention deficit hyperactivity disorder), Type 2 diabetes mellitus with hyperglycemia, without long-term current use of insulin, Mild persistent asthma without complication, Hypertension, Hyperlipidemia. * Surgical History: l eft arm tendon/nerve repair . * Hospitalization/Major Diagno stic Procedure: m [facility] 02/01/21, [facility] 02/16/21, Mental health from september 28-09/2022, /SA at [facility] 01/2024. * Family History: F ather: alive. M other: , overdose. 1 brother(s) , 2 sister(s) - healthy. .? * Social History: P rimary Social History: L iving Arrangement L iving Arrangement: I ndependent Living, I s this a supportive environment? Y es. A lcohol Use A lcohol Use Frequency: N ever. I llicit Substance Usage I llicit Substance Usage: N o. 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 S jason Question Alcohol Screening H ow september times in the past year have you had (4 for women, or 5 for men) or more drinks in a day? 0 . * Medications: T aking Topiramate 100 MG Tablet 1 tablet Orally Once a day , Taking Ferrous Sulfate 325 (65 Fe) MG Tablet 1 tablet Orally Three times a Week , Taking Ondansetron HCl 4 MG Tablet 1 tablet Orally Once a day , Taking HumaLOG 100 UNIT/ML Solution 150 UNITS VIA PUMP Subcutaneous DAILY , Notes to Pharmacist: INSULIN PUMP RX BY TITLE VEHICLE SERVICE ATTENDANT, Taking tiZANidine HCl 4 MG Tablet 1 tablet as needed Orally twice a day , Taking Famotidine 20 MG Tablet 1 tablet at bedtime as needed Orally Once a day As needed for acid reflux, Taking Albuterol Sulfate HFA 108 (90 Base) MCG/ACT Aerosol Solution 1 puff as needed Inhalation every 4 hrs , Taking Rizatriptan Benzoate 10 MG Tablet 1 tablet Orally as needed , Taking Atorvastatin Calcium 40 mg Tablet TAKE 1 TABLET BY MOUTH DAILY , Taking Pregabalin 150 MG Capsule 1 capsule Orally twice a day , Taking LaMICtal 150 MG Tablet 1 tablet Orally two times daily , Taking busPIRone HCl 15 MG Tablet 1 tablet every morning, 2 tablets every evening Orally two times daily , Taking Invega 9 MG Tablet Extended Release 24 Hour 1 tablet in the morning (total of 12 mg) Orally Once a day , Taking Invega 3 MG Tablet Extended Release 24 Hour 1 tablet in the morning (total of 12 mg) Orally Once a day , Taking hydrOXYzine HCl 50 MG Tablet 1 tablet Orally twice a day As needed, Taking Escitalopram Oxalate 20 MG Tablet 1 tablet Orally Once a day , Taking QUEtiapine Fumarate 25 MG Tablet 1 tablet every morning Orally Once a day , Taking QUEtiapine Fumarate 400 MG Tablet 1 tablet at bedtime Orally Once a day As needed * Allergies: p ollen, cat dander, Tylenol: rash, Ibuprofen: hives, Caffeine. Objective: * Vitals: * Examination: P sychiatry: APPEARANCE: u salvador to assess - telephone appointment. ATTENTION: f air. ORIENTATION: y es , person, place and time. ATTITUDE: c ooperative , , irritable. AFFECT: u salvador to assess - telephone appointment, verbally full. MOOD: e uthymic, , dysthymic, stressed. SPEECH: c lear , normal/R/V/R, spontaneous, talkative. PSYCHOMOTOR ACTIVITY: u nab to assess - telephone appointment. ABNORMAL BODY MOVEMENTS: u [facility] to [facility] - telephone appointment. CURRENT HOMICIDALITY: [...] CONTROL: m oderate. AGGRESSION: l ow. Assessment: Plan: * Treatment: * * Electronic signature of Elroy Olsen , [id number] on 10/10/2024 at 11:44 AM CDT Sign off status: Pending * Provider: J Carlos Olsen, [place], DISPLAY CARVER, MECHANIC AND WELDER-C Date: 09/30/2024 Generated for Printing/Faxing/eTransmitting on: 10/10/2024 11:44 AM CDT History and Physical Notes * HPI (History of Present Illness) Category Sub-Category Detail Notes Category Not es Screening Lamar Suicide Sev erity Rating Scale (LF) Do you want to initiate with: Screener form 1. Wish to be : Have you wished you were or wished you could go to sleep and not wake up?: No 2. Suicidal Thoughts: Have you actually had any thoughts of killing yourself?: No 6. Suicide Behavior Question: Have you ever done anything,started to do anything, or prepared to end your life?: No Interpretation:: Low Risk Medication F/u LS Goals: [...] Pregabalin, I don't even know where it is. Coping Skills: Coping Skills: Spend ing time [...] engaged in therapy?: Yes, individual therapy. Sary Examination Category Sub-Category Detail Notes Category Not [...]
--- OUTSIDE RECORDS SUMMARY | 2024-10-10 11:44 | XMS_ITS ---
Author Organization [facility] Address [address] [place] [address] Phone Care Team Providers Care Safety And Health Consultant Name Role Phone Flower Leija APRN, CNP Primary Care [facility] Status:Enrolled (Active) Start date:06/11/2024 Enrollment date:06/11/2024 Related social drivers of health:Intimate Partner Violence, Social Connections, Alcohol Use, Tobacco Use, Financial Resource Strain,Depression, Stress, Physical Activity, Food Insecurity, Transportation Needs, Housing Stability, Utilities Continued Care and Services Coordination
--- OUTSIDE RECORDS SUMMARY | 2024-10-10 11:44 | XMS_ITS | Clinical Summary ---
Author Organization [facility] Address [address] [place] [address] Phone Care Team Providers Care Rope Laying Machine Operator Name Role Phone Liss, Flower Tolentino APRN, [...] Insurance MEDICAID [employer] Care Teams Rope Laying Machine Operator Relationship Specialty Start Date End Date Flower Leija APRN, MOTORCYCLE MECHANIC [address] [place] [address] PCP - General Advanced Practice Nurse 02/06/24
[2024-10-10 11:45] VITALS: BP 143/98; PULSE 106; RESP 18; TEMP 36.6; O2SAT 99
--- OUTSIDE RECORDS SUMMARY | 2024-10-10 11:45 | XMS_ITS | CONTINUITY OF CARE DOCUMENT ---
Author Name devika fortune Address Unknown Organization [facility] Address [address] [place] [address] Phone [phone] Care Team Providers Care Chemical Process Engineer Name Role Phone Caio WINKLER, Albert Unavailable Liss WINKLER, Flower Unavailable [phone] KAVITA MADISON, PAXTON Unavailable [phone] PROBLEMS Condition Status Date Provider Notes Sleep apnea active Albert Kearney MD IRON DEFICIENCY active Albert Kearney MD B12 deficiency active Albert Kearney MD Screening active Albert Kearney MD Sinus/atrial tachycardia;nml tsh active Albert Kearney MD Diabetes mellitus active Albert Kearney MD n eg urcr adn degfr Asthma active Flower Herron LIFE TRAINER Obesity active Flower Herron LIFE TRAINER Hyperlipidemia;NEG CRP adn lpa active Maynor Kearney MD Vitamin D deficiency active Flower pro LIFE TRAINER Anxiety depression active Flower Herron LIFE TRAINER Hypertriglyceridemia active Albert JOY DENIED Exposure to SARS-associated coronavirus;had vaccine and neg swab active Albert Kearney MD HYPERTENSION active Albert Kearney MD Fibromyalgia active Albert Kearney MD Erythrocytosis active Albert Kearney MD ENCOUNTERS Date Type Provider Location Encounter Diag nosis - In-person encounter Office Visit Albert Kearney MD [facility] FibromyalgiaErythrocytosis - In-person encounter Office Visit Albert Kearney MD [facility] - In-person encounter Office Visit Albert Kearney MD [facility] Sinus/atrial tachycardia;nml tshHYPERTENSION - In-person encounter Office Visit Albert Kearney MD [facility] Diabetes mellitusHypertriglyceridemiaExposure to SARS-associated coronavirus;had vaccine and neg swab - In-person encounter Office Visit Albert Kearney MD [facility] Sinus/atrial tachycardia;nml tshDiabetes mellitusAsthmaObesityHyperlipidemia;NEG CRP adn lpaVitamin D deficiencyAnxiety depression VITAL SIGNS Date Observation Value Provider Body Mass Index (Ratio) 42.05 kg/m2 Ximena Kearney MD blood pressure, diastolic 90 mm[Hg] [facility] blood pressure, systolic 115 mm[Hg] [facility]uci [facility] [place] oxygen saturation, oximetry 97 % [facility] pulse rate 108 /min [facility] blood pressure, cuff size regular [facility] weight E&M 237.4 [lb_av] [facility] height E&M 63 [in_i] [facility] Body Mass Index (Ratio) [...] [place] oxygen saturation, oximetry 98 % [facility] weight E&M 237 [lb_av] [facility] [place] respiratory rate E&M 12 /min [facility] [...] device active Albert Kearney MD Dexcom G7 Building Cleaner active Albert Kearney MD quetiapine 100 mg [...] TABLET BY MOUTH EVERY DAY - [facility] 120 mg capsule,extended release 24hr completed Take 1 capsule by mouth once a day - Albert Kearney MD Jardiance 10 mg tablet completed Take 1 tablet by mouth once a day TAKE 1 TABLET BY MOUTH EVERY DAY REDUCES CARDIOVASCULAR & HEART FAILURE HOSPITALIZATION - [facility] verapamil 180 mg tablet extended [...] Kearney MD drug use no Verah Bonareri LIFE TRAINER personal history of marijuana use yes Verah Bonareri LIFE TRAINER alcohol use no Verah Bonareri LIFE TRAINER if the patient is us ing/has used a vaping item, Current, Former, Never Used, Not asked Current Verah Bonareri LIFE TRAINER passive cigarette sm stu exposure no Verah Bonareri LIFE TRAINER chewing tobacco use Never Vermonica Temple nareri LIFE TRAINER smoking status Never smoker Louann Iyershaunnar i LIFE TRAINER passive cigarette sm stu exposure no Albert [...] Policy type / Coverage type Tonie red constitution party ID [employer] MEDICAID (2) Medicaid [id number] ADVANCE DIRECTIVES Name Date DISCUSSED - NO DECISION MADE TREATMENT PLAN Date Name Performer [id number],C,12.5 Albert S hodan [id number],B, Albert Serot a [id number],B, Albert Serot a [id number],B, Albert Serot a [id number],S, Albert Serot a [id number],S, Albert Serot a [id number],S, n ml pro echho terrie stress Albert Serota [id number],S, m ild Albert Serota [id number],C,mild Albert S hodan WINKLER [id number],C,nml por echho terrie stress Albert Serota [id number],C,neg pro an de cho Albert Serota [id number],C,neg pro Harve y Serota [id number],C,follows with psych Flower Herron NP [id number],C,n oncomplaint with Vitamin D supplementation will check Vit D level Flower Herron NP [id number],C,w ill check lipid panel Her updated medication list for this problem includes: Atorvastatin 40 Mg Tablet (Atorvastatin) ..... Take 1 tablet by mouth every night Flower Herron NP [id number],C,e ncouraged lifestyle modifications and weight loss for improved health Flower Herron NP [id number],N,will check PF Ts Flower Herron NP [id number],C,l ast A1c 12.4. being followed by PCP [...] glargine) ..... 20 units Flower Herron NP [id number],N,w ill check labs, 2 week telesentry monitor, [...] night w ill repeat labs Louann Dickens LIFE TRAINER Cardiology: T OTAL 108, TRI 218, HDL 42, LDL 22 (05/2022) H er updated medication list for this problem includes: Atorvastatin 40 Mg Tablet (Atorvastatin) ..... Take 1 tablet by mouth every night w ill repeat labs Louann Dickens LIFE TRAINER Cardiology: B P today: 128/98 P rior [...] ..... 20 units Flower Herron NP Cardiology:[facility] k labs, 2 week telesentry monitor, PFTs, ECHO, routine stress test Flower Herron NP Date Name Monitor - Telemetry (Mobile Cardiac) Complete Echo VITAMIN B12 Vitamin D, 25-Hydrox y CBC (INCLUDES DIFF/P LT) IRON AND TOTAL IRON BINDING CAPACITY FERRITIN Lipoprotein (a) LIPID PANEL DLCO - 16648 FRC - 39712 FVC - 35113 HEMOGLOBIN A1c LIPID PANEL Lipoprotein (a) Complete [...] night Holter Monitor 24 Hr DLCO - 10143 FRC - 66762 FVC - 40331 Holter Monitor 24 Hr DLCO - 52126 FRC - 57577 FVC - 07805 Sleep Study Titratio n DLCO - 49326 FRC - 56092 FVC - 90534 VITAMIN B12 Vitamin D, 25-Hydrox y Microalb/Creatinine [...] d FVC / MVV with bronchodilator - 75656 Albert Kearney MD completed SpO2 w/o 6min walk/titration Albert Kearney MD completed SVC - 12805 Albert Kearney MD complet ed DLCO - 42230 Albert Kearney MD comple stacey EKG Albert Kearney MD complete d Complex e/m visit add on Albert Kearney MD completed Spirometry Albert Kearney MD complete d FVC / MVV with bronchodilator - 17067 Albert Kearney MD completed FRC - 57901 Albert Kearney MD complet ed SpO2 w/o 6min walk/titration Albert Kearney MD completed SVC - 19140 Albert Kearney MD complet ed DLCO - 42128 Albert Kearney MD comple stacey EKG Albert Kearney MD complete d
--- OUTSIDE RECORDS SUMMARY | 2024-10-10 11:45 | XMS_ITS | Clinical Summary ---
Author Organization [facility] [employer] Address [address] [place] [address] Care Team Providers Care Sheet Rock Installation Helper Name Role Phone Deisy Robbins MD Primary Care Provider Source Comments [facility],non-owned Affiliates and Associated Physician Practices is amultiple site organization consisting of ambulatory clinics and hospital sitesin [place], [place], [place] and [place]. This disclosure is being madepursuant to the Care Everywhere program and may not contain all information available regarding this patient. Last updated 18.[facility] [employer] Allergies No known active allergies Medications * [...] on file Legal Sex Female 5:42 AM IDENTIFICATION AND RECORDS COMMANDER Gender Identity Not on file Sexual Orientation [...] 9:38 AM CDT Height 159.4 cm (5' 2.76) 02/23/2014 9:38 AM CD T Body Mass [...] patient's age to complete this topic Insurance [employer] Care Teams Sheet Rock Installation Helper Relationship Specialty Start Date End Date Deisy Robbins MD [address] [place] [address] PCP - General Pediatrics 02/21/14
--- OUTSIDE RECORDS SUMMARY | 2024-10-10 11:45 | XMS_ITS | Patient Health Record ---
Author Organization [facility] Address [address] [place] [address] Care Team Providers Care Registered Nurse Cardiac Name Role Phone [place] Primary Care Provider Samantha Olsen Unavailable [phone] Liam Finnegan Unavailable [phone] Brenda Richards Unavailable [phone] Ofelia Engle Unavailable [phone] Sarita Lawson Unavailable Jessie Hawkins Unavailable [phone] Flower Leija Unavailable [phone] Daren Dash Unavailable Allergies Allergen (clinical drug ingredient) Drug/Non Drug Allergy documented on EMR Reaction Allergy Type Onset Date Status Cat dander cat dander (uncoded) Unknown Allergy Active Pollen pollen (uncoded) Unknown Allergy Act beth acetaminophen Tylenol rash Drug Allergy Act beth caffeine Caffeine Unknown Drug Allergy Active ibuprofen Ibuprofen hives Drug Allergy Active Results Component Value Reference Range Notes NuSwab Vaginitis Plus (VG+) (119889) Reviewed date:01/31/2024 09:48:59 AM Interpretation: Performing Lab:[facility] [place], Phone - [phone], Director - Juni Notes/Report: Test(s) 979039- Atopobium vaginae; 260057- BVAB 2; 375872- Megasphaera 1 was developed and its performance characteristics determined by [employer]. It has not been cleared or approved by the Food and Drug Administration. Test(s) 884123-Tkynmuy albicans, SOPHY; 061497-Lnwvlcz glabrata, SOPHY was developed and its performance [...] Reviewed date:01/31/2024 09:48:59 AM Interpretation: Performing Lab:[facility], [address] [place] [address], Phone - [phone], Director - Juni Notes/Report: Test(s) 023680- Atopobium vaginae; 777477- BVAB 2; 653605- Megasphaera 1 was developed and its performance characteristics determined by [facility]. It has not been cleared or approved by the Food and Drug Administration. Test(s) 958056-Zunbrbu albicans, SOPHY; 796570-Hvzimrh glabrata, SOPHY was developed and its performance characteristics determined by [facility]. It has not been cleared or approved by the Food and Drug Administration. Test(s) 944069- Atopobium vaginae; 755558- BVAB 2; 446813- Megasphaera 1 was developed and its performance characteristics determined by [facility]. It has not been cleared or approved by the Food and Drug Administration. Test(s) 452245-Qjfngtw albicans, SOPHY; 838035-Ghjiyqr glabrata, SOPHY was developed and its performance characteristics determined by [facility]. It has not been cleared or approved by the Food and Drug Administration. Test(s) 329211- Atopobium vaginae; 597321- BVAB 2; 452503- Megasphaera 1 was developed and its performance characteristics determined by [employer]. It has not been cleared or approved by the Food and Drug Administration. Test(s) 804557-Kiccmrb albicans, SOPHY; 723219-Iplwjbl glabrata, SOPHY was developed and its performance characteristics determined by [employer]. It has not been cleared or approved by the Food and Drug Administration. Specific Milano >=1.030 1.005-1.030 pH 6.5 5.0-7.5 Urine-Color Yellow [...] than 100,000 colony forming units per mL Hemoglobin A1c CLIA Waived Reviewed date:01/15/2024 02:16:12 PM Interpretation: Performing Lab: Notes/Report: Hemoglobin A1c 9.4 4.0 - 6.4 % JUAN DANIEL by IFA, Reflex to 9-biom arkers profile, Serum Reviewed date:04/17/2024 04:04:48 PM Interpretation: Performing Lab:[facility], [address] [facility], [place], Phone - [phone], Director - Michaelle Notes/Report: JUAN DANIEL by [...] Scleroderma-diffuse, Scleroderma-Autoimmune Myositis Overlap Syndrome, Systemic Lupus Bxbpxtvgixxvw-Ymvodtiynuw-F utoimmune Myositis Overlap Syndrome, Systemic Autoimmune Rheumatic [...] <5 Equivocal 5 - 9 Positive >9 TUNNEL MAN Antibodies <0.2 0.0-0.9 AI Serum is slightly [...] Sm (anti-Roca) SLE 15 - 30% --------- TUNNEL MAN Mixed Connective Tissue Disease 95% (U1 nRNP, SLE 30 - 50% anti-ribonucleoprotein) Polymyositis and/or Dermatomyositis 20% --------- Scl-70 (antiDNA Scleroderma (diffuse) 20 - 35% topoisomerase) Crest 13% --------- Dee Dee-1 Polymyositis and/or Dermatomyositis 20 - 40% --------- Centromere B Scleroderma - Crest variant 80% Rheumatoid Arthritis Factor Reviewed date:04/17/2024 04:04:48 PM Interpretation: Performing Lab:[facility] [email or web address] [address] [place] [address], Phone - [phone], Director - [facility] Notes/Report: Rheumatoid Factor (RF) 15.2 <14.0 IU/mL C-Reactive Protein, Quant Reviewed date:04/17/2024 04:04:48 PM Interpretation: Performing Lab:[facility] [place], [address] [place], [place] [address]ox [facility], Phone - [phone], Director - [facility] Notes/Report: C-Reactive Protein, Quant 11 0-10 mg/L CBC With Differential/Platel et* Reviewed date:07/09/2024 09:13:56 AM Interpretation: Performing Lab:[facility] [place], [address] [place], [place] [address] [facility], Phone - [phone], Director - [facility] Notes/Report: WBC 6.6 3.4-10.8 x10E3/uL [...] 0.0-0.1 x10E3/uL Hemoglobin A1c CLIA Waived Reviewed date:09/03/2024 10:22:33 AM Interpretation: Performing Lab: Notes/Report: Hemoglobin A1c 11.5 4.0 - 6.4 % CMP 14 Comprehensive Metabol ic Panel* Reviewed date:01/31/2024 09:48:58 AM Interpretation: Performing Lab:[facility] [place], [address] [place] [address], Phone - [phone], Director - PhDAmanda Notes/Report: Glucose 205 70-99 mg/dL BUN 7 [...] A1c* Reviewed date:01/31/2024 09:48:59 AM Interpretation: Performing Lab:[facility] [place], [address] [place] [address], Phone - [phone], Director - PhDAmanda Notes/Report: Hemoglobin A1c 9.8 4.8-5.6 % . Prediabetes: 5.7 - 6.4 Diabetes: >6.4 Glycemic control for adults with diabetes: <7.0 Lipid Panel* Reviewed date:01/31/2024 09:48:59 AM Interpretation: Performing Lab:[facility] [place], [address] [place] [address], Phone - [phone], Director - [facility] Notes/Report: Cholesterol, Total 241 100-199 mg/dL Triglycerides 281 0-149 mg/dL HDL Cholesterol 39 >39 mg/dL VLDL Cholesterol Eduar 52 5-40 mg/dL LDL Chol Calc (NIH) 150 0-99 mg/dL C-Reactive Protein, Quant Reviewed date:01/31/2024 09:48:59 AM Interpretation: Performing Lab:[facility], Phone - [phone], Director - [facility] Notes/Report: C-Reactive Protein, Quant 15 0-10 mg/L Creatine Kinase,Total,Serum Reviewed date:01/31/2024 09:48:59 AM Interpretation: Performing Lab:[email or web address] [email or web address] [facility], Phone - [phone], Director - [facility] Notes/Report: Creatine Kinase,Total 45 32-182 U/L UA/M w/rflx Culture, Routine Reviewed date:01/31/2024 09:48:59 AM Interpretation: Performing Lab:[email or web address], Phone - [phone], Director - [facility] Notes/Report: Specific Milano >=1.030 1.005-1.030 pH 7.0 5.0-7.5 Urine-Color Yellow [...] TIBC* Reviewed date:01/31/2024 09:48:59 AM Interpretation: Performing Lab[facility] Phone - [phone], [facility] Notes/Report: Iron Bind.Cap.(TIBC) 347 250-450 ug/dL UIBC 277 131-425 ug/dL Iron 70 27-159 ug/dL Iron Saturation 20 15-55 % Vitamin B12 and Folate Reviewed date:01/31/2024 09:48:59 AM Interpretation: Performing Lab:[address], Phone - [phone], [facility] Notes/Report: Vitamin B12 352 281-1282 pg/mL Folate (Folic Acid), Serum 12.5 >3.0 ng/mL A serum folate concentration of less than 3.1 ng/mL is considered to represent clinical deficiency. TSH Rfx on Abnormal to Free T4 Reviewed date:01/31/2024 09:48:59 AM Interpretation: Performing Lab:[facility], Phone - [phone], [facility] Notes/Report: TSH 1.260 0.450-4.500 uIU/mL HIV Screen *HIV 1, 2 Ab, p24 Ag ([id number]) Reviewed date:01/31/2024 09:48:59 AM Interpretation: Performing Lab:[address], Phone - [phone], [facility] Notes/Report: HIV Ab/p24 Ag Screen Non Reactive Non Reactive HIV-1/HIV-2 antibodies and HIV-1 p24 antigen were NOT detected. There is no laboratory evidence of HIV infection. HIV Negative Hepatitis B Surface Antigen (HBsAg Screen) Reviewed date:01/31/2024 09:48:59 AM Interpretation: Performing Lab:[facility], Phone - [phone], [facility] Notes/Report: HBsAg Screen Negative Negative Hepatitis C Virus Antibody w /Rflx to Quantitative Real-time PCR (648285) Reviewed date:01/31/2024 09:48:59 AM Interpretation: Performing Lab:[address], Phone - [phone], [facility] Notes/Report: HCV Ab Non Reactive Non Reactive Interpretation: Not infected with HCV unless early or acute infection is suspected (which may be delayed in an immunocompromised individual), or other evidence exists to indicate HCV infection. Rapid Plasma Reagin (RPR) Te st With Reflex to Quantitative RPR and Confirmatory Treponema pallidum Antibodies Reviewed date:01/31/2024 09:48:59 AM Interpretation: Performing Lab:[facility] [place], [address] [place] [address], Phone - [phone], Director - [facility] Notes/Report: RPR Non Reactive Non Reactive Celiac Antibodies tTG IgA, E MA IgA, Total IgA w/reflex to tTG IgG Reviewed date:01/31/2024 09:48:59 AM Interpretation: Performing Lab:[facility] [place], [address] [place] [address], Phone - [phone], Director - [facility] Notes/Report: Endomysial Antibody IgA Negative Negative t-Transglutaminase (tTG) IgA 3 0-3 U/mL Negative 0 - 3 Weak Positive 4 - 10 Positive >10 . Tissue Transglutaminase (tTG) has been identified as the endomysial antigen. Studies have demonstr- ated that endomysial IgA antibodies have over 99% specificity for gluten sensitive enteropathy. Immunoglobulin A, Qn, Serum 226 87-352 mg/dL Sedimentation Rate-Westergre n* Reviewed date:02/21/2024 11:51:32 AM Interpretation:Normal Performing Lab:[facility] [place], [address] [place] [address], Phone - [phone], Director - [facility] Notes/Report: Sedimentation Rate-Westergren 25 0-32 mm/hr Reason For Referral Reason Generalized myalgia, back pain, possible fibro Diagnosis 1 Neuropathic pain (M7 9.2) Diagnosis 2 Myalgia (M79.10) Referral Organization [facility] Referring Provider First Name Liam Referring Provider Last Name Kain Referring Provider [facility] Referred Provider [facility] Referred Provider Specialty Physical The rapist General Notes MEGAN Cortés Stephanie N 02/20/2024 01:42:15 PM >[facility] [place] (spoke with Marlo on 01/16/24)., MEGAN Cortés Stephanie N 02/20/2024 01:44:26 PM >Referral faxed. Confirmation pending., Milana, RN, Sarita Miner 02/22/2024 09:11:44 AM >referral successfully faxed. Message sent and letter mailed notifying pt of referral. See logs. Clinical Notes [facility], [facility], [facility] [place], [place] [address], , Referral Priority Routine Reason chronic migraines Diagnosis 1 Migraine (G43.909) Referral Organization [facility] Referring Provider First Name Flower Referring Provider Last Name Liss [facility]erred Provider Specialty Neurology General Notes Ariana Walsh 02:23:21 PM >According to website [facility] [place] takes clients insurance., Ariana Walsh 03/13/2024 02:25:10 PM >Referral faxed., Ariana Walsh 03/13/2024 02:29:29 PM >Referral letter & message sent to client. Clinical Notes [facility] [place], [facility] [address], [place] [address], Phone Current Pt's: [phone], New Pt's , Referral Priority Routine Reason Black stools, abd cr amping, sulfur burps Diagnosis 1 Dark stools (R19.5) Referral Organization [facility] Referring Provider First Name Liam Referring Provider Last Name Kain Referring Provider [facility] Referred Provider Specialty Gastroentero logy General Notes Thi Garcia 06/15 11:00:05 AM > Referral sent to [facility] Letter to patient. Clinical Notes [facility], [address], [address], [facility], [address], ph. [phone], fax: [phone] Referral Priority Routine Reason STL H/V NO LONGER TA KES HER INSURANCE Diagnosis 1 Chest pain (R07.9) Referral Organization [facility] Referring Provider First Name Lake Referring Provider Last Name Rhonda Referring Provider Speciality Internal M edicine Referred Provider Specialty Cardiology General Notes Alonso Zambrano 11:14:12 AM > Referral sent with attachments. Letter mailed. Clinical Notes [facility], [facility] [place] [address], (Main), Referral Priority Routine Medications Medication SIG (Take, Route, Frequency, Duration) Notes Start Date End Date Status Albuterol Sulfate HFA 108 (90 Base) MCG/ACT 1 puff as needed Inhalation every 4 hrs for 30 days Active QUEtiapine Fumarate 400 MG 1 tablet at bedtime Orally Once a day for 22 days As needed Active Rizatriptan Benzoate 10 MG 1 tablet Orally as needed for 9 days Active Atorvastatin Calcium 40 mg TAKE 1 TABLET BY MOUTH DAILY for 28 Active Pregabalin 150 MG 1 capsule Orally twice a day for 30 days 07/24/2024 Active LaMICtal 150 MG 1 tablet Orally two times daily for 30 days Active Topiramate 100 MG 1 tablet Orally [...] a day for 5 days 01/10/2024 Active QUEtiapine Fumarate 100 MG 1 tablet x4 days then 1.5 tablet x26 days Orally Once a day at bedtime for 30 days 10/02/2024 Active Sertraline HCl 100 MG 1 tablet Orally Once a day for 30 days 10/02/2024 Active Paliperidone ER 6 MG 1 tablet Orally Once a day for 30 days 10/02/2024 Active Invega 3 MG 1 tablet in the morning (total of 12 mg) Orally Once a day for 30 days Active Benztropine Mesylate 0.5 MG 1 tablet at bedtime Orally Once a day for 30 days 10/02/2024 Active HumaLOG 100 UNIT/ML 150 UNITS VIA PUMP Subcutaneous DAILY INSULIN PUMP 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 Active hydrOXYzine HCl 50 MG 1 tablet Orally twice a day for 30 days As needed Active tiZANidine HCl 4 MG 1 tablet as needed Orally twice a day for 30 days 02/14/2024 Active Escitalopram Oxalate 20 MG 1 tablet Orally Once a day for 30 days Active Famotidine 20 MG 1 tablet [...] Status Risk Notes Problem Morbid obesity (disorder) (159841680) Morbid (severe) obesity due to excess calories (E66.01) Active confirmed Problem Tobacco user (272624146) Nicotine dependence, unspecified, uncomplicated (F17.200) Active confirmed Problem 05461582 Borderline personality disorder (F60.3) 2021 Active confirmed Problem Insomnia (618081488) Insomnia du e to medical condition (G47.01) Active confirmed Problem 106181076 Irritable bowel syndrome with diarrhea (K58.0) Active confirmed Problem 33118762 Functional diarr hea (K59.1) Active confirmed Problem Fibromyalgia (693860352) Fibromyalgia (M79.7) Active confirmed Problem Palpitations (48849942) Palpitations (R00.2) Active confirmed Problem Hypertension (34116951) Hypertension (I10) 2023 Active confirmed Problem Hyperlipidemia (29960301) Hyperlipidemia (E78.5) Active confirmed Problem Anxiety (34881126) Anxiety (F41.9) Active confi rmed Problem Vitamin D deficiency (73527190) Vitamin D deficiency (E55.9) Active confirmed Problem Migraine (77052931) Migraine (G43.909) Active c onfirmed Problem Asthma (395759622) Asthma (J45.909) Active conf irmed Problem Chest pain (45358560) Chest pain (R07.9) Active confirmed Problem Urinary incontinence (649140909) Urinary incontinence (R32) Active confirmed Problem 82858811 Attention defici t hyperactivity disorder (ADHD), combined type (F90.2) Active confirmed Problem Hypertriglyceridemia (190334569) Hypertriglyceridemia (E78.1) 2021 Active confirmed Problem Constipation (65161888) Constipation (K59.00) Active confirmed Problem 077951215 Routine adult he alth maintenance (Z00.00) Active confirmed Problem Missed period (67719612) Missed menses (N92.6) Active confirmed Problem Pruritus of vagina (05580193) Vaginal itching (L29.8) Active confirmed Problem Obstructive sleep apnea syndrome (12952007) Sleep apnea in adult (G47.33) Active confirmed Problem 54802359 Chronic fatigue (R53.82) Active confirmed Problem Diabetes mellitus (07180453) Diabetes mellitus (E11.9) Active confirmed Problem Hyperlipidaemia (62740984) Hyperlipemia (E78.5) Active confirmed Problem 567071212 Bipolar affectiv e disorder, depressed, severe, with psychotic behavior (F31.5) 2021 Active confirmed Problem Surveillance of contraception (227789788) control (Z30.9) Active confirmed Problem Drug monitoring done (435465831) Therapeutic drug monitoring (Z51.81) Active confirmed Problem 129125310 Mild persistent asthma without complication (J45.30) Active confirmed Problem 266810329314514 Carpal tunnel syndrome of left wrist (G56.02) Active confirmed Problem Chest pain (91145462) Chest pain varying with breathing (R07.9) Active confirmed Problem 84813886 Type 2 diabetes mellitus with hyperglycemia, without long-term current use of insulin (E11.65) 2020 Active confirmed Problem 107653523 Adult ADHD (atte ntion deficit hyperactivity disorder) (F90.9) Active confirmed Problem Hearing loss (60525655) Decreased hearing of both ears (H91.93) Active confirmed Problem Carpal tunnel syndrome (61025381) Carpal tunnel syndrome on both sides (G56.03) Active confirmed Problem Urinary tract infectious disease (53638344) UTI symptoms (R39.9) Active confirmed Problem Diabetic foot (545034903) Diabetic foot (E11.8) 2022 Active confirmed Problem 677899351221156 CRP elevated (R79.82) Active co nfirmed Problem Ketoacidosis in type II diabetes mellitus (520002168) Diabetic ketoacidosis without coma associated with type 2 diabetes mellitus (E11.10) 2021 Active confirmed Problem Irregular menstruation (66844449) Irregular menstruation (N92.6) Active confirmed Problem Functional dyspepsia (8684643) Acid indigestion (K30) Active confirmed Vital Signs Heart Rate 104 /min 09/03/2024 Temperature 98.3 degrees Fahrenheit 04/03/2024 Respiratory Rate 16 /min 09/03/2024 Oximetry 98 % 09/03/2024 Blood pressure diastolic 82 mm Hg 09/03/2024 Height 62 in 09/03/2024 Blood pressure systolic 114 mm Hg 09/03/2024 Weight 241.8 lbs 09/03/2024 BMI 44.22 kg/m2 09/03/2024 Encounters Encounter Location Date Provider Diagnosis [address] [address] 07/08/2024 Liam Finnegan [address] [address] 10/16/2023 Ofelia Kadie Bipolar affective disorder, depressed, severe, with psychotic behavior F31.5 ; Borderline personality disorder F60.3 ; Adult ADHD (attention deficit hyperactivity disorder) F90.9 ; Vitamin D deficiency E55.9 and Anxiety F41.[address] [address] 10/17/2023 Flower Short Vaginal discharge N89.8 and Diarrhea R19.[address] [address] 11/06/2023 Ofelia Kadie Bipolar affective disorder, depressed, severe, with psychotic behavior F31.5 ; Borderline personality disorder F60.3 ; Adult ADHD (attention deficit hyperactivity disorder) F90.9 ; Vitamin D deficiency E55.9 and Anxiety F41.[address] [address] 12/05/2023 Flower Short Migraine G43.909 ; Nicotine dependence, unspecified, uncomplicated F17.200 ; Diabetes mellitus E11.9 and COVID-[address] U[address] [address] 12/05/2023 [facility] [address] [place] [address] 01/10/2024 Sarita Winnngco Vaginal discharge N89.8 ; UTI symptoms R39.9 and Nausea R11.0 [facility] [address] [place] [address] 01/10/2024 [facility] [address] [address] 01/10/2024 [place] [address] [place] [address] 01/15/2024 Flower Leija Diabetes mellitus E11.9 ; Carpal tunnel syndrome on both sides G56.03 ; Nutritional counseling Z71.3 ; Nausea R11.0 and Migraine G43.909 [facility] [place] [address] 01/18/2024 [place] Myalgia M79.10 ; Neuropathic pain M79.2 ; Type 2 diabetes mellitus with hyperglycemia, without long-term current use of insulin E11.65 ; Irritable bowel syndrome with diarrhea K58.0 ; Sleep apnea in adult G47.33 ; Fatigue R53.83 ; Exposure to potential infection Z20.9 ; Hyperlipemia E78.5 ; Hypertension I10 ; Onychomycosis B35.1 ; Asthma J45.909 and Migraine G43.[address] [place] [address] 01/30/2024 Flower Leija Nutritional counseling Z71.3 ; Neuropathic pain M79.2 ; Chronic fatigue R53.82 ; Functional diarrhea K59.1 and Diabetes mellitus E11.[address] [place] [address] 01/31/2024 Ofelia Kadie Bipolar affective disorder, depressed, severe, with psychotic behavior F31.5 ; Borderline personality disorder F60.3 ; Adult ADHD (attention deficit hyperactivity disorder) F90.9 ; Vitamin D deficiency E55.9 and Anxiety F41.[address] [place] [address] 02/14/2024 Liam Finnegan Neuropathic pain M79.2 ; Myalgia M79.10 ; Morbid (severe) obesity due to excess calories E66.01 and Nutritional counseling Z71.[address] [address] 02/19/2024 Jessie Bradydennis Bipolar affective disorder, depressed, severe, with psychotic behavior F31.5 ; Borderline personality disorder F60.3 ; Adult ADHD (attention deficit hyperactivity disorder) F90.9 ; Vitamin D deficiency E55.9 ; Anxiety F41.9 and Medication management Z79.[address] [address] 02/20/2024 Flower Leija Nutritional counseling Z71.3 ; Routine adult health maintenance Z00.00 ; Chronic fatigue R53.82 and Type 2 diabetes mellitus with hyperglycemia, without long-term current use of insulin E11.[address] [address] 02/20/2024 Flower Leija [address] [address] 02/26/2024 Jessie Shruthi Bipolar affective disorder, depressed, severe, with psychotic behavior F31.5 ; Borderline personality disorder F60.3 ; Adult ADHD (attention deficit hyperactivity disorder) F90.9 ; Vitamin D deficiency E55.9 ; Anxiety F41.9 and Medication management Z79.[address] [address] 03/12/2024 Flower Leija Acid indigestion K30 ; Type 2 diabetes mellitus with hyperglycemia, without long-term current use of insulin E11.65 and Migraine G43.[address] [address] 04/03/2024 Liam Finnegan Myalgia M79.10 ; CRP elevated R79.82 ; Morbid (severe) obesity due to excess calories E66.01 ; Nutritional counseling Z71.3 and Nicotine dependence, unspecified, uncomplicated F17.[address] [address] 04/07/2024 Samantha Olsen Bipolar affective disorder, depressed, severe, with psychotic behavior F31.5 ; Nutritional counseling Z71.3 ; Borderline personality disorder F60.3 ; Adult ADHD (attention deficit hyperactivity disorder) F90.9 ; Anxiety F41.9 and Medication management Z79.[address] [place] [address] 04/22/2024 Liam Finnegan Myalgia M79.10 ; Concussion without loss of consciousness, initial encounter S06.0X0A ; Morbid (severe) obesity due to excess calories E66.01 and Nutritional counseling Z71.[address] [address] 04/23/2024 Samantha Olsen Bipolar affective disorder, depressed, severe, with psychotic behavior F31.5 ; Borderline personality disorder F60.3 ; Adult ADHD (attention deficit hyperactivity disorder) F90.9 ; Anxiety F41.9 and Medication management Z79.8[address] [address] [place] [address] 05/19/2024 Samantha Olsen Borderline personality disorder F60.3 ; Bipolar affective disorder, depressed, severe, with psychotic behavior F31.5 ; Adult ADHD (attention deficit hyperactivity disorder) F90.9 ; Anxiety F41.9 and Medication management Z79.[address] [place] [address] 06/12/2024 Liam Finnegan Myalgia M79.10 ; Carpal tunnel syndrome of left wrist G56.02 ; Morbid (severe) obesity due to excess calories E66.01 and Nutritional counseling Z71.[address] [address] 06/13/2024 Samantha Olsen Borderline personality disorder F60.3 ; Bipolar affective disorder, depressed, severe, with psychotic behavior F31.5 ; Adult ADHD (attention deficit hyperactivity disorder) F90.9 ; Anxiety F41.9 and Medication management Z79.[address] [place] [address] 07/08/2024 Liam Finnegan Generalized abdominal pain R10.84 ; Dark stools R19.5 ; Myalgia M79.10 ; Morbid (severe) obesity due to excess calories E66.01 ; Nutritional counseling Z71.3 and Nicotine dependence, unspecified, uncomplicated F17.200 [facility] [address] [place] [address] 07/09/2024 Samantha Olsen Borderline personality disorder F60.3 ; Bipolar affective disorder, depressed, severe, with psychotic behavior F31.5 ; Adult ADHD (attention deficit hyperactivity disorder) F90.9 ; Anxiety F41.9 and Medication management Z79.[address] [place] [address] 07/24/2024 [place] Carpal tunnel syndrome on both sides G56.03 ; Fibromyalgia M79.7 and Type 2 diabetes mellitus with hyperglycemia, without long-term current use of insulin E11.65 [place] [address] [facility] [address] 08/11/2024 Samantha Olsen Borderline personality disorder F60.3 ; Bipolar affective disorder, depressed, severe, with psychotic behavior F31.5 ; Adult ADHD (attention deficit hyperactivity disorder) F90.9 ; Anxiety F41.9 and Medication management Z79.[address] [place] [address] 09/03/2024 [place] Orthostatic dizziness R42 ; Urinary incontinence R32 ; Type 2 diabetes mellitus with hyperglycemia, without long-term current use of insulin E11.65 and Chest pain R07.9 [facility] [address] [address] 10/07/2024 [place] [address] [place] [address] 01/21/2024 Flower Leija [address] [place] [address] 01/28/2024 [place] [address] [place] [address] 02/26/2024 Jessie Hawkins [address] [address] 03/24/2024 Samantha Olsen [address] [address] 04/16/2024 Daren Dash [address] [address] 04/21/2024 Flower Leija [facility] [address] [address] 05/20/2024 Flower Leija [address] [address] 06/06/2024 Samantha Olsen Bipolar affective disorder, depressed, severe, with psychotic behavior F31.[address] [address] 06/20/2024 Liam Finnegan [address] [address] 08/01/2024 [place] Myalgia M79.[address] [address] 09/03/2024 Samantha Olsen Bipolar affective disorder, depressed, severe, with psychotic behavior F31.[address] [address] 2024 [place] [facility] [address] [place] [address] 10/02/2024 Samantha Olsen Bipolar affective disorder, depressed, severe, with psychotic behavior F31.5 ; Insomnia due to medical condition G47.01 and Tardive dyskinesia G24.01 Assessments Encounter Date Diagnosis (ICD Code) Assessment Notes Treatment Notes Treatment Clinical Notes Section Notes 02/19/2024 Bipolar affective disorder, depressed, severe, with psychotic behavior (ICD-10 - F31.5) 02/20/2024 Routine adult health maintenance (ICD-10 - Z00.00) 02/20/2024 Nutritional counseling (ICD-10 - Z71.3) 02/26/2024 Bipolar affective disorder, depressed, severe, with psychotic behavior (ICD-10 - F31.5) 01/30/2024 Neuropathic pain (ICD-10 - M79.2) Orders [...] SI/HI at this time. Will collab with [facility] team. Encouraged pt to call for therapy [...] - M79.2) 02/14/2024 Myalgia (ICD-10 - M79.10) 10/16/2023 Bipolar affective disorder, depressed, severe, with psychotic behavior (ICD-10 - F31.5) Pt reports that she was admitted to [facility] crisis unit and rpeorts that her moods are overall well stable at this time. Will increase Escitalopram to aid moods at this time. Pt denies SI/HI at this time. Pt reports that she is currently looking for a new job at this time. Will collab with [facility] team 10/17/2023 Vaginal discharge (ICD-10 - N89.8) 10/17/2023 Diarrhea (ICD-10 - R19.7) 12/05/2023 Nicotine dependence, unspecified, uncomplicated (ICD-10 - F17.200) 12/05/2023 Migraine (ICD-10 - G43.909) 11/06/2023 Bipolar affective disorder, depressed, severe, with psychotic behavior (ICD-10 - F31.5) Pt reports that she recently moved to [place] and reports that her anxiety has increased some. Pt reports that she is tolerating medications well. Pt denies SI/HI at this time. Will collab with [facility] [place] team 01/10/2024 Vaginal discharge (ICD-10 - N89.8) 01/10/2024 [...] YOGA, GILBERT CHI. CONTINUE TO HOLD ATORVASTATIN. 03/12/2024 Type 2 diabetes mellitus with hyperglycemia, without long-term current use of insulin (ICD-10 - E11.65) 03/12/2024 Acid indigestion (ICD-10 - K30) 04/03/2024 CRP elevated (ICD-10 - R79.82) 04/03/2024 Myalgia (ICD-10 - M79.10) Will give small amount of pain medication for PT sessions. Will not be prescribing this fci, pt. voiced understanding. Advised on increased exercise, [...] or be administered own oral medication per [facility] Protocols. Provided informed consent with understanding of [...] swings, anger, evaluate at follow up --trial Watova for mood swings, SI, evaluate at follow [...] or be administered own oral medication per [facility] Protocols. Provided informed consent with understanding of [...] SI however feels more irritable since starting Watova. Admits irritability could be due to physical pain. Interested in trialing Cymbalta to address depression, anxiety, and pain. Agreeable to DC Lexapro and trial Cymbalta. Denies AH/VH, denies HI __continue Lamictal for mood swings, anger, evaluate at follow up __continue Invega for mood swings, anger, AH/VH, evaluate at follow up \__continue Seroquel, Lexapro for mood swings, anger, evaluate at follow up __continue Watova for mood swings, SI, evaluate at follow up --DC Lexapro --trial Duloxetine for depression, anxiety, chronic pain, evaluate at follow up 05/19/2024 Borderline personality disorder (ICD-10 - F60.3) Continue psychotherapy as scheduled. --admits lying about sx and how she's feeling 06/06/2024 Bipolar affective disorder, depressed, severe, with psychotic behavior (ICD-10 - F31.5) 06/13/2024 Borderline personality disorder (ICD-10 - F60.3) Continue psychotherapy as scheduled. --admits lying about sx and how she's feeling 09/03/2024 Urinary incontinence (ICD-10 - R32) SYMPTOMS SUGGEST OVERFLOW DUE TO NEUROGENIC BLADDER 09/03/2024 Orthostatic dizziness (ICD-10 - R42) SUSPECT DUE TO UNCONTROLLED SUGARS 10/02/2024 Insomnia due to medical condition (ICD-10 - G47.01) 10/02/2024 Bipolar affective disorder, depressed, severe, with psychotic behavior (ICD-10 - F31.5) 09/03/2024 Bipolar affective disorder, depressed, severe, with psychotic behavior (ICD-10 - F31.5) 08/11/2024 Borderline personality disorder (ICD-10 - F60.3) Continue psychotherapy as scheduled. 08/01/2024 Myalgia (ICD-10 - M79.10) 07/24/2024 Fibromyalgia (ICD-10 - M79.7) 07/24/2024 Carpal [...] GI. 07/08/2024 Dark stools (ICD-10 - R19.5) 06/12/2024 Carpal tunnel syndrome of left wrist (ICD-10 - G56.02) 06/12/2024 Myalgia (ICD-10 - M79.10) Tramadol meant to be temporary, pt. aware. Interested in trying lyrica, will discuss with her psych provider as worried about med interactions. 06/12/2024 Morbid (severe) obesity due to excess calories (ICD-10 - E66.01) 07/08/2024 Myalgia (ICD-10 - M79.10) 07/24/2024 Type 2 diabetes mellitus with hyperglycemia, without long-term current use of insulin (ICD-10 - E11.65) F/U WITH ENDO 08/11/2024 Bipolar affective disorder, depressed, severe, with [...] or be administered own oral medication per [facility] Protocols. Provided informed consent with understanding of [...] ordered--_ --labs ordered 08/2023 by PCP --trialed Watova Duloxetine 07/09/2024 Bipolar affective disorder, depressed, severe, with [...] May also contact the 24-hour crisis hotline ([facility]), refer to the closest emergency room or [...] or be administered own oral medication per [facility] Protocols. Provided informed consent with understanding of [...] his Mom. Feels meds are working pretty good. Denies SI/HI, AH, VH. Prefers to continue [...] support provided related to pt's choices --trialed Watova Duloxetine 10/02/2024 Tardive dyskinesia (ICD-10 - G24.01) 09/03/2024 Type 2 diabetes mellitus with hyperglycemia, without long-term current use of insulin (ICD-10 - E11.65) F/U WITH ENDO. ENCOURAGED USE OF PUMP, MUST CHARGE IT. 06/13/2024 Bipolar affective disorder, depressed, severe, with [...] or be administered own oral medication per [facility] Protocols. Provided informed consent with understanding of [...] Looking forward to starting new job at [employer] next week. Feels Lexapro is more effective [...] at follow up __DC Duloxetine _ --trialed Watova 05/19/2024 Bipolar affective disorder, depressed, severe, with [...] or be administered own oral medication per [facility] Protocols. Provided informed consent with understanding of [...] understanding of the same and agreeable --stopped Watova and Duloxetine as she felt it was causing her increased anxiety, anger and mood swings. Admits self harm x4 within the last month. Admits increased stress due to parents , and just a lot of things. Friend told her to stop meds due to mood swings and anger. Education and suppor provided, possibility that increase in stress was causing mood swings as opposed to medication. Reports VH. Admits lying about how she's feeling and sx she's having, I don't want to be hospitalized. __continue Lamictal for mood swings, anger, evaluate at follow up __continue Invega for mood swings, anger, AH/VH, evaluate at follow up \__continue Seroquel, Lexapro for mood swings, anger, evaluate at follow up __DC Watova pt stopped --DC Lexapro --re-start and titrate [...] - E66.01) 03/12/2024 Migraine (ICD-10 - G43.909) 04/07/2024 Borderline personality disorder (ICD-10 - F60.3) Continue psychotherapy as scheduled. 04/03/2024 Morbid (severe) obesity due to excess calories (ICD-10 - E66.01) 01/18/2024 Type 2 diabetes mellitus with hyperglycemia, without long-term current use of insulin (ICD-10 - E11.65) 01/15/2024 Nutritional counseling (ICD-10 - Z71.3) 01/10/2024 Nausea (ICD-10 - R11.0) 12/05/2023 Diabetes mellitus (ICD-10 - E11.9) 11/06/2023 Borderline personality disorder (ICD-10 - F60.3) Encouraged pt to call for an appt with therapist. 10/16/2023 Borderline personality disorder (ICD-10 - F60.3) Encouraged pt to call for an appt with therapist. 01/31/2024 Borderline personality disorder (ICD-10 - F60.3) Encouraged pt to call for an appt with therapist. 01/30/2024 Chronic fatigue (ICD-10 - R53.82) 02/14/2024 Morbid (severe) obesity due to excess calories (ICD-10 - E66.01) 02/26/2024 Borderline personality disorder (ICD-10 - F60.3) Continue psychotherapy as scheduled. 02/20/2024 Chronic fatigue (ICD-10 - R53.82) PT referral has been placed 02/19/2024 Borderline personality disorder (ICD-10 - F60.3) Continue psychotherapy as scheduled. 02/19/2024 Adult ADHD (attention deficit hyperactivity disorder) (ICD-10 - F90.9) Pt has Hx of ADHD;. Pt recently started a new job at [employer] Will continue to monitor symptoms 02/20/2024 Type 2 diabetes mellitus with hyperglycemia, without long-term current use of insulin (ICD-10 - E11.65) 02/26/2024 Adult ADHD (attention deficit hyperactivity disorder) (ICD-10 - F90.9) [place] concerns. 01/30/2024 Functional diarrhea (ICD-10 - K59.1) 02/14/2024 Nutritional counseling (ICD-10 - Z71.3) 01/31/2024 Adult ADHD (attention deficit hyperactivity disorder) (ICD-10 - F90.9) Pt has Hx of ADHD;. Pt recently started a new job at [employer] Will continue to monitor symptoms 10/16/2023 Adult ADHD (attention deficit hyperactivity disorder) (ICD-10 - F90.9) Pt has Hx of ADHD; Pt quit taking Guanfacine at last visit. Pt is currently looking for a new job. Will continue to monitor symptoms 12/05/2023 COVID-19 (ICD-10 - U07.1) pt. encouraged [...] job tomorrow. Will continue to monitor symptoms 01/18/2024 Irritable bowel syndrome with diarrhea (ICD-10 - K58.0) EXCLUDE SPRUE, CROHNS 01/15/2024 Nausea (ICD-10 - R11.0) 04/03/2024 Nutritional counseling (ICD-10 - Z71.3) 04/07/2024 [...] H/V. WOULD LIKE TO CONTINUE CARDIOLOGY F/U 07/09/2024 Adult ADHD (attention deficit hyperactivity disorder) (ICD-10 - F90.9) [place] - no concerns. --hold treatment for ADHD for now 07/08/2024 Morbid (severe) obesity due to excess calories (ICD-10 - E66.01) 08/11/2024 Adult ADHD (attention deficit hyperactivity disorder) (ICD-10 - F90.9) [place] --hold treatment for ADHD for now 06/12/2024 Nutritional counseling (ICD-10 - Z71.3) 07/09/2024 Anxiety [...] up 07/08/2024 Nutritional counseling (ICD-10 - Z71.3) 06/13/2024 Anxiety (ICD-10 - F41.9) --moderate to [...] for anxiety evaluate at follow up 05/19/2024 Anxiety (ICD-10 - F41.9) --moderate anxiety, [...] or be administered own oral medications per [facility] protocols. Provided informed consent with understanding of side effects, adverse effects, risks and benefits as well as alternative treatments as previously discussed and with the above recommended medications & other aspects of the treatment program. Agrees to return sooner if symptoms worsen or suicidal or homicidal ideations occur. 04/07/2024 Anxiety (ICD-10 - F41.9) --high anxiety, has been working on exercising to help manage anxiety, --continue Buspar for anxiety, evaluate at follow up --trial Hydroxyzine for anxiety evaluate at follow up 04/03/2024 Nicotine dependence, unspecified, uncomplicated (ICD-10 - F17.200) 01/15/2024 Migraine (ICD-10 - G43.909) 01/18/2024 Sleep apnea in adult (ICD-10 - G47.33) F/U TO GET CPAP 11/06/2023 Vitamin D deficiency (ICD-10 - E55.9) 10/16/2023 Vitamin D deficiency (ICD-10 - E55.9) 01/31/2024 Vitamin D deficiency (ICD-10 - E55.9) 01/30/2024 Diabetes mellitus (ICD-10 - E11.9) 02/26/2024 Vitamin D deficiency (ICD-10 - E55.9) 02/19/2024 Vitamin D deficiency (ICD-10 - E55.9) 02/19/2024 Anxiety (ICD-10 - F41.9) 02/26/2024 Anxiety (ICD-10 - F41.9) 01/31/2024 Anxiety (ICD-10 - F41.9) Will increase BuSpar TID to aid anxiety; pt has only been taking 2 tabs per day; encouraged her to take 1 tablet in AM and 2 tablets in PM to help anxiety. Pt is currently talking with therapist at [facility]. 10/16/2023 Anxiety (ICD-10 - F41.9) Pt reports that she is doing well on Buspar and reports that her anxiety is under control at this time. Pt is currently talking with therapist at [facility]. 11/06/2023 Anxiety (ICD-10 - F41.9) Will increase BuSpar TID to aid anxiety; pt reports increase anxiety since moving to [place]. Pt is currently talking with therapist at [facility]. 01/18/2024 Fatigue (ICD-10 - R53.83) 04/07/2024 Medication management (ICD-10 - Z79.899) Client mentioned starting Cymbalta for fibromyalgia but states antiepressents have given her cynthia in past. Have opted not to start for now. May self-administer medications or be administered own oral medications per [employer] protocols. Provided informed consent with understanding of [...] or be administered own oral medications per [employer] protocols. Provided informed consent with understanding of [...] or be administered own oral medications per [facility] protocols. Provided informed consent with understanding of [...] or be administered own oral medications per [facility] protocols. Provided informed consent with understanding of side effects, adverse effects, risks and benefits as well as alternative treatments as previously discussed and with the above recommended medications & other aspects of the treatment program. Agrees to return sooner if symptoms worsen or suicidal or homicidal ideations occur. 07/08/2024 Nicotine dependence, unspecified, uncomplicated (ICD-10 - F17.200) 07/09/2024 Medication management (ICD-10 - Z79.899) Client mentioned starting Cymbalta for fibromyalgia but states antiepressents have given her cynthia in past. Have opted not to start for now. May self-administer medications or be administered own oral medications per [facility] protocols. Provided informed consent with understanding of side effects, adverse effects, risks and benefits as well as alternative treatments as previously discussed and with the above recommended medications & other aspects of the treatment program. Agrees to return sooner if symptoms worsen or suicidal or homicidal ideations occur. 01/18/2024 Exposure to potential infection (ICD-10 - Z20.9) 02/26/2024 Medication management (ICD-10 - Z79.899) Client mentioned starting Cymbalta for fibromyalgia but states antiepressents have given her cynthia in past. Have opted not to start for now. May self-administer medications or be administered own oral medications per [facility] protocols. Provided informed consent with understanding of side effects, adverse effects, risks and benefits as well as alternative treatments as previously discussed and with the above recommended medications & other aspects of the treatment program. Agrees to return sooner if symptoms worsen or suicidal or homicidal ideations occur. 02/19/2024 Medication management (ICD-10 - Z79.899) Client mentioned starting Cymbalta for fibromyalgia but states antiepressents have given her cynhtia in past. Have opted not to start for now. May self-administer medications or be administered own oral medications per [facility] protocols. Provided informed consent with understanding of [...] TRIPTAN NO MORE THAN TWICE PER WEEK. 10/16/2023 Other Discussed treat ment planDiscussed sleep [...] May also contact the 24-hour crisis hotline ([facility]), refer to the closest emergency room or [...] May also contact the 24-hour crisis hotline ([facility]), refer to the closest emergency room or [...] May also contact the 24-hour crisis hotline ([facility]), refer to the closest emergency room or call 911 if new symptoms arise of existing symptoms worsen; the Patient/Guardian is aware that this would apply to symptoms such as: suicidal ideation, homicidal ideation, high risk behaviors, manic symptoms, psychotic symptoms, physical symptoms, or any other symptoms that may be dangerous to self or others. Patient made aware that this provider will be leaving [facility] as of 02/06/2024 and he will be [...] ure 09/03/2024 Next Appt Details Provider Name:Samantha Olsen , 10/21/2024 03:30:00 PM, [address] [place], [address], Insurance Providers Payer Name Payer Address Payer Phone Subscriber Number Group Number Insured Name Patient Relationship to Insured Coverage Start Date Coverage End Date [facility] Attn Claims Department [address] [place] [address] [phone] [id number] Greyson Johnson Self - patient is the insured 1 [facility] Claims Department [address] [place] [address] [phone] [id number] Greyson Johnson Self - patient is the [...] repair Hospitalization History Reason Date(Month/Year) MH/SA at [facility] 01/2024 Mental health from september 28-09/2022 [facility] 02/16/21 mental health [facility] 02/01/21
--- OUTSIDE RECORDS SUMMARY | 2024-10-10 11:45 | XMS_ITS | Referral Summary ---
Author Organization [facility] [address] [place] [phone] Care Team Providers Care Sharepoint Trainer Name Role Phone Lake Ellis MD Primary Care Provider [phone] Encounters Date Type Department Care Team Description 08/27/2024 1:36 PM CDT Anesthesia Event [facility] [address] [place] [phone] Candido Lofton MD Jacobsen, Kyle G., MD 08/27/2024 12:00 PM CDT - 08/27/2024 12:30 PM CDT Surgery [facility] [address] [place] [phone] Brendan Sanon MD ESOPHAGOGASTRODUODENOSCOPY ULTRASOUND EXAM LIMITED 08/27/2024 10:56 AM CDT - 08/27/2024 3:43 PM CDT Hospital Encounter [facility] [address] [place] [phone] Brendan Sanon MD Nausea and vomiting, unspecified vomiting type; Diarrhea, unspecified type; Generalized abdominal pain; Gastroesophageal reflux disease without esophagitis Discharge Disposition: Discharge to home or self care 08/13/2024 Telephone [facility] Neurology [facility] [address] [phone] Mansoor Albert MD Prior Auth (Qulipta 30 mg) 08/11/2024 Telephone [facility] Neurology [address] [place] [address] [place] [phone] Mansoor Albert MD 08/11/2024 Orders Only [facility] Neurology [address] [place] [phone] Mansoor Albert MD 08/08/2024 Telephone [facility] Neurology [address] [place] [phone] Mansoor Albert MD Med Management 07/31/2024 2:00 PM CDT Office Visit [facility] Neurology [address] [place] [phone] Mansoor Albert MD Migraine without aura and [...] the morning and 30 mg at night 1 Active atorvastatin (LIPITOR) 40 mg tablet Take 1 tablet (40 mg total) by mouth daily Active ferrous sulfate 325 mg (65 mg of elemental iron) tablet daily 4 Active losartan (COZAAR) 25 mg tablet Take 1 tablet (25 mg total) by mouth daily 4 Active HumaLOG 100 unit/mL vial for injection 150 UNIT (1.5 ML) VIA CONTINUOUS SUBCUTANEOUS INFUSION DAILY FOR 90 DAYS 4 Active lamoTRIgine (LaMICtal) 150 mg tablet Take 1 tablet (150 mg total) by mouth 2 (two) times a day 4 Active paliperidone ER (INVEGA) 3 mg 24 hr tablet TAKE 1 TABLET BY MOUTH EVERY MORNING ALONG WITH 9 MG 4 Active paliperidone ER (INVEGA) 9 mg 24 hr tablet TAKE 1 TABLET BY MOUTH EVERY MORNING ALONG WITH 3 MG 4 Active QUEtiapine (SEROquel) 200 mg tablet Take 2 tablets (400 mg total) by mouth daily Active traMADoL (ULTRAM) 50 mg tablet daily 4 Active hydrOXYzine (ATARAX) 50 mg tablet TAKE 1 TABLET BY MOUTH TWICE A DAY NEEDED FOR 30 DAYS 4 Active pregabalin (LYRICA) 150 mg capsule Take 1 capsule (150 mg total) by mouth 2 (two) times a day 5 Active rizatriptan (MAXALT) 10 mg tabletIndicatio ns:Migraine Take 1 tablet (10 mg total) by mouth once as needed for migraine May repeat in 2 hours if unresolved. Do not exceed 30 mg in 24 hours. 9 tablet 11 5 08/12/19 26 Active topiramate (TOPAMAX) 50 mg tablet Take 1 tablet (50 mg total) by mouth 2 (two) times a day 60 tablet 5 08/12/19 26 Active albuterol HFA (PROVENTIL HFA,VENTOLIN HFA,PROAIR HFA) 90 mcg/actuation inhaler Inhale 1 puff 5 Active dicyclomine (BENTYL) 20 mg tablet Take 1 tablet (20 mg total) by mouth 5 Active escitalopram (LEXAPRO) 20 mg tablet Take 1 tablet (20 mg total) by mouth daily Active promethazine (PHENERGAN) 12.5 mg tablet Take 1 tablet (12.5 mg total) by mouth every 6 (six) hours as needed 5 Active omeprazole (PriLOSEC) 40 mg capsule Take 1 capsule (40 mg total) by mouth daily 30 capsule 11 5 08/28/19 26 Active Active Problems Problem Noted Date Diagnosed Date Anxiety 04/28/2024 Chronic fatigue 04/28/2024 Irritable bowel syndrome with diarrhea 4 Mild persistent asthma without complication 04/13 Morbid obesity 04/28/2024 Palpitations 04/28/2024 Pruritus of vagina 04/28/2024 Vitamin D deficiency 04/28/2024 Diabetic ketoacidosis associ ated with type 2 diabetes mellitus 03/23/2022 Hypertriglyceridemia 03/23/2022 Psychosis with severe depres viviana due to bipolar affective disorder 02/13/2022 Borderline personality disorder 04/16/2020 Assessment & Plan (04/19/2020 3:23 PM BULK COOLERS INSTALLER): 19 yo F w/ a reported hx of bipolar and ADHD who was admitted at the recommendation of her counter caser for suicidal ideation with a plan to [...] with a therapist and psychiatric services through [facility], whom we have spoken with by phone and plan to coordinate DBT therapy on an outpatient basis. Additionally, grandma and patient provided further DBT resources outside of [facility]. She is IMPROVING as evidence by cheerful [...] to grandparents TODAY with outpt f/u at [facility] Assessment & Plan (04/16/2020 4:11 PM BULK COOLERS INSTALLER): 19 yo F w/ a reported hx of bipolar and ADHD who was admitted at the recommendation of her counter caser for suicidal ideation with a plan to [...] with a therapist and psychiatric services through [facility]. -therapeutic milieu and participation in groups -outpatient therapy upon discharge -PRNs available for agitation and comfort -appreciate SW assistance with care planning -dispo: home to grandparents when stabilized with outpt f/u at [facility] Mood disorder 04/16/2020 Assessment & Plan (04/19/2020 3:18 PM BULK COOLERS INSTALLER): Patient meets criteria for MDD except for symptoms seems more chronic than episodic. She describes some symptoms of a manic episode but we have low suspicion that she experiences true cynthia as she has never completely gone without sleep, never lasts for more than ~3 days, never been hospitalized for it. Additionally told the team during her interview I feel manic right now, but no manic sx on exam. Uses DSM-5 verbage to describe her symptoms I am impulsive, I go to the store and buy things I don't need. Depression likely mostly related to patient's comorbid personality disorder. Will treat with an SSRI, as she has found benefit from this in the past. Will augment antidepressant with Abilify. -Lexapro 20mg -Abilify 5mg Assessment & Plan (04/16/2020 4:04 PM BULK COOLERS INSTALLER): Patient meets criteria for MDD except for symptoms seems more chronic than episodic. She describes some symptoms of a manic episode but we have low suspicion that she experiences true cynthia as she has never completely gone without sleep, never lasts for more than ~3 days, never been hospitalized for it. Additionally told the team during her interview I feel manic right now, but no manic sx on exam. Depression likely mostly related to patient's comorbid personality disorder. Will treat with an SSRI, as she has found benefit from this in the past. Will augment antidepressant with Abilify. -Lexapro 20mg -Abilify 5mg ADHD (attention deficit hyperactivity disorder) 04/16/2020 Assessment & Plan (04/19/2020 3:19 PM BULK COOLERS INSTALLER): Historical diagnosis d/t inattention. Was on Focalin for an extended amount of time in childhood. We planned to restart the patient's Focalin here, unfortunately it is not on formulary. Zane brought med from home. Patient could potentially benefit from a dose increase, but we will defer that to outpatient. -focalin XR 10mg (home supply) Assessment & Plan (04/16/2020 3:59 PM BULK COOLERS INSTALLER): Historical diagnosis d/t inattention. Was on Focalin for an extended amount of time in childhood. We planned to restart the patient's Focalin here, unfortunately it is not on formulary. Zane plans to bring the med from home -focalin XR 10mg (home supply) Diabetes 04/16/2020 Assessment & Plan (04/19/2020 3:18 PM BULK COOLERS INSTALLER): Diagnosed on a previous hospitalization this year. Lipids and blood glucoses elevated in ED. -increase Metformin to 1000mg BID Assessment & Plan (04/16/2020 4:00 PM BULK COOLERS INSTALLER): Diagnosed on a previous hospitalization this year. Lipids and blood glucoses elevated in ED. -Metformin 500mg BID UTI (urinary tract infection) 04/16/2020 Assessment & Plan (04/19/2020 3:17 PM BULK COOLERS INSTALLER): Previously diagnosed, asymptomatic, will continue previous treatment -completed Macrobid 100mg BID Assessment & Plan (04/16/2020 3:57 PM BULK COOLERS INSTALLER): Previously diagnosed, asymptomatic, will continue previous treatment [...] often do you attend chur ch or judaism services? More than 4 times per year 04/16/2020 Do you belong to any clubs o r organizations such as gnosticism groups, unions, fraternal or athletic groups, or [...] on file Legal Sex Female 3:03 AM BULK COOLERS INSTALLER Gender Identity Not on file Sexual Orientation [...] 11:55 AM CDT Height 162.6 cm (5' 4) 08/27/2024 11:55 AM CDT Body Mass Index [...] CDT LIPID PANEL STAT 04/15/2020 2:57 PM BULK COOLERS INSTALLER from Last 3 Months or Most Recently Relevant to Health Maintenance Results * (ABNORMAL) POCT glucose (08/27/2024 2:12 PM CDT) Glucose, POC 231(H) 70 - 199 mg/dL Comment: For Glucose values <35 mg/dl when Hematocrit is >60 mg/dl,the test may not accurately detect significant hypoglycemia,and testing in the Laboratory should be considered if clinically indicated. POC Performer [id number] [facility] Blood 08/27/2024 2:12 PM CDT 08/27/2024 2:12 PM CDT Brendan Sanon MD LAB POCT ORDERABLES - DEVICE Final Result Performing Organization Address City/State/[facility] Co de Phone Number [place] [address] [place] [address] * Surgical pathology (08/27/2024 1:47 PM CDT) Tissue (Esophageal biopsy) 08/27/2024 1:47 PM CDT Tissue specimen (specimen) (Gastric/Stomach biopsy) 08/27/2024 1:49 PM CDT Tissue specimen (specimen) (Duodenum, Biopsy) 08/27/2024 1:50 PM CDT Narrative PATHOLOGY [facility] - 08/28/2024 10:27 AM CDT [place] [address] [place], [place] [address] Tele: Adia Dixon MD - Housekeeping Director Note to Patients: This report may contain [...] REPORT Patient Name: GREYSON JOHNSON Address: [address] [place] [address] Gender: F : 2000 (Age: 23) Service: Gastro Location: [facility], Hospital #: [id number] Patient Type: [facility] Taken: 08/27/2024 Received 08/27/2024 [...] filtered and submitted entirely in cassette C1. [facility]/08/27/2024 16:20 [facility] MICROSCOPIC DESCRIPTION: Microscopic evaluation of part A [...] Negative for dysplasia. Clerical Data Follows A; 86322 B; 71936 C; 11896 REPORT IMAGES AND/OR SCANNED DOCUMENTS ONLY VIEWABLE IN PDF FORMAT The immunohistochemical test(s) cited in this report, if any, was developed and its performance characteristics determined by [facility] Pathology Department. It has not been cleared or approved by the U.S. Food and Drug Administration. The FDA has determined that such clearance or approval is not necessary. This test is used for clinical purposes. It should not be regarded as investigational or for research. [facility] Laboratory is certified under the Clinical [...] part or completely in the following laboratories: [facility], [address] [place] [address], [address] [facility], [place] [address]. Brendan Sanon MD LAB PATHOLOGY ORDERABLES Gabi rm Result PATHOLOGY [facility] Laboratory Receiving [address] [place], [place] [id number] * (ABNORMAL) POCT glucose (08/27/2024 12:59 PM CDT) Glucose, POC 276(H) 70 - 199 mg/dL Comment: For Glucose values <35 mg/dl when Hematocrit is >60 mg/dl,the test may not accurately detect significant hypoglycemia,and testing in the Laboratory should be considered if clinically indicated. POC Performer [id number] [facility] Blood 08/27/2024 12:5 9 PM CDT 08/27/2024 12:59 PM CDT us Brendan Sanon MD LAB POCT ORDERABLES - DEVICE Final Result [facility] [address] Department [place] [address] * Upper EUS (08/27/2024 12:02 PM CDT) Anatomical Region Laterality Modality Other Narrative Procedure Note Brendan Sanon MD - 08/27/2024 12:02 PM CDT ENDOSCOPY LAB Patient Name: Greyson Johnson Procedure Date: 08/27/2024 12:02 PM Admit Type: Outpatient Room: [facility] Date of : 2000 Instrument Name: [id number] Gender: Female Note Status: Finalized Procedure: Upper EUS Indications: Generalized abdominal pain, Nausea with vomiting, melena, bloating Providers: Brendan Sanon M.D. Referring MD: Lake Ellis M.D., Maggie Jackson F.N.P. Medicines: Monitored Anesthesia Care Complications: No [...] (ABNORMAL) POCT glucose (08/27/2024 11:56 AM CDT) Glucose, POC 305(H) 70 - 199 mg/dL Comment: For Glucose values <35 mg/dl when Hematocrit is >60 mg/dl,the test may not accurately detect significant hypoglycemia,and testing in the Laboratory should be considered if clinically indicated. POC Performer [id number] [facility] Blood 08/27/2024 11:5 6 AM CDT 08/27/2024 11:56 AM CDT Brendan Sanon MD LAB POCT ORDERABLES - DEVICE Final Result [facility] JON[facility] [address] [place] [address] * POCT hCG, urine (08/27/2024 11:45 AM CDT) HCG, ur, POC Negative Negative Lot Number [id number] QC Backgroud Clear Acceptable QC Control Line Acceptable Urine 08/27/2024 11:4 5 AM CDT Brendan Sanon MD POINT OF CARE TEST [...] BLOOD ORDERABLES Gabi l Result [facility] ([place]) [facility] Department [place] [address] * (ABNORMAL) Lipid panel (04/15/2020 2:57 PM BULK COOLERS INSTALLER) Pathologist [facility] Cholesterol 189 <=199 mg/dL [facility] Comment: Interpretive Data Ages < [...] revised on 2018. Triglycerides 464(H) <=129 mg/dL [facility] Comment: Interpretive Data Ages < [...] revised on 2018. HDL 38(L) >=45 mg/dL [facility] Comment: Interpretive Data Ages < [...] on 2018. LDL, calculated See Comment <=129 [facility] Comment: Unable to calculate LDL due [...] on 2018. Non-HDL Cholesterol 151(H) <=144 mg/dL [facility] Comment: Interpretive Data Ages < or [...] last revised on 2018. Chol/HDL ratio 5 [facility] Blood specimen (specimen) 04/15/2020 2:57 PM BULK COOLERS INSTALLER 04/15/2020 3:12 PM BULK COOLERS INSTALLER Carolyn Skaggs MD LAB BLOOD ORDERABLES Final Result [facility] [place] [address] from Last 3 Months or Most Recently Relevant to Health Maintenance Insurance [facility] Advance Directives For more information, please contact: [phone] * Full Code (Latest Code Status on File) Date Activated Date Inactivated Comments 08/27/2024 11:34 AM 08/27/2024 7:43 PM * Full Code Date Activated Date Inactivated Comments 04/16/2020 1:05 AM 04/19/2020 8:20 PM Care Teams Sharepoint Trainer Relationship Specialty Start Date End Date Lake Ellis MD [address] [facility] [place] [address] PCP - General Internal Medicine 08/27/24
--- OUTSIDE RECORDS SUMMARY | 2024-10-10 11:45 | XMS_ITS | Clinical Summary ---
Author Organization [facility] Physician Office Building [address] [place] [phone] Care Team Providers Care Set Staff Fitter Name Role Phone Lake Ellis MD Primary [...] 04/16/2020 Assessment & Plan (04/19/2020 3:23 PM CLINICAL STAFF RN): 19 yo F w/ a reported hx of bipolar and ADHD who was admitted at the recommendation of her window caser for suicidal ideation with a plan [...] with a therapist and psychiatric services through [facility], whom we have spoken with by phone and plan to coordinate DBT therapy on an outpatient basis. Additionally, grandma and patient provided further DBT resources outside of [facility]. She is IMPROVING as evidence by cheerful [...] to grandparents TODAY with outpt f/u at [facility] Assessment & Plan (04/16/2020 4:11 PM CLINICAL STAFF RN): 19 yo F w/ a reported hx of bipolar and ADHD who was admitted at the recommendation of her window caser for suicidal ideation with a plan [...] with a therapist and psychiatric services through [facility]. -therapeutic milieu and participation in groups -outpatient therapy upon discharge -PRNs available for agitation and comfort -appreciate SW assistance with care planning -dispo: home to grandparents when stabilized with outpt f/u at [facility] Mood disorder 04/16/2020 Assessment & Plan (04/19/2020 3:18 PM CLINICAL STAFF RN): Patient meets criteria for MDD except for [...] 5mg Assessment & Plan (04/16/2020 4:04 PM CLINICAL STAFF RN): Patient meets criteria for MDD except for [...] 04/16/2020 Assessment & Plan (04/19/2020 3:19 PM CLINICAL STAFF RN): Historical diagnosis d/t inattention. Was on Focalin for an extended amount of time in childhood. We planned to restart the patient's Focalin here, unfortunately it is not on formulary. Zane brought med from home. Patient could potentially benefit from a dose increase, but we will defer that to outpatient. -focalin XR 10mg (home supply) Assessment & Plan (04/16/2020 3:59 PM CLINICAL STAFF RN): Historical diagnosis d/t inattention. Was on Focalin for an extended amount of time in childhood. We planned to restart the patient's Focalin here, unfortunately it is not on formulary. Zane plans to bring the med from home -focalin XR 10mg (home supply) Diabetes 04/16/2020 Assessment & Plan (04/19/2020 3:18 PM CLINICAL STAFF RN): Diagnosed on a previous hospitalization this year. Lipids and blood glucoses elevated in ED. -increase Metformin to 1000mg BID Assessment & Plan (04/16/2020 4:00 PM CLINICAL STAFF RN): Diagnosed on a previous hospitalization this year. Lipids and blood glucoses elevated in ED. -Metformin 500mg BID UTI (urinary tract infection) 04/16/2020 Assessment & Plan (04/19/2020 3:17 PM CLINICAL STAFF RN): Previously diagnosed, asymptomatic, will continue previous treatment -completed Macrobid 100mg BID Assessment & Plan (04/16/2020 3:57 PM CLINICAL STAFF RN): Previously diagnosed, asymptomatic, will continue previous treatment -Macrobid 100mg BID for 4 more days Suicidal ideation Encounters Date Type Department Care Team Description 08/27/2024 1:36 PM CDT Anesthesia Event [facility] [address] [place] [phone] Candido Lofton MD Jacobsen, Kyle G., MD 08/27/2024 12:00 PM CDT - 08/27/2024 12:30 PM CDT Surgery [facility] [address] [place] [phone] Brendan Sanon MD ESOPHAGOGASTRODUODENOSCOPY ULTRASOUND EXAM LIMITED 08/27/2024 10:56 AM CDT - 08/27/2024 3:43 PM CDT Hospital Encounter [facility] [address] [place] [phone] Brendan Sanon MD Nausea and vomiting, unspecified vomiting type; Diarrhea, unspecified type; Generalized abdominal pain; Gastroesophageal reflux disease without esophagitis Discharge Disposition: Discharge to home or self care 08/13/2024 Telephone [facility]rology [address] [place] [address] [place] [phone] Mansoor Albert MD Prior Auth (Qulipta 30 mg) 08/11/2024 Telephone [facility] [address] [place] [phone] Mansoor Albert MD 08/11/2024 Orders Only [address] [phone] Mansoor Albert MD 08/08/2024 Telephone [facility] [address] [place] [phone] Mansoor Albert MD Med Management 07/31/2024 2:00 PM CDT Office Visit [facility] [address] [place] [address] [place] [phone] Mansoor Albert MD Migraine without aura and [...] often do you attend chur ch or denominational services? More than 4 times per year 04/16/2020 Do you belong to any clubs o r organizations such as anglican groups, unions, fraternal or athletic groups, or [...] file Legal Sex Female 3:03 AM CLINICAL STAFF RN Gender Identity Not on file Sexual Orientation [...] CDT LIPID PANEL STAT 04/15/2020 2:57 PM CLINICAL STAFF RN from Last 3 Months or Most Recently Relevant to Health Maintenance Results * (ABNORMAL) POCT glucose (08/27/2024 2:12 PM CDT) Glucose, POC 231(H) 70 - 199 mg/dL Comment: For Glucose values <35 mg/dl when Hematocrit is >60 mg/dl,the test may not accurately detect significant hypoglycemia,and testing in the Laboratory should be considered if clinically indicated. POC Performer [id number] JONNY [facility] Blood 08/27/2024 2:12 PM CDT 08/27/2024 2:12 PM CDT us Brendan Sanon MD LAB POCT ORDERABLES - DEVICE Final Result [facility] [address] Department of Laboratories [place], [place] [id number] * Surgical pathology (08/27/2024 1:47 PM CDT) Tissue (Esophageal biopsy) 08/27/2024 1:47 PM CDT Tissue specimen (specimen) (Gastric/Stomach biopsy) 08/27/2024 1:49 PM CDT Tissue specimen (specimen) (Duodenum, Biopsy) 08/27/2024 1:50 PM CDT Narrative PATHOLOGY [facility] - 08/28/2024 10:27 AM CDT [place] [address] [place], [place] [address] Tele: Adia Dixon MD - Fruit Harvester Note to Patients: This report may contain [...] PATHOLOGY REPORT Patient Name: GREYSON JOHNSON Address: [address] [place] [address] Gender: F : 2000 (Age: 23) Service: Gastro Location: [facility] #: [id number] Patient Type: [facility] [place] [place] SAME DAY SURGERY Taken: 08/27/2024 Received 08/27/2024 [...] filtered and submitted entirely in cassette C1. [facility]/08/27/2024 16:20 JOHN MORALES MICROSCOPIC DESCRIPTION: Microscopic [...] Negative for dysplasia. Clerical Data Follows A; 30583 B; 43732 C; 47682 REPORT IMAGES AND/OR SCANNED DOCUMENTS ONLY VIEWABLE [...] following laboratories: [facility], [address] [place] [address], [address] [place] [address]. Brendan Sanon MD LAB PATHOLOGY ORDERABLES Gabi rm Result PATHOLOGY [facility] Laboratory Receiving [address] [place] [address] * (ABNORMAL) POCT glucose (08/27/2024 12:59 PM CDT) Glucose, POC 276(H) 70 - 199 mg/dL Comment: For Glucose values <35 mg/dl when Hematocrit is >60 mg/dl,the test may not accurately detect significant hypoglycemia,and testing in the Laboratory should be considered if clinically indicated. POC Performer [id number] J[facility]NY [facility] Blood 08/27/2024 12:5 9 PM CDT 08/27/2024 12:59 PM CDT us Brendan Sanon MD LAB POCT ORDERABLES - DEVICE Final Result [facility] [address] Department [place] [address] * Upper EUS (08/27/2024 12:02 PM CDT) Anatomical Region Laterality Modality Other Narrative Procedure Note Brendan Sanon MD - 08/27/2024 12:02 PM CDT ENDOSCOPY LAB Patient Name: Greyson Johnson Procedure Date: 08/27/2024 12:02 PM Admit Type: Outpatient Room: [facility] Date of : 2000 Instrument Name: [id number] Gender: Female Note Status: Finalized Procedure: Upper [...] be considered if clinically indicated. POC Performer [id number] J[facility] Blood 08/27/2024 11:5 6 AM CDT 08/27/2024 11:56 AM CDT Brendan Sanon MD LAB POCT ORDERABLES - DEVICE Final Result [facility] [address] Department [place] [address] * POCT hCG, urine (08/27/2024 11:45 [...] BLOOD ORDERABLES Gabi l Result [facility]) 1 [facility] Department [place] [address] * (ABNORMAL) Lipid panel (04/15/2020 2:57 PM CLINICAL STAFF RN) Cholesterol 189 <=199 mg/dL [facility] Comment: [...] revised on 2018. Triglycerides 464(H) <=129 mg/dL [facility] Comment: Interpretive Data Ages < [...] revised on 2018. HDL 38(L) >=45 mg/dL [facility] Comment: Interpretive Data Ages < [...] on 2018. LDL, calculated See Comment <=129 [facility] Comment: Unable to calculate LDL [...] on 2018. Non-HDL Cholesterol 151(H) <=144 mg/dL [facility] Comment: Interpretive Data [...] last revised on 2018. Chol/HDL ratio 5 [facility] Blood specimen (specimen) 04/15/2020 2:57 PM CLINICAL STAFF RN 04/15/2020 3:12 PM CLINICAL STAFF RN Carolyn Skaggs MD LAB BLOOD ORDERABLES Final Result [facility] Department [place] [address] from Last 3 Months or Most Recently Relevant to Health Maintenance Insurance [facility] Advance Directives For more information, please contact: [phone] * Full Code (Latest Code Status on File) Date Activated Date Inactivated Comments 08/27/2024 11:34 AM 08/27/2024 7:43 PM * Full Code Date Activated Date Inactivated Comments 04/16/2020 1:05 AM 04/19/2020 8:20 PM Care Teams Set Staff Fitter Relationship Specialty Start Date End Date Lake Ellis MD [address] [place] [address] [place] [address] PCP - General Internal Medicine 08/27/24
[2024-10-10 11:49] LABS: Glucose Point of Care 459 mg/dl (65-105)
--- NOTE | 2024-10-10 11:49 | PC.NURSE ---
Blood sugar 459.
--- NOTE | 2024-10-10 12:40 | PC.NURSE ---
pt decided not to stay, will see PCP, encouraged to return if needed
--- OUTSIDE RECORDS SUMMARY | 2024-10-10 12:44 | XMS_ITS | Referral Summary ---
Author Organization [facility] Physician Office Building [address] [place] [phone] Care Team Providers Care Hot Knife Foxing Cutter Name Role Phone Lake Ellis MD Primary Care Provider [phone] Encounters Date Type Department Care Team Description 08/27/2024 1:36 PM CDT Anesthesia Event [facility] [address] [place] [phone] Candido Lofton MD Jacobsen, Kyle G., MD 08/27/2024 12:00 PM CDT - 08/27/2024 12:30 PM CDT Surgery [facility] [address] [place] [phone] Brendan Sanon MD ESOPHAGOGASTRODUODENOSCOPY ULTRASOUND EXAM LIMITED 08/27/2024 10:56 AM CDT - 08/27/2024 3:43 PM CDT Hospital Encounter [facility] [address] [place] [phone] Brendan Sanon MD Nausea and vomiting, unspecified vomiting type; Diarrhea, unspecified type; Generalized abdominal pain; Gastroesophageal reflux disease without esophagitis Discharge Disposition: Discharge to home or self care 08/13/2024 Telephone [facility] Neurology [facility] [address] [phone] Mansoor Albert MD Prior Auth (Qulipta 30 mg) 08/11/2024 Telephone [facility] Neurology [address] [place] [address] [place] [phone] Mansoor Albert MD 08/11/2024 Orders Only [facility] [address] [place] [phone] Mansoor Albert MD 08/08/2024 Telephone [facility]rology [address] [place] [phone] Mansoor Albert MD Med Management 07/31/2024 2:00 PM CDT Office Visit [facility] [address] [place] [phone] Mansoor Albert MD Migraine without aura and [...] 04/16/2020 Assessment & Plan (04/19/2020 3:23 PM BUSINESS ADMINISTRATION PROFESSOR): 19 yo F w/ a reported hx of bipolar and ADHD who was admitted at the recommendation of her lining caser for suicidal ideation with a plan [...] with a therapist and psychiatric services through [facility], whom we have spoken with by phone and plan to coordinate DBT therapy on an outpatient basis. Additionally, grandma and patient provided further DBT resources outside of [facility]. She is IMPROVING as evidence by cheerful [...] to grandparents TODAY with outpt f/u at [facility] Assessment & Plan (04/16/2020 4:11 PM BUSINESS ADMINISTRATION PROFESSOR): 19 yo F w/ a reported hx of bipolar and ADHD who was admitted at the recommendation of her lining caser for suicidal ideation with a plan [...] with a therapist and psychiatric services through [facility]. -therapeutic milieu and participation in groups -outpatient therapy upon discharge -PRNs available for agitation and comfort -appreciate SW assistance with care planning -dispo: home to grandparents when stabilized with outpt f/u at [facility] Mood disorder 04/16/2020 Assessment & Plan (04/19/2020 3:18 PM BUSINESS ADMINISTRATION PROFESSOR): Patient meets criteria for MDD except for [...] 5mg Assessment & Plan (04/16/2020 4:04 PM BUSINESS ADMINISTRATION PROFESSOR): Patient meets criteria for MDD except for [...] 04/16/2020 Assessment & Plan (04/19/2020 3:19 PM BUSINESS ADMINISTRATION PROFESSOR): Historical diagnosis d/t inattention. Was on Focalin for an extended amount of time in childhood. We planned to restart the patient's Focalin here, unfortunately it is not on formulary. Zane brought med from home. Patient could potentially benefit from a dose increase, but we will defer that to outpatient. -focalin XR 10mg (home supply) Assessment & Plan (04/16/2020 3:59 PM BUSINESS ADMINISTRATION PROFESSOR): Historical diagnosis d/t inattention. Was on Focalin for an extended amount of time in childhood. We planned to restart the patient's Focalin here, unfortunately it is not on formulary. Zane plans to bring the med from home -focalin XR 10mg (home supply) Diabetes 04/16/2020 Assessment & Plan (04/19/2020 3:18 PM BUSINESS ADMINISTRATION PROFESSOR): Diagnosed on a previous hospitalization this year. Lipids and blood glucoses elevated in ED. -increase Metformin to 1000mg BID Assessment & Plan (04/16/2020 4:00 PM BUSINESS ADMINISTRATION PROFESSOR): Diagnosed on a previous hospitalization this year. Lipids and blood glucoses elevated in ED. -Metformin 500mg BID UTI (urinary tract infection) 04/16/2020 Assessment & Plan (04/19/2020 3:17 PM BUSINESS ADMINISTRATION PROFESSOR): Previously diagnosed, asymptomatic, will continue previous treatment -completed Macrobid 100mg BID Assessment & Plan (04/16/2020 3:57 PM BUSINESS ADMINISTRATION PROFESSOR): Previously diagnosed, asymptomatic, will continue previous treatment [...] often do you attend chur ch or mandaen services? More than 4 times per year 04/16/2020 Do you belong to any clubs o r organizations such as zoroastrian groups, unions, fraternal or athletic groups, or [...] on file Legal Sex Female 3:03 AM BUSINESS ADMINISTRATION PROFESSOR Gender Identity Not on file Sexual Orientation [...] CDT LIPID PANEL STAT 04/15/2020 2:57 PM BUSINESS ADMINISTRATION PROFESSOR from Last 3 Months or Most Recently Relevant to Health Maintenance Results * (ABNORMAL) POCT glucose (08/27/2024 2:12 PM CDT) Glucose, POC 231(H) 70 - 199 mg/dL Comment: For Glucose values <35 mg/dl when Hematocrit is >60 mg/dl,the test may not accurately detect significant hypoglycemia,and testing in the Laboratory should be considered if clinically indicated. POC Performer [id number] [facility] Blood 08/27/2024 2:12 PM CDT 08/27/2024 2:12 PM CDT Brendan Sanon MD LAB POCT ORDERABLES - DEVICE Final Result Performing Organization Address City/State/[facility] Co de Phone Number [place] [address] Department [place] [address] * Surgical pathology (08/27/2024 1:47 PM CDT) Tissue (Esophageal biopsy) 08/27/2024 1:47 PM CDT Tissue specimen (specimen) (Gastric/Stomach biopsy) 08/27/2024 1:49 PM CDT Tissue specimen (specimen) (Duodenum, Biopsy) 08/27/2024 1:50 PM CDT Narrative PATHOLOGY [facility] - 08/28/2024 10:27 AM CDT [place] [address] [place], [place] [address] Tele: Adia Dixon MD - Fishing Accessories Maker Note to Patients: This report may contain [...] PATHOLOGY REPORT Patient Name: GREYSON JOHNSON Address: [address] [place] [address] Gender: F : 2000 (Age: 23) Service: Gastro Location: [facility] #: [id number] Patient Type: [facility] Taken: 08/27/2024 Received 08/27/2024 [...] filtered and submitted entirely in cassette C1. [facility]/08/27/2024 16:20 [facility] MICROSCOPIC DESCRIPTION: Microscopic evaluation of [...] Negative for dysplasia. Clerical Data Follows A; 53470 B; 45593 C; 33980 REPORT IMAGES AND/OR SCANNED DOCUMENTS ONLY VIEWABLE IN PDF FORMAT The immunohistochemical test(s) cited in this report, if any, was developed and its performance characteristics determined by [facility] Pathology Department. It has not been cleared or approved by the U.S. Food and Drug Administration. The FDA has determined that such clearance or approval is not necessary. This test is used for clinical purposes. It should not be regarded as investigational or for research. [facility] Laboratory is certified under the Clinical Laboratory [...] part or completely in the following laboratories: [facility], [address] [place] [address], [address] [facility], [place] [address]. Brendan Sanon MD LAB PATHOLOGY ORDERABLES Gabi rm Result PATHOLOGY [facility] Laboratory Receiving [address] [place], [place] [id number] * (ABNORMAL) POCT glucose (08/27/2024 12:59 PM CDT) Glucose, POC 276(H) 70 - 199 mg/dL Comment: For Glucose values <35 mg/dl when Hematocrit is >60 mg/dl,the test may not accurately detect significant hypoglycemia,and testing in the Laboratory should be considered if clinically indicated. POC Performer [id number] [facility] Blood 08/27/2024 12:5 9 PM CDT 08/27/2024 12:59 PM CDT us Brendan Sanon MD LAB POCT ORDERABLES - DEVICE Final Result [facility] [address] Department [place] [address] * Upper EUS (08/27/2024 12:02 PM CDT) Anatomical Region Laterality Modality Other Narrative Procedure Note Brendan Sanon MD - 08/27/2024 12:02 PM CDT ENDOSCOPY LAB Patient Name: Greyson Johnson Procedure Date: 08/27/2024 12:02 PM Admit Type: Outpatient Room: [facility] Date of : 2000 Instrument Name: [id number] Gender: Female Note Status: Finalized Procedure: Upper [...] be considered if clinically indicated. POC Performer [id number] [facility] Blood 08/27/2024 11:5 6 AM CDT 08/27/2024 11:56 AM CDT Brendan Sanon MD LAB POCT ORDERABLES - DEVICE Final Result [facility] [address] [place] [address] * POCT hCG, urine (08/27/2024 11:45 AM [...] BLOOD ORDERABLES Gabi l Result [facility] 1 [facility] Department [place] [address] * (ABNORMAL) Lipid panel (04/15/2020 2:57 PM BUSINESS ADMINISTRATION PROFESSOR) Pathologist [facility] Cholesterol 189 <=199 mg/dL [facility] Comment: Interpretive Data Ages < [...] revised on 2018. Triglycerides 464(H) <=129 mg/dL [facility] Comment: Interpretive Data Ages < [...] revised on 2018. HDL 38(L) >=45 mg/dL [facility] Comment: Interpretive Data Ages < [...] on 2018. LDL, calculated See Comment <=129 [facility] Comment: Unable to calculate LDL [...] on 2018. Non-HDL Cholesterol 151(H) <=144 mg/dL [facility] Comment: Interpretive Data Ages < or [...] last revised on 2018. Chol/HDL ratio [address] [facility] Blood specimen (specimen) 04/15/2020 2:57 PM BUSINESS ADMINISTRATION PROFESSOR 04/15/2020 3:12 PM BUSINESS ADMINISTRATION PROFESSOR Carolyn Skaggs MD LAB BLOOD ORDERABLES Final Result [facility] [address] [facility] [place] [address] from Last 3 Months or Most Recently Relevant to Health Maintenance Insurance [facility] Advance Directives For more information, please contact: [phone] * Full Code (Latest Code Status on File) Date Activated Date Inactivated Comments 08/27/2024 11:34 AM 08/27/2024 7:43 PM * Full Code Date Activated Date Inactivated Comments 04/16/2020 1:05 AM 04/19/2020 8:20 PM Care Teams Hot Knife Foxing Cutter Relationship Specialty Start Date End Date Lake Ellis MD [address] [facility] [place] [address] PCP - General Internal Medicine 08/27/24
--- OUTSIDE RECORDS SUMMARY | 2024-10-10 12:44 | XMS_ITS | Clinical Summary ---
Author Organization [facility] Address [address] [place] [address] Phone Care Team Providers Care Concrete Bucket Unloader Name Role Phone Liss, Flower Tolentino APRN, [...] Insurance MEDICAID [employer] Care Teams Concrete Bucket Unloader Relationship Specialty Start Date End Date Flower Leija APRN, DRY HEAT CABINET ATTENDANT [address] [place] [address] PCP - General Advanced Practice Nurse 02/06/24
--- OUTSIDE RECORDS SUMMARY | 2024-10-10 12:44 | XMS_ITS ---
Author Organization [facility] Address [address] [place] [address] Phone Care Team Providers Care Process Equipment Operator Name Role Phone Flower Leija APRN, CNP Primary Care [facility] Status:Enrolled (Active) Start date:06/11/2024 Enrollment date:06/11/2024 Related social drivers of health:Intimate Partner Violence, Social Connections, Alcohol Use, Tobacco Use, Financial Resource Strain,Depression, Stress, Physical Activity, Food Insecurity, Transportation Needs, Housing Stability, Utilities Continued Care and Services Coordination
--- OUTSIDE RECORDS SUMMARY | 2024-10-10 12:45 | XMS_ITS | Clinical Summary ---
Author Organization [facility] Address [address] [place] [address] Care Team Providers Care Car Dispatcher Name Role Phone Deisy Robbins MD Primary Care Provider Source Comments [facility],non-owned Affiliates and Associated Physician Practices is amultiple site organization consisting of ambulatory clinics and hospital sitesin [place], [place], [place] and [place]. This disclosure is being madepursuant to the Care Everywhere program and may not contain all information available regarding this patient. 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
--- OUTSIDE RECORDS SUMMARY | 2024-10-10 12:45 | XMS_ITS | CONTINUITY OF CARE DOCUMENT ---
Author Name devika fortune Address Unknown Organization [facility] Address [address] [place] [address] Phone [phone] Care Team Providers Care Guillotine Operator Name Role Phone Caio WINKLER, Albert Unavailable [phone] Liss WINKLER, Flower Unavailable [phone] KAVITA MADISON, PAXTON Unavailable PROBLEMS Condition [...] In-person encounter Office Visit Albert Kearney MD [facility] FibromyalgiaErythrocytosis - In-person encounter Office Visit Albert Kearney MD [facility] - In-person encounter Office Visit Albert Kearney MD [facility] Sinus/atrial tachycardia;nml tshHYPERTENSION - In-person encounter Office Visit Albert Kearney MD [facility] Diabetes mellitusHypertriglyceridemiaExposure to SARS-associated coronavirus;had vaccine and neg swab - In-person encounter Office Visit Albert Kearney MD [facility] Sinus/atrial tachycardia;nml tshDiabetes mellitusAsthmaObesityHyperlipidemia;NEG CRP adn lpaVitamin D deficiencyAnxiety depression VITAL SIGNS Date Observation Value Provider Body Mass Index (Ratio) 42.05 kg/m2 Ximena Kearney MD blood pressure, diastolic 90 mm[Hg] [facility] blood pressure, systolic 115 mm[Hg] Shwetaluci puente Jordan oxygen saturation, oximetry 97 % [facility] pulse rate 108 /min [facility] blood pressure, cuff size regular [facility] weight E&M 237.4 [lb_av] [facility] height E&M 63 [in_i] [facility] Body Mass Index (Ratio) 41.27 [...] Vel[place] oxygen saturation, oximetry 98 % [facility] [place] weight E&M 237 [lb_av] [facility] [place] respiratory rate E&M 12 /min [facility] Velazquez height E&M 63 [in_i] [facility] Vel[facility]quez Body Mass Index (Ratio) 45.02 kg/m2 Ximena Kearney MD blood pressure, diastolic 101 mm[Hg] [facility] blood pressure, systolic 147 mm[Hg] Thang Lua [...] device active Albert Kearney MD Dexcom G7 Associate Embalmer/Funeral Director active Albert Kearney MD quetiapine 100 mg [...] TABLET BY MOUTH EVERY DAY - [facility] Card[facility]em CD 120 mg capsule,extended release 24hr completed Take 1 capsule by mouth once a day - Albert Kearney MD Jardiance 10 mg tablet completed Take 1 tablet by mouth once a day TAKE 1 TABLET BY MOUTH EVERY DAY REDUCES CARDIOVASCULAR & HEART FAILURE HOSPITALIZATION - Raj [facility] verapamil 180 mg tablet [...] Kearney MD drug use no Verah Bonareri ADOBE ARCHITECT personal history of marijuana use yes Verah Bonareri ADOBE ARCHITECT alcohol use no Verah Bonareri ADOBE ARCHITECT if the patient is us ing/has used a vaping item, Current, Former, Never Used, Not asked Current Verah Bonareri ADOBE ARCHITECT passive cigarette sm stu exposure no Verah Bonareri ADOBE ARCHITECT chewing tobacco use Never Vermonica Temple nareri ADOBE ARCHITECT smoking status Never smoker Louann Iyershaunnar i ADOBE ARCHITECT passive cigarette sm stu exposure no Albert [...] red democrat ID [place] MEDICAID (2) Medicaid [id number] ADVANCE DIRECTIVES Name Date DISCUSSED - NO DECISION MADE TREATMENT PLAN Date Name Performer [id number],C,12.5 Albert S hodan [id number],B, Albert Serot a [id number],B, Albert Serot a [id number],B, Albert Serot a [id number],S, Albert Serot a [id number],S, Albert Serot a [id number],S, n ml pro echho terrie stress Albert Serota [id number],S, m ild Albert Serota [id number],C,mild Albert S hodan WINKLER [id number],C,nml por echho terrie stress Albert Serota [id number],C,neg pro an de cho Albert Serota [id number],C,neg pro Harve y Serota [id number],C,follows with psych Flower Herron NP [id number],C,n oncomplaint with Vitamin D supplementation will check Vit D level Flower Herron NP [id number],C,w ill check lipid panel Her updated medication list for this problem includes: Atorvastatin 40 Mg Tablet (Atorvastatin) ..... Take 1 tablet by mouth every night Flower Herron NP [id number],C,e ncouraged lifestyle modifications and weight loss for improved health Flower Herron NP [id number],N,will check PF Ts Flower Herron NP [id number],C,l ast A1c 12.4. being followed by PCP [...] glargine) ..... 20 units Flower Herron NP [id number],N,w ill check labs, 2 week telesentry monitor, [...] night w ill repeat labs Louann Dickens ADOBE ARCHITECT Cardiology: T OTAL 108, TRI 218, HDL 42, LDL 22 (05/2022) H er updated medication list for this problem includes: Atorvastatin 40 Mg Tablet (Atorvastatin) ..... Take 1 tablet by mouth every night w ill repeat labs Louann Dickens ADOBE ARCHITECT Cardiology: B P today: 128/98 P rior [...] ..... 20 units Flower Herron NP Cardiology:will [facility] k labs, 2 week telesentry monitor, PFTs, ECHO, routine stress test Flower Herron NP Date Name Monitor - Telemetry (Mobile Cardiac) Complete Echo VITAMIN B12 Vitamin D, 25-Hydrox y CBC (INCLUDES DIFF/P LT) IRON AND TOTAL IRON BINDING CAPACITY FERRITIN Lipoprotein (a) LIPID PANEL DLCO - 21247 FRC - 60156 FVC - 56461 HEMOGLOBIN A1c LIPID PANEL Lipoprotein (a) Complete [...] night Holter Monitor 24 Hr DLCO - 12318 FRC - 44330 FVC - 25361 Holter Monitor 24 Hr DLCO - 60653 FRC - 16677 FVC - 48721 Sleep Study Titratio n DLCO - 41161 FRC - 29960 FVC - 24660 VITAMIN B12 Vitamin D, 25-Hydrox y Microalb/Creatinine [...] d FVC / MVV with bronchodilator - 49843 Albert Kearney MD completed SpO2 w/o 6min walk/titration Albert Kearney MD completed SVC - 80713 Albert Kearney MD complet ed DLCO - 08049 Albert Kearney MD comple stacey EKG Albert Kearney MD complete d Complex e/m visit add on Albert Kearney MD completed Spirometry Albert Kearney MD complete d FVC / MVV with bronchodilator - 96957 Albert Kearney MD completed FRC - 00764 Albert Kearney MD complet ed SpO2 w/o 6min walk/titration Albert Kearney MD completed SVC - 09993 Albert Kearney MD complet ed DLCO - 91266 Albert Kearney MD comple stacey EKG Albert Kearney MD complete d
--- OUTSIDE RECORDS SUMMARY | 2024-10-10 12:45 | XMS_ITS | Clinical Summary ---
Author Organization [facility] [address] [place] [id number] Care Team Providers Care Swimming Coach Name Role Phone Lake Ellis MD Primary Care Provider [phone] Allergies Active Allergy Reactions Criticality Noted Date [...] 04/16/2020 Assessment & Plan (04/19/2020 3:23 PM RECREATION FACILITY ATTENDANT): 19 yo F w/ a reported hx of bipolar and ADHD who was admitted at the recommendation of her correctional case manager for suicidal ideation with a [...] with a therapist and psychiatric services through [facility], whom we have spoken with by phone and plan to coordinate DBT therapy on an outpatient basis. Additionally, grandma and patient provided further DBT resources outside of [place]. She is IMPROVING as evidence by cheerful [...] to grandparents TODAY with outpt f/u at [place] Assessment & Plan (04/16/2020 4:11 PM RECREATION FACILITY ATTENDANT): 19 yo F w/ a reported hx of bipolar and ADHD who was admitted at the recommendation of her correctional case manager for suicidal ideation with a [...] with a therapist and psychiatric services through [facility]. -therapeutic milieu and participation in groups -outpatient therapy upon discharge -PRNs available for agitation and comfort -appreciate SW assistance with care planning -dispo: home to grandparents when stabilized with outpt f/u at [place] Mood disorder 04/16/2020 Assessment & Plan (04/19/2020 3:18 PM RECREATION FACILITY ATTENDANT): Patient meets criteria for MDD except for [...] 5mg Assessment & Plan (04/16/2020 4:04 PM RECREATION FACILITY ATTENDANT): Patient meets criteria for MDD except for [...] 04/16/2020 Assessment & Plan (04/19/2020 3:19 PM RECREATION FACILITY ATTENDANT): Historical diagnosis d/t inattention. Was on Focalin for an extended amount of time in childhood. We planned to restart the patient's Focalin here, unfortunately it is not on formulary. Zane brought med from home. Patient could potentially benefit from a dose increase, but we will defer that to outpatient. -focalin XR 10mg (home supply) Assessment & Plan (04/16/2020 3:59 PM RECREATION FACILITY ATTENDANT): Historical diagnosis d/t inattention. Was on Focalin for an extended amount of time in childhood. We planned to restart the patient's Focalin here, unfortunately it is not on formulary. Zane plans to bring the med from home -focalin XR 10mg (home supply) Diabetes 04/16/2020 Assessment & Plan (04/19/2020 3:18 PM RECREATION FACILITY ATTENDANT): Diagnosed on a previous hospitalization this year. Lipids and blood glucoses elevated in ED. -increase Metformin to 1000mg BID Assessment & Plan (04/16/2020 4:00 PM RECREATION FACILITY ATTENDANT): Diagnosed on a previous hospitalization this year. Lipids and blood glucoses elevated in ED. -Metformin 500mg BID UTI (urinary tract infection) 04/16/2020 Assessment & Plan (04/19/2020 3:17 PM RECREATION FACILITY ATTENDANT): Previously diagnosed, asymptomatic, will continue previous treatment -completed Macrobid 100mg BID Assessment & Plan (04/16/2020 3:57 PM RECREATION FACILITY ATTENDANT): Previously diagnosed, asymptomatic, will continue previous treatment -Macrobid 100mg BID for 4 more days Suicidal ideation Encounters Date Type Department Care Team Description 08/27/2024 1:36 PM CDT Anesthesia Event [facility] [address] [place] [phone] Candido Lofton MD Jacobsen, Kyle G., MD 08/27/2024 12:00 PM CDT - 08/27/2024 12:30 PM CDT Surgery [facility] [address] [place] [phone] Brendan Sanon MD ESOPHAGOGASTRODUODENOSCOPY ULTRASOUND EXAM LIMITED 08/27/2024 10:56 AM CDT - 08/27/2024 3:43 PM CDT Hospital Encounter [facility] [address] [place] [address] Brendan Sanon MD Nausea and vomiting, unspecified vomiting type; Diarrhea, unspecified type; Generalized abdominal pain; Gastroesophageal reflux disease without esophagitis Discharge Disposition: Discharge to home or self care 08/13/2024 Telephone [facility] Neurology [address] [place] [address] [place] [phone] Mansoor Albert MD Prior Auth (Qulipta 30 mg) 08/11/2024 Telephone [facility] Neurology [address] [place] [phone] Mansoor Albert MD 08/11/2024 Orders Only [address] [phone] Mansoor Albert MD 08/08/2024 Telephone [facility] Neurology [address] [place] [phone] Mansoor Albert MD Med Management 07/31/2024 2:00 PM CDT Office Visit [facility] Neurology [address] [place] [address] [place] [phone] Mansoor Albert MD Migraine without aura and [...] often do you attend chur ch or buddhist services? More than 4 times per year 04/16/2020 Do you belong to any clubs o r organizations such as oriental orthodox groups, unions, fraternal or athletic groups, or [...] on file Legal Sex Female 3:03 AM RECREATION FACILITY ATTENDANT Gender Identity Not on file Sexual Orientation [...] CDT LIPID PANEL STAT 04/15/2020 2:57 PM RECREATION FACILITY ATTENDANT from Last 3 Months or Most Recently Relevant to Health Maintenance Results * (ABNORMAL) POCT glucose (08/27/2024 2:12 PM CDT) Glucose, POC 231(H) 70 - 199 mg/dL Comment: For Glucose values <35 mg/dl when Hematocrit is >60 mg/dl,the test may not accurately detect significant hypoglycemia,and testing in the Laboratory should be considered if clinically indicated. POC Performer [id number] JONNY [facility] Blood 08/27/2024 2:12 PM CDT 08/27/2024 2:12 PM CDT us Brendan Sanon MD LAB POCT ORDERABLES - DEVICE Final Result [facility] [address] Department of Laboratories [place], [place] [id number] * Surgical pathology (08/27/2024 1:47 PM CDT) Tissue (Esophageal biopsy) 08/27/2024 1:47 PM CDT Tissue specimen (specimen) (Gastric/Stomach biopsy) 08/27/2024 1:49 PM CDT Tissue specimen (specimen) (Duodenum, Biopsy) 08/27/2024 1:50 PM CDT Narrative PATHOLOGY [facility] - 08/28/2024 10:27 AM CDT [place] [id number] [place], [place] [address] Tele: Adia Dixon MD - Stamping Die Try Out Worker Note to Patients: This report may [...] PATHOLOGY REPORT Patient Name: GREYSON JOHNSON Address: [address] [place] [address] Gender: F : 2000 (Age: 23) Service: Gastro Location: [facility] #: [id number] Patient Type: [facility] [...] filtered and submitted entirely in cassette C1. [facility]/08/27/2024 16:20 JOHN MORALES MICROSCOPIC DESCRIPTION: [...] Negative for dysplasia. Clerical Data Follows A; 37848 B; 89134 C; 50415 REPORT IMAGES AND/OR SCANNED DOCUMENTS ONLY VIEWABLE IN PDF FORMAT The immunohistochemical test(s) cited in this report, if any, was developed and its performance characteristics determined by [facility] Department. It has not been cleared or approved by the U.S. Food and Drug Administration. The FDA has determined that such clearance or approval is not necessary. This test is used for clinical purposes. It should not be regarded as investigational or for research. [facility] is certified under the Clinical [...] part or completely in the following laboratories: [facility], [address] [place] [address], [address] [place] [address]. Brendan Sanon MD LAB PATHOLOGY ORDERABLES Gabi rm Result PATHOLOGY [facility] Laboratory Receiving [address] [place] [address] * (ABNORMAL) POCT glucose (08/27/2024 12:59 PM CDT) Glucose, POC 276(H) 70 - 199 mg/dL Comment: For Glucose values <35 mg/dl when Hematocrit is >60 mg/dl,the test may not accurately detect significant hypoglycemia,and testing in the Laboratory should be considered if clinically indicated. POC Performer [id number] JONNY [facility] Blood 08/27/2024 12:5 9 PM CDT 08/27/2024 12:59 PM CDT us Brendan Sanon MD LAB POCT ORDERABLES - DEVICE Final Result [facility] [address] Department [place] [address] * Upper EUS (08/27/2024 12:02 PM CDT) Anatomical Region Laterality Modality Other Narrative Procedure Note Brendan Sanon MD - 08/27/2024 12:02 PM CDT ENDOSCOPY LAB Patient Name: Greyson Johnson Procedure Date: 08/27/2024 12:02 PM Admit Type: Outpatient Room: [facility] Date of : 2000 Instrument Name: [id number] Gender: Female Note Status: Finalized Procedure: Upper [...] be considered if clinically indicated. POC Performer [id number] JONNY [facility] Blood 08/27/2024 11:5 6 AM CDT 08/27/2024 11:56 AM CDT Brendan Sanon MD LAB POCT ORDERABLES - DEVICE Final Result [facility] [address] [place] [address] * POCT hCG, urine (08/27/2024 11:45 [...] BLOOD ORDERABLES Gabi l Result [facility]) [address] [facility] Department [place] [address] * (ABNORMAL) Lipid panel (04/15/2020 2:57 PM RECREATION FACILITY ATTENDANT) Cholesterol 189 <=199 mg/dL [facility] Comment: [...] on 2018. Triglycerides 464(H) <=129 mg/dL [facility] Comment: Interpretive Data Ages < [...] on 2018. HDL 38(L) >=45 mg/dL [facility] Comment: Interpretive Data Ages < [...] 2018. LDL, calculated See Comment <=129 [facility] Comment: Unable to calculate LDL [...] on 2018. Non-HDL Cholesterol 151(H) <=144 mg/dL [facility] Comment: Interpretive Data Ages < or [...] last revised on 2018. Chol/HDL ratio 5 [facility] Blood specimen (specimen) 04/15/2020 2:57 PM RECREATION FACILITY ATTENDANT 04/15/2020 3:12 PM RECREATION FACILITY ATTENDANT Carolyn Skaggs MD LAB BLOOD ORDERABLES Final Result [facility] Department [place] [address] from Last 3 Months or Most Recently Relevant to Health Maintenance Insurance [facility] Advance Directives For more information, please contact: [phone] * Full Code (Latest Code Status on File) Date Activated Date Inactivated Comments 08/27/2024 11:34 AM 08/27/2024 7:43 PM * Full Code Date Activated Date Inactivated Comments 04/16/2020 1:05 AM 04/19/2020 8:20 PM Care Teams Swimming Coach Relationship Specialty Start Date End Date Lake Ellis MD [address] [place] [address] [place] [address] PCP - General Internal Medicine 08/27/24
== END 2024-10-10 12:40 | disposition left against medical advice (07) ==
PROVIDERS: Emergency Provider Student in an Organized Health Care Education/Training Program
DX: E11.65 Type 2 diabetes mellitus with hyperglycemia (principal)
CPT/HCPCS: 82948; 99199